=== PATIENT | male | born 1955 | race Caucasian/White ===

== ENCOUNTER 2016-10-07 09:07 | Emergency (ER) | payer OTHER ==
[~2016-10-07] VITALS: Ht 172.7 cm; Wt 82.0 kg
[~2016-10-07 09:07] MED LIST: ASPCH81X PO; CALC-15 PO; CANA1TAB PO; CLC100X PO; DIVA500T5 PO; INSUINJ12 SQ; MAGN400T5 PO; MULTTAB58 PO; PANT1TAB48 PO; POLY150C4 PO; SITA100T3 PO
[2016-10-07 09:16] VITALS: TEMP 37; Ht 172.7 cm; Wt 82.0 kg
[2016-10-07] MEDS ORDERED: SODIUM CHLORIDE 0.9% 1000ML 1,000 ML IV SCH (09:31)
[2016-10-07] MEDS ORDERED: HYDR-4956 (09:47)
[2016-10-07] MEDS ORDERED: KPP/750 PO (09:47)
--- NOTE | 2016-10-07 09:55 | DIAGNOSTIC IMAGING REPORT ---
SINGLE VIEW CHEST CLINICAL HISTORY: Strokelike symptoms. FINDINGS: An AP, portable, upright chest radiograph is compared to study dated 02/11/2015. Correlation is made with chest CT dated 01/03/2009. The examination is degraded by portable technique and patient rotation. The heart is top normal for projection. Chronic interstitial thickening and mild elevation of the right hemidiaphragm are unchanged from previous. The lungs and pleural spaces are clear. No pneumothorax is seen. The bony thorax is grossly intact. Surgical clips are noted in the left axilla. A ventriculoperitoneal shunt catheter traverses the right thorax. IMPRESSION: No acute cardiopulmonary abnormality. Electronically signed by: Ward Franklin M.D. 10/07/2016 9:53 AM Dictated Date/Time: 10/07/2016 9:51 AM
[2016-10-07 10:19] LABS: BASO % 0.5 %; BASO ABS # 0.02 K/uL (0-0.2); COMPLETE YES; EOS % 1.2 %; HEMATOCRIT 47.8 % (42-52); IG% 0.2 %; LYMPH % 10.9 %; LYMPH ABS # 0.44 K/uL (1.2-3.4); MEAN CELL VOLUME 84.3 fL (80-100); MEAN CORPUSCULAR HEMOGLOBIN 28.6 pg (25-34); MEAN CORPUSCULAR HGB CONC 33.9 g/dl (32-36); MEAN PLATELET VOLUME 9.8 fL (7.4-10.4); MONO % 10.2 %; PLATELET COUNT 185 K/uL (130-400); RED BLOOD COUNT 5.67 M/uL (4.7-6.1); WHITE BLOOD COUNT 4.03 K/uL (4.8-10.8)
[2016-10-07 10:33] LABS: PARTIAL THROMBOPLASTIN RATIO 1.4
--- NOTE | 2016-10-07 10:39 | DIAGNOSTIC IMAGING REPORT ---
CT SCAN OF THE BRAIN WITHOUT IV CONTRAST CLINICAL HISTORY: Generalized weakness. Stroke like symptoms. COMPARISON STUDY: CT of the brain dated 02/11/2015. TECHNIQUE: Unenhanced axial CT scan of the brain is performed from the vertex to the skull base. CT DOSE: 614.27 mGy.cm FINDINGS: Brain parenchyma: A suboccipital approach ventriculostomy catheter and a right frontal approach ventriculostomy catheter are unchanged in position. The tips of the catheters terminate in the anterior horn of the left lateral ventricle. Ventricular caliber has not significantly changed. A chronic extra-axial fluid collection along the left convexity with peripheral calcification is unchanged to modestly decreased in size from 02/11/2015. This now measures up to 2.4 cm in maximum diameter. This causes subjacent mass effect and effaces the left lateral ventricle. Mass effect is grossly similar to previous. A 2.4 x 1.7 cm hyperdense nodule is again seen along the left convexity on image #24. This is likely unchanged from previous. There is a large gas-filled cavity identified in the right frontoparietal region. This appears increased in size from 02/11/2015. No parenchymal hematoma is identified. There is edema identified within the right parietal region which was not clearly seen on prior studies. There are age-related involutional changes noting mild subcortical and periventricular microangiopathic change. Dense calcification in the region of pineal gland is unchanged. Ventricles, sulci, cisterns: Prominent secondary to involutional change. See above. Intracranial vasculature: There is mild atherosclerotic calcification of the cavernous carotid arteries. Calvarium: There are postoperative changes from left-sided craniotomy and right parietal craniectomy. A right frontal fransico hole is noted. Sinuses and mastoids: The visualized paranasal sinuses are clear. The mastoid air cells are well pneumatized. Orbits: The bony orbits are grossly intact. IMPRESSION: 1. Two ventriculostomy catheters are unchanged in position from 02/11/2015. Ventricular caliber has not significantly changed. 2. A chronic extra-axial fluid collection along the left convexity with associated mass effect is also similar to previous. 3. A 2.4 cm hyperdense lesion along the left convexity is grossly unchanged. 4. There are postoperative changes involving the calvarium bilaterally. A gas containing cavity along the right frontoparietal region has increased in size from 02/11/2015. 5. There is edema identified within the right parietal region which is new from 02/11/2015. This is of indeterminant etiology and significance, and may be related to the enlarging gas-filled cavity. The overlying cortex appears maintained and this is not typical for ischemia. Clinical correlation will be required. Follow-up of the patient's neurosurgeon is recommended. 6. No parenchymal hematoma is identified. 7. Additional changes as above. Electronically signed by: Ward Franklin M.D. 10/07/2016 10:37 AM Dictated Date/Time: 10/07/2016 10:23 AM
[2016-10-07 10:40] LABS: BLOOD UREA NITROGEN 10 mg/dl (7-18); BUN/CREATININE RATIO 18.2 (10-20); CALCIUM 10.2 mg/dl (8.5-10.1); CARBON DIOXIDE 26 mmol/L (21-32); CHLORIDE 104 mmol/L (98-107); CREATININE 0.55 mg/dl (0.60-1.40); GLUCOSE 129 mg/dl (70-99); POTASSIUM 4.1 mmol/L (3.5-5.1); SODIUM 141 mmol/L (136-145)
--- NOTE | 2016-10-07 11:06 | EMERGENCY ROOM VISIT NOTE ---
History Report prepared by Fabio: Isidra Jain Under the Supervision of: Dr. Segundo Hahn M.D. First contact with patient: 09:09 Stated Complaint: INCREASED WEAKNESS History of Present Illness The patient is a 61 year old male arriving by ambulance from [facility] who presents to the Emergency Room with complaints of increased weakness to the right side of his body, which was noticed by caregiver earlier this morning. Currently, patient denies being in any discomfort, and he has no complaints at this time. Patient states that he suffers from chronic left sided weakness secondary to history of multiple surgeries to his head, but while caregiver was helping him shower this morning, his right side seemed to have become more weak than baseline. Nursing notes also state that his right side appeared to be "twitching". He does have a history of seizures and takes Depakote regularly. Patient is unable to stand on his own, but he denies suffering recent falls or trauma. He also denies LOC, change in speech, visual difficulties above baseline , headache, change in mental status, fevers, chills, chest pain, shortness of breath, abdominal pain, nausea, vomiting, diarrhea or urinary symptoms. Source of History: patient, [facility] notes Onset: this morning Position: other (right side) Symptom Intensity: no current discomfort Quality: other (weakness) Timing: other (increased) Associated Symptoms: No LOC, No SOB, No abdominal pain, No chest pain, No chills, No diarrhea, No fevers, No headache, No nausea, No urinary symptoms, No vomiting Note: Patient denies change in mental status, change in speech or visual difficulties. Review of Systems See HPI for pertinent positives & negatives. A total of 10 systems reviewed and were otherwise negative. 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 Family History No significant family history Social History Smoking Status: Former Smoker Alcohol Use: none Housing Status: penitent[facility] Occupation Status: unemployed Current/Historical Medications Scheduled Calcium & Phosphorus W/ Vitami (Posture-D Calcium/Magnesi), 1 TAB PO QPM Canagliflozin (Invokana), 100 MG PO QAM Divalproex Sodium (Depakote Delay Rel), 500 MG PO TID Docusate Sodium (Colace), 100 MG PO AMHS Insulin Detmir (Levemir), 18 UNITS SQ HS Levetiracetam (Keppra), 750 MG PO Q12 Magnesium Oxide (Mag-Ox), 400 MG PO BID Multiple Vitamin (Multivitamin), 1 TABLET PO DAILY Pantoprazole (Protonix), 40 MG PO QAM Polysaccharide Iron Complex (Ferrex 150), 150 MG PO QAM Sitagliptin Phosphate (Januvia), 100 MG PO QAM Miscellaneous Medications Hydrocortisone (Rectal) (Hydrocortisone) Allergies Coded Allergies: No Known Allergies (Verified , NKA, 10/07/16) Physical Exam Vital Signs Date Time Temp Pulse Resp B/P Pulse Ox O2 Delivery O2 Flow Rate FiO2 10/07/16 16:58 79 16 102/77 94 Room Air 10/07/16 14:45 89 16 144/81 10/07/16 14:01 89 18 117/80 10/07/16 13:00 84 16 115/68 10/07/16 12:52 86 10/07/16 11:04 75 16 130/84 10/07/16 09:19 77 10/07/16 09:16 37.0 84 16 131/93 95 Room Air Physical Exam GENERAL: Patient is resting in bed, no acute distress. HEAD: Divit present in right side of head consistent with previous brain surgery. EYES: Ocular movements intact pupils equal and react to light OROPHARYNX mucous membranes are moist no exudates present no erythema or edema present NECK: Supple no nuchal rigidity CHEST: Good equal expansion LUNGS: Clear and equal to auscultation CARDIAC: Normal S1 and S2 ABDOMEN: Soft nontender no guarding BACK: No CVA tenderness EXTREMITIES: Left side extremities are flaccid and at baseline. NEURO: Patient is following commands is answering questions appropriately. Alert and oriented x3 Cranial Nerves 2-12 grossly intact. He is unable to move the left side of his body. Medical Decision & Procedures ER Provider Diagnostic Interpretation: X-ray results as stated below per interpretation by me and the radiologist: CT results as stated below per my review and radiologist interpretation: SINGLE VIEW CHEST CLINICAL HISTORY: Stroke like symptoms. FINDINGS: An AP, portable, upright chest radiograph is compared to study dated 02/11/2015. Correlation is made with chest CT dated 01/03/2009. The examination is degraded by portable technique and patient rotation. The heart is top normal for projection. Chronic interstitial thickening and mild elevation of the right hemidiaphragm are unchanged from previous. The lungs and pleural spaces are clear. No pneumothorax is seen. The bony thorax is grossly intact. Surgical clips are noted in the left axilla. A ventriculoperitoneal shunt catheter traverses the right thorax. IMPRESSION: No acute cardiopulmonary abnormality. Electronically signed by: Ward Franklin M.D. 10/07/2016 9:53 AM Dictated Date/Time: 10/07/2016 9:[address] SCAN OF THE BRAIN WITHOUT IV CONTRAST CLINICAL HISTORY: Generalized weakness. Stroke like symptoms. COMPARISON STUDY: CT of the brain dated 02/11/2015. TECHNIQUE: Unenhanced axial CT scan of the brain is performed from the vertex to the skull base. CT DOSE: 614.27 mGy.cm FINDINGS: Brain parenchyma: A suboccipital approach ventriculostomy catheter and a right frontal approach ventriculostomy catheter are unchanged in position. The tips of the catheters terminate in the anterior horn of the left lateral ventricle. Ventricular caliber has not significantly changed. A chronic extra-axial fluid collection along the left convexity with peripheral calcification is unchanged to modestly decreased in size from 02/11/2015. This now measures up to 2.4 cm in maximum diameter. This causes subjacent mass effect and effaces the left lateral ventricle. Mass effect is grossly similar to previous. A 2.4 x 1.7 cm hyperdense nodule is again seen along the left convexity on image #24. This is likely unchanged from previous. There is a large gas-filled cavity identified in the right frontoparietal region. This appears increased in size from 02/11/2015. No parenchymal hematoma is identified. There is edema identified within the right parietal region which was not clearly seen on prior studies. There are age-related involutional changes noting mild subcortical and periventricular microangiopathic change. Dense calcification in the region of pineal gland is unchanged. Ventricles, sulci, cisterns: Prominent secondary to involutional change. See above. Intracranial vasculature: There is mild atherosclerotic calcification of the cavernous carotid arteries. Calvarium: There are postoperative changes from left-sided craniotomy and right parietal craniectomy. A right frontal fransico hole is noted. Sinuses and mastoids: The visualized paranasal sinuses are clear. The mastoid air cells are well pneumatized. Orbits: The bony orbits are grossly intact. IMPRESSION: 1. Two ventriculostomy catheters are unchanged in position from 02/11/2015. Ventricular caliber has not significantly changed. 2. A chronic extra-axial fluid collection along the left convexity with associated mass effect is also similar to previous. 3. A 2.4 cm hyperdense lesion along the left convexity is grossly unchanged. 4. There are postoperative changes involving the calvarium bilaterally. A gas containing cavity along the right frontoparietal region has increased in size from 02/11/2015. 5. There is edema identified within the right parietal region which is new from 02/11/2015. This is of indeterminant etiology and significance, and may be related to the enlarging gas-filled cavity. The overlying cortex appears maintained and this is not typical for ischemia. Clinical correlation will be required. Follow-up of the patient's neurosurgeon is recommended. 6. No parenchymal hematoma is identified. 7. Additional changes as above. Electronically signed by: Ward Franklin M.D. 10/07/2016 10:37 AM Dictated Date/Time: 10/07/2016 10:23 AM Laboratory Results 10/07/16 09:50 Red Blood Count 5.67, Mean Corpuscular Volume 84.3, Mean Corpuscular Hemoglobin 28.6, Mean Corpuscular Hemoglobin Concent 33.9, Mean Platelet Volume 9.8, Neutrophils (%) (Auto) 77.0, Lymphocytes (%) (Auto) 10.9, Monocytes (%) (Auto) 10.2, Eosinophils (%) (Auto) 1.2, Basophils (%) (Auto) 0.5, Neutrophils # (Auto ) 3.10, Lymphocytes # (Auto) 0.44, Monocytes # (Auto) 0.41, Eosinophils # (Auto ) 0.05, Basophils # (Auto) 0.02 10/07/16 09:50 Test 10/07/16 09:50 10/07/16 09:56 White Blood Count 4.03 K/uL (4.8-10.8) Red Blood Count 5.67 M/uL (4.7-6.1) Hemoglobin 16.2 g/dL (14.0-18.0) Hematocrit 47.8 % (42-52) Mean Corpuscular Volume 84.3 fL (80-100) Mean Corpuscular Hemoglobin 28.6 pg (25-34) Mean Corpuscular Hemoglobin Concent 33.9 g/dl (32-36) Platelet Count 185 K/uL (130-400) Mean Platelet Volume 9.8 fL (7.4-10.4) Neutrophils (%) (Auto) 77.0 % Lymphocytes (%) (Auto) 10.9 % Monocytes (%) (Auto) 10.2 % Eosinophils (%) (Auto) 1.2 % Basophils (%) (Auto) 0.5 % Neutrophils # (Auto) 3.10 K/uL (1.4-6.5) Lymphocytes # (Auto) 0.44 K/uL (1.2-3.4) Monocytes # (Auto) 0.41 K/uL (0.11-0.59) Eosinophils # (Auto) 0.05 K/uL (0-0.5) Basophils # (Auto) 0.02 K/uL (0-0.2) RDW Standard Deviation 46.2 fL (36.4-46.3) RDW Coefficient of Variation 15.1 % (11.5-14.5) Immature Granulocyte % (Auto) 0.2 % Immature Granulocyte # (Auto) 0.01 K/uL (0.00-0.02) Prothrombin Time 11.0 SECONDS (9.0-12.0) Prothromb Time International Ratio 1.0 (0.9-1.1) Activated Partial Thromboplast Time 37.3 SECONDS (21.0-31.0) Partial Thromboplastin Ratio 1.4 Anion Gap 11.0 mmol/L (3-11) Est Creatinine Clear Calc Drug Dose 138.1 ml/min Estimated GFR () 131.3 Estimated GFR (Non- 113.3 BUN/Creatinine Ratio 18.2 (10-20) Calcium Level 10.2 mg/dl (8.5-10.1) Total Creatine Kinase 16 U/L (39-308) Creatine Kinase MB < 0.5 ng/ml (0.5-3.6) Creatine Kinase MB Ratio (0-3.0) Troponin I < 0.015 ng/ml (0-0.045) Valproic Acid (Depakene) Level 47 mcg/ml (50-100) Influenza Type A (RT-PCR) Neg for Influ A (NEG) Influenza Type B (RT-PCR) Neg for Influ B (NEG) Labs reviewed by ED physician. Medications Administered Medications (Trade) Dose Ordered Sig/Monalisa Route Start Time Stop Time Status Last Admin Dose Admin Sodium Chloride (Nss 1000ml) 1,000 ml @ 50 mls/hr Q20H IV 10/07/16 09:31 10/07/16 17:39 DC 10/07/16 09:31 50 MLS/HR ECG Indication: weakness Rate (beats per minute): 77 Rhythm: normal sinus Findings: no acute ischemic change, no ectopy Change: no significant change (when compared to EKG from 02/11/15.) ED Course 0908: Past medical records reviewed. The patient was evaluated in room B3. A complete history and physical examination was performed. 1100: Upon reevaluation, patient was doing well and appeared to be resting comfortably. He was requesting a meal tray. It will be ordered. Neuro surgery in [place] will be contacted. 1120: Jake Peterson PA-C of neurosurgery from [place] was contacted. They will call back for consult after they finish in surgery. 1200: I reevaluated the patient at this time and he was doing well. I updated him on my discussion with Jake NICHOLS and told him that we are waiting for a call back from neurosurgery. Medical Decision Etiologies such as metabolic, infection, hypo/hyperglycemia, electrolyte abnormalities, cardiac sources, intracerebral event, toxicologic, neurologic, as well as others were entertained. This is a 61-year-old male who presents emergency department complaining of right-sided twitching that appears to have resolved upon his arrival to the emergency department. The patient has a very complicated medical history in regards to his brain. He is onto antiseizure medications including Keppra and valproic acid. Both of these levels were drawn. The patient was last sent to [place] for the CAT scan of his head which showed gas. The gas has increased in size. For this reason I did discuss the case with neurosurgery and [place]. I do believe that the patient as well as that he can be [facility] back to his [facility] as his symptoms seem to have resolved however I stressed the need for follow-up with neurosurgery and [place]. I did discuss the case with the neurosurgeon in [place] who agreed with the treatment plan of sending the patient back Consults Time Called: 1100 Consulting Physician: Jake Hamilton Returned Call: 1120 They will call back for consult after they finish in surgery. Impression Primary Impression: Seizure-like activity Scribe Attestation The scribe's documentation has been prepared under my direction and personally reviewed by me in its entirety. I confirm that the note above accurately reflects all work, treatment, procedures, and medical decision making performed by me. Departure Information Dispostion Other Referrals Jack Farley M.D. (PCP)
[2016-10-07 11:46] LABS: INFLUENZA A PCR Neg for Influ A (NEG); INFLUENZA B PCR Neg for Influ B (NEG)
[2016-10-07 16:58] VITALS: BP 102/77; PULSE 79; O2SAT 94
== END 2016-10-07 17:00 ==
LOC: EDBD 09:07 → C.EDB 09:08
DX: R25.3 Fasciculation (principal); G40.909 Epilepsy, unspecified, not intractable, without status epilepticus; E11.9 Type 2 diabetes mellitus without complications; Z86.69 Personal history of other diseases of the nervous system and sense organs; Z86.72 Personal history of thrombophlebitis; Z87.891 Personal history of nicotine dependence; Z79.4 Long term (current) use of insulin; Z79.899 Other long term (current) drug therapy

== ENCOUNTER → 2017-12-16 | Day surgery (SDC) | payer OTHER ==
[2017-11-25 09:54] VITALS: Ht 172.7 cm; Wt 80.9 kg
[~2017-12-16] VITALS: Ht 172.7 cm; Wt 80.9 kg
[~2017-12-16] MED LIST changes: -ASPCH81X PO; +BACIOIN2 TOP; -CALC-15 PO; -CLC100X PO; +DOCU100C PO; +HYDR-4956; -INSUINJ12 SQ; +KETO2SHA TOP; +KPP/750 PO; +LIDOCAINE HCL 2% 2 ML VIAL (20MG/ML) ONE; +LVMI SC; -PANT1TAB48 PO; +PROPOFOL IV EMULSION 10 MG/ML 20 ML VIAL IV ONE; +RANI150T85 PO; +SERT50TA PO
--- NOTE | 2017-12-16 11:56 | Endo History and Physical ---
History & Physical Date of Service: Dec 16, 2017. Chief Complaint: history of polyps Referring Physician: Dr. Boris Sandoval History of Present Illness h./o polyps Past Surgical History Hx Cardiac Surgery: No Hx Internal Defibrillator: No Hx Pacemaker: No Hx Abdominal Surgery: No Hx of Implantable Prosthesis: No Hx Post-Op Nausea and Vomiting: No Hx Cancer Surgery: Yes (MULTIPLE SKIN CANCER EXCISIONS, BRAIN TUMOR REMOVED AGE 8) Hx Thoracic Surgery: No Hx Orthopedic: No Hx Urinary Tract Surgery: No (BRAIN SHUNT X2 (AGE 8 AND 1996)) Family History Colon CA Social History Smoking Status: Former Smoker Hx Substance Use: No Hx Alcohol Use: No Allergies Coded Allergies: No Known Allergies (Verified , NKA, 11/25/17) Current Medications Reported Home Medications Medications Dose Route/Sig Max Daily Dose Days Date Category Ketoconazole (Ketoconazole (Topical)) 2 % Sha 1 Appln TOP UD 11/25/17 Reported Polysporin (Bacitracin/Polymyxin B Sulfate) Oint 1 Dose TOP UD PRN 11/25/17 Reported Levemir (Insulin Detemir) 100 Units/Ml Inj 25 Units SC QPM 11/25/17 Reported Zantac (Ranitidine HCl) 150 Mg Tab 150 Mg PO BID 11/25/17 Reported Stool Softener (Docusate Sodium) 100 Mg Cap 1 Cap PO BID 11/25/17 Reported Zoloft (Sertraline HCl) 50 Mg Tab 50 Mg PO QPM 11/25/17 Reported Hydrocortisone (Hydrocortisone (Rectal)) 2.5 % Cre 10/07/16 Reported Keppra (Levetiracetam) 750 Mg Tab 750 Mg PO BID 10/07/16 Reported Invokana (Canagliflozin) 100 Mg Tab 100 Mg PO QAM 02/11/15 Reported Januvia (Sitagliptin Phosphate) 100 Mg Tab 100 Mg PO QAM 02/11/15 Reported Mag-Ox (Magnesium Oxide) 400 Mg Tab 400 Mg PO QAM 02/11/15 Reported Ferrex 150 (Polysaccharide Iron Complex) 150 Mg Cap 150 Mg PO QAM 02/11/15 Reported Multivitamin (Multiple Vitamin) 1 Tab Tab 1 Tablet PO QPM 07/22/13 Reported Depakote Delay Rel (Divalproex Sodium) 500 Mg Tab 500 Mg PO TID 07/22/13 Reported Vital Signs Weight (Kilograms): 80.91 Height (Feet): 5 Height (Inches): 8 Date Time Temp Pulse Resp B/P (MAP) Pulse Ox O2 Delivery O2 Flow Rate FiO2 12/16/17 11:37 36.5 84 20 113/81 (92) 95 Room Air Physical Exam General Appearance: WD/WN, no apparent distress Assessment and Plan colonoscopy today
--- NOTE | 2017-12-16 12:41 | GI REPORT ---
Procedure Date: 12/16/2017 11:45 AM Procedure: Colonoscopy Indications: Screening in patient at increased risk: Colorectal cancer in mother 60 or older, Screening in patient at increased risk: Colorectal cancer in father 60 or older Medicines: Propofol per Anesthesia Complications: No immediate complications. Estimated blood loss: None. Estimated Blood Loss: Estimated blood loss: none. Procedure: Pre-Anesthesia Assessment: - Prior to the procedure, a History and Physical was performed, and patient medications, allergies and sensitivities were reviewed. The patient's tolerance of previous anesthesia was reviewed. - The risks and benefits of the procedure and the sedation options and risks were discussed with the patient. All questions were answered and informed consent was obtained. - Patient identification and proposed procedure were verified prior to the procedure by the physician and the nurse. The procedure was verified in the pre-procedure area in the procedure room. - Mental Status Examination: alert and oriented. Airway Examination: normal oropharyngeal airway and neck mobility. Respiratory Examination: clear to auscultation. CV Examination: normal. Abdominal Examination: bowel sounds present, abdomen soft and non-tender, no masses or organomegaly noted. - ASA Grade Assessment: III - A patient with severe systemic disease. After I obtained informed consent, the scope was passed under direct vision. Throughout the procedure, the patient's blood pressure, pulse, and oxygen saturations were monitored continuously. The Scope was introduced through the anus and advanced to the terminal ileum. The colonoscopy was performed without difficulty. The patient tolerated the procedure well. The quality of the bowel preparation was good. Findings: The perianal and digital rectal examinations were normal. Pertinent negatives include normal sphincter tone and no palpable rectal lesions. The terminal ileum appeared normal. The entire examined colon appeared normal on direct and retroflexion views. Impression: - The examined portion of the ileum was normal. - The entire examined colon is normal on direct and retroflexion views. - No specimens collected. Recommendation: - Repeat colonoscopy in 5 years for screening purposes. - Return to referring physician as previously scheduled. - Discharge patient to home. Kelly Valadez D.O. Kelly Valadez DO 12/16/2017 12:40:41 PM This report has been signed electronically. Note Initiated On: 12/16/2017 11:45 AM I attest to the content of the Intraoperative Record and orders documented therein, exceptions below
--- NOTE | 2017-12-16 12:41 | Discharge Instructions ---
Endoscopy Patient Instructions Date / Procedure(s) Performed Dec 16, 2017. Colonoscopy Allergy Information Coded Allergies: No Known Allergies (Verified , NKA, 11/25/17) Discharge Date / Findings Dec 16, 2017. normal colonoscopy Medication Instructions Stopped Medication(s): stopped ferrex one week ago Restart Stopped Medication(s): OK to resume all home medications Provider Instructions Activity Restrictions - No exercising or heavy lifting for 24 hours. - Do not drink alcohol the day of the procedure. - Do not drive a car or operate machinery until the day after the procedure. - Do not make any important decisions or sign important papers in 24 hours after the procedure. Following Day: - Return to full activity which may include returning to work/school. Diet Start your diet with liquids and light foods (jello, soup, juice, toast). Then eat your usual diet if not nauseated. Treatment For Common After Affects For mild abdominal pain, bloating, or excessive gas: - Rest - Eat lightly - Lie on right side Follow-Up Information Follow-up with Dr. Boris Sandoval as scheduled Anesthesia Information What You Should Know You have had a procedure that required some medicine to reduce anxiety and discomfort. This treatment is called moderate sedation. After receiving the treatment, you may be sleepy, but you will be able to breathe on your own. The effects of the treatment may last for several hours. Follow these instructions along with Activity/Diet recommendations noted above: * Do NOT do anything where dizziness or clumsiness would be dangerous. * Rest quietly at home today, then you can be up and about tomorrow. * Have a responsible person stay with you the rest of today. * You may have had an I.V. today. If so, you may take the dressing off later today. Recommendations Call your doctor if: * Trouble breathing * Continuous vomiting for more than 24 hours * Temperature above 101 degrees * Severe abdominal pain or bloating * Pain not relieved by pain medicine ordered * There is increased drainage or redness from any incision * A large amount of rectal bleeding greater than 2-3 tablespoons. (If you had a polyp/s removed or have hemorrhoids, a small amount of blood - from the rectum is to be expected.) * You have any unanswered questions or concerns. IN THE EVENT OF A SERIOUS EMERGENCY, GO TO THE NEAREST EMERGENCY ROOM Your discharge instructions were prepared by provider Kelly Valadez. Patient Instructions Signature Page Navneet Ferguson Patient (or Guardian) Signature/Date: I have read and understand the instructions given to me by my caregivers. Caregiver/RN/Doctor Signature/Date: The above-named patient and/or guardian has received patient instructions on this date. + Original Patient Signature Page (only) stays with chart. Please make copy for patient.
[2017-12-16 13:10] VITALS: BP 113/79; PULSE 69; O2SAT 94
--- NOTE | 2017-12-16 13:10 | Anesthesiology Progress Note ---
Anesthesia Post Op Note Date & Time Dec 16, 2017 at 13:10 Vital Signs Pain Intensity: 0 Vital Signs Past 12 Hours Date Time Temp Pulse Resp B/P (MAP) Pulse Ox O2 Delivery O2 Flow Rate FiO2 12/16/17 12:55 65 18 121/84 (96) 95 Room Air 12/16/17 12:38 36.7 77 16 147/75 (99) 95 Room Air 12/16/17 11:37 36.5 84 20 113/81 (92) 95 Room Air Notes Mental Status: alert / awake / arousable, participated in evaluation Pt Amnestic to Procedure: Yes Nausea / Vomiting: adequately controlled Pain: adequately controlled Airway Patency, RR, SpO2: stable & adequate BP & HR: stable & adequate Hydration State: stable & adequate Anesthetic Complications: no major complications apparent
== END | disposition home or self-care (01) ==
LOC: C.GI 11:02
PROVIDERS: ATTEND Internal Medicine Gastroenterology
DX: Z12.11 Encounter for screening for malignant neoplasm of colon (principal); Z86.010 Personal history of colon polyps; E11.9 Type 2 diabetes mellitus without complications; Z85.841 Personal history of malignant neoplasm of brain; Z85.828 Personal history of other malignant neoplasm of skin; Z98.890 Other specified postprocedural states; Z79.4 Long term (current) use of insulin; Z79.899 Other long term (current) drug therapy; Z87.891 Personal history of nicotine dependence; Z86.73 Personal history of transient ischemic attack (TIA), and cerebral infarction without residual deficits; Z80.0 Family history of malignant neoplasm of digestive organs

== ENCOUNTER 2019-02-17 07:13 | Inpatient (IN) ==
[2019-02-17] MEDS ORDERED: SODIUM CHLORIDE 0.9% 1000ML 2,000 ML IV ONE (07:15)
--- OUTSIDE RECORDS SUMMARY | 2019-02-17 07:17 | External Medical Summary | Continuity of Care Document ---
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) Wound, open, scalp with complication (873.1) (S01.00XA) Exposed orthopaedic hardware (996.49) (T84.498A) Allergies and Adverse Reactions No Known Drug Allergies (Allergy) Medications Multivitamins TABS Refills: 0 Vitamin D TABS Refills: 0 Lisinopril TABS Refills: 0 Invokana TABS Refills: 0 Januvia TABS Refills: 0 Depakote TBEC Refills: 0 Procedures History of Craniotomy (Diagnostic) Statu s: Completed History of Creation Of Ventriculo-Peritoneal CSF Shunt Status: Completed Immunizations Immunizations not documented Family History Unknown Family Member No pertinent family history (V49.89) (Z78.9) Status: Active Comments: Family History Social History - Smoking Status Former smoker Plan of Treatment Planned Observations Planned Goals not documented Results No Known Results Results not documented
[2019-02-17] MEDS ORDERED: VANCOMYCIN HCL 1,500 MG in SODIUM CHLORIDE 0.9% 500 ML IV ONE (07:33)
[2019-02-17] MEDS ORDERED: PIPERACILL/TAZOBAC CONSULT ACTIVE PRN ×2 (07:33→12:39)
[2019-02-17] MEDS ORDERED: VANCOMYCIN CONSULT ACTIVE PRN ×2 (07:33→12:39)
[2019-02-17] MEDS ORDERED: PIPERACILLIN/TAZOBACTAM 4.5 GM/120 ML BAG IV ONE (07:33)
[2019-02-17] MEDS ORDERED: ACETAMINOPHEN 1,000 MG/100 ML VIAL IV STA (07:33)
[2019-02-17 08:00] LABS: Basophils # (auto) 0.01 K/uL (0-0.2); Basophils % (auto) 0.2 %; Hematocrit (blood only) 44.1 % (42-52); Hemoglobin 14.8 g/dL (14.0-18.0); Immature Granulocytes # (auto) 0.02 K/uL (0.00-0.02); Immature Granulocytes % (auto) 0.4 %; Lymphocytes # (auto) 0.15 K/uL (1.2-3.4); Lymphocytes % (auto) 2.6 %; Mean Corpuscular Hgb Conc 33.6 g/dL (32-36); Mean Corpuscular Volume 84.5 fL (80-100); Mean Platelet Volume 9.4 fL (7.4-10.4); Monocytes # (auto) 0.76 K/uL (0.11-0.59); Monocytes % (auto) 13.4 %; Neutrophils # (auto) 4.75 K/uL (1.4-6.5); Neutrophils % (auto) 83.4 %; Platelet Count 160 K/uL (130-400); RDW Coefficient of Variation 16.5 % (11.5-14.5); RDW Standard Deviation 51.5 fL (36.4-46.3); Red Blood Count 5.22 M/uL (4.7-6.1); White Blood Count 5.69 K/uL (4.8-10.8)
[2019-02-17 08:13] LABS: INR 1.2 (0.9-1.1); Partial Thromboplastin Ratio 1.3; Partial Thromboplastin Time 35.9 Seconds (21.0-31.0)
[2019-02-17 08:20] LABS: Albumin Level 3.6 gm/dl (3.4-5.0); BUN Creatinine Ratio 11.6 (10-20); Calcium 9.9 mg/dl (8.5-10.1); Creatinine Clr Calc Pharmacy 104.4 ml/min; Est GFR (African American) 116.5; Est GFR (Non-African American) 100.6; Potassium 3.6 mmol/L (3.5-5.1)
[2019-02-17 08:23] LABS: Albumin Globulin Ratio 0.8 (0.9-2); Bilirubin,Total 1.2 mg/dl (0.2-1); Globulin 4.6 gm/dl (2.5-4.0); Total Protein 8.2 gm/dl (6.4-8.2)
--- NOTE | 2019-02-17 08:28 | CT Scan Report ---
CT head/brain wo con CLINICAL HISTORY: 63 years-old Male presenting with ams. TECHNIQUE: Multidetector CT imaging of the head was performed without the use of intravenous contrast . IV contrast: None. One or more dose lowering techniques were used consistent with the principles of ALARA (as low as reasonably achievable), including automatic exposure control, mA or kV adjustment t o individual patient size, and/or use of iterative reconstruction. COMPARISON: 10/07/2016. CT DOSE (mGy.cm): The estimated cumulative dose is 823.12 mGy.cm. FINDINGS: Language Pathologist topogram: Significant defect in the cranium with evidence of a craniectomy and mesh placement. Ventriculostomy shunts in place. External ventricular drains, one with a right transfrontal approach terminating in the region of the foramen of Ruth and the second with a right transoccipital approach also terminating in the region of the foramen of Ruth. Ventricular system is significantly decompressed relative to prior exam. Prominent calcification in the region of the cranial gland. No hemorrhage. No acute territorial infar ct. No mass effect or midline shift. Large postsurgical defect in the right frontoparietal region consistent with a resection cavity. Ther e is an overlying craniectomy defect. Subcutaneous fat may line this cavity. The appearance of the coelho bjacent right parietotemporal region is unchanged in appearance (series 2 image 19). Chronic extra-axial fluid collection along the left frontoparietal vertex with an internal nodular fo cus of hyperdensity measuring 2 cm. The fluid collection measures up to 2.7 cm in thickness similar t o prior exam. Peripheral calcification again noted. Overlying right frontal parietal craniectomy with a prosthetic mesh in place. No evidence of an acute subdural hematoma. Paranasal sinuses and mastoid air cells clear. Hyperdensities along the left posterior lateral aspect of the thecal sac at the level of C1. A possible defect in the posterior arch of C1 is noted. This i s unchanged from prior. IMPRESSION: 1. Interval ventricular system decompression. Otherwise stable examination with extensive postsurgic al changes as above. No evidence of acute hemorrhage. Electronically signed by: Lg Montiel M.D. 02/17/2019 8:26 AM
--- NOTE | 2019-02-17 08:40 | XRay Report ---
XR chest 1V portable HISTORY: Sepsis COMPARISON: Chest 10/07/2016. FINDINGS: No focal lung consolidations to suggest pneumonia. No pneumothorax. No pleural effusions. T he heart is normal in size. No evidence for pulmonary edema. Right-sided shunt catheter is again note d and appears intact. IMPRESSION: No significant change compared to the prior study. No acute process. Electronically signed by: Vamshi Perea M.D. 02/17/2019 8:39 AM
[2019-02-17 09:01] LABS: Appearance Urine Clear (Clear); Bilirubin Urine Negative (Negative); Blood Urine Negative (Negative); Color Urine Yellow; Glucose Urine UA 3+ (Negative); Ketones Urine 1+ (Negative); Leukocyte Esterase Urine Negative (Negative); Nitrite Urine Negative (Negative); Protein Urine Negative (Negative); Specific Gravity Urine 1.035 (1.000-1.030); Urobilinogen Urine Negative (Negative); pH Urine 6.5 (4.5-7.5)
[2019-02-17] MEDS ORDERED: SODIUM CHLORIDE 0.9% 500 ML IV SCH (09:30)
--- NOTE | 2019-02-17 09:43 | Emergency Department Note ---
Entered by Julissa Vaughan acting as a scribe for History of Present Illness General Chief complaint: Altered Mental Status Source: patient Mode of arrival: EMS Limitations: altered mental status History of Present Illness Provider complaint: AMS Location: head Pain Consistency: + other (episode) Quality: + other (AMS) Associated symptoms: + confusion, + fever/chills, + nausea/vomiting and + shortness of breath The patient is a 63 year old male with a past medical history of diabetes, hypertension, seizures and a brain tumor who presents to the ER via EMS from [facility] for an evaluation of altered mental status. Per RN, the patient did have two episodes of vomiting yesterday and was febrile today. The RN also reports that the patient was referred here for confusion and hypoxia. Home Medications Home Medications Medication Instructions Recorded Confirmed Type acetaminophen [Tylenol] 650 mg PO Q4H PRN 02/17/19 02/17/19 History aspirin 81 mg PO QAM 02/17/19 02/17/19 History bacitracin zinc 1 applic TOPICAL DAILY 02/17/19 02/17/19 History canagliflozin [Invokana] 100 mg PO QDB 02/17/19 02/17/19 History cephalexin 500 mg PO TID 02/17/19 02/17/19 History cholecalciferol (vitamin D3) 1,000 unit PO QAM 02/17/19 02/17/19 History [Vitamin D3] divalproex 500 mg PO TID 02/17/19 02/17/19 History docusate sodium [Colace] 100 mg PO BID 02/17/19 02/17/19 History fenofibrate nanocrystallized 145 mg PO QAM 02/17/19 02/17/19 History hydrocortisone 1 applic TOPICAL BID 02/17/19 02/17/19 History insulin detemir U-100 [Levemir 14 unit SUBCUT HS 02/17/19 02/17/19 History U-100 Insulin] iron, carbonyl [Feosol] 45 mg PO 3XWK 02/17/19 02/17/19 History ketoconazole 1 applic TOPICAL 2XWK 02/17/19 02/17/19 History levetiracetam 750 mg PO Q12 02/17/19 02/17/19 History magnesium oxide 400 mg PO BID 02/17/19 02/17/19 History polysaccharide iron complex 150 mg PO PM 02/17/19 02/17/19 History [Ferrex 150] ranitidine HCl 150 mg PO BIDM 02/17/19 02/17/19 History sertraline 25 mg PO QAM 02/17/19 02/17/19 History sertraline 50 mg PO QAM 02/17/19 02/17/19 History simvastatin 10 mg PO PM 02/17/19 02/17/19 History sitagliptin [Januvia] 100 mg PO QAM 02/17/19 02/17/19 History zinc oxide 1 applic TOPICAL QS 02/17/19 02/17/19 History Allergies Allergy/AdvReac Type Severity Reaction Status Date / Time No Known Allergies Allergy Mild NKA Verified 02/17/19 09:10 Past Med/Surg History Medical History Brain tumor (Chronic) Intracranial bleed (Resolved) Diabetes (Chronic) Hypertension (Chronic) Seizure disorder (Chronic) DVT (deep venous thrombosis) (Resolved) Surgical History History of brain surgery Social History Current Living Situation: [facility] Current Living Situation Comment: [facility] Feels Safe at Home: Yes Smoking Status: Former smoker Review of Systems Other (HPI and ROS are both limited secondary to AMS. ) Physical Exam Vital Signs Vital Signs - 24 hr 02/17/19 07:44 02/17/19 07:50 02/17/19 07:54 Temperature 38.7 C H Temperature Source Rectal Rectal Temperature - Source 1 Sepsis Recent Fever Within 48 Hours Yes Sepsis New/Unexplained Change in Mental Status Yes Sepsis Action Taken by Nursing Physician Notified Pulse Rate 112 H 100 H Pulse Rate from SpO2 Sensor 100 H Respiratory Rate 28 H 26 H Blood Pressure 116/74 122/69 Blood Pressure Mean 88 86 Pulse Oximetry 85 L 95 95 Oxygen Delivery Method Room Air Nasal Cannula Oxygen Flow Rate 2 4 02/17/19 08:00 02/17/19 08:01 02/17/19 08:19 Temperature Temperature Source Rectal Temperature - Source 1 Sepsis Recent Fever Within 48 Hours Sepsis New/Unexplained Change in Mental Status Sepsis Action Taken by Nursing Pulse Rate 95 H 92 H 87 Pulse Rate from SpO2 Sensor 95 H 87 87 Respiratory Rate 24 26 H 21 Blood Pressure 112/69 101/66 Blood Pressure Mean 83 77 Pulse Oximetry 95 95 100 Oxygen Delivery Method Nasal Cannula Nasal Cannula Oxygen Flow Rate 2 4 02/17/19 08:30 02/17/19 08:45 02/17/19 09:00 Temperature Temperature Source Rectal Temperature - Source 1 37.8 C H Sepsis Recent Fever Within 48 Hours Sepsis New/Unexplained Change in Mental Status Sepsis Action Taken by Nursing Pulse Rate 92 H 84 80 Pulse Rate from SpO2 Sensor 91 H 83 80 Respiratory Rate 17 23 20 Blood Pressure 110/67 93/62 L 98/61 L Blood Pressure Mean 81 72 73 Pulse Oximetry 100 93 96 Oxygen Delivery Method Nasal Cannula Nasal Cannula Oxygen Flow Rate 4 4 02/17/19 09:15 02/17/19 09:30 Temperature Temperature Source Rectal Temperature - Source 1 Sepsis Recent Fever Within 48 Hours Sepsis New/Unexplained Change in Mental Status Sepsis Action Taken by Nursing Pulse Rate 80 79 Pulse Rate from SpO2 Sensor 81 79 Respiratory Rate 18 23 Blood Pressure 96/61 L 94/57 L Blood Pressure Mean 72 69 Pulse Oximetry 97 96 Oxygen Delivery Method Oxygen Flow Rate GENERAL: Well appearing, well nourished, NAD, non-toxic. HEAD: Large scooped out deformity in the right parietal area. Granulation tissue in place. EYE EXAM: Normal conjunctiva. PERRL, no anisocoria and EOM's grossly intact w/o pain. OROPHARYNX: Moist mucus membranes. Grossly normal dentition. [No exudate, po sterior pharynx is clear, no tonsillar/uvular deviation or swelling.] NECK: Supple, no nuchal rigidity, no adenopathy, non-tender. no signs of meningismus. LUNGS: Mild coarse breath sounds throughout. Normal chest wall mechanics. HEART: Tachycardic and regular, no MRG. ABDOMEN: Abdomen soft, non-tender, normo-active bowel sounds, no masses, no rebound or guarding. BACK: No CVA TTP. SKIN: No rashes and no bruising. UPPER EXTREMITIES: Upper extremities are grossly normal. LOWER EXTREMITIES: No pitting edema. No calf pain. Cellulitis to the right first toe. NEURO EXAM:Awake, alert, follows basic commands. Left-sided hemiparesis, moves right upper and right lower extremity. Course 0727: Past medical records reviewed. The patient was evaluated in room A9B. A complete history and physical examination was performed. 0914: I discussed the patients case [facility]. She, in conjunction with Dr. Milton, will evaluate the patient for further management. Administered Medications Vancomycin HCl 1,500 mg/ (Sodium Chloride) 530 mls @ 200 mls/hr IV NOW ONE; Protocol Stop: 02/17/19 10:11 Last Admin: 02/17/19 08:32 Dose: 200 mls/hr Documented by: [id number] Discontinued Medications Sodium Chloride (Nss 1000ml) 2,000 mls @ 999 mls/hr IV .Q2H1M ONE Stop: 02/17/19 09:15 Last Admin: 02/17/19 07:40 Dose: 999 mls/hr Documented by: [id number] Piperacillin Sod/Tazobactam Sod (Zosyn) 4.5 gm in 120 mls @ 240 mls/hr IV NOW ONE Stop: 02/17/19 08:02 Last Infusion: 02/17/19 08:31 Dose: 0 mls/hr Documented by: [id number] Admin: 02/17/19 08:01 Dose: 240 mls/hr Documented by: [id number] Acetaminophen (Ofirmev) 1,000 mg in 100 mls @ 400 mls/hr IV NOW STA Stop: 02/17/19 07:47 Last Infusion: 02/17/19 08:15 Dose: 0 mls/hr Documented by: [id number] Admin: 02/17/19 08:00 Dose: 400 mls/hr Documented by: [id number] Medical Decision Making Medical Records Attestation: I reviewed the patient's medical records. Home Medications Current Medication List: was personally reviewed by me Laboratory Data Attestation: I reviewed the patient's lab results. Result diagrams: 02/17/19 07:47 02/17/19 07:47 Lab Results 02/17/19 02/17/19 02/17/19 Range/Units 07:45 07:47 07:47 WBC 5.69 (4.8-10.8) K/uL RBC 5.22 (4.7-6.1) M/uL Hgb 14.8 (14.0-18.0) g/dL Hct 44.1 (42-52) % MCV 84.5 (80-100) fL MCH 28.4 (25-34) pg MCHC 33.6 (32-36) g/dL RDW Std Deviation 51.5 H (36.4-46.3) fL RDW Coeff of Kg 16.5 H (11.5-14.5) % Plt Count 160 (130-400) K/uL MPV 9.4 (7.4-10.4) fL Immature Gran % (Auto) 0.4 % Neut % (Auto) 83.4 % Lymph % (Auto) 2.6 % Lynn % (Auto) 13.4 % Eos % (Auto) 0.0 % Baso % (Auto) 0.2 % Immature Gran # (Auto) 0.02 (0.00-0.02) K/uL Neut # (Auto) 4.75 (1.4-6.5) K/uL Lymph # (Auto) 0.15 L (1.2-3.4) K/uL Lynn # (Auto) 0.76 H (0.11-0.59) K/uL Eos # (Auto) 0.00 (0-0.5) K/uL Baso # (Auto) 0.01 (0-0.2) K/uL PT 12.0 (9.0-12.0) Seconds INR 1.2 H (0.9-1.1) APTT 35.9 H (21.0-31.0) Seconds PTT Ratio 1.3 Sodium (136-145) mmol/L Potassium (3.5-5.1) mmol/L Chloride (98-107) mmol/L Carbon Dioxide (21-32) mmol/L Anion Gap (3-11) BUN (7-18) mg/dl Creatinine (0.6-1.4) mg/dl Est Cr Clr Drug Dosing ml/min Est GFR ( Amer) Est GFR (Non-Af Amer) BUN/Creatinine Ratio (10-20) Glucose (70-99) mg/dl POC Glucose 167 H (70-99) Lactate (0.4-2.0) mmol/L Calcium (8.5-10.1) mg/dl Total Bilirubin (0.2-1) mg/dl AST (15-37) U/L ALT (12-78) U/L Alkaline Phosphatase (45-117) U/L Total Protein (6.4-8.2) gm/dl Albumin (3.4-5.0) gm/dl Globulin (2.5-4.0) gm/dl Albumin/Globulin Ratio (0.9-2) Procalcitonin (0-0.5) ng/ml Urine Color Urine Appearance (Clear) Urine pH (4.5-7.5) Ur Specific [place] (1.000-1.030) Urine Protein (Negative) Urine Glucose (UA) (Negative) Urine Ketones (Negative) Urine Blood (Negative) Urine Nitrite (Negative) Urine Bilirubin (Negative) Urine Urobilinogen (Negative) Ur Leukocyte Esterase (Negative) 02/17/19 02/17/19 02/17/19 Range/Units 07:47 07:47 07:47 WBC (4.8-10.8) K/uL RBC (4.7-6.1) M/uL Hgb (14.0-18.0) g/dL Hct (42-52) % MCV (80-100) fL MCH (25-34) pg MCHC (32-36) g/dL RDW Std Deviation (36.4-46.3) fL RDW Coeff of Kg (11.5-14.5) % Plt Count (130-400) K/uL MPV (7.4-10.4) fL Immature Gran % (Auto) % Neut % (Auto) % Lymph % (Auto) % Lynn % (Auto) % Eos % (Auto) % Baso % (Auto) % Immature Gran # (Auto) (0.00-0.02) K/uL Neut # (Auto) (1.4-6.5) K/uL Lymph # (Auto) (1.2-3.4) K/uL Lynn # (Auto) (0.11-0.59) K/uL Eos # (Auto) (0-0.5) K/uL Baso # (Auto) (0-0.2) K/uL PT (9.0-12.0) Seconds INR (0.9-1.1) APTT (21.0-31.0) Seconds PTT Ratio Sodium 146 H (136-145) mmol/L Potassium 3.6 (3.5-5.1) mmol/L Chloride 113 H (98-107) mmol/L Carbon Dioxide 21 (21-32) mmol/L Anion Gap 12.0 H (3-11) BUN 8 (7-18) mg/dl Creatinine 0.71 (0.6-1.4) mg/dl Est Cr Clr Drug Dosing 104.4 ml/min Est GFR ( Amer) 116.5 Est GFR (Non-Af Amer) 100.6 BUN/Creatinine Ratio 11.6 (10-20) Glucose 176 H (70-99) mg/dl POC Glucose (70-99) Lactate 2.7 H* (0.4-2.0) mmol/L Calcium 9.9 (8.5-10.1) mg/dl Total Bilirubin 1.2 H (0.2-1) mg/dl AST 9 L (15-37) U/L ALT 19 (12-78) U/L Alkaline Phosphatase 60 (45-117) U/L Total Protein 8.2 (6.4-8.2) gm/dl Albumin 3.6 (3.4-5.0) gm/dl Globulin 4.6 H (2.5-4.0) gm/dl Albumin/Globulin Ratio 0.8 L (0.9-2) Procalcitonin 0.27 (0-0.5) ng/ml Urine Color Urine Appearance (Clear) Urine pH (4.5-7.5) Ur Specific [place] (1.000-1.030) Urine Protein (Negative) Urine Glucose (UA) (Negative) Urine Ketones (Negative) Urine Blood (Negative) Urine Nitrite (Negative) Urine Bilirubin (Negative) Urine Urobilinogen (Negative) Ur Leukocyte Esterase (Negative) 02/17/19 Range/Units 08:47 WBC (4.8-10.8) K/uL RBC (4.7-6.1) M/uL Hgb (14.0-18.0) g/dL Hct (42-52) % MCV (80-100) fL MCH (25-34) pg MCHC (32-36) g/dL RDW Std Deviation (36.4-46.3) fL RDW Coeff of Kg (11.5-14.5) % Plt Count (130-400) K/uL MPV (7.4-10.4) fL Immature Gran % (Auto) % Neut % (Auto) % Lymph % (Auto) % Lynn % (Auto) % Eos % (Auto) % Baso % (Auto) % Immature Gran # (Auto) (0.00-0.02) K/uL Neut # (Auto) (1.4-6.5) K/uL Lymph # (Auto) (1.2-3.4) K/uL Lynn # (Auto) (0.11-0.59) K/uL Eos # (Auto) (0-0.5) K/uL Baso # (Auto) (0-0.2) K/uL PT (9.0-12.0) Seconds INR (0.9-1.1) APTT (21.0-31.0) Seconds PTT Ratio Sodium (136-145) mmol/L Potassium (3.5-5.1) mmol/L Chloride (98-107) mmol/L Carbon Dioxide (21-32) mmol/L Anion Gap (3-11) BUN (7-18) mg/dl Creatinine (0.6-1.4) mg/dl Est Cr Clr Drug Dosing ml/min Est GFR ( Amer) Est GFR (Non-Af Amer) BUN/Creatinine Ratio (10-20) Glucose (70-99) mg/dl POC Glucose (70-99) Lactate (0.4-2.0) mmol/L Calcium (8.5-10.1) mg/dl Total Bilirubin (0.2-1) mg/dl AST (15-37) U/L ALT (12-78) U/L Alkaline Phosphatase (45-117) U/L Total Protein (6.4-8.2) gm/dl Albumin (3.4-5.0) gm/dl Globulin (2.5-4.0) gm/dl Albumin/Globulin Ratio (0.9-2) Procalcitonin (0-0.5) ng/ml Urine Color Yellow Urine Appearance Clear (Clear) Urine pH 6.5 (4.5-7.5) Ur Specific [place] 1.035 H (1.000-1.030) Urine Protein Negative (Negative) Urine Glucose (UA) 3+ H (Negative) Urine Ketones 1+ H (Negative) Urine Blood Negative (Negative) Urine Nitrite Negative (Negative) Urine Bilirubin Negative (Negative) Urine Urobilinogen Negative (Negative) Ur Leukocyte Esterase Negative (Negative) Imaging Data Radiologist's Impression: Radiology results as stated below per my review and the radiologist's interpretation: XR chest 1V portable HISTORY: Sepsis COMPARISON: Chest 10/07/2016. FINDINGS: No focal lung consolidations to suggest pneumonia. No pneumothorax. No pleural effusions. The heart is normal in size. No evidence for pulmonary edema. Right-sided shunt catheter is again noted and appears intact. IMPRESSION: No significant change compared to the prior study. No acute process. Electronically signed by: Vamshi Perea M.D. 02/17/2019 8:[address] head/brain wo con CLINICAL HISTORY: 63 years-old Male presenting with ams. TECHNIQUE: Multidetector CT imaging of the head was performed without the use of intravenous contrast. IV contrast: None. One or more dose lowering techniques were used consistent with the principles of ALARA (as low as reasonably achievable), including automatic exposure control, mA or kV adjustment to individual patient size, and/or use of iterative reconstruction. COMPARISON: 10/07/2016. CT DOSE (mGy.cm): The estimated cumulative dose is 823.12 mGy.cm. FINDINGS: Holter Scanning Technician topogram: Significant defect in the cranium with evidence of a craniectomy and mesh placement. Ventriculostomy shunts in place. External ventricular drains, one with a right transfrontal approach terminating in the region of the foramen of Ruth and the second with a right transoccipital approach also terminating in the region of the foramen of Ruth. Ventricular system is significantly decompressed relative to prior exam. Prominent calcification in the region of the cranial gland. No hemorrhage. No acute territorial infarct. No mass effect or midline shift. Large postsurgical defect in the right frontoparietal region consistent with a resection cavity. There is an overlying craniectomy defect. Subcutaneous fat may line this cavity. The appearance of the subjacent right parietotemporal region is unchanged in appearance (series 2 image 19). Chronic extra-axial fluid collection along the left frontoparietal vertex with an internal nodular focus of hyperdensity measuring 2 cm. The fluid collection measures up to 2.7 cm in thickness similar to prior exam. Peripheral calcification again noted. Overlying right frontal parietal craniectomy with a prosthetic mesh in place. No evidence of an acute subdural hematoma. Paranasal sinuses and mastoid air cells clear. Hyperdensities along the left posterior lateral aspect of the thecal sac at the level of C1. A possible defect in the posterior arch of C1 is noted. This is unchanged from prior. IMPRESSION: 1. Interval ventricular system decompression. Otherwise stable examination with extensive postsurgical changes as above. No evidence of acute hemorrhage. Electronically signed by: Lg Montiel M.D. 02/17/2019 8:26 AM ECG Data Attestation: I personally reviewed and interpreted this ECG as follows: Indication: altered mental status Rate (beats per minute): 106 Rhythm: sinus tachycardia Findings: + other (normal intervals), + ST depression (Lateral) and + left axis deviation Comparison ECG Date: from (07-OCT-2016) Change: the following changes noted (ST depressions new, faster rate) Blood Pressure Blood Pressure Findings: Low blood pressure Blood Pressure Disposition: further management by hospitalist VIRIDIANA Narrative The patient is a 63 year old male with a past medical history of diabetes, hypertension, seizures and a brain tumor who presents to the ER via EMS from [facility] for an evaluation of altered mental status. Differential diagnoses includes but is not limited to toxic, metabolic, infectious, traumatic, cardiac, neurologic, hematologic, psychiatric and inflammatory etiologies. Patient was seen and evaluated the bedside. The patient does have a known history of prior pituitary adenoma as well as skin cancer of the scalp. 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 The patient reportedly had a fever and was intermittently confused. The patient on exam is awake and alert does follow commands. He is able to give his name and does move his right side. Patient does have left-sided deficits. Patient did a blood work completed along with a CT of the brain and chest x-ray. There was concern about coarse breath sounds and the patient was requiring some supplemental oxygen. The patient may be an aspiration risk given his prior history of stroke. The patient's repeat CT was unchanged. Patient was covered with broad- spectrum and biotics. Patient did have a borderline elevated lactate. The patient did receive 2 L IV fluids. Urinalysis was negative. I believe the likely sources possible aspiration pneumonitis versus pneumonia. I did speak with the on-call hospitalist who agreed to further evaluate treat the patient. Patient was admitted to the medicine service. Impression & Plan Respiratory failure with hypoxia, Aspiration pneumonitis, Hemiparesis, Fever Discharge Plan Visit Data Chief Complaint: Altered Mental Status ED Provider: Mario Batista Discharge Problem: Respiratory failure with hypoxia, Aspiration pneumonitis, Hemiparesis, Fever Patient Disposition: Being Evaluated by Hospitalist Forms Stand Alone Forms: [facility] Prescriptions Prescriptions: No Action acetaminophen [Tylenol] 325 mg Tablet 650 mg PO Q4H PRN (Reason: Pain) RF: 0 ketoconazole 2 % shampoo 1 applic topical 2XWK RF: 0 polysaccharide iron complex [Ferrex 150] 150 mg iron Capsule 150 mg PO PM RF: 0 simvastatin 10 mg tablet 10 mg PO PM RF: 0 bacitracin zinc 500 unit/gram Ointment 1 applic TOPICAL DAILY RF: 0 divalproex 500 mg tablet,delayed release (DR/EC) 500 mg PO TID RF: 0 aspirin 81 mg Tablet,Delayed Release (Dr/Ec) 81 mg PO QAM RF: 0 cephalexin 500 mg capsule 500 mg PO TID RF: 0 ranitidine HCl 150 mg tablet 150 mg PO BIDM RF: 0 docusate sodium [Colace] 100 mg Capsule 100 mg PO BID RF: 0 sertraline 25 mg tablet 25 mg PO QAM RF: 0 hydrocortisone 2.5 % cream 1 applic topical BID RF: 0 levetiracetam 750 mg tablet 750 mg PO Q12 RF: 0 sertraline 50 mg tablet 50 mg PO QAM RF: 0 iron, carbonyl [Feosol] 45 mg Tablet 45 mg PO 3XWK RF: 0 Levemir U-100 Insulin 100 unit/mL solution 14 unit subcut HS RF: 0 fenofibrate nanocrystallized 145 mg tablet 145 mg PO QAM RF: 0 cholecalciferol (vitamin D3) [Vitamin D3] 1,000 unit Tablet 1,000 unit PO QAM RF: 0 Januvia 100 mg tablet 100 mg PO QAM RF: 0 zinc oxide 40 % Ointment 1 applic TOPICAL QS RF: 0 Invokana 100 mg tablet 100 mg PO QDB RF: 0 magnesium oxide 400 mg magnesium Tablet 400 mg PO BID RF: 0 Referrals Referrals: Mark Obrien [Primary Care Provider] - Discharge Problem: Respiratory failure with hypoxia Qualifiers: Chronicity: acute Qualified Code(s): J96.01 - Acute respiratory failure with hypoxia Hemiparesis Qualifiers: Hemiparesis etiology: unspecified Hemiparesis laterality: left nondominant side Qualified Code(s): G81.94 - Hemiplegia, unspecified affecting left nondominant side Fever Qualifiers: Fever type: unspecified Qualified Code(s): R50.9 - Fever, unspecified The scribe's documentation has been prepared under my direction and personally reviewed by me in its entirety. I confirm that the note above accurately reflects all work, treatment, procedures, and medical decision making performed by me.
[2019-02-17] MEDS ORDERED: OPTIRAY 320 125ml IV PRN (10:27)
--- NOTE | 2019-02-17 10:44 | CT Scan Report ---
CHEST CTA for PULMONARY ARTERIES CT DOSE: 1333.39 mGy.cm HISTORY: Atypical chest pain. TECHNIQUE: Multiaxial CT images of the chest were performed following the intravenous administration of contrast to evaluate the pulmonary arteries. Maximal intensity projection images were also obtaine d. A dose lowering technique was utilized adhering to the principles of ALARA. COMPARISON STUDY: Chest CTA 01/03/2009. FINDINGS: Normal caliber thoracic aorta with no evidence for dissection. The heart is normal in size. No filling defects within the pulmonary arteries to suggest pulmonary embolus. Coronary artery calci fications are noted. Please refer to the dedicated abdomen and pelvis CT for further evaluation of th e abdominal structures. Normal esophagus. No mediastinal or hilar lymphadenopathy. Small calcificatio ns within the hypodense left axillary mass. This measures 7.1 x 3.0 cm. This is slightly decreased in size and demonstrates decreased density compared to the prior study. There are few additional subcen timeter left axillary lymph nodes which have also slightly decreased in size. No right axillary lymph adenopathy. No suspicious lytic or blastic osseous lesions. No pneumothorax. Mucoid opacification of the right lower lobe bronchi. The remaining airways are patent. Mild emphysema. No pneumothorax. Cons olidative airspace opacities within the bilateral lower lobes posteriorly, right greater than left. T here are are also groundglass airspace opacities within the posterior right upper lobe and posterior right middle lobe. No pleural effusion. IMPRESSION: 1. No evidence for pulmonary embolus. 2. Consolidative airspace opacities within the bilateral lower lobes posteriorly, right greater than left. There are are also groundglass airspace opacities within the posterior right upper lobe and pos terior right middle lobe. This likely represents a pneumonia and could be secondary to aspiration giv en the opacified right lower lobe bronchi.. 3. Decrease in size in the left axillary mass/lymphadenopathy. Electronically signed by: Vamshi Perea M.D. 02/17/2019 10:42 AM
--- NOTE | 2019-02-17 10:55 | CT Scan Report ---
CT abd pelvis IV con only CLINICAL HISTORY: 63 years-old Male presenting with RLQ abd pain, n/v, SIRS. TECHNIQUE: Multidetector CT of the abdomen and pelvis was performed after the administration of intra venous contrast. IV contrast: 120 mL of Optiray 320. One or more dose lowering techniques were used c onsistent with the principles of ALARA (as low as reasonably achievable), including automatic exposur e control, mA or kV adjustment to individual patient size, and/or use of iterative reconstruction. COMPARISON: 01/04/2009. CT DOSE (mGy.cm): The estimated cumulative dose is 1333.39. FINDINGS: Senior Instructor topogram: IVC filter noted. Lung bases: Normal heart size. Coronary artery and aortic valve calcification. No pericardial or pleu ral effusion. Extensive dependent consolidation and mild volume loss in the lower lobes. Liver: Normal morphology. Density suggestive of hepatic steatosis. No focal lesion. Patent hepatic va sculature. Biliary: No intrahepatic or extrahepatic biliary ductal dilatation. Gallbladder contains gallstones. Pancreas: Normal. Spleen: Normal. Adrenal glands: Normal. Kidneys and ureters: Mild pelvocaliectasis of the right renal collecting system with abrupt transitio n at the right ureteropelvic junction. Normal renal parenchyma. No left hydronephrosis. 4 mm nonobstr ucting calculus in the interpolar region of the right kidney with an adjacent calculus in the interpo lar region. Ureters nondilated. Bladder: Normal. Pelvic organs: Prostate enlargement likely secondary to benign prostatic hyperplasia. Bowel: Dilated and inflamed appendix. No gross evidence of mucosal discontinuity. Multiple appendicol iths noted. Adjacent fluid without a well-defined fluid collection, although there is laminar focal f luid (series 6 image 341). No bowel obstruction. Peritoneal cavity: Trace fluid in the right lower quadrant with the small laminar collection as menti oned above. This is not demonstrate rim enhancement though this may be loculated. A catheter is noted extending from the subcutaneous tissue descending along the anterior right thorax and entering the a bdominal cavity terminating in the superior pelvis, possibly a ventriculoperitoneal shunt. Lymph nodes: No enlarged lymph nodes in the abdomen or pelvis. Vasculature: Atherosclerosis of the normal caliber abdominal aorta. IVC patent. An infrarenal IVC debra ter is in place. Abdominal wall: Catheter noted in the anterior right abdominal wall as mentioned. Additionally, there is a hyperenhancing mass partially visualized in the left axilla measuring over 7 cm. This was not i ncluded within the [id number] on the prior exam. Musculoskeletal: Degenerative changes of the spine. IMPRESSION: 1. Severe acute appendicitis with appendicoliths. No gross evidence of abscess at this time, althoug h there is a potentially loculated laminar adjacent collection in the right lower quadrant which does not demonstrate rim enhancement or significant associated surrounding inflammation. No gross evidenc e of appendiceal perforation, although the degree of surrounding inflammatory change raises concern f or microperforation. Surgical consultation is necessary. 2. Reactive inflammatory change of the terminal ileum. 3. Hepatic steatosis. The report will be called/faxed according to standard departmental protocol. Electronically signed by: Lg Montiel M.D. 02/17/2019 10:54 AM
--- NOTE | 2019-02-17 11:27 | History & Physical Report ---
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 Patient presents to [facility] from [facility] secondary to fever, emesis x3 and increased confusion. In ED patient met SIRS criteria temperature 38.7, tachycardic, SBP less than 100. Blood cultures were obtained, lactic acid 2.7 Broad-spectrum antibiotics were administered IV vancomycin and Zosyn Patient received 2 L of IVF prior to my evaluation At time of my evaluation patient is stabilized hemodynamically with BP 119/65 an d heart rates in 80s CBC relatively unremarkable with WBC 5.69, H&H 14.8 and 44.1 CMP NA 146, K 3.6, Chl 113, AG 12.0, Gluose 176, T bili 1.2, procal WNL Urine and CXR negative Upon my examination pt with exquisite right lower quadrant tenderness CT scan of abdomen pelvis and chest obtained revealed Severe acute appendicitis with appendicoliths, no gross evidence of abscess at this time along with consolidative airspace opacities in the bilateral lower lobes right greater than left likely aspiration pneumonia. Admit to PCU Consult general surgery Dr. Laura - spoke with Maylin Villegas PA-C remain NPO Continue broad spectrum IV antibiotics with vancomycin and IV Zosyn Repeat lactate normalized to 1.8 IVF 1/2 NS 125cc/hr with 20meq KCL repeat labs in am await blood culture results consult speech therapy for aspiration (4) Diabetes: Last A1c 6.3 on 12/10/2018 Placed on Lantus/NovoLog protocol Patient takes Lantus 14 units at at bedtime, will reduce to 10 units at at bedtime with sliding scale Hold Invokana and Januvia A1C in a.m. (5) Seizure disorder: No seizures noted On keppra and depakote recently had levels /15 keppra 29 and depakote 46 (6) History of SCC (squamous cell carcinoma) of skin: 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 Fung at [facility] Continue bacitracin daily to scalp consult wound care team (7) Scalp wound: as above consult wound team (8) Left hemiparesis: secondary to extensive neurosurgical history along with seizure disorder Patient mostly bedbound but does get up to chair for 4 to 6 hours daily consult OT when more medically stable (9) Hypertension: Patient hypotensive on arrival but has improved with IV fluid Patient currently not on any oral antihypertensives (10) HLD (hyperlipidemia): on statin hold for now given sepsis/appendicitis (11) DVT prophylaxis: SCDS/TEDS for now until evaluated by surgery Disposition: Discharge back to [facility] when able, case management consult Follow-up: PCP Dr. Umanzor upon discharge Patient was seen and examined in collaboration with Dr. 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 Patient presents to [facility] from [facility] secondary to fever, emesis x3 and increased confusion. Sister is at bedside. Patient last seen by sister on 02/14 in which she was doing very well. Apparently symptoms started yesterday in which there was reported increased confusion and episode of emesis. He also had 2 episodes of emesis overnight along with fever. Patient denies feeling fevers, chills, sweats, chest pain, shortness breath, cough, hemoptysis, abdominal pain, change in bowel or urinary habits. Sister reports patient usually has great appetite. Patient currently requesting food now. Per [facility] Nurse patient noted to have 2 large emesis and mod soft stool this morning. TMax 100.4. After Large bile colored emesis pt noted to have SOB, accessory muscle use and wheezing at bases; therefore referred to ED. Also of note they have been doing bacitracin daily to cratered scalp. Also had Ingrown toenail removed to R great toe on 02/11. Allergies Allergy/AdvReac Type Severity Reaction Status Date / Time No Known Allergies Allergy Mild NKA Verified 02/17/19 13:40 Home Medications Home Medications Medication Instructions Recorded Confirmed Type Invokana 100 mg PO QDB 02/17/19 02/17/19 History Januvia 100 mg PO QAM 02/17/19 02/17/19 History Levemir U-100 Insulin 14 unit SUBCUT HS 02/17/19 02/17/19 History acetaminophen [Tylenol] 650 mg PO Q4H PRN 02/17/19 02/17/19 History aspirin 81 mg PO QAM 02/17/19 02/17/19 History bacitracin zinc 1 applic TOPICAL DAILY 02/17/19 02/17/19 History cholecalciferol (vitamin D3) 1,000 unit PO QAM 02/17/19 02/17/19 History [Vitamin D3] divalproex 500 mg PO TID 02/17/19 02/17/19 History docusate sodium [Colace] 100 mg PO BID 02/17/19 02/17/19 History fenofibrate nanocrystallized 145 mg PO QAM 02/17/19 02/17/19 History hydrocortisone 1 applic TOPICAL BID 02/17/19 02/17/19 History iron, carbonyl [Feosol] 45 mg PO 3XWK 02/17/19 02/17/19 History ketoconazole 1 applic TOPICAL 2XWK 02/17/19 02/17/19 History levetiracetam 1,500 mg PO Q12 02/17/19 02/17/19 History magnesium oxide 400 mg PO BID 02/17/19 02/17/19 History polysaccharide iron complex 150 mg PO PM 02/17/19 02/17/19 History [Ferrex 150] ranitidine HCl 150 mg PO BIDM 02/17/19 02/17/19 History sertraline 25 mg PO QAM 02/17/19 02/17/19 History sertraline 50 mg PO QAM 02/17/19 02/17/19 History simvastatin 10 mg PO PM 02/17/19 02/17/19 History zinc oxide 1 applic TOPICAL QS 02/17/19 02/17/19 History Past Med/Surg History Medical History HLD (hyperlipidemia) (Chronic) Left hemiparesis (Chronic) History of SCC (squamous cell carcinoma) of skin (Chronic) History of subdural hematoma (post traumatic) (Chronic) History of pituitary adenoma (Chronic) Status post resection, radiation and DATA MODELER shunt placed at age 8 Brain tumor (Chronic) Diabetes (Chronic) Hypertension (Chronic) Seizure disorder (Chronic) Intracranial bleed (Resolved) Surgical History History of squamous cell carcinoma excision (Chronic) 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 Fung at [facility] Recent MRI 08/2018: Again seen are postoperative changes of bilateral craniectomy. A titanium mesh is present over the left craniectomy. Chronic, heterogeneous collection beneath the left cranioplasty is stable. Measuring up to 21 mm in thickness and displacing the underlying brain. Again seen is sinking of the right skin flap, which is improved since the prior study. To ventricular shunts are again seen. One enters via a right frontal fransico hole,, and terminates along the anterior septum pellucidum in the left frontal horn. The other connects the ventricles of the upper cervical subarachnoid space. The distal aspect appears discontinuous. There has been a decrease in the size of the ventricles since the prior study. The previously seen diffuse pachymeningeal thickening and enhancement has considerably decreased. Encephalomalacia and gliosis again seen in the right parietal lobe at site of prior surgery. 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 Impression Stable postsurgical changes. The stable heterogeneous fluid collection beneath left cranioplasty. Decreased thinking of the right skin flap. Decreased size of ventricles. Other findings stable. No acute abnormality identified. History of ventriculoperitoneal shunting (Chronic) At age 8 with ventricular shunt failure at age 42 S/P replacement History of brain surgery Family History Father Colorectal cancer Coronary heart disease Mother Colorectal cancer Myocardial infarction Social History Preferred Language: Qatari Communication Ability: Effective Beliefs That Will Affect Care: None Current Living Situation: Prison Current Living Situation Comment: Lisa Aldrich Other Information That Helps Us Care for You: No Feels Safe at Home: Yes Safety Concerns: Feels Safe At This Time Smoking Status: Former smoker Tobacco Type: cigarettes Do You Dip or Chew Tobacco: No Smoking End Date: 1998 Second Hand Exposure: No Tobacco Cessation Education Requested by Patient: No Hx Alcohol Use: No Hx Substance Use: No Review of Systems Review of Systems: As noted per HPI, 10 systems reviewed and negative unless noted above. Physical Exam Physical Exam: Gen: Chronically ill male, lying in bed, NAD, pleasant, conversing easily, flat affected Head: Normocephalic, + traumatic with cratered R scalp with hypertrophic scabbing to base of crater no surrounding erythema or drainage noted, multiple craniotomy scars noted Eyes: Sclera normal, no conjunctival injection, PERRLA, EOMI ENT: Gross hearing intact, normal pharynx, mucous membranes moist Neck: supple, no adenopathy, No JVD, no bruit, Resp: Clear to auscultation b/l, no wheeze, rales, rhonchi. Normal insp/exp effort, no accessory muscle use on O2 via NC CV: Regular rate, regular rhythm, no murmur, rub, gallop, or ectopy Abd: +BS x 4, firm, exquisitely tender to right lower quadrant, positive rebound, no guarding or rigidity, nondistended Musculoskeletal: moves extremities active rom x 2, left side hemiparesis, right upper and lower strength intact, good supply requirements officer strength on right Extremities: No edema bilaterally Skin: warm, dry, no rash, negative turgor, cap refill < 2sec, R great toe with minimal erythema ( recent ingrown nail resection) Neuro: Alert and oriented to self and place, speech normal but slowed, flat mood/affect, cran nerve 2-12 intact grossly : + sacral erythema no open wounds Results & Data Vital Signs (Past 12 Hours) Vital Signs Temp Pulse Resp BP Pulse Ox 02/17/19 11:00 80 21 113/62 95 02/17/19 10:45 79 22 107/63 95 02/17/19 10:38 82 25 H 113/64 95 02/17/19 10:15 74 21 103/61 96 02/17/19 10:10 81 27 H 103/64 96 02/17/19 10:05 79 28 H 119/65 96 02/17/19 10:00 80 24 90/65 L 96 02/17/19 09:57 81 25 H 103/63 96 02/17/19 09:45 82 21 101/65 96 02/17/19 09:40 80 24 90/59 L 96 02/17/19 09:30 79 23 94/57 L 96 02/17/19 09:15 80 18 96/61 L 97 02/17/19 09:00 80 20 98/61 L 96 02/17/19 08:45 84 23 93/62 L 93 02/17/19 08:30 92 H 17 110/67 100 02/17/19 08:19 87 21 101/66 100 02/17/19 08:01 92 H 26 H 95 02/17/19 08:00 95 H 24 112/69 95 02/17/19 07:54 95 02/17/19 07:50 100 H 26 H 122/69 95 02/17/19 07:44 38.7 C H 112 H 28 H 116/74 85 L Laboratory Results Short CBC 02/17/19 02/17/19 02/17/19 Range/Units 07:47 07:47 10:56 WBC 5.69 (4.8-10.8) K/uL Hgb 14.8 (14.0-18.0) g/dL Hct 44.1 (42-52) % Plt Count 160 (130-400) K/uL Lactate 2.7 H* 1.8 (0.4-2.0) mmol/L BMP 02/17/19 07:47 Sodium 146 H Potassium 3.6 Chloride 113 H Carbon Dioxide 21 BUN 8 Creatinine 0.71 Glucose 176 H Calcium 9.9 Liver Function 02/17/19 Range/Units 07:47 Total Bilirubin 1.2 H (0.2-1) mg/dl AST 9 L (15-37) U/L ALT 19 (12-78) U/L Alkaline Phosphatase 60 (45-117) U/L Albumin 3.6 (3.4-5.0) gm/dl Urine 02/17/19 Range/Units 08:47 Urine Color Yellow Urine Appearance Clear (Clear) Urine pH 6.5 (4.5-7.5) Ur Specific [place] 1.035 H (1.000-1.030) Urine Protein Negative (Negative) Urine Glucose (UA) 3+ H (Negative) Diagnostic Findings Chest CTA: IMPRESSION: 1. No evidence for pulmonary embolus. 2. Consolidative airspace opacities within the bilateral lower lobes posteriorly, right greater than left. There are are also groundglass airspace opacities within the posterior right upper lobe and posterior right middle lobe. This likely represents a pneumonia and could be secondary to aspiration given the opacified right lower lobe bronchi.. 3. Decrease in size in the left axillary mass/lymphadenopathy. Abd/Pelvis CT: IMPRESSION: 1. Severe acute appendicitis with appendicoliths. No gross evidence of abscess at this time, although there is a potentially loculated laminar adjacent collection in the right lower quadrant which does not demonstrate rim enhancement or significant associated surrounding inflammation. No gross evidence of appendiceal perforation, although the degree of surrounding inflammatory change raises concern for microperforation. Surgical consultation is necessary. 2. Reactive inflammatory change of the terminal ileum. 3. Hepatic steatosis. Head CT: IMPRESSION: 1. Interval ventricular system decompression. Otherwise stable examination with extensive postsurgical changes as above. No evidence of acute hemorrhage. CXR: IMPRESSION: No significant change compared to the prior study. No acute process. Medications Administered Sodium Chloride (Nss) 500 mls @ 125 mls/hr IV .Q4H STEPHANIE Stop: 03/19/19 09:29 Last Admin: 02/17/19 09:43 Dose: 125 mls/hr Documented by: [id number] Ioversol (Optiray 320 125ml) 120 ml IV ONCE PRN PRN Reason: Interaction Checking Stop: 02/21/19 10:26 Last Admin: 02/17/19 10:28 Dose: 120 ml Documented by: [id number] Discontinued Medications Sodium Chloride (Nss 1000ml) 2,000 mls @ 999 mls/hr IV .Q2H1M ONE Stop: 02/17/19 09:15 Last Infusion: 02/17/19 09:43 Dose: 0 mls/hr Documented by: [id number] Admin: 02/17/19 07:40 Dose: 999 mls/hr Documented by: [id number] Piperacillin Sod/Tazobactam Sod (Zosyn) 4.5 gm in 120 mls @ 240 mls/hr IV NOW ONE Stop: 02/17/19 08:02 Last Infusion: 02/17/19 08:31 Dose: 0 mls/hr Documented by: [id number] Admin: 02/17/19 08:01 Dose: 240 mls/hr Documented by: [id number] Acetaminophen (Ofirmev) 1,000 mg in 100 mls @ 400 mls/hr IV NOW STA Stop: 02/17/19 07:47 Last Infusion: 02/17/19 08:15 Dose: 0 mls/hr Documented by: [id number] Admin: 02/17/19 08:00 Dose: 400 mls/hr Documented by: [id number] Vancomycin HCl 1,500 mg/ (Sodium Chloride) 530 mls @ 200 mls/hr IV NOW ONE; Protocol Stop: 02/17/19 10:11 Last Infusion: 02/17/19 11:12 Dose: 0 mls/hr Documented by: [id number] Admin: 02/17/19 08:32 Dose: 200 mls/hr Documented by: [id number] ECG Rate (beats per minute): 106 Rhythm: sinus tachycardia Findings: + nonspecific-ST abn (anterior t wave inversions) Code Status & VTE Plan Code Status Full Code VTE Prophylaxis Plan VTE Prophylaxis will be ordered: Yes Reason for no VTE drug order: Contraindicated (Will hold chemical prophylaxis for now until evaluated by surgery) Supervising Physician Co-Signing Physician Notes Patient is a 63-year-old male with complicated medical history presents with history of fever, nausea vomiting, increased confusion, fever and possible aspiration. CT abdomen suggestive of severe acute appendicitis with appendicoliths. No gross evidence of appendiceal perforation. CTA showed no evidence of PE. Consolidative airspace opacities within the bilateral lower lobes noted. On exam patient is chronically appearing, no apparent distress, normocephalic, cratered right scalp with hypertrophic scabbing, lungs are clear to auscultation, S1-S2, tachycardia, abdomen is firm, right lower quadrant tenderness, chronic left-sided hemiparesis. patient was diagnosed to have sepsis, acute respiratory failure with hypoxia likely secondary to aspiration pneumonia and acute appendicitis. Lactate levels normalized with IV fluids. Blood pressure improved. Started on broad-spectrum antibiotics with IV Zosyn and Vanco. Appreciate improved from surgery. Given history of complicated medical conditions and risk for anesthesia and surgery patient will be transferred to [facility] for further management. I personally reviewed the record. Patient is interviewed and examined at bedside. Patient's care is coordinated with Debbie Pataky PA-C. Please refer to the documentation above for details of patient's presentation and for discussion of other issues.
--- NOTE | 2019-02-17 12:33 | Surgery Consultation ---
Date of Consultation February 17, 2019 Assessment & Plan (1) Acute appendicitis: 63 year-old male with extensive past medical history including presence of global vp creative + content marketing shunt who presented from [facility] due to vomiting, fever, confusion, and shortness of breath. He has aspiration pneumonia but also found to have severe acute appendicitis with appendicolith on CT scan of abdomen and pelvis with possible microperforation. No leukocytosis. He was tachycardic and hypotensive on arrival which improved with IV fluids. Lactic acid elevated at 2.7 on arrival which improved to 1.8 after IV hydration. He was started on IV Abx (Vancomycin and Zosyn). Abdomen is soft, tender in RLQ with positive McBurney's point. Plan: Given evidence of severe acute appendicitis with appendicolith discussed recommendation with patient and his sister (POA) of appendectomy. Will plan for laparoscopic approach however he is at increased risk of converting to open procedure given amount of inflammation. Discussed procedure and risks with patient/sister and informed consent obtained by POA/sister. Continue NPO Continue IV abx Will need prolonged antibiotic therapy post-operatively to try to prevent any CAREER SERVICES OFFICER shunt infection Dr. Laura has seen and examined patient, agrees with above. Supervising Physician Co-Signing Physician Notes I have interviewed and examined this patient and discussed the case with the patient's power of privacy attorney who is his sister. He has acute appendicitis. He has appendicoliths. He will require an appendectomy. Of explained to power of privacy attorney the procedure and the possible complications and the possible need to convert to an open procedure from laparoscopic. She understands. She also understands that there is a possibility of injury or infection of the CAREER SERVICES OFFICER shunt. We are planning for the surgery today. History of Present Illness Reason for Consultation: Severe acute appendicitis with appendicolith Requesting Physician: Debbie Jimenez PA-C Attending Physician: Dr. 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 Patient presents to [facility] from [facility] secondary to fever, emesis x3 and increased confusion. Sister is at bedside states her father visited her brother yesterday and he was somewhat confused and had an episode of vomiting. Last night had another episode of vomiting. He was sent here from [facility] for shortness of breath and fever. There was concern for aspiration pneumonia given multiple episodes of vomiting. During examination in the emergency room he was found to have tenderness in the RLQ and a CT scan of the abdomen and pelvis showed severe acute appendicitis with appendicolith with concern for possible microperforation. He has no leukocytosis. Sister states that he has a very high tolerance of pain and was not complaining of any abdominal pain in the days leading up to this however once he was given IV fluids in the emergency room and seemed to become less confused he did complain of some abdominal pain. In the ER patient was tachycardic and hypotensive which corrected with IV f luids. Lactic acid elevated at 2.7 and improved to 1.8 after fluid resuscitation. Allergies Allergy/AdvReac Type Severity Reaction Status Date / Time No Known Allergies Allergy Mild NKA Verified 02/17/19 09:10 Home Medications Home Medications Medication Instructions Recorded Confirmed Type acetaminophen [Tylenol] 650 mg PO Q4H PRN 02/17/19 02/17/19 History aspirin 81 mg PO QAM 02/17/19 02/17/19 History bacitracin zinc 1 applic TOPICAL DAILY 02/17/19 02/17/19 History canagliflozin [Invokana] 100 mg PO QDB 02/17/19 02/17/19 History cephalexin 500 mg PO TID 02/17/19 02/17/19 History cholecalciferol (vitamin D3) 1,000 unit PO QAM 02/17/19 02/17/19 History [Vitamin D3] divalproex 500 mg PO TID 02/17/19 02/17/19 History docusate sodium [Colace] 100 mg PO BID 02/17/19 02/17/19 History fenofibrate nanocrystallized 145 mg PO QAM 02/17/19 02/17/19 History hydrocortisone 1 applic TOPICAL BID 02/17/19 02/17/19 History insulin detemir U-100 [Levemir 14 unit SUBCUT HS 02/17/19 02/17/19 History U-100 Insulin] iron, carbonyl [Feosol] 45 mg PO 3XWK 02/17/19 02/17/19 History ketoconazole 1 applic TOPICAL 2XWK 02/17/19 02/17/19 History levetiracetam 1,500 mg PO Q12 02/17/19 02/17/19 History magnesium oxide 400 mg PO BID 02/17/19 02/17/19 History polysaccharide iron complex 150 mg PO PM 02/17/19 02/17/19 History [Ferrex 150] ranitidine HCl 150 mg PO BIDM 02/17/19 02/17/19 History sertraline 25 mg PO QAM 02/17/19 02/17/19 History sertraline 50 mg PO QAM 02/17/19 02/17/19 History simvastatin 10 mg PO PM 02/17/19 02/17/19 History sitagliptin [Januvia] 100 mg PO QAM 02/17/19 02/17/19 History zinc oxide 1 applic TOPICAL QS 02/17/19 02/17/19 History Patient History Medical History HLD (hyperlipidemia) (Chronic) Left hemiparesis (Chronic) History of SCC (squamous cell carcinoma) of skin (Chronic) History of subdural hematoma (post traumatic) (Chronic) History of pituitary adenoma (Chronic) Status post resection, radiation and CAREER SERVICES OFFICER shunt placed at age 8 Brain tumor (Chronic) Diabetes (Chronic) Hypertension (Chronic) Seizure disorder (Chronic) Intracranial bleed (Resolved) Surgical History History of squamous cell carcinoma excision (Chronic) 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 Fung at [facility] Recent MRI 08/2018: Again seen are postoperative changes of bilateral craniectomy. A titanium mesh is present over the left craniectomy. Chronic, heterogeneous collection beneath the left cranioplasty is stable. Measuring up to 21 mm in thickness and displacing the underlying brain. Again seen is sinking of the right skin flap, which is improved since the prior study. To ventricular shunts are again seen. One enters via a right frontal fransico hole,, and terminates along the anterior septum pellucidum in the left frontal horn. The other connects the ventricles of the upper cervical subarachnoid space. The distal aspect appears discontinuous. There has been a decrease in the size of the ventricles since the prior study. The previously seen diffuse pachymeningeal thickening and enhancement has considerably decreased. Encephalomalacia and gliosis again seen in the right parietal lobe at site of prior surgery. 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 Impression Stable postsurgical changes. The stable heterogeneous fluid collection beneath left cranioplasty. Decreased thinking of the right skin flap. Decreased size of ventricles. Other findings stable. No acute abnormality identified. History of ventriculoperitoneal shunting (Chronic) At age 8 with ventricular shunt failure at age 42 S/P replacement History of brain surgery Family History Father Colorectal cancer Coronary heart disease Mother Colorectal cancer Myocardial infarction Social History Preferred Language: Nigerien Communication Ability: Effective Beliefs That Will Affect Care: None Current Living Situation: Senior Living Current Living Situation Comment: [facility] Other Information That Helps Us Care for You: No Feels Safe at Home: Yes Safety Concerns: Feels Safe At This Time Smoking Status: Former smoker Tobacco Type: cigarettes Do You Dip or Chew Tobacco: No Smoking End Date: 1998 Second Hand Exposure: No Tobacco Cessation Education Requested by Patient: No Hx Alcohol Use: No Hx Substance Use: No Physical Exam Constitutional: no acute distress and not ill appearing There is large crater of the right side of the scalp Respiratory: normal respiratory effort; no respiratory distress, no labored breathing, no retractions and does not use accessory muscles Cardiovascular: RRR, no murmur, no edema Gastrointestinal (Abdomen): Inspection/Auscultation: abdomen normal to inspection; abdomen not distended Percussion/Palpation: + abdomen tender (RLQ with positive McBurney's point), + guarding (RLQ) and abdomen soft; abdomen not rigid Skin: no rashes, warm and dry Psychiatric: Orientation: alert and oriented x 3 Results & Data Vital Signs (Past 12 Hours) Vital Signs Temp Pulse Resp BP Pulse Ox 02/17/19 12:09 81 20 126/71 95 02/17/19 11:00 80 21 113/62 95 02/17/19 10:45 79 22 107/63 95 02/17/19 10:38 82 25 H 113/64 95 02/17/19 10:15 74 21 103/61 96 02/17/19 10:10 81 27 H 103/64 96 02/17/19 10:05 79 28 H 119/65 96 02/17/19 10:00 80 24 90/65 L 96 02/17/19 09:57 81 25 H 103/63 96 02/17/19 09:45 82 21 101/65 96 02/17/19 09:40 80 24 90/59 L 96 02/17/19 09:30 79 23 94/57 L 96 02/17/19 09:15 80 18 96/61 L 97 02/17/19 09:00 80 20 98/61 L 96 02/17/19 08:45 84 23 93/62 L 93 02/17/19 08:30 92 H 17 110/67 100 02/17/19 08:19 87 21 101/66 100 02/17/19 08:01 92 H 26 H 95 02/17/19 08:00 95 H 24 112/69 95 02/17/19 07:54 95 02/17/19 07:50 100 H 26 H 122/69 95 02/17/19 07:44 38.7 C H 112 H 28 H 116/74 85 L Laboratory Results 02/17/19 02/17/19 02/17/19 Range/Units 10:56 08:47 07:47 WBC (4.8-10.8) K/uL RBC (4.7-6.1) M/uL Hgb (14.0-18.0) g/dL Hct (42-52) % MCV (80-100) fL MCH (25-34) pg MCHC (32-36) g/dL RDW Std Deviation (36.4-46.3) fL RDW Coeff of Kg (11.5-14.5) % Plt Count (130-400) K/uL MPV (7.4-10.4) fL Immature Gran % (Auto) % Neut % (Auto) % Lymph % (Auto) % Beaver % (Auto) % Eos % (Auto) % Baso % (Auto) % Immature Gran # (Auto) (0.00-0.02) K/uL Neut # (Auto) (1.4-6.5) K/uL Lymph # (Auto) (1.2-3.4) K/uL Beaver # (Auto) (0.11-0.59) K/uL Eos # (Auto) (0-0.5) K/uL Baso # (Auto) (0-0.2) K/uL PT (9.0-12.0) Seconds INR (0.9-1.1) APTT (21.0-31.0) Seconds PTT Ratio Sodium (136-145) mmol/L Potassium (3.5-5.1) mmol/L Chloride (98-107) mmol/L Carbon Dioxide (21-32) mmol/L Anion Gap (3-11) BUN (7-18) mg/dl Creatinine (0.6-1.4) mg/dl Est Cr Clr Drug Dosing ml/min Est GFR ( Amer) Est GFR (Non-Af Amer) BUN/Creatinine Ratio (10-20) Glucose (70-99) mg/dl POC Glucose (70-99) Lactate 1.8 (0.4-2.0) mmol/L Calcium (8.5-10.1) mg/dl Total Bilirubin (0.2-1) mg/dl AST (15-37) U/L ALT (12-78) U/L Alkaline Phosphatase (45-117) U/L Total Protein (6.4-8.2) gm/dl Albumin (3.4-5.0) gm/dl Globulin (2.5-4.0) gm/dl Albumin/Globulin Ratio (0.9-2) Procalcitonin 0.27 (0-0.5) ng/ml Urine Color Yellow Urine Appearance Clear (Clear) Urine pH 6.5 (4.5-7.5) Ur Specific Bowers 1.035 H (1.000-1.030) Urine Protein Negative (Negative) Urine Glucose (UA) 3+ H (Negative) Urine Ketones 1+ H (Negative) Urine Blood Negative (Negative) Urine Nitrite Negative (Negative) Urine Bilirubin Negative (Negative) Urine Urobilinogen Negative (Negative) Ur Leukocyte Esterase Negative (Negative) 02/17/19 02/17/19 02/17/19 Range/Units 07:47 07:47 07:47 WBC (4.8-10.8) K/uL RBC (4.7-6.1) M/uL Hgb (14.0-18.0) g/dL Hct (42-52) % MCV (80-100) fL MCH (25-34) pg MCHC (32-36) g/dL RDW Std Deviation (36.4-46.3) fL RDW Coeff of Kg (11.5-14.5) % Plt Count (130-400) K/uL MPV (7.4-10.4) fL Immature Gran % (Auto) % Neut % (Auto) % Lymph % (Auto) % Beaver % (Auto) % Eos % (Auto) % Baso % (Auto) % Immature Gran # (Auto) (0.00-0.02) K/uL Neut # (Auto) (1.4-6.5) K/uL Lymph # (Auto) (1.2-3.4) K/uL Beaver # (Auto) (0.11-0.59) K/uL Eos # (Auto) (0-0.5) K/uL Baso # (Auto) (0-0.2) K/uL PT 12.0 (9.0-12.0) Seconds INR 1.2 H (0.9-1.1) APTT 35.9 H (21.0-31.0) Seconds PTT Ratio 1.3 Sodium 146 H (136-145) mmol/L Potassium 3.6 (3.5-5.1) mmol/L Chloride 113 H (98-107) mmol/L Carbon Dioxide 21 (21-32) mmol/L Anion Gap 12.0 H (3-11) BUN 8 (7-18) mg/dl Creatinine 0.71 (0.6-1.4) mg/dl Est Cr Clr Drug Dosing 104.4 ml/min Est GFR ( Amer) 116.5 Est GFR (Non-Af Amer) 100.6 BUN/Creatinine Ratio 11.6 (10-20) Glucose 176 H (70-99) mg/dl POC Glucose (70-99) Lactate 2.7 H* (0.4-2.0) mmol/L Calcium 9.9 (8.5-10.1) mg/dl Total Bilirubin 1.2 H (0.2-1) mg/dl AST 9 L (15-37) U/L ALT 19 (12-78) U/L Alkaline Phosphatase 60 (45-117) U/L Total Protein 8.2 (6.4-8.2) gm/dl Albumin 3.6 (3.4-5.0) gm/dl Globulin 4.6 H (2.5-4.0) gm/dl Albumin/Globulin Ratio 0.8 L (0.9-2) Procalcitonin (0-0.5) ng/ml Urine Color Urine Appearance (Clear) Urine pH (4.5-7.5) Ur Specific Bowers (1.000-1.030) Urine Protein (Negative) Urine Glucose (UA) (Negative) Urine Ketones (Negative) Urine Blood (Negative) Urine Nitrite (Negative) Urine Bilirubin (Negative) Urine Urobilinogen (Negative) Ur Leukocyte Esterase (Negative) 02/17/19 02/17/19 Range/Units 07:47 07:45 WBC 5.69 (4.8-10.8) K/uL RBC 5.22 (4.7-6.1) M/uL Hgb 14.8 (14.0-18.0) g/dL Hct 44.1 (42-52) % MCV 84.5 (80-100) fL MCH 28.4 (25-34) pg MCHC 33.6 (32-36) g/dL RDW Std Deviation 51.5 H (36.4-46.3) fL RDW Coeff of Kg 16.5 H (11.5-14.5) % Plt Count 160 (130-400) K/uL MPV 9.4 (7.4-10.4) fL Immature Gran % (Auto) 0.4 % Neut % (Auto) 83.4 % Lymph % (Auto) 2.6 % Beaver % (Auto) 13.4 % Eos % (Auto) 0.0 % Baso % (Auto) 0.2 % Immature Gran # (Auto) 0.02 (0.00-0.02) K/uL Neut # (Auto) 4.75 (1.4-6.5) K/uL Lymph # (Auto) 0.15 L (1.2-3.4) K/uL Beaver # (Auto) 0.76 H (0.11-0.59) K/uL Eos # (Auto) 0.00 (0-0.5) K/uL Baso # (Auto) 0.01 (0-0.2) K/uL PT (9.0-12.0) Seconds INR (0.9-1.1) APTT (21.0-31.0) Seconds PTT Ratio Sodium (136-145) mmol/L Potassium (3.5-5.1) mmol/L Chloride (98-107) mmol/L Carbon Dioxide (21-32) mmol/L Anion Gap (3-11) BUN (7-18) mg/dl Creatinine (0.6-1.4) mg/dl Est Cr Clr Drug Dosing ml/min Est GFR ( Amer) Est GFR (Non-Af Amer) BUN/Creatinine Ratio (10-20) Glucose (70-99) mg/dl POC Glucose 167 H (70-99) Lactate (0.4-2.0) mmol/L Calcium (8.5-10.1) mg/dl Total Bilirubin (0.2-1) mg/dl AST (15-37) U/L ALT (12-78) U/L Alkaline Phosphatase (45-117) U/L Total Protein (6.4-8.2) gm/dl Albumin (3.4-5.0) gm/dl Globulin (2.5-4.0) gm/dl Albumin/Globulin Ratio (0.9-2) Procalcitonin (0-0.5) ng/ml Urine Color Urine Appearance (Clear) Urine pH (4.5-7.5) Ur Specific Bowers (1.000-1.030) Urine Protein (Negative) Urine Glucose (UA) (Negative) Urine Ketones (Negative) Urine Blood (Negative) Urine Nitrite (Negative) Urine Bilirubin (Negative) Urine Urobilinogen (Negative) Ur Leukocyte Esterase (Negative) Diagnostic Findings CT abd pelvis IV con only CLINICAL HISTORY: 63 years-old Male presenting with RLQ abd pain, n/v, SIRS. TECHNIQUE: Multidetector CT of the abdomen and pelvis was performed after the administration of intravenous contrast. IV contrast: 120 mL of Optiray 320. One or more dose lowering techniques were used consistent with the principles of ALARA (as low as reasonably achievable), including automatic exposure control, mA or kV adjustment to individual patient size, and/or use of iterative reconstruction. COMPARISON: 01/04/2009. CT DOSE (mGy.cm): The estimated cumulative dose is 1333.39. FINDINGS: [employer]ied [employer] Operator topogram: IVC filter noted. Lung bases: Normal heart size. Coronary artery and aortic valve calcification. No pericardial or pleural effusion. Extensive dependent consolidation and mild volume loss in the lower lobes. Liver: Normal morphology. Density suggestive of hepatic steatosis. No focal lesion. Patent hepatic vasculature. Biliary: No intrahepatic or extrahepatic biliary ductal dilatation. Gallbladder contains gallstones. Pancreas: Normal. Spleen: Normal. Adrenal glands: Normal. Kidneys and ureters: Mild pelvocaliectasis of the right renal collecting system with abrupt transition at the right ureteropelvic junction. Normal renal parenchyma. No left hydronephrosis. 4 mm nonobstructing calculus in the interpolar region of the right kidney with an adjacent calculus in the interpolar region. Ureters nondilated. Bladder: Normal. Pelvic organs: Prostate enlargement likely secondary to benign prostatic hyperplasia. Bowel: Dilated and inflamed appendix. No gross evidence of mucosal discontinuity. Multiple appendicoliths noted. Adjacent fluid without a well- defined fluid collection, although there is laminar focal fluid (series 6 image 341). No bowel obstruction. Peritoneal cavity: Trace fluid in the right lower quadrant with the small laminar collection as mentioned above. This is not demonstrate rim enhancement though this may be loculated. A catheter is noted extending from the subcutaneous tissue descending along the anterior right thorax and entering the abdominal cavity terminating in the superior pelvis, possibly a ventriculoperitoneal shunt. Lymph nodes: No enlarged lymph nodes in the abdomen or pelvis. Vasculature: Atherosclerosis of the normal caliber abdominal aorta. IVC patent. An infrarenal IVC filter is in place. Abdominal wall: Catheter noted in the anterior right abdominal wall as mentioned. Additionally, there is a hyperenhancing mass partially visualized in the left axilla measuring over 7 cm. This was not included within the [id number] on the prior exam. Musculoskeletal: Degenerative changes of the spine. IMPRESSION: 1. Severe acute appendicitis with appendicoliths. No gross evidence of abscess at this time, although there is a potentially loculated laminar adjacent collection in the right lower quadrant which does not demonstrate rim enhancement or significant associated surrounding inflammation. No gross evidence of appendiceal perforation, although the degree of surrounding inflammatory change raises concern for microperforation. Surgical consultation is necessary. 2. Reactive inflammatory change of the terminal ileum. 3. Hepatic steatosis.
[2019-02-17] MEDS ORDERED: ALUMINUM/MAGNESIUM SUSP 30 ML UDC PO PRN (12:39)
[2019-02-17] MEDS ORDERED: GLUCOSE 10 TABS/TUBE PO PRN (12:39)
[2019-02-17] MEDS ORDERED: ACETAMINOPHEN 325 MG TAB PO PRN (12:39)
[2019-02-17] MEDS ORDERED: ONDANSETRON INJ 2 MG/ML 2 ML VIAL IV PRN (12:39)
[2019-02-17] MEDS ORDERED: DEXTROSE 50% 50 ML SYRINGE IV PRN (12:39)
[2019-02-17] MEDS ORDERED: GLUCAGON FOR INJ 1 MG VIAL SQ PRN (12:39)
[2019-02-17] MEDS ORDERED: MAGNESIUM HYDROXIDE SUSP 30 ML UDC PO PRN (12:39)
[2019-02-17] MEDS ORDERED: ALBUTEROL 0.083% NEBU SOLN 3 ML VIAL NEB PRN (12:39)
[2019-02-17] MEDS ORDERED: POLYETHYLENE (MIRALAX) 17 GM PACK PO PRN (12:39)
[2019-02-17] MEDS ORDERED: ACETAMINOPHEN 1,000 MG/100 ML VIAL IV PRN (12:39)
[2019-02-17] MEDS ORDERED: CARBOHYDRATES FOR HYPOGLYCEMIA PO PRN (12:39)
[2019-02-17] MEDS ORDERED: GLUCOSE 40% GEL 15 GM TUBE PO PRN (12:39)
[2019-02-17] MEDS ORDERED: SODIUM CHLOR 0.45% + 20MEQ KCL 20 MEQ/1,000 ML BAG IV SCH (13:00)
--- NOTE | 2019-02-17 13:03 | Anesthesiology Consultation ---
Date of Service February 17, 2019 Assessment & Plan (1) Encounter for pre-operative examination: Chart Review I spoke with Dr. Laura. The patient has a complicated medical history, and he gets his neurological care in [place] ([facility]). The patient does have acute appendicitis but the patient is currently stable. It was agreed upon to transfer the patient to [place] for further care 2/2 the patients multiple comorbidities. History Surgery Operation Date: 02/17/19 13:20 Proposed Procedures p Laparoscopic Appendectomy, Possible Open - Don Laura MD Height/Weight Height: 5 ft 8 in Weight: 80.8 kg Allergies Allergy/AdvReac Type Severity Reaction Status Date / Time No Known Allergies Allergy Mild NKA Verified 02/17/19 13:40 Medications Home Medications Medication Instructions Recorded Confirmed Last Taken acetaminophen [Tylenol] 650 mg PO Q4H PRN 02/17/19 02/17/19 02/17/19 03:33 aspirin 81 mg PO QAM 02/17/19 02/17/19 02/16/19 09:00 bacitracin zinc 1 applic TOPICAL DAILY 02/17/19 02/17/19 02/16/19 canagliflozin [Invokana] 100 mg PO QDB 02/17/19 02/17/19 02/17/19 06:30 cephalexin 500 mg PO TID 02/17/19 02/17/19 02/16/19 17:00 cholecalciferol (vitamin D3) 1,000 unit PO QAM 02/17/19 02/17/19 02/16/19 09:00 [Vitamin D3] divalproex 500 mg PO TID 02/17/19 02/17/19 02/16/19 17:00 docusate sodium [Colace] 100 mg PO BID 02/17/19 02/17/19 02/16/19 21:00 fenofibrate nanocrystallized 145 mg PO QAM 02/17/19 02/17/19 02/16/19 09:00 hydrocortisone 1 applic TOPICAL BID 02/17/19 02/17/19 02/16/19 16:00 insulin detemir U-100 [Levemir 14 unit SUBCUT HS 02/17/19 02/17/19 02/16/19 21:00 U-100 Insulin] iron, carbonyl [Feosol] 45 mg PO 3XWK 02/17/19 02/17/19 02/16/19 09:00 ketoconazole 1 applic TOPICAL 2XWK 02/17/19 02/17/19 02/14/19 levetiracetam 1,500 mg PO Q12 02/17/19 02/17/19 02/16/19 21:00 magnesium oxide 400 mg PO BID 02/17/19 02/17/19 02/16/19 17:00 polysaccharide iron complex 150 mg PO PM 02/17/19 02/17/19 02/16/19 18:00 [Ferrex 150] ranitidine HCl 150 mg PO BIDM 02/17/19 02/17/19 02/17/19 06:30 sertraline 25 mg PO QAM 02/17/19 02/17/19 02/16/19 09:00 sertraline 50 mg PO QAM 02/17/19 02/17/19 02/16/19 09:00 simvastatin 10 mg PO PM 02/17/19 02/17/19 02/16/19 17:00 sitagliptin [Januvia] 100 mg PO QAM 02/17/19 02/17/19 02/16/19 09:00 zinc oxide 1 applic TOPICAL QS 02/17/19 02/17/19 02/16/19 23:00 NPO Date Last Intake of Fluids: 02/17/19 Time Last Intake of Fluids: 07:00 Date Last Intake of Solids: 02/16/19 Time Last Intake of Solids: 18:00 Past Medical History Medical History HLD (hyperlipidemia) (Chronic) Left hemiparesis (Chronic) History of SCC (squamous cell carcinoma) of skin (Chronic) History of subdural hematoma (post traumatic) (Chronic) History of pituitary adenoma (Chronic) Status post resection, radiation and SALES AND MARKETING MANAGER shunt placed at age 8 Brain tumor (Chronic) Diabetes (Chronic) Hypertension (Chronic) Seizure disorder (Chronic) Intracranial bleed (Resolved) Past Family History Family History Father Colorectal cancer Coronary heart disease Mother Colorectal cancer Myocardial infarction Past Surgical History Surgical History History of squamous cell carcinoma excision (Chronic) 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 F[facility] at [facility] Recent MRI 08/2018: Again seen are postoperative changes of bilateral craniectomy. A titanium mesh is present over the left craniectomy. Chronic, heterogeneous collection beneath the left cranioplasty is stable. Measuring up to 21 mm in thickness and displacing the underlying brain. Again seen is sinking of the right skin flap, which is improved since the prior study. To ventricular shunts are again seen. One enters via a right frontal fransico ho le,, and terminates along the anterior septum pellucidum in the left frontal horn. The other connects the ventricles of the upper cervical subarachnoid space. The distal aspect appears discontinuous. There has been a decrease in the size of the ventricles since the prior study. The previously seen diffuse pachymeningeal thickening and enhancement has considerably decreased. Encephalomalacia and gliosis again seen in the right parietal lobe at site of prior surgery. 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 Impression Stable postsurgical changes. The stable heterogeneous fluid collection beneath left cranioplasty. Decreased thinking of the right skin flap. Decreased size of ventricles. Other findings stable. No acute abnormality identified. History of ventriculoperitoneal shunting (Chronic) At age 8 with ventricular shunt failure at age 42 S/P replacement History of brain surgery Social History Smoking Status: Former smoker Hx Alcohol Use: No Hx Substance Use: No Physical Exam Vital Signs Last Vital Signs Temp 99.5 F 02/17/19 13:40 Pulse 99 H 02/17/19 13:40 Resp 24 02/17/19 13:40 BP 171/75 H 02/17/19 13:40 Pulse Ox 95 02/17/19 13:40 Respiratory Auscultation: + rhonchi Cardiovascular Rate/Rhythm: regular rate and regular rhythm Testing Laboratory Results 02/17/19 07:47 02/17/19 07:47 02/17/19 02/17/19 07:47 08:47 PT 12.0 INR 1.2 H APTT 35.9 H Urine Color Yellow Urine Appearance Clear Urine pH 6.5 Ur Specific [place] 1.035 H Urine Protein Negative Urine Glucose (UA) 3+ H Urine Ketones 1+ H Urine Nitrite Negative Ur Leukocyte Esterase Negative Electrocardiogram Date: 02/17/19 Normal sinus rhythm, rate 92 bpm Inferior infarct (cited on or before 17-FEB-2019) Abnormal ECG When compared with ECG of 17-FEB-2019 07:21, (unconfirmed) No significant change was found Other Testing CT Chest 02/17/19 IMPRESSION: 1. No evidence for pulmonary embolus. 2. Consolidative airspace opacities within the bilateral lower lobes posteriorly, right greater than left. There are are also groundglass airspace opacities within the posterior right upper lobe and posterior right middle lobe. This likely represents a pneumonia and could be secondary to aspiration given the opacified right lower lobe bronchi.. 3. Decrease in size in the left axillary mass/lymphadenopathy.
[2019-02-17] MEDS ORDERED: HEPARIN (PORCINE) 1000 UNIT/ML 10 ML (CATH LAB USE ONLY) ONE (13:21)
[2019-02-17] MEDS ORDERED: CEFAZOLIN 250 MG/ML 1 GM VIAL ONE (13:22)
[2019-02-17] MEDS ORDERED: BUPIVACAINE 0.5 % 5 MG/1 ML MPF 30ML VIAL ONE (13:22)
[2019-02-17] MEDS ORDERED: fentaNYL citrate 100 MCG/2 ML VIAL ONE (13:30)
[2019-02-17] MEDS ORDERED: BACITRACIN OINT 15 GM TUBE EXT SCH (14:00)
[2019-02-17] MEDS ORDERED: PIPERACILLIN/TAZOBACTAM 3.375 GM in DEXTROSE 5% 100 ML IV ONE (15:00)
--- NOTE | 2019-02-17 15:04 | Discharge Summary ---
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 Patient presents to [facility] from [facility] secondary to fever, emesis x3 and increased confusion. Sister is at bedside. Patient last seen by sister on 02/14 in which she was doing very well. Apparently symptoms started yesterday in which there was reported increased confusion and episode of emesis. He also had 2 episodes of emesis overnight along with fever. Patient denies feeling fevers, chills, sweats, chest pain, shortness breath, cough, hemoptysis, abdominal pain, change in bowel or urinary habits. Sister reports patient usually has great appetite. Patient currently requesting food now. Per [facility] Nurse patient noted to have 2 large emesis and mod soft stool this morning. TMax 100.4. After Large bile colored emesis pt noted to have SOB, accessory muscle use and wheezing at bases; therefore referred to ED. Also of note they have been doing bacitracin daily to cratered scalp. Also had Ingrown toenail removed to R great toe on 02/11. Admission Exam Per Admitting Provider Gen: Chronically ill male, lying in bed, NAD, pleasant, conversing easily, flat affected Head: Normocephalic, + traumatic with cratered R scalp with hypertrophic scabbing to base of crater no surrounding erythema or drainage noted, multiple craniotomy scars noted Eyes: Sclera normal, no conjunctival injection, PERRLA, EOMI ENT: Gross hearing intact, normal pharynx, mucous membranes moist Neck: supple, no adenopathy, No JVD, no bruit, Resp: Clear to auscultation b/l, no wheeze, rales, rhonchi. Normal insp/exp effort, no accessory muscle use on O2 via NC CV: Regular rate, regular rhythm, no murmur, rub, gallop, or ectopy Abd: +BS x 4, firm, exquisitely tender to right lower quadrant, positive rebound, no guarding or rigidity, nondistended Musculoskeletal: moves extremities active rom x 2, left side hemiparesis, right upper and lower strength intact, good operational intelligence officer strength on right Extremities: No edema bilaterally Skin: warm, dry, no rash, negative turgor, cap refill < 2sec, R great toe with minimal erythema ( recent ingrown nail resection) Neuro: Alert and oriented to self and place, speech normal but slowed, flat mood/affect, cran nerve 2-12 intact grossly : + sacral erythema no open wounds Principal Diagnosis Sepsis Acute severe appendicitis with appendicoliths and possible microperforation Bilateral aspiration pneumonia Emesis Possible need for neurosurgical care given complex multiple neurosurgical comoribidities Discharge Exam Gen: Chronically ill male, lying in bed, NAD, pleasant, conversing easily, flat affected Head: Normocephalic, + traumatic with cratered R scalp with hypertrophic scabbing to base of crater no surrounding erythema or drainage noted, multiple craniotomy scars noted Eyes: Sclera normal, no conjunctival injection, PERRLA, EOMI ENT: Gross hearing intact, normal pharynx, mucous membranes moist Neck: supple, no adenopathy, No JVD, no bruit, Resp: Clear to auscultation b/l, no wheeze, rales, rhonchi. Normal insp/exp effort, no accessory muscle use on O2 via NC CV: Regular rate, regular rhythm, no murmur, rub, gallop, or ectopy Abd: +BS x 4, firm, exquisitely tender to right lower quadrant, positive rebound, no guarding or rigidity, nondistended Musculoskeletal: moves extremities active rom x 2, left side hemiparesis, right upper and lower strength intact, good operational intelligence officer strength on right Extremities: No edema bilaterally Skin: warm, dry, no rash, negative turgor, cap refill < 2sec, R great toe with minimal erythema ( recent ingrown nail resection) Neuro: Alert and oriented to self and place, speech normal but slowed, flat mood/affect, cran nerve 2-12 intact grossly : + sacral erythema no open wounds Discharge Data Allergies Allergy/AdvReac Type Severity Reaction Status Date / Time No Known Allergies Allergy Mild NKA Verified 02/17/19 13:40 Consultations 02/17/19 09:16 ED Decision to Admit Stat 02/17/19 11:42 Consult General Surgery Stat 1) Acute appendicitis: 63 year-old male with extensive past medical history including presence of vp talent management shunt who presented from [facility] due to vomiting, fever, confusion, and shortness of breath. He has aspiration pneumonia but also found to have severe acute appendicitis with appendicolith on CT scan of abdomen and pelvis with possible microperforation. No leukocytosis. He was tachycardic and hypotensive on arrival which improved with IV fluids. Lactic acid elevated at 2.7 on arrival which improved to 1.8 after IV hydration. He was started on IV Abx (Vancomycin and Zosyn). Abdomen is soft, tender in RLQ with positive McBurney's point. Plan: Given evidence of severe acute appendicitis with appendicolith discussed recommendation with patient and his sister (POA) of appendectomy. Will plan for laparoscopic approach however he is at increased risk of converting to open procedure given amount of inflammation. Discussed procedure and risks with patient/sister and informed consent obtained by POA/sister. Continue NPO Continue IV abx Will need prolonged antibiotic therapy post-operatively to try to prevent any HEATING WORKER shunt infection Dr. Laura has seen and examined patient, agrees with above. Supervising Physician Co-Signing Physician Notes I have interviewed and examined this patient and discussed the case with the patient's power of real estate attorney who is his sister. He has acute appendicitis. He has appendicoliths. He will require an appendectomy. Of explained to power of real estate attorney the procedure and the possible complications and the possible need to convert to an open procedure from laparoscopic. She understands. She also understands that there is a possibility of injury or infection of the HEATING WORKER shunt. We are planning for the surgery today. 02/17/19 12:39 Consult Case Management - Discharge Planning Routine 02/17/19 14:35 Burn CD for patient Stat Anesthesia Consultation Assessment & Plan (1) Encounter for pre-operative examination: Chart Review I spoke with Dr. Laura. The patient has a complicated medical history, and he gets his neurological care in [place] ([facility]). The patient does have acute appendicitis but the patient is currently stable. It was agreed upon to transfer the patient to [place] for further care 2/2 the patients multiple comorbidities. Procedures Performed None Ordered Studies Results & Data Vital Signs (Past 12 Hours) Vital Signs Temp Pulse Resp BP Pulse Ox 02/17/19 11:00 80 21 113/62 95 02/17/19 10:45 79 22 107/63 95 02/17/19 10:38 82 25 H 113/64 95 02/17/19 10:15 74 21 103/61 96 02/17/19 10:10 81 27 H 103/64 96 02/17/19 10:05 79 28 H 119/65 96 02/17/19 10:00 80 24 90/65 L 96 02/17/19 09:57 81 25 H 103/63 96 02/17/19 09:45 82 21 101/65 96 02/17/19 09:40 80 24 90/59 L 96 02/17/19 09:30 79 23 94/57 L 96 02/17/19 09:15 80 18 96/61 L 97 02/17/19 09:00 80 20 98/61 L 96 02/17/19 08:45 84 23 93/62 L 93 02/17/19 08:30 92 H 17 110/67 100 02/17/19 08:19 87 21 101/66 100 02/17/19 08:01 92 H 26 H 95 02/17/19 08:00 95 H 24 112/69 95 02/17/19 07:54 95 02/17/19 07:50 100 H 26 H 122/69 95 02/17/19 07:44 38.7 C H 112 H 28 H 116/74 85 L Laboratory Results Short CBC 02/17/19 02/17/19 02/17/19 Range/Units 07:47 07:47 10:56 WBC 5.69 (4.8-10.8) K/uL Hgb 14.8 (14.0-18.0) g/dL Hct 44.1 (42-52) % Plt Count 160 (130-400) K/uL Lactate 2.7 H* 1.8 (0.4-2.0) mmol/L BMP 02/17/19 07:47 Sodium 146 H Potassium 3.6 Chloride 113 H Carbon Dioxide 21 BUN 8 Creatinine 0.71 Glucose 176 H Calcium 9.9 Liver Function 02/17/19 Range/Units 07:47 Total Bilirubin 1.2 H (0.2-1) mg/dl AST 9 L (15-37) U/L ALT 19 (12-78) U/L Alkaline Phosphatase 60 (45-117) U/L Albumin 3.6 (3.4-5.0) gm/dl Urine 02/17/19 Range/Units 08:47 Urine Color Yellow Urine Appearance Clear (Clear) Urine pH 6.5 (4.5-7.5) Ur Specific [place] 1.035 H (1.000-1.030) Urine Protein Negative (Negative) Urine Glucose (UA) 3+ H (Negative) Diagnostic Findings Chest CTA: IMPRESSION: 1. No evidence for pulmonary embolus. 2. Consolidative airspace opacities within the bilateral lower lobes posteriorly, right greater than left. There are are also groundglass airspace opacities within the posterior right upper lobe and posterior right middle lobe. This likely represents a pneumonia and could be secondary to aspiration given the opacified right lower lobe bronchi.. 3. Decrease in size in the left axillary mass/lymphadenopathy. Abd/Pelvis CT: IMPRESSION: 1. Severe acute appendicitis with appendicoliths. No gross evidence of abscess at this time, although there is a potentially loculated laminar adjacent collection in the right lower quadrant which does not demonstrate rim enhancement or significant associated surrounding inflammation. No gross evidence of appendiceal perforation, although the degree of surrounding inflammatory change raises concern for microperforation. Surgical consultation is necessary. 2. Reactive inflammatory change of the terminal ileum. 3. Hepatic steatosis. Head CT: IMPRESSION: 1. Interval ventricular system decompression. Otherwise stable examination with extensive postsurgical changes as above. No evidence of acute hemorrhage. CXR: IMPRESSION: No significant change compared to the prior study. No acute process. 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 Patient presents to [facility] from [facility] secondary to fever, emesis x3 and increased confusion. In ED patient met SIRS criteria temperature 38.7, tachycardic, SBP less than 100. Blood cultures were obtained, lactic acid 2.7 Broad-spectrum antibiotics were administered IV vancomycin and Zosyn Patient received 2 L of IVF prior to my evaluation At time of my evaluation patient is stabilized hemodynamically with BP 119/65 and heart rates in 80s CBC relatively unremarkable with WBC 5.69, H&H 14.8 and 44.1 CMP NA 146, K 3.6, Chl 113, AG 12.0, Gluose 176, T bili 1.2, procal WNL Urine and CXR negative Upon my examination pt with exquisite right lower quadrant tenderness CT scan of abdomen pelvis and chest obtained revealed Severe acute appendicitis with appendicoliths, no gross evidence of abscess at this time along with consolidative airspace opacities in the bilateral lower lobes right greater than left likely aspiration pneumonia. Admit to PCU Consult general surgery Dr. Laura - spoke with Maylin Villegas PA-C remain NPO Continue broad spectrum IV antibiotics with vancomycin and IV Zosyn ( pt will have received 1 dose of vancomycin (1,500mg) and 2 dose of zosyn (4.5g) Received 3 L of IV while in ED and Repeat lactate normalized to 1.8 IVF 1/2 NS 125cc/hr with 20meq KCL Patient taken for laparoscopic appendectomy by Dr. Laura; however upon anesthesia consultation it was deemed patient would benefit from tertiary center given complex neurosurgical history with HEATING WORKER shunt in place. Case was discussed with surgical team and decision was made to transfer patient to [facility]. (4) Diabetes: Last A1c 6.3 on 12/10/2018 Placed on Lantus/NovoLog protocol Patient takes Lantus 14 units at at bedtime, will reduce to 10 units at at bedtime with sliding scale Hold Invokana and Januvia (5) Seizure disorder: No seizures noted On keppra and depakote (being held give NPO status and placed on IV Depakote 350mg Q6hr and Keppra 1.5g q12h) recently had levels 5/15 keppra 29 and depakote 46 (6) History of SCC (squamous cell carcinoma) of skin: 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 Fung at [facility] Continue bacitracin daily to scalp (7) Scalp wound: as above consult wound team (8) Left hemiparesis: secondary to extensive neurosurgical history along with seizure disorder Patient mostly bedbound but does get up to chair for 4 to 6 hours daily consult OT when more medically stable (9) Hypertension: Patient hypotensive on arrival but has improved with IV fluid Patient currently not on any oral antihypertensives (10) HLD (hyperlipidemia): on statin hold for now given sepsis/appendicitis (11) DVT prophylaxis: SCDS/TEDS for now until evaluated by surgery Disposition: Discharge back to [facility] when able, case management parminder sharif Follow-up: PCP Dr. Umanzor upon discharge Patient was seen and examined in collaboration with Dr. Diaz, please see addendum Total Time Total Time Spent Total Time Spent (In Minutes): 4 hours Total Time Includes: Examination of the Patient, Discharge Planning, Medication Reconciliation, Communication With Other Providers and Other Discharge Plan Discharge Items Patient Disposition: Transfer Acute Care Hospital Reason For Visit: ACUTE APPENDICITIS/ B/L ASPIRATION PNA Discharge Diagnosis: Sepsis Severe acute appendicitis with appendicoliths and possible microperforation Bilateral aspiration pneumonia Possible need for acute neurosurgical support given complicated neurosurgical history Condition: Fair Discharge Goals: Decrease discomfort, Improve disease control and Improve function Activity: Resume your previous activity Non-emergency contact: Primary Care Provider and Hospitalist Call non-emergency contact if: you have any medication questions, your symptoms worsen, your pain is not controlled, your pain is worsening, your pain is unusual for you, your pain is concerning for you, you have a fever, your temperature is above 100.5, your wound has increased redness and your wound has increased drainage Follow-up/Referrals: [facility] [Primary Care Provider] - Diet: Nothing by mouth Addtl Provider Instructions: Follow up with Surgeon Dr. Omar Harp for acute care of severe acute appendicitis Continue IV antibiotics Zosyn and Vanco which were initiated in ED until further recommendations NPO status Anti epileptics were transitioned to IV given NPO status Continue IVF as prescribed at tertiary care center Follow up with PCP Dr. Umanzor at [facility] once discharged from [facility] Prescriptions: Continued acetaminophen [Tylenol] 325 mg Tablet 650 mg PO Q4H PRN (Reason: Pain) RF: 0 ketoconazole 2 % shampoo 1 applic topical 2XWK RF: 0 polysaccharide iron complex [Ferrex 150] 150 mg iron Capsule 150 mg PO PM RF: 0 simvastatin 10 mg tablet 10 mg PO PM RF: 0 bacitracin zinc 500 unit/gram Ointment 1 applic TOPICAL DAILY RF: 0 divalproex 500 mg tablet,delayed release (DR/EC) 500 mg PO TID RF: 0 aspirin 81 mg Tablet,Delayed Release (Dr/Ec) 81 mg PO QAM RF: 0 ranitidine HCl 150 mg tablet 150 mg PO BIDM RF: 0 docusate sodium [Colace] 100 mg Capsule 100 mg PO BID RF: 0 sertraline 25 mg tablet 25 mg PO QAM RF: 0 hydrocortisone 2.5 % cream 1 applic topical BID RF: 0 levetiracetam 750 mg tablet 1,500 mg PO Q12 RF: 0 sertraline 50 mg tablet 50 mg PO QAM RF: 0 iron, carbonyl [Feosol] 45 mg Tablet 45 mg PO 3XWK RF: 0 Levemir U-100 Insulin 100 unit/mL solution 14 unit subcut HS RF: 0 fenofibrate nanocrystallized 145 mg tablet 145 mg PO QAM RF: 0 cholecalciferol (vitamin D3) [Vitamin D3] 1,000 unit Tablet 1,000 unit PO QAM RF: 0 Januvia 100 mg tablet 100 mg PO QAM RF: 0 zinc oxide 40 % Ointment 1 applic TOPICAL QS RF: 0 Invokana 100 mg tablet 100 mg PO QDB RF: 0 magnesium oxide 400 mg magnesium Tablet 400 mg PO BID RF: 0 Discontinued cephalexin 500 mg capsule 500 mg PO TID RF: 0 Stand-Alone Forms: [facility] Discharge Orders: Discharge Order (Routine); Ordered 02/17/19 Ordered By: Debbie Jimenez Admission Data Admit Date/Time: 02/17/19 12:35 Attending Provider: Joss Diaz Admit Provider: Joss Diaz Primary Care Provider: Mark Obrien Other Providers: Laura Milton ; Don Laura Service: Telemetry Other Interventions: Discharge Summary Assessment (RN) Last Done: 02/17/19 18:44 Pending Studies at Discharge: No
[2019-02-17] MEDS: INSULIN ASPART 100 UNITS/ML 3 ML PEN SC SCH ×2 (15:22→16:41)
[2019-02-17] MEDS ORDERED: DEXTROSE 5% IV SCH (16:00)
[2019-02-17] MEDS ORDERED: VALPROATE SOD IV SCH (16:00)
[2019-02-17] MEDS ORDERED: INSULIN GLARGINE SOLOSTAR 100 UNITS/ML 3 ML PEN SC SCH (21:00)
[2019-02-17] MEDS ORDERED: levETIRAcetam 1,500 MG in DEXTROSE 5% 100 ML IV SCH (21:00)
== END 2019-02-17 20:17 | disposition short-term general hospital (02) | DRG 871 ==
LOC: ED 07:13 → 2S 12:35

== ENCOUNTER 2021-02-26 01:07 | Inpatient (IN) ==
[2021-02-26] MEDS ORDERED: SODIUM CHLORIDE 0.9% 1000ML 1,000 ML IV ONE (01:23)
[2021-02-26 01:35] LABS: Basophils # (auto) 0.01 K/uL (0-0.2); Basophils % (auto) 0.3 %; Hematocrit (blood only) 45.1 % (42-52); Immature Granulocytes # (auto) 0.01 K/uL (0.00-0.02); Immature Granulocytes % (auto) 0.3 %; Lymphocytes # (auto) 0.29 K/uL (1.2-3.4); Lymphocytes % (auto) 9.7 %; Mean Corpuscular Hemoglobin 28.2 pg (25-34); Mean Corpuscular Hgb Conc 33.3 g/dL (32-36); Mean Corpuscular Volume 84.8 fL (80-100); Mean Platelet Volume 9.4 fL (7.4-10.4); Monocytes # (auto) 0.27 K/uL (0.11-0.59); Neutrophils # (auto) 2.42 K/uL (1.4-6.5); Neutrophils % (auto) 80.7 %; Platelet Count 158 K/uL (130-400); RDW Coefficient of Variation 16.7 % (11.5-14.5); RDW Standard Deviation 51.3 fL (36.4-46.3); Red Blood Count 5.32 M/uL (4.7-6.1)
[2021-02-26 01:40] LABS: Appearance Urine Clear (Clear); Bacteria Urine Automated Negative (Negative); Bilirubin Urine Negative (Negative); Blood Urine 3+ (Negative); Color Urine Dark Yellow; Epithelial Cell Urine Auto 20-30 /lpf (0-5); Glucose Urine UA Negative (Negative); Ketones Urine 2+ (Negative); Leukocyte Esterase Urine Negative (Negative); Nitrite Urine Negative (Negative); Protein Urine Trace (Negative); RBC Urine Automated >30 /hpf (0-4); Specific Gravity Urine 1.025 (1.000-1.030); Urobilinogen Urine Negative (Negative)
[2021-02-26 01:53] LABS: Alanine Aminotransferase 22 U/L (12-78); Albumin Level 3.7 gm/dl (3.4-5.0); Aspartate Aminotransferase 8 U/L (15-37); BUN Creatinine Ratio 14.4 (10-20); Blood Urea Nitrogen 9 mg/dl (7-18); Calcium 9.1 mg/dl (8.5-10.1); Carbon Dioxide 23 mmol/L (21-32); Chloride 105 mmol/L (98-107); Creatinine Clr Calc Pharmacy 122.4 ml/min; Glucose 164 mg/dl (70-99); Potassium 3.3 mmol/L (3.5-5.1); Sodium 139 mmol/L (136-145)
[2021-02-26] MEDS ORDERED: cefTRIAXone SODIUM 2,000 MG/70 ML BAG IV STA (01:57)
[2021-02-26 02:03] LABS: Albumin Globulin Ratio 0.8 (0.9-2); Alkaline Phosphatase 98 U/L (45-117); Bilirubin,Total 0.6 mg/dl (0.2-1); Creatine Kinase 25 U/L (39-308); Creatine Kinase MB < 1.0 ng/ml (0.5-3.6); Globulin 4.6 gm/dl (2.5-4.0); Total Protein 8.3 gm/dl (6.4-8.2); Troponin I < 0.015 ng/ml (0-0.045)
[2021-02-26] MEDS: POTASSIUM CHLORIDE / WTR 10 MEQ/100 ML PLCT IV SCH ×2 (02:08→03:08)
--- NOTE | 2021-02-26 02:57 | Emergency Department Note ---
Impression & Plan Altered mental status, Acute UTI ED Provider Note NAME: FACUNDO LO AGE: 65 SEX: M : 1955 ARRIVES VIA: Ambulance INFORMANT: Patient, Sister, EMS ED PROVIDER(S): Segundo Hahn MD CHIEF COMPLAINT: Altered Mental Status HPI: This is a 65-year-old male with a history of seizures and left hemiparesis the presents to the emergency department complaining of altered mental status. Per fdc report the patient had a seizure this morning at 7 AM. Since that time the patient apparently has been lying in the fdc unresponsive. Upon arrival to the emergency department the patient is respond ing to questions and does respond to painful stimuli. He has no complaints himself. He denies any chest or abdominal pain. ROS: See above HPI for pertinent positives & negatives. A total of 10 systems reviewed and were otherwise negative. PAST MEDICAL HISTORY: See Below PAST SURGICAL HISTORY: See Below FAMILY HISTORY: See Below SOCIAL HISTORY: See Below HOME MEDICATIONS: See Below ALLERGIES: See Below VITALS: See Below PHYSICAL EXAMINATION: VITAL SIGNS - Vital signs and nursing notes were reviewed. GENERAL - 65-year-old male appearing stated age who is in no acute distress, lethargic but does not respond to painful stimuli SKIN - Without rashes. HEAD - chronic changes to left side of head EYES - PERRL with EOMI bilaterally. Sclera anicteric. Palpebral conjunctiva pink and moist with no injection noted. EARS - No deformities of external structures noted on gross examination bilaterally. NOSE - Midline and without cyanosis. No epistaxis or purulent drainage noted. Septum midline without deviation or septal hematoma noted. MOUTH/OROPHARYNX - Without perioral cyanosis. Buccal mucosa pink and moist and without leukoplakia. Tongue midline with equal elevation of palate bilaterally. No tonsillar hypertrophy, erythema, or exudates noted. NECK - Neck with FROM. Supple to palpation. No nuchal rigidity. LUNGS - Chest wall symmetric without accessory muscle use, intercostals retractions, or central cyanosis. Normal vesicular breath sounds CTA B/L. No wheezes, rales, or rhonchi appreciated. CARDIAC - RRR with S1/S2. No murmur, rubs, or gallops appreciated. ABDOMEN - Abdominal contour without pulsations or visible masses. BS normoactive all four quadrants. No tenderness, palpable masses, hepatosplenomegaly, or ascites noted. EXTREMITIES - No clubbing or peripheral cyanosis. No pretibial edema present. +3/5 radial, posterior tibial, and dorsalis pedis pulses palpated throughout. +5/5 strength noted in UE/LE bilaterally. NEUROLOGIC - Pt appears to have left sided hemineglect MEDICAL DECISION MAKING: Patient was seen and evaluated as above in room C4. Review was performed of nursing notes and vital signs. I did review pertinent previous visits and patient history. After obtaining a thorough history and physical examination the above work up was performed. This 65-year-old male who presents emergency department with altered mental status. Upon arrival to the emergency department the patient is responding to verbal questions and does respond to verbal painful stimuli. His sister seems to think he is at his baseline though a bit lethargic. He was sent for CAT scan of the head which does not show any acute changes. He does have a decrease in his white blood cell count. He was given a liter of fluid here in the emergency department started on Rocephin for UTI. Because of the patient's multiple comorbidities I did discuss the case with the hospitalist service who did agree to meet the patient. An order was placed for continuous cardiac monitoring. The monitor shows a rate of 96 with Normal SInus rhythm. The patient was evaluated during a period of high volume and high acuity during the global COVID-19 pandemic, and that diagnosis was suspected/considered upon their initial presentation. Their evaluation, treatment and testing was consistent with current guidelines for patients who present with complaints or symptoms that may be related to COVID-19. Patient was seen while provider was wearing PPE. Triage Nursing notes reviewed. Prior medical records reviewed Vital Signs: reviewed and remarkable for no significant abnormalities Differential diagnosis: Infection, dehydration, metabolic abnormality, hypo/hyperglycemia, electrolyte disturbance, anemia, hypoxia, cardiac sources, intracerebral event, toxicologic, neurologic, as well as other pathologies. ER treatment provided: See below Diagnostics interpreted by me: ECG: Normal sinus rhythm left axis deviation no ST elevation or depression QTC is 448 ventricular rate is 100. EKG is compared to 08/26/2020 PVCs are no l onger present. Laboratory studies: As stated above and show below. Imaging studies: 1 view the chest was interpreted by me shows no evidence of pneumonia congestion or pneumothorax. CT the head: No major changes since the prior exam of 06/03/2019 MRI can further assess is warranted Consultation(s): Internal Medicine Past Med/Surg History Medical History (Updated 02/26/21 @ 03:53 by Segundo Hahn MD) Brain tumor Diabetes History of pituitary adenoma Status post resection, radiation and ASSIST[employer] shunt placed at age 8 History of SCC (squamous cell carcinoma) of skin History of subdural hematoma (post traumatic) HLD (hyperlipidemia) Hypertension Intracranial bleed Left hemiparesis Seizure disorder Surgical History History of brain surgery History of squamous cell carcinoma excision 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 Fung at [facility] Recent MRI 08/2018: Again seen are postoperative changes of bilateral craniectomy. A titanium mesh is present over the left craniectomy. Chronic, heterogeneous collection beneath the left cranioplasty is stable. Measuring up to 21 mm in thickness and displacing the underlying brain. Again seen is sinking of the right skin flap, which is improved since the prior study. To ventricular shunts are again seen. One enters via a right frontal fransico hole,, and terminates along the anterior septum pellucidum in the left frontal horn. The other connects the ventricles of the upper cervical subarachnoid space. The distal aspect appears discontinuous. There has been a decrease in the size of the ventricles since the prior study. The previously seen diffuse pachymeningeal thickening and enhancement has considerably decreased. Encephalomalacia and gliosis again seen in the right parietal lobe at site of prior surgery. 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 Impression Stable postsurgical changes. The stable heterogeneous fluid collection beneath left cranioplasty. Decreased thinking of the right skin flap. Decreased size of ventricles. Other findings stable. No acute abnormality identified. History of ventriculoperitoneal shunting At age 8 with ventricular shunt failure at age 42 S/P replacement Family History Father Colorectal cancer Coronary heart disease Mother Colorectal cancer Myocardial infarction Social History Smoking Status: Unknown if ever smoked Second Hand Exposure: No; Hx Alcohol Use: No Hx Substance Use: No Preferred Language: Cuban Communication Ability: Unable Beliefs That Will Affect Care: None Current Living Situation: [facility] Current Living Situation Comment: Pt unresponsive Feels Safe at Home: Yes Assistive Devices: None Allergies Allergies Allergy/AdvReac Type Severity Reaction Status Date / Time No Known Allergies Allergy Mild NKA Verified 02/26/21 01:21 Home Meds Home Medications Medication Instructions Recorded Confirmed ketoconazole 1 applic TOPICAL 2XWK 02/17/19 02/26/21 simvastatin 10 mg PO HS 02/17/19 02/26/21 divalproex 500 mg PO TID 06/22/19 02/26/21 divalproex 250 mg PO HS 08/26/20 02/26/21 famotidine 20 mg PO QAM 08/26/20 02/26/21 metformin 500 mg PO QDB 08/26/20 02/26/21 sertraline 100 mg PO QAM 08/26/20 02/26/21 acetaminophen [Tylenol] 650 mg PO Q4H PRN MDD 3 /24 02/26/21 02/26/21 HOURS Results & Data (ED) Vital Signs Vital Signs - 24 hr 02/26/21 01:16 02/26/21 01:26 02/26/21 02:34 Temperature 37.1 C Temperature Source Oral Pulse Rate 100 H Pulse Rate [Right] 104 H Pulse Rhythm [Right] Regular Pulse Strength [Right] Normal Respiratory Rate 20 20 Respiratory Effort / Characteristics Non-Labored Spontaneous Non-Labored Spontaneous Respiratory Depth Normal Normal Blood Pressure 108/82 Blood Pressure [Right Arm] 130/92 Blood Pressure Mean 90 Blood Pressure Mean [Right Arm] 104 Blood Pressure Position Lying Blood Pressure Position [Right Arm] Lying Pulse Oximetry 92 92 96 Oxygen Delivery Method Room Air Room Air Nasal Cannula Oxygen Flow Rate 2 Sepsis Recent Fever Within 48 Hours No Sepsis New/Unexplained Change in Mental Status N/A Sepsis Action Taken by Nursing No Action Required 02/26/21 03:20 Temperature Temperature Source Pulse Rate Pulse Rate [Right] 96 H Pulse Rhythm [Right] Regular Pulse Strength [Right] Respiratory Rate 20 Respiratory Effort / Characteristics Non-Labored Spontaneous Respiratory Depth Normal Blood Pressure Blood Pressure [Right Arm] 105/72 Blood Pressure Mean Blood Pressure Mean [Right Arm] 83 Blood Pressure Position Blood Pressure Position [Right Arm] Pulse Oximetry 92 Oxygen Delivery Method Oxymask Oxygen Flow Rate 6 Sepsis Recent Fever Within 48 Hours Sepsis New/Unexplained Change in Mental Status Sepsis Action Taken by Nursing Laboratory Data Result diagrams: 02/26/21 01:25 02/26/21 01:25 Lab Results 02/26/21 02/26/21 02/26/21 Range/Units 01:25 01:25 01:25 WBC 3.00 L (4.8-10.8) K/uL RBC 5.32 (4.7-6.1) M/uL Hgb 15.0 (14.0-18.0) g/dL Hct 45.1 (42-52) % MCV 84.8 (80-100) fL MCH 28.2 (25-34) pg MCHC 33.3 (32-36) g/dL RDW Std Deviation 51.3 H (36.4-46.3) fL RDW Coeff of Kg 16.7 H (11.5-14.5) % Plt Count 158 (130-400) K/uL MPV 9.4 (7.4-10.4) fL Immature Gran % (Auto) 0.3 % Neut % (Auto) 80.7 % Lymph % (Auto) 9.7 % Nye % (Auto) 9.0 % Eos % (Auto) 0.0 % Baso % (Auto) 0.3 % Neut # (Auto) 2.42 (1.4-6.5) K/uL Lymph # (Auto) 0.29 L (1.2-3.4) K/uL Nye # (Auto) 0.27 (0.11-0.59) K/uL Eos # (Auto) 0.00 (0-0.5) K/uL Baso # (Auto) 0.01 (0-0.2) K/uL Immature Gran # (Auto) 0.01 (0.00-0.02) K/uL Sodium 139 (136-145) mmol/L Potassium 3.3 L (3.5-5.1) mmol/L Chloride 105 (98-107) mmol/L Carbon Dioxide 23 (21-32) mmol/L Anion Gap 11.0 (3-11) BUN 9 (7-18) mg/dl Creatinine 0.59 L (0.6-1.4) mg/dl Est Cr Clr Drug Dosing 122.4 ml/min Est GFR ( Amer) 124.0 ml/min Est GFR (Non-Af Amer) 107.0 ml/min BUN/Creatinine Ratio 14.4 (10-20) Glucose 164 H (70-99) mg/dl Calcium 9.1 (8.5-10.1) mg/dl Total Bilirubin 0.6 (0.2-1) mg/dl AST 8 L (15-37) U/L ALT 22 (12-78) U/L Alkaline Phosphatase 98 (45-117) U/L Total Creatine Kinase 25 L (39-308) U/L CK-MB (CK-2) < 1.0 (0.5-3.6) ng/ml CK/CKMB % Calc TNP Troponin I < 0.015 (0-0.045) ng/ml Total Protein 8.3 H (6.4-8.2) gm/dl Albumin 3.7 (3.4-5.0) gm/dl Globulin 4.6 H (2.5-4.0) gm/dl Albumin/Globulin Ratio 0.8 L (0.9-2) TSH 1.710 (0.300-4.500) uIu/ml Urine Color Dark Yellow Urine Appearance Clear (Clear) Urine pH 5.0 (4.5-7.5) Ur Specific Weiser 1.025 (1.000-1.030) Urine Protein Trace H (Negative) Urine Glucose (UA) Negative (Negative) Urine Ketones 2+ H (Negative) Urine Blood 3+ H (Negative) Urine Nitrite Negative (Negative) Urine Bilirubin Negative (Negative) Urine Urobilinogen Negative (Negative) Ur Leukocyte Esterase Negative (Negative) Urine WBC (Auto) 1-5 (0-5) /hpf Urine RBC (Auto) >30 H (0-4) /hpf U Hyaline Cast (Auto) 1-5 (0-5) /lpf U Epithel Cells (Auto) 20-30 H (0-5) /lpf Urine Bacteria (Auto) Negative (Negative) COVID-19 Eval Order SARS-CoV-2 (PCR) (Negative) 02/26/21 02/26/21 Range/Units 01:30 01:30 WBC (4.8-10.8) K/uL RBC (4.7-6.1) M/uL Hgb (14.0-18.0) g/dL Hct (42-52) % MCV (80-100) fL MCH (25-34) pg MCHC (32-36) g/dL RDW Std Deviation (36.4-46.3) fL RDW Coeff of Kg (11.5-14.5) % Plt Count (130-400) K/uL MPV (7.4-10.4) fL Immature Gran % (Auto) % Neut % (Auto) % Lymph % (Auto) % Nye % (Auto) % Eos % (Auto) % Baso % (Auto) % Neut # (Auto) (1.4-6.5) K/uL Lymph # (Auto) (1.2-3.4) K/uL Nye # (Auto) (0.11-0.59) K/uL Eos # (Auto) (0-0.5) K/uL Baso # (Auto) (0-0.2) K/uL Immature Gran # (Auto) (0.00-0.02) K/uL Sodium (136-145) mmol/L Potassium (3.5-5.1) mmol/L Chloride (98-107) mmol/L Carbon Dioxide (21-32) mmol/L Anion Gap (3-11) BUN (7-18) mg/dl Creatinine (0.6-1.4) mg/dl Est Cr Clr Drug Dosing ml/min Est GFR ( Amer) ml/min Est GFR (Non-Af Amer) ml/min BUN/Creatinine Ratio (10-20) Glucose (70-99) mg/dl Calcium (8.5-10.1) mg/dl Total Bilirubin (0.2-1) mg/dl AST (15-37) U/L ALT (12-78) U/L Alkaline Phosphatase (45-117) U/L Total Creatine Kinase (39-308) U/L CK-MB (CK-2) (0.5-3.6) ng/ml CK/CKMB % Calc Troponin I (0-0.045) ng/ml Total Protein (6.4-8.2) gm/dl Albumin (3.4-5.0) gm/dl Globulin (2.5-4.0) gm/dl Albumin/Globulin Ratio (0.9-2) TSH (0.300-4.500) uIu/ml Urine Color Urine Appearance (Clear) Urine pH (4.5-7.5) Ur Specific Weiser (1.000-1.030) Urine Protein (Negative) Urine Glucose (UA) (Negative) Urine Ketones (Negative) Urine Blood (Negative) Urine Nitrite (Negative) Urine Bilirubin (Negative) Urine Urobilinogen (Negative) Ur Leukocyte Esterase (Negative) Urine WBC (Auto) (0-5) /hpf Urine RBC (Auto) (0-4) /hpf U Hyaline Cast (Auto) (0-5) /lpf U Epithel Cells (Auto) (0-5) /lpf Urine Bacteria (Auto) (Negative) COVID-19 Eval Order Covid[facility] at [facility] SARS-CoV-2 (PCR) NEGATIVE (Negative) Administered Medications Potassium Chloride (K Owen / Wtr) 10 meq in 100 mls @ 100 mls/hr IV Q1H STEPHANIE Stop: 02/26/21 04:14 Last Admin: 02/26/21 03:08 Dose: 100 mls/hr Documented by: [id number] Infusion: 02/26/21 03:08 Dose: 0 mls/hr Documented by: [id number] Admin: 02/26/21 02:08 Dose: 100 mls/hr Documented by: [id number] Discontinued Medications Sodium Chloride (Nss 1000ml) 1,000 mls @ 999 mls/hr IV .Q1H1M ONE Stop: 02/26/21 02:23 Last Infusion: 02/26/21 02:30 Dose: 0 mls/hr Documented by: [id number] Admin: 02/26/21 01:27 Dose: 999 mls/hr Documented by: [id number] Ceftriaxone Sodium (Rocephin) 2,000 mg in 70 mls @ 140 mls/hr IV NOW STA Stop: 02/26/21 02:26 Last Infusion: 02/26/21 02:45 Dose: 0 mls/hr Documented by: [id number] Admin: 02/26/21 02:07 Dose: 140 mls/hr Documented by: [id number] Discharge Plan Visit Data Chief Complaint: Illness Stated Complaint: UNRESPONSIVE ED Provider: Segundo Hahn Discharge Problem: Altered mental status, Acute UTI Forms Stand Alone Forms: My [facility] Prescriptions Prescriptions: No Action divalproex 500 mg tablet,delayed release (DR/EC) 500 mg PO TID RF: 0 metformin 500 mg tablet 500 mg PO QDB RF: 0 sertraline 100 mg tablet 100 mg PO QAM RF: 0 famotidine 20 mg tablet 20 mg PO QAM RF: 0 divalproex 250 mg tablet extended release 24 hr 250 mg PO HS RF: 0 ketoconazole 2 % shampoo 1 applic topical [id number] RF: 0 simvastatin 10 mg tablet 10 mg PO HS RF: 0 acetaminophen [Tylenol] 325 mg Tablet 650 mg PO Q4H MDD 3 GRAMS/24 HOURS PRN (Reason: FEVER >100.4/PAIN) RF: 0 Discharge Problem: Altered mental status Qualifiers: Altered mental status type: unspecified Qualified Code(s): R41.82 - Altered mental status, unspecified
[2021-02-26] MEDS ORDERED: VALPROATE SOD 500 MG in DEXTROSE 5% 50 ML IV STA (03:32)
[2021-02-26] MEDS ORDERED: SODIUM CHLORIDE 0.9% 1000ML 1,000 ML IV SCH (05:22)
[2021-02-26] MEDS ORDERED: PIPERACILL/TAZOBAC CONSULT ACTIVE PRN (05:22)
[2021-02-26] MEDS ORDERED: NITROGLYCERIN SL 0.4 MG/TAB TAB SL PRN (05:22)
[2021-02-26] MEDS ORDERED: ONDANSETRON INJ 2 MG/ML 2 ML VIAL IV PRN (05:22)
[2021-02-26] MEDS ORDERED: LORazepam 1.5 MG/3 ML VIAL IV PRN (05:22)
[2021-02-26] MEDS ORDERED: ACETAMINOPHEN 325 MG TAB PO PRN (05:22)
[2021-02-26] MEDS ORDERED: Nursing to Pharmacy Communication SCH (06:00)
[2021-02-26] MEDS ORDERED: PIPERACILLIN/TAZOBACTAM 3.375 GM in DEXTROSE 5% 100 ML IV ONE (06:00)
[2021-02-26] MEDS: INSULIN ASPART 100 UNITS/ML 3 ML PEN SC SCH ×3 (06:42→18:42)
[2021-02-26] MEDS ORDERED: VANCOMYCIN CONSULT ACTIVE PRN (06:44)
[2021-02-26] MEDS ORDERED: VANCOMYCIN HCL 1,000 MG in SODIUM CHLORIDE 0.9% 250 ML IV SCH (06:45)
[2021-02-26 07:35] LABS: Hematocrit (blood only) 44.3 % (42-52); Hemoglobin 14.1 g/dL (14.0-18.0); Lymphocytes # (auto) 0.23 K/uL (1.2-3.4); Mean Corpuscular Hemoglobin 27.5 pg (25-34); Mean Corpuscular Hgb Conc 31.8 g/dL (32-36); Mean Corpuscular Volume 86.5 fL (80-100); Mean Platelet Volume 9.9 fL (7.4-10.4); Monocytes # (auto) 0.27 K/uL (0.11-0.59); Monocytes % (auto) 11.8 %; Neutrophils # (auto) 1.79 K/uL (1.4-6.5); Neutrophils % (auto) 78.2 %; Platelet Count 152 K/uL (130-400); RDW Coefficient of Variation 16.9 % (11.5-14.5); RDW Standard Deviation 53.8 fL (36.4-46.3); Red Blood Count 5.12 M/uL (4.7-6.1); White Blood Count 2.29 K/uL (4.8-10.8)
--- NOTE | 2021-02-26 07:36 | CT Scan Report ---
CT OF THE HEAD WITHOUT CONTRAST CLINICAL HISTORY: Altered mental status. COMPARISON STUDY: Head CT and CTA of the head June 03, 2019. CT DOSE: 614.27 mGy.cm TECHNIQUE: Helical axial images of the head were obtained without IV contrast. Automated exposure con trol was utilized for the study. A dose lowering technique was utilized adhering to the principles o f ALARA. FINDINGS: Ventricular system is stable. Right occipital and right frontal ventriculostomy catheters a re in place. Basal cisterns are patent. Left-sided craniotomy is noted. There is a subjacent chronic extra-axial fluid collection that measures 2.6 cm in thickness. This is unchanged since exam of [facility] 2018. This contains a hypodense focus which measures 2.4 cm. This is also unchanged. There ar e no findings to suggest acute dural sinus thrombosis or acute territorial infarct. A large calcifica tion within the region of the pineal gland is again noted. A right sided craniectomy is unchanged in appearance. The appearance of the brain is unchanged. There is no acute calvarial fracture. IMPRESSION: 1. No acute intracranial findings. No change in extensive postoperative findings since head CT of [facility] 2018, as described above. 2. Stable ventricular system. Ventriculostomy catheters in place. ACT 112: Negative or not required by law. Electronically signed by: Wilbur Beaulieu M.D. 02/26/2021 7:35 AM
[2021-02-26] MEDS ORDERED: VANCOMYCIN HCL 1,750 MG in SODIUM CHLORIDE 0.9% 500 ML IV ONE (07:45)
--- NOTE | 2021-02-26 07:55 | History and Physical Report ---
DATE OF ADMISSION: 02/26/2021 CHIEF COMPLAINT: Seizures. HISTORY OF PRESENT ILLNESS: A 65-year-old male with past medical history significant for hypertension, type 2 diabetes, cholelithiasis, history of seizures, history of depression, history of pituitary adenoma resection, radiation, and SLURRY TANK TENDER shunt placement at age of 8, history of shunt failure at the age of 42, and second shunt placed at the [facility], traumatic subdural hematoma with history of craniotomy by Dr. 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 He is currently full code. He is currently [facility] resident. The patient is bed bound. He eats regular food. Otherwise, alert and oriented and communicates fine. In the morning yesterday, he had emesis and after that he had a seizure episode, but later in the night he became more confused and thought to be postictal. They said he had a temp spike and he was sent to the ER. In the ER, currently, the patient is drowsy. Hemodynamics are okay. He has some mild temperature spike, requiring oxygen. WBC is 3, leukocytopenia. Rest of the labs are okay. Urinalysis is unremarkable. SARS-CoV-2 PCR negative. Chest x-ray, no acute findings. CT of the head, no new changes. Sister is in the room, she says she was told he had seizures, but she does not have any more information. ALLERGIES: No known drug allergies. PAST MEDICAL HISTORY: As mentioned above. PAST SURGICAL HISTORY: Colonoscopy, laparoscopic cholecystectomy, laparoscopic appendectomy, right jugular approach IVC filter in 2008, muscle skin flap head/neck Removal of skull plate/ bone flap, stereotactic cranial intradural navigation. MEDICATIONS: The patient is currently on Tylenol 650 mg p.o. q. 4 hours p.r.n., divalproex 500 mg p.o. t.i.d., divalproex 250 mg p.o. at bedtime, famotidine 20 mg p.o. a.m., ketoconazole applied topically twice weekly, metformin 500 mg p.o. daily, sertraline 100 mg p.o. q.a.m., simvastatin 10 mg p.o. at bedtime. FAMILY HISTORY: Significant for father has cataracts, heart disorder, colon cancer; mother has heart disorder, hypertension, lung cancer; brother has lung cancer, hypertension. SOCIAL HISTORY: Currently living at [facility]. Former smoker, quit in 1995. No alcohol use, no drug use. REVIEW OF SYSTEMS: As per HPI. Review of systems currently unobtainable as the patient lays drowsy. PHYSICAL EXAMINATION: GENERAL: The patient is drowsy. VITAL SIGNS: Temperature T-max 38.4, pulse 93, respiratory rate 17, blood pressure 146/76, oxygen 96% on 2 liters OxyMask. HEENT: Pupils equal, round, and reactive to light. Cranial surgery seen. NECK: No JVD, no neck masses. CARDIOVASCULAR: S1, S2 heard, regular rate and rhythm, no murmur, no gallop. RESPIRATORY SYSTEM: Normal AP diameter. No accessory muscle use. No wheezing or crackles. ABDOMEN: Soft, bowel sounds present, nontender. No distention. CENTRAL NERVOUS SYSTEM: Drowsy, not obeying any commands. EXTREMITIES: Mild pedal edema, no erythema seen. SKIN: No sacral ulcer seen. LABORATORY DATA: WBC of 3, hemoglobin 15, hematocrit 45.1, platelets 158. Sodium 139, potassium 3.3, chloride 105, bicarbonate 23, BUN 9, creatinine 0.5, serum glucose 164, calcium 9.1, total bilirubin 0.6, AST 8, ALT 22, alkaline phosphatase 98, total creatinine kinase 25, CK-MB less than 10 Troponin I less than 0.015. TSH 1.7. Urinalysis, ketones +2 positive, blood +3 positive. SARS-CoV-2 PCR negative. IMAGING DATA: Chest x-ray, no acute findings. EKG: Normal sinus rhythm with rate of 100, left axis deviation, nonspecific T-wave abnormalities. ASSESSMENT AND PLAN: This is a 65-year-old male who presents with seizures and postictal state, possible aspiration pneumonitis. 1. Seizures: The patient has history of seizures, on divalproex 500 mg t.i.d. and divalproex 250 mg at bedtime. Had seizures in the assisted in am and after that seems to be postictal Currently, we will change this divalproex to IV and place on IV Ativan p.r.n EEG. Consult neurology and closely monitor in the tele floor. Further adding of Keppra as per neurology. 2. Fever and hypoxia: Possibly aspiration pneumonitis. Chest looks okay, but will empirically start on Zosyn and closely monitor. If any concern, will get a CT scan of chest. 3. History of diabetes: Hold metformin, placed or insulin sliding scale. 4. History of depression: On zoloft. 5. History of hyperlipidemia: On statin. 6. History of squamous cell carcinoma of scalp history of pituitary adenoma, status post resection and multiple surgeries to the skull and has left hemiparesis and wheelchair bound, also has SLURRY TANK TENDER shunt. 7. Hypertension: Not on any medication. We will monitor. 8. History of cholelithiasis. 9. Deep venous thrombosis prophylaxis: Sequential compression devices. DISPOSITION: Closely monitor in tele floor. Transfer to [facility] when stable. Level 1 full code as per my discussion with the sister. Social service to help with discharge planning. addendum: spiking temp, added iv vanco empirically. MTDD
[2021-02-26] MEDS ORDERED: PNEUMOCOCCAL Polysaccharide Vaccine 25mcg/0.5mL vial/Syr IM ONE (08:00)
[2021-02-26 08:08] LABS: Albumin Level 3.2 gm/dl (3.4-5.0); BUN Creatinine Ratio 9.8 (10-20); Bilirubin Direct 0.2 mg/dl (0-0.2); Calcium 8.8 mg/dl (8.5-10.1); Creatinine Clr Calc Pharmacy 93.9 ml/min; Est GFR (Non-African American) 100.9 ml/min; Magnesium 1.8 mg/dl (1.8-2.4); Potassium 3.3 mmol/L (3.5-5.1)
[2021-02-26 08:11] LABS: Bilirubin,Total 0.6 mg/dl (0.2-1); Total Protein 7.4 gm/dl (6.4-8.2)
--- NOTE | 2021-02-26 08:19 | XRay Report ---
XR chest 1V portable CLINICAL HISTORY: weakness COMPARISON STUDY: 06/05/2019 FINDINGS: The heart is normal in size. There is no failure. A right-sided ventriculoperitoneal shunt catheter is visualized. There are surgical clips project over the left axillary region. There is been near complete interval clearing of the previously identified left lung airspace opacities. There are airspace opacities the right medial lung base, atelectatic versus infectious/inflammatory.[ IMPRESSION: 1. Airspace opacities at the right medial lung base, atelectatic versus infectious/inflammatory 2. Near complete interval clearing of the previously identified left mid and lower lung zone airspace opacities ACT 112: Negative or not required by law. Electronically signed by: Donovan Davis M.D. 02/26/2021 8:17 AM
[2021-02-26] MEDS: VALPROATE SOD 500 MG in DEXTROSE 5% 50 ML IV SCH ×3 (08:25→16:49)
[2021-02-26] MEDS: FAMOTIDINE 20 MG TAB PO SCH (08:53)
[2021-02-26] MEDS: SERTRALINE HCL 100 MG TABLET PO SCH (08:53)
[2021-02-26 10:37] LABS: Estimated Average Glucose 143 mg/dl; Hemoglobin A1C 6.6 % (4.5-5.6)
[2021-02-26] MEDS: ACETAMINOPHEN 1,000 MG/100 ML VIAL IV PRN ×2 (11:08→19:55)
--- NOTE | 2021-02-26 11:23 | Electrocardiogram Report ---
Test Reason : Blood Pressure : / mmHG Vent. Rate : 100 BPM Atrial Rate : 100 BPM P-R Int : 134 ms QRS Dur : 100 ms QT Int : 348 ms P-R-T Axes : 058 -32 054 degrees QTc Int : 448 ms Poor data quality, interpretation may be adversely affected Normal sinus rhythm Left axis deviation Nonspecific ST and T wave abnormality Anterior leads Possible Old Inferior infarct Abnormal ECG When compared with ECG of 26-AUG-2020 08:21, Premature ventricular complexes are no longer Present Confirmed by Asif Hdez ([id number]) on 02/26/2021 11:23:34 AM Referred By: Mark Aldrich Confirmed By:Asif Hdez
[2021-02-26] MEDS: PIPERACILLIN/TAZOBACTAM 3.375 GM in DEXTROSE 5% 100 ML IV SCH ×2 (11:34→19:56)
--- NOTE | 2021-02-26 12:25 | Neurology Consultation ---
Date of Consultation February 26, 2021 Assessment & Plan (1) Altered mental status: 1. continues to be lethargic- no evidence of seizure focus generalize slowing 2. treat reversible causes 3. CXR- shows consolidation right LL 4. antibiotics and chest PT ordered 5. PT/OT speech - for further discharge needs. Present on Admission?: Yes (2) Acute UTI: 1. no UTI on culture Present on Admission?: Yes (3) Seizure disorder: 1. continue Depakote 500 mg BID and 750 mg hs 2. repeat level tomorrow, ammonia level if not already done 3. fall and seizure precautions 4. lung infection may have lowered seizure threshold would start Keppra 500 mg BID for now 5. referred to dermatology and plastics in the past but no intervention was offered due to severity of induration and skin friability 6. will continue to follow and he will be scheduled with Dr Martinez in outpatient. Present on Admission?: Yes Supervising Physician Co-Signing Physician Notes I have seen and discussed above patient with Dr Annette Martinez, neurology, I have seen the patient and discussed him with his sister who is at the bedside. Patient is seen and examined. He is sleepy but arousable. Follows some simple commands. No forced eye deviation. Neck is supple. No movement in the left upper or left lower. EEG shows slowing consistent with postictal phenomenon Impression breakthrough seizure in spite of compliance recommend the addition of Keppra 500 mg twice daily. We will follow with you Annette Martinez MD History of Present Illness Reason for Consultation: seizure Requesting Physician: Sallie Kaur MD Attending Physician: Sallie Kaur MD History of Present Illness Navneet is a 63 year old male with PMH DM2, HTN, HLD, pituitary adenoma resection, radiation and SAMPLE WEAVER shunt placement at age 8, by Dr Stalin Harding, [facility]. He then had a shunt failure at age 42 and a second shunt was placed at [facility]. 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 He was transferred to [facility] due to shunt in abdomen and underwent laparoscopic appendectomy secondary to perforated appendicitis. SAMPLE WEAVER shunt is externalized as catheter was in contact with purulent drainage and hospital stay complicated by respiratory failure requiring intubation and bronchoscopy showed significant mucus plugging, suctioned out with improvement in saturations, extubated, again reintubated. He then had bronchoscopy with collapse of left lobes with mucus plugging. With chest PT the patient improved and was extubated to mask and at that time he became DNR/DNI. Passed speech and swallow evaluation and CSF were checked and there was no evidence of infection, completed antibiotic course. On March 09, 2019 status post SAMPLE WEAVER shunt internalization with new distal tubing, connected with [employer] plastic connector to previous proximal catheter. He is [facility], as per his sister who is power of attorney general, he slowly improved and he was talking and laughing. Because of multiple cranial surgeries done in cannot move his left side and he can move his right upper extremity and he can speak. he was last seen at [facility] 06/08/2019 and at that time had a break through seizure due to non compliance. He had a telephone visit with Dr Martinez 02/13/2020 and at that time ammonia level was to be checked along with an increase in Depakote with any break through seizures. his sister is in the room with him today. It was reported that he had a seizure at [facility]. His Depakote level is 109 and he has not been refusing medications. He is very lethargic but does wake with voice commands. It was thought he had a UTI but that was negative and he was found to have pneumonia. He was started on vancomycin and was order chest PT since he is unable to cough to clear the congestion. ROS unable due to patients MS. Allergies Allergy/AdvReac Type Severity Reaction Status Date / Time No Known Allergies Allergy Mild NKA Verified 02/26/21 01:21 Home Medications Medication Instructions Recorded Confirmed Type ketoconazole 1 applic TOPICAL 2XWK 02/17/19 02/26/21 History simvastatin 10 mg PO HS 02/17/19 02/26/21 History divalproex 500 mg PO TID 06/22/19 02/26/21 History divalproex 250 mg PO HS 08/26/20 02/26/21 History famotidine 20 mg PO QAM 08/26/20 02/26/21 History metformin 500 mg PO QDB 08/26/20 02/26/21 History sertraline 100 mg PO QAM 08/26/20 02/26/21 History acetaminophen [Tylenol] 650 mg PO Q4H PRN MDD 3 GRAMS/24 02/26/21 02/26/21 History HOURS Patient History Medical History (Updated 02/26/21 @ 03:53 by Segundo Hahn MD) Brain tumor Diabetes History of pituitary adenoma Status post resection, radiation and SAMPLE WEAVER shunt placed at age 8 History of SCC (squamous cell carcinoma) of skin History of subdural hematoma (post traumatic) HLD (hyperlipidemia) Hypertension Intracranial bleed Left hemiparesis Seizure disorder Surgical History History of brain surgery History of squamous cell carcinoma excision 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 Fung [facility] Recent MRI 08/2018: Again seen are postoperative changes of bilateral craniectomy. A titanium mesh is present over the left craniectomy. Chronic, heterogeneous collection beneath the left cranioplasty is stable. Measuring up to 21 mm in thickness and displacing the underlying brain. Again seen is sinking of the right skin flap, which is improved since the prior study. To ventricular shunts are again seen. One enters via a right frontal fransico hole,, and terminates along the anterior septum pellucidum in the left frontal horn. The other connects the ventricles of the upper cervical subarachnoid space. The distal aspect appears discontinuous. There has been a decrease in the size of the ventricles since the prior study. The previously seen diffuse pachymeningeal thickening and enhancement has considerably decreased. Encephalomalacia and gliosis again seen in the right parietal lobe at site of prior surgery. 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 Impression Stable postsurgical changes. The stable heterogeneous fluid collection beneath left cranioplasty. Decreased thinking of the right skin flap. Decreased size of ventricles. Other findings stable. No acute abnormality identified. History of ventriculoperitoneal shunting At age 8 with ventricular shunt failure at age 42 S/P replacement Family History Father Colorectal cancer Coronary heart disease Mother Colorectal cancer Myocardial infarction Social History Smoking Status: Unknown if ever smoked Second Hand Exposure: No; Preferred Language: Bengali Communication Ability: AMS Beliefs That Will Affect Care: None Current Living Situation: Group Home Current Living Situation Comment: Pt unresponsive Feels Safe at Home: Yes Assistive Devices: None Review of Systems Review of Systems: Unobtainable due to cognitive status Physical Exam Physical Exam: Physical Exam: Constitutional: appearance over nourished lethargic Ears, Nose, Mouth and Throat: mucous membranes moist, no injection and skin normal, eyes normal Cardiovascular: normal S-1 and S-2 and regular rate and rhythm Respiratory: course breath sound bilaterally with inspiratory wheezing Musculoskeletal: 1+ pitting edema spastic LE Skin: no stigmata of neurocutaneous disease noted and normal and intact Eyes: opens eye with command NEUROLOGIC EXAMINATION: Mental status: Alert with voice command minimally interactive Oriented to person Speech unable to assess Cranial Nerves does not follow commands Sensory: intact to light touch Coordination: does not cooperate with exam Gait/Stance: Posture sitting up in bed with head forward and rounded shoulders Strength: unable to assess left side chroic Results & Data ([facility]) Vital Signs (Past 12 Hours) Vital Signs Temp Pulse Pulse Resp BP BP Pulse Ox 02/26/21 12:12 38.3 C H 112 H 18 119/78 90 02/26/21 09:12 93 H 02/26/21 07:52 37.9 C H 96 H 19 105/70 94 02/26/21 05:23 38.4 C H 93 H 17 146/76 H 96 02/26/21 05:22 38.4 C H 02/26/21 04:22 86 20 111/73 100 02/26/21 03:20 96 H 20 105/72 92 02/26/21 02:34 104 H 20 130/92 96 02/26/21 01:26 92 02/26/21 01:16 37.1 C 100 H 20 108/82 92 Pulse Ox 02/26/21 12:12 02/26/21 09:12 93 02/26/21 07:52 02/26/21 05:23 02/26/21 05:22 100 02/26/21 04:22 02/26/21 03:20 02/26/21 02:34 02/26/21 01:26 02/26/21 01:16 Laboratory Results Abnormal lab results 02/26/21 02/26/21 02/26/21 Range/Units 01:25 01:25 01:25 WBC 3.00 L (4.8-10.8) K/uL MCHC (32-36) g/dL RDW Std Deviation 51.3 H (36.4-46.3) fL RDW Coeff of Kg 16.7 H (11.5-14.5) % Lymph # (Auto) 0.29 L (1.2-3.4) K/uL Potassium 3.3 L (3.5-5.1) mmol/L Creatinine 0.59 L (0.6-1.4) mg/dl BUN/Creatinine Ratio (10-20) Glucose 164 H (70-99) mg/dl POC Glucose (70-99) mg/dl Hemoglobin A1c (4.5-5.6) % Lactate (0.4-2.0) mmol/L AST 8 L (15-37) U/L Total Creatine Kinase 25 L (39-308) U/L Total Protein 8.3 H (6.4-8.2) gm/dl Albumin (3.4-5.0) gm/dl Globulin 4.6 H (2.5-4.0) gm/dl Albumin/Globulin Ratio 0.8 L (0.9-2) Urine Protein Trace H (Negative) Urine Ketones 2+ H (Negative) Urine Blood 3+ H (Negative) Urine RBC (Auto) >30 H (0-4) /hpf U Epithel Cells (Auto) 20-30 H (0-5) /lpf Valproic Acid (50-100) mcg/ml 02/26/21 02/26/21 02/26/21 Range/Units 06:03 07:05 07:05 WBC 2.29 L (4.8-10.8) K/uL MCHC 31.8 L (32-36) g/dL RDW Std Deviation 53.8 H (36.4-46.3) fL RDW Coeff of Kg 16.9 H (11.5-14.5) % Lymph # (Auto) 0.23 L (1.2-3.4) K/uL Potassium 3.3 L (3.5-5.1) mmol/L Creatinine (0.6-1.4) mg/dl BUN/Creatinine Ratio 9.8 L (10-20) Glucose 190 H (70-99) mg/dl POC Glucose 157 H (70-99) mg/dl Hemoglobin A1c (4.5-5.6) % Lactate (0.4-2.0) mmol/L AST 11 L (15-37) U/L Total Creatine Kinase (39-308) U/L Total Protein (6.4-8.2) gm/dl Albumin 3.2 L (3.4-5.0) gm/dl Globulin (2.5-4.0) gm/dl Albumin/Globulin Ratio (0.9-2) Urine Protein (Negative) Urine Ketones (Negative) Urine Blood (Negative) Urine RBC (Auto) (0-4) /hpf U Epithel Cells (Auto) (0-5) /lpf Valproic Acid (50-100) mcg/ml 02/26/21 02/26/21 02/26/21 Range/Units 07:05 07:05 08:22 WBC (4.8-10.8) K/uL MCHC (32-36) g/dL RDW Std Deviation (36.4-46.3) fL RDW Coeff of Kg (11.5-14.5) % Lymph # (Auto) (1.2-3.4) K/uL Potassium (3.5-5.1) mmol/L Creatinine (0.6-1.4) mg/dl BUN/Creatinine Ratio (10-20) Glucose (70-99) mg/dl POC Glucose (70-99) mg/dl Hemoglobin A1c 6.6 H (4.5-5.6) % Lactate 5.2 H* (0.4-2.0) mmol/L AST (15-37) U/L Total Creatine Kinase (39-308) U/L Total Protein (6.4-8.2) gm/dl Albumin (3.4-5.0) gm/dl Globulin (2.5-4.0) gm/dl Albumin/Globulin Ratio (0.9-2) Urine Protein (Negative) Urine Ketones (Negative) Urine Blood (Negative) Urine RBC (Auto) (0-4) /hpf U Epithel Cells (Auto) (0-5) /lpf Valproic Acid 109 H (50-100) mcg/ml 02/26/21 Range/Units 10:13 WBC (4.8-10.8) K/uL MCHC (32-36) g/dL RDW Std Deviation (36.4-46.3) fL RDW Coeff of Kg (11.5-14.5) % Lymph # (Auto) (1.2-3.4) K/uL Potassium (3.5-5.1) mmol/L Creatinine (0.6-1.4) mg/dl BUN/Creatinine Ratio (10-20) Glucose (70-99) mg/dl POC Glucose (70-99) mg/dl Hemoglobin A1c (4.5-5.6) % Lactate 4.9 H* (0.4-2.0) mmol/L AST (15-37) U/L Total Creatine Kinase (39-308) U/L Total Protein (6.4-8.2) gm/dl Albumin (3.4-5.0) gm/dl Globulin (2.5-4.0) gm/dl Albumin/Globulin Ratio (0.9-2) Urine Protein (Negative) Urine Ketones (Negative) Urine Blood (Negative) Urine RBC (Auto) (0-4) /hpf U Epithel Cells (Auto) (0-5) /lpf Valproic Acid (50-100) mcg/ml Diagnostic Findings CT head-. No acute intracranial findings. No change in extensive postoperative findings since head CT of June 03, 2019, as described above. Stable ventricular system. Ventriculostomy catheters in place. EEG- preliminary read - no seizure focus or seizure spikes (1) Altered mental status Altered mental status type: unspecified Qualified Code(s): R41.82 - Altered mental status, unspecified
--- NOTE | 2021-02-26 13:31 | Pharmacy Report ---
Pharmacy Abx Initial Consult - Date of Service February 26, 2021 - Pharmacy Dosing Scope Date of Consult: 02/26/21 Consultation requested by: Dr. Coy Pharmacy is consulted to initiate vancomycin and Zosyn IV dosing therapy, order appropriate labs and adjust drug dose/frequency. - Subjective The patient is a 65 year old M admitted on 02/26/21 03:30. - Objective Height: 5 ft 2 in Weight: 69.354 kg Vital Signs (Past 12hrs): Vital Signs Temp Pulse Pulse Resp BP BP Pulse Ox 02/26/21 13:00 37.5 C 110 H 24 92 02/26/21 12:28 87 L 02/26/21 12:12 38.3 C H 112 H 18 119/78 90 02/26/21 09:12 93 H 02/26/21 07:52 37.9 C H 96 H 19 105/70 94 02/26/21 05:23 38.4 C H 93 H 17 146/76 H 96 02/26/21 05:22 38.4 C H 02/26/21 04:22 86 20 111/73 100 02/26/21 03:20 96 H 20 105/72 92 02/26/21 02:34 104 H 20 130/92 96 02/26/21 01:26 92 02/26/21 01:16 37.1 C 100 H 20 108/82 92 Pulse Ox 02/26/21 13:00 02/26/21 12:28 02/26/21 12:12 02/26/21 09:12 93 02/26/21 07:52 02/26/21 05:23 02/26/21 05:22 100 02/26/21 04:22 02/26/21 03:20 02/26/21 02:34 02/26/21 01:26 02/26/21 01:16 Lab Results (24hrs): Laboratory Tests (24 Hours) 02/26/21 02/26/21 02/26/21 07:05 07:05 01:25 WBC 2.29 L Neut # (Auto) 1.79 Creatinine 0.68 0.59 L Est Cr Clr Drug Dosing 93.9 122.4 Total Creatine Kinase 25 L 02/26/21 01:25 WBC 3.00 L Neut # (Auto) 2.42 Creatinine Est Cr Clr Drug Dosing Total Creatine Kinase Micro Results: 02/26/21 02:10 Aerobic Blood Culture - Pending Blood Anaerobic Blood Culture - Pending 02/26/21 01:25 Aerobic Blood Culture - Pending Blood Anaerobic Blood Culture - Pending - Assessment & Plan Assessment 65 year old M ordered empiric vancomycin and Zosyn for treatment of fever and possible aspiration pneumonia. 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 Tmax today of 38.4 C. MRSA nasal swab, blood cultures x 2, and procalcitonin ordered and pending. Plan Vancomycin IV * Loading dose: 1750 mg (25 mg/kg) * Maintenance dose: 750 mg IV (11 mg/kg) every 8 hours * Will order vancomycin trough if vancomycin is to be continued beyond 48 hours * Exposure target: AUC24 (range)400-600 mg/L.hr * AUC24,ss: 545 mg/L.hr * PAUC*: 79 % * Ctrough,ss: 18.3 mg/L * Pconc*: 42 % * Tox.: 15 % Piperacillin/tazobactam * 3.375 g bolus administered over 30 minutes, then 3.375 g IV extended infusion every 8 hours for CrCl greater than 20 mL/min Pharmacy will continue to follow and will adjust dose/frequency as necessary. Thank you.
--- NOTE | 2021-02-26 15:01 | Communication Note ---
Date of Service: February 26, 2021 pt admitted earlier today with witnessed Seizure episode -at [facility] ( [facility] ) no Seizure episode since admission , pt is continued with IV Depakote ( prior dose ) , neurology consulted Hypoxia /fever : possible aspiration pneumonia during sz episode pt is more awake and alert today , able to follow instructions coarse breathing sound noted moist productive cough placed on 2 l 02 via nasal canula / on IV Zosyn and vancomycin -for aspiration pneumonitis blood culture ordered kept NPO , speech eval per pt's sister ; he was tolerating regular consistency diet at [facility] speech eval requested , cont supportive care pt is paraplegic on left due to prior craniotomy surgery aspiration precaution CODE status : d/w pt 's sister : ok with mechanical ventilation /CPR , does not want prolong life support , on for NG tube for short term nutrition does not want track leader Feeding tube lactic acidosis : possible due to seizure given IV fluid , will hold of further Iv hydration , given risk of development of pulmonary congestion with aspiration pnemonia repeat lactic acid level in am monitor vol status if progressive hypoxia noted with crxray showing pleural effusion will benefit with intermittent low dose IV Lasix dose CODE status : Full code Sallie Kaur MD
--- NOTE | 2021-02-26 15:06 | Electroencephalogram ---
EEG Procedure Note Date of Service February 26, 2021 Start / End Times Start Time: 0748 End Time: [address] Coy History Possible breakthrough seizures status post craniotomy Home Medication List Medication Instructions Recorded Confirmed Type ketoconazole 1 applic TOPICAL 2XWK 02/17/19 02/26/21 History simvastatin 10 mg PO HS 02/17/19 02/26/21 History divalproex 500 mg PO TID 06/22/19 02/26/21 History divalproex 250 mg PO HS 08/26/20 02/26/21 History famotidine 20 mg PO QAM 08/26/20 02/26/21 History metformin 500 mg PO QDB 08/26/20 02/26/21 History sertraline 100 mg PO QAM 08/26/20 02/26/21 History acetaminophen [Tylenol] 650 mg PO Q4H PRN MDD 3 /02/26/21 02/26/21 History HOURS Inpatient Medication List Famotidine (Famotidine 20 Mg Tab) 20 mg PO QAM [facility] Stop: 03/28/21 08:59 Last Admin: 02/26/21 08:53 Dose: Not Given Documented by: [id number] Piperacillin Sod/Tazobactam (Sod 3.375 gm/ Dextrose) 115 mls @ 28.75 mls/hr IV Q8H [facility]; Protocol Stop: 03/05/21 11:59 Last Admin: 02/26/21 11:34 Dose: 28.8 mls/hr Documented by: [id number] Valproic Acid 500 mg/ Dextrose 55 mls @ 55 mls/hr IV 0900,1200,1700 [facility] Stop: 03/28/21 08:59 Last Infusion: 02/26/21 12:35 Dose: 0 mls/hr Documented by: [id number] Admin: 02/26/21 11:32 Dose: 55 mls/hr Documented by: [id number] Infusion: 02/26/21 09:25 Dose: 0 mls/hr Documented by: [id number] Admin: 02/26/21 08:25 Dose: 55 mls/hr Documented by: [id number] Acetaminophen (Ofirmev) 1,000 mg in 100 mls @ 400 mls/hr IV Q8H PRN PRN Reason: Pain or Fever Stop: 03/01/21 06:43 Last Infusion: 02/26/21 11:29 Dose: 0 mls/hr Documented by: [id number] Admin: 02/26/21 11:08 Dose: 400 mls/hr Documented by: [id number] Insulin Aspart (Insulin Aspart 100 Units/Ml 3 Ml Pen) 0 units SC Q6 [facility] Stop: 03/28/21 05:59 Last Admin: 02/26/21 12:37 Dose: Not Given Documented by: [id number] Admin: 02/26/21 06:42 Dose: Not Given Documented by: [id number] Cosigned by: [id number] Miscellaneous (Nizoral~Order Awaiting Action) 1 ea N/A QS [facility] Stop: 03/28/21 07:59 Last Admin: 02/26/21 08:24 Dose: Not Given Documented by: [id number] Sertraline HCl (Sertraline Hcl 100 Mg Tablet) 100 mg PO QAM [facility] Stop: 03/28/21 08:59 Last Admin: 02/26/21 08:53 Dose: Not Given Documented by: [id number] Discontinued Medications Sodium Chloride (Nss 1000ml) 1,000 mls @ 999 mls/hr IV .Q1H1M ONE Stop: 02/26/21 02:23 Last Infusion: 02/26/21 02:30 Dose: 0 mls/hr Documented by: [id number] Admin: 02/26/21 01:27 Dose: 999 mls/hr Documented by: [id number] Ceftriaxone Sodium (Rocephin) 2,000 mg in 70 mls @ 140 mls/hr IV NOW STA Stop: 02/26/21 02:26 Last Infusion: 02/26/21 02:45 Dose: 0 mls/hr Documented by: [id number] Admin: 02/26/21 02:07 Dose: 140 mls/hr Documented by: [id number] Potassium Chloride (K Owen / Wtr) 10 meq in 100 mls @ 100 mls/hr IV Q1H [facility] Stop: 02/26/21 04:14 Last Infusion: 02/26/21 04:20 Dose: 0 mls/hr Documented by: [id number] Admin: 02/26/21 03:08 Dose: 100 mls/hr Documented by: [id number] Infusion: 02/26/21 03:08 Dose: 0 mls/hr Documented by: [id number] Admin: 02/26/21 02:08 Dose: 100 mls/hr Documented by: [id number] Valproic Acid 500 mg/ Dextrose 55 mls @ 55 mls/hr IV NOW STA Stop: 02/26/21 04:31 Last Infusion: 02/26/21 05:21 Dose: 0 mls/hr Documented by: [id number] Admin: 02/26/21 03:53 Dose: 55 mls/hr Documented by: [id number] Sodium Chloride (Nss 1000ml) 1,000 mls @ 100 mls/hr IV .Q10H [facility] Stop: 03/28/21 05:21 Last Infusion: 02/26/21 13:00 Dose: 0 mls/hr Documented by: [id number] Admin: 02/26/21 06:20 Dose: 100 mls/hr Documented by: [id number] Piperacillin Sod/Tazobactam (Sod 3.375 gm/ Dextrose) 115 mls @ 230 mls/hr IV ONE ONE; Protocol Stop: 02/26/21 06:29 Last Infusion: 02/26/21 07:52 Dose: 0 mls/hr Documented by: [id number] Admin: 02/26/21 06:19 Dose: 230 mls/hr Documented by: [id number] Vancomycin HCl 1,750 mg/ (Sodium Chloride) 535 mls @ 200 mls/hr IV ONE ONE; Protocol Stop: 02/26/21 10:25 Last Infusion: 02/26/21 11:21 Dose: 0 mls/hr Documented by: [id number] Admin: 02/26/21 08:24 Dose: 200 mls/hr Documented by: [id number] Pneumococcal Polyvalent Vaccine (Pneumococcal Polysaccharide Vaccine 25mcg/0.5ml Vial/Syr) 25 mcg IM .ONCE ONE Stop: 02/26/21 08:01 Last Admin: 02/26/21 08:35 Dose: Not Given Documented by: [id number] Description This is a 21 electrode EEG with a single channel dedicated to limited EKG. The electrodes were placed in accordance with the International 10-20 system. This EEG was done as a bedside recording and is of reasonable technical quality with few or no muscle movement artifacts. There is no normal background activity and alpha range but rather a posterior head region maximal modest voltage symmetrical upper theta rhythm at 78 Hz maximum frequency of up to 30 V maximum amplitude. Centrally there is evidence for polymorphic theta delta activity which appears to be shifted into the slower frequencies and is of higher amplitude right on the side of thet prior craniotomy and may in part reflect a breach rhythm effect. Beta activity is difficult to ascertain but there appears to be a low voltage fast rhythm bif rontally There is no evidence for potential epileptogenic activity at any time during the tracing Photic stimulation provokes no significant driving response Interpretation This is an abnormal EEG revealing evidence for generalized slowing of all background rhythms and increased amounts of theta delta activity particularly over the right hemisphere where this rhythm appears to be shifted and slower frequencies and is of higher amplitude. This likely correlates with the presence of significant underlying structural disease and rated by imaging studies is not associated with any significant potentially epileptogenic patterns Clinical Correlation This EEG is consistent with a moderate generalized encephalopathy with some focality over the right hemisphere but does not reveal evidence of associated potentially epileptogenic patterns. The absence of these however does not exclude the clinical diagnosis of a seizure disorder and is self only emanating from the diagnosis of nonconvulsive status epilepticus in this particular setting Cayetano Carbajal MD
[2021-02-26] MEDS: VANCOMYCIN HCL 750 MG in SODIUM CHLORIDE 0.9% 250 ML IV SCH (16:48)
[2021-02-26] MEDS: SIMVASTATIN 10 MG TAB PO SCH (19:55)
[2021-02-26] MEDS: VALPROATE SOD 250 MG in DEXTROSE 5% 50 ML IV SCH (20:01)
[2021-02-27] MEDS: INSULIN ASPART 100 UNITS/ML 3 ML PEN SC SCH ×5 (00:45→20:47)
[2021-02-27] MEDS: VANCOMYCIN HCL 750 MG in SODIUM CHLORIDE 0.9% 250 ML IV SCH ×2 (00:45→07:32)
[2021-02-27] MEDS: ACETAMINOPHEN 1,000 MG/100 ML VIAL IV PRN ×2 (03:23→12:05)
[2021-02-27] MEDS: PIPERACILLIN/TAZOBACTAM 3.375 GM in DEXTROSE 5% 100 ML IV SCH ×4 (03:23→20:46)
[2021-02-27 08:12] LABS: Hematocrit (blood only) 35.5 % (42-52); Hemoglobin 11.6 g/dL (14.0-18.0); Mean Corpuscular Hemoglobin 27.8 pg (25-34); Mean Corpuscular Hgb Conc 32.7 g/dL (32-36); Mean Corpuscular Volume 85.1 fL (80-100); Mean Platelet Volume 9.6 fL (7.4-10.4); Platelet Count 114 K/uL (130-400); RDW Coefficient of Variation 16.5 % (11.5-14.5); RDW Standard Deviation 51.7 fL (36.4-46.3); Red Blood Count 4.17 M/uL (4.7-6.1); White Blood Count 2.43 K/uL (4.8-10.8)
--- NOTE | 2021-02-27 08:16 | XRay Report ---
XR chest 1V portable CLINICAL HISTORY: aspiration pneumonia COMPARISON STUDY: 02/26/2021 FINDINGS: The cardiac and mediastinal contours remain stable. A ventriculoperitoneal shunt catheter i s again visualized. There are persistent airspace opacities the right medial lung base. There is mild aortic tortuosity/ectasia. Increased left basilar markings remain similar. Surgical clips project ov er the left axillary region.[ IMPRESSION: Stable findings ACT 112: Negative or not required by law. Electronically signed by: Donovan Davis M.D. 02/27/2021 8:15 AM
[2021-02-27 08:33] LABS: Dohle Bodies 2+; Eosinophils # (auto) 0.02 K/uL (0-0.5); Eosinophils % (auto) 0.8 %; Immature Granulocytes # (auto) 0.01 K/uL (0.00-0.02); Immature Granulocytes % (auto) 0.4 %; Lymphocytes # (auto) 0.23 K/uL (1.2-3.4); Lymphocytes % (auto) 9.5 %; Monocytes # (auto) 0.16 K/uL (0.11-0.59); Monocytes % (auto) 6.6 %; Neutrophils # (auto) 2.01 K/uL (1.4-6.5); Neutrophils % (auto) 82.7 %; Toxic Vacuolation 2+
[2021-02-27 08:45] LABS: BUN Creatinine Ratio 21.5 (10-20); Calcium 8.7 mg/dl (8.5-10.1); Creatinine Clr Calc Pharmacy 158.3 ml/min; Est GFR (Non-African American) 124.3 ml/min; Potassium 2.3 mmol/L (3.5-5.1)
[2021-02-27] MEDS ORDERED: POTASSIUM PHOS 3 MMOL/1 ML INFUSION IV STA (08:55)
[2021-02-27] MEDS ORDERED: POTASSIUM CHLORIDE CRTAB 20 MEQ TABCR PO STA (08:56)
[2021-02-27] MEDS: VALPROATE SOD 500 MG in DEXTROSE 5% 50 ML IV SCH ×3 (09:11→16:35)
[2021-02-27] MEDS: FAMOTIDINE 20 MG TAB PO SCH (09:11)
[2021-02-27] MEDS: SERTRALINE HCL 100 MG TABLET PO SCH (09:12)
[2021-02-27] MEDS ORDERED: POTASSIUM PHOSPHATE 30 MMOL in SODIUM CHLORIDE 0.9% 500 ML IV ONE (09:15)
--- NOTE | 2021-02-27 12:56 | Hospitalist Progress Note ---
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 Does not appear to be in any distress. Hemodynamically stable. Currently patient is on room air. Prior to admission patient is on divalproex 500 mg 3 times daily and 250 mg at bedtime. Further episodes of seizures since patient has been here. Neurology evaluation is pending. Patient remains afebrile. Leukopenia is improved. Lactic acidosis of 2.5. Calcium of 2.3 today. Repleted with potassium phosphate. Will reassess BMP later today. Continue with Zosyn at this time. We will continue with aspiration precautions. Blood cultures have been negative thus far. Hold POISER Metformin. Continue with insulin sliding scale. Continue Zoloft/statin. Awaiting speech therapy input. Admission and Anticipated Discharge Date Admission Date: February 26, 2021 Subjective Patient is awake and alert today. Does reply with yes and no. Limited review of system was obtained patient said no chest pain, shortness of breath, abdominal pain, back pain, nausea or any cough. Review of Systems Review of Systems: Unobtainable due to cognitive status Physical Exam Physical Exam: General: Patient is awake and alert HENT: NCAT, MMM, EOMI Eyes: PERRLA Neck: Supple, normal range of motion CVS: normal rate and rhythm Resp: b/l decreased breath sounds Abdomen: Soft, distended and nontender Extremities: No c/c/e Neuro: face symmetric, unable to form full neurological exam given his baseline mental status Skin: warm and dry, no rashes/lesions/errythema MSK: no joint swelling/erythema Results & Data Results & Data ([facility]) Vital Signs (Past 12 Hours) Vital Signs Temp Pulse Pulse Resp BP BP Pulse Ox 02/27/21 10:49 37.5 C 88 23 159/98 H 95 02/27/21 08:00 66 02/27/21 07:33 02/27/21 07:07 36.5 C 70 22 125/79 96 02/27/21 06:44 96 02/27/21 05:36 36.8 C 02/27/21 02:58 38.2 C H 100 H 26 H 126/72 97 Pulse Ox 02/27/21 10:49 02/27/21 08:00 02/27/21 07:33 96 02/27/21 07:07 02/27/21 06:44 02/27/21 05:36 02/27/21 02:58 (1) Altered mental status Altered mental status type: unspecified Qualified Code(s): R41.82 - Altered mental status, unspecified
[2021-02-27 15:33] LABS: BUN Creatinine Ratio 20.9 (10-20); Blood Urea Nitrogen 7 mg/dl (7-18); Calcium 8.9 mg/dl (8.5-10.1); Carbon Dioxide 24 mmol/L (21-32); Chloride 107 mmol/L (98-107); Creatinine Clr Calc Pharmacy 185.4 ml/min; Est GFR (African American) > 150.0 ml/min; Est GFR (Non-African American) 132.6 ml/min; Glucose 133 mg/dl (70-99); Sodium 139 mmol/L (136-145)
--- NOTE | 2021-02-27 16:47 | Neurology Progress Note ---
Date of Service February 27, 2021 Assessment & Plan (1) Altered mental status: 1. EEG no evidence of seizure focus generalize slowing 2. treat reversible causes- correct lytes 3. CXR- shows consolidation right LL 4. antibiotics and chest PT ordered 5. PT/OT speech - for further discharge needs. (2) Acute UTI: 1. no UTI on culture (3) Seizure disorder: 1. continue Depakote 500 mg BID and 750 mg hs 2. Depakote 9.9 ammonia level 22 3. fall and seizure precautions 4. lung infection may have lowered seizure threshold would start Keppra 500 mg BID - ordered today 5. referred to dermatology and plastics in the past but no intervention was offered due to severity of induration and skin friability 6. will continue to follow and he will be scheduled with Dr Martinez in outpatient. Admission and Anticipated Discharge Date Admission Date: February 26, 2021 Supervising Physician Co-Signing Physician Notes I have seen and discussed above patient with Dr Annette Martinez, neurology. Pt seen and examined, much improved. alert, oriented to place. still with dense left hemiparesis. Breaskthrough sz with therapeutic levels depakote. Start keppra 500 mg bid. NATALIA Martinez MD Mariama Toth is a 63 year old male with PMH DM2, HTN, HLD, pituitary adenoma resection, radiation and NIPPLE MAKER shunt placement at age 8, by Dr Stalin Harding, [facility]. He then had a shunt failure at age 42 and a second shunt was placed at [facility]. PMH traumatic subdural hematoma with history of craniotomy by Dr Culp, [facility] 2010 , squamous cell carcinoma of skull infiltrating adjacent to the right motor strip, status post extensive numerous resections, multiple flaps with titanium mesh resulting in left hemiparesis and seizure disorder, depression. He was transferred to [facility] due to shunt in abdomen and underwent laparoscopic appendectomy secondary to perforated appendicitis. NIPPLE MAKER shunt is externalized as catheter was in contact with purulent drainage and hospital stay complicated by respiratory failure requiring intubation and bronchoscopy showed significant mucus plugging, suctioned out with improvement in saturations, extubated, again reintubated. He then had bronchoscopy with collapse of left lobes with mucus plugging. With chest PT the patient improved and was extubated to mask and at that time he became DNR/DNI. Passed speech and swallow evaluation and CSF were checked and there was no evidence of infection, completed antibiotic course. On March 09, 2019 status post NIPPLE MAKER shunt internalization with new distal tubing, connected with Medtronic plastic connector to previous proximal catheter. He is at [facility] resident, as per his sister who is power of immigration attorney, he slowly improved and he was talking and laughing. Because of multiple cranial surgeries done in cannot move his left side and he can move his right upper extremity and he can speak. he was last seen at [facility] 06/08/2019 and at that time had a break through seizure due to non compliance. He had a telephone visit with Dr Martinez 02/13/2020 and at that time ammonia level was to be checked along with an increase in Depakote with any break through seizures. His sister is not in the room today. His Depakote level is 109 and he has not been refusing medications. He is awake and alert with voice commands today which is much improved. It was thought he had a UTI but that was negative and he was found to have pneumonia. He was started on vancomycin and was order chest PT since he is unable to cough to clear the congestion. no complaints today Review of Systems Review of Systems: All systems reviewed & are unremarkable except as noted in HPI & below Physical Exam Physical Exam: Physical Exam: Constitutional: appearance over nourished awake and alert Ears, Nose, Mouth and Throat: mucous membranes moist, no injection and skin normal, eyes normal Cardiovascular: normal S-1 and S-2 and regular rate and rhythm Respiratory: course breath sound bilaterally with inspiratory wheezing Musculoskeletal: 1+ pitting edema spastic LE, feet are cool to touch Skin: heavily scabbed scalp with area of concave with removal of bone flap Eyes: opens eye with command, does not follow well with finger but states can see it NEUROLOGIC EXAMINATION: Mental status: Alert with voice command much more interactive today Oriented to person Speech is spontaneous and clear, does not know which hospital he is in or date Cranial Nerves facial asymmetry is baseline Sensory: intact to light touch Coordination: squeezes with right hand left hemiparesis contracture of left hand and spasm in left leg Gait/Stance: Posture sitting up in bed with head forward and rounded shoulders Results & Data ([facility]) Vital Signs (Past 12 Hours) Vital Signs Temp Pulse Pulse Resp BP Pulse Ox Pulse Ox 02/27/21 16:00 85 02/27/21 10:49 37.5 C 88 23 159/98 H 95 02/27/21 08:00 66 02/27/21 07:33 96 02/27/21 07:07 36.5 C 70 22 125/79 96 02/27/21 06:44 96 02/27/21 05:36 36.8 C Laboratory Results Abnormal lab results 02/26/21 02/27/21 02/27/21 Range/Units 18:40 00:45 05:34 WBC (4.8-10.8) K/uL RBC (4.7-6.1) M/uL Hgb (14.0-18.0) g/dL Hct (42-52) % RDW Std Deviation (36.4-46.3) fL RDW Coeff of Kg (11.5-14.5) % Plt Count (130-400) K/uL Lymph # (Auto) (1.2-3.4) K/uL Potassium (3.5-5.1) mmol/L Chloride (98-107) mmol/L Creatinine (0.6-1.4) mg/dl BUN/Creatinine Ratio (10-20) Glucose (70-99) mg/dl POC Glucose 128 H 135 H 155 H (70-99) mg/dl Lactate (0.4-2.0) mmol/L 02/27/21 02/27/21 02/27/21 Range/Units 08:03 08:03 08:03 WBC 2.43 L (4.8-10.8) K/uL RBC 4.17 L (4.7-6.1) M/uL Hgb 11.6 L (14.0-18.0) g/dL Hct 35.5 L (42-52) % RDW Std Deviation 51.7 H (36.4-46.3) fL RDW Coeff of Kg 16.5 H (11.5-14.5) % Plt Count 114 L (130-400) K/uL Lymph # (Auto) 0.23 L (1.2-3.4) K/uL Potassium 2.3 L* D (3.5-5.1) mmol/L Chloride 108 H (98-107) mmol/L Creatinine 0.41 L (0.6-1.4) mg/dl BUN/Creatinine Ratio 21.5 H (10-20) Glucose 134 H (70-99) mg/dl POC Glucose (70-99) mg/dl Lactate 2.5 H* (0.4-2.0) mmol/L 02/27/21 02/27/21 02/27/21 Range/Units 11:55 14:36 16:09 WBC (4.8-10.8) K/uL RBC (4.7-6.1) M/uL Hgb (14.0-18.0) g/dL Hct (42-52) % RDW Std Deviation (36.4-46.3) fL RDW Coeff of Kg (11.5-14.5) % Plt Count (130-400) K/uL Lymph # (Auto) (1.2-3.4) K/uL Potassium (3.5-5.1) mmol/L Chloride (98-107) mmol/L Creatinine 0.35 L (0.6-1.4) mg/dl BUN/Creatinine Ratio 20.9 H (10-20) Glucose 133 H (70-99) mg/dl POC Glucose 124 H (70-99) mg/dl Lactate 2.7 H* (0.4-2.0) mmol/L 02/27/21 02/27/21 Range/Units 16:09 16:41 WBC (4.8-10.8) K/uL RBC (4.7-6.1) M/uL Hgb (14.0-18.0) g/dL Hct (42-52) % RDW Std Deviation (36.4-46.3) fL RDW Coeff of Kg (11.5-14.5) % Plt Count (130-400) K/uL Lymph # (Auto) (1.2-3.4) K/uL Potassium 3.3 L D (3.5-5.1) mmol/L Chloride (98-107) mmol/L Creatinine (0.6-1.4) mg/dl BUN/Creatinine Ratio (10-20) Glucose (70-99) mg/dl POC Glucose 141 H (70-99) mg/dl Lactate (0.4-2.0) mmol/L Diagnostic Findings no new imaging (1) Altered mental status Altered mental status type: unspecified Qualified Code(s): R41.82 - Altered mental status, unspecified
[2021-02-27] MEDS: levETIRAcetam 500 MG in 0.9 % SODIUM CHLORIDE 100 ML IV SCH (17:41)
[2021-02-27] MEDS ORDERED: Nursing to Pharmacy Communication SCH (20:15)
[2021-02-27] MEDS: VALPROATE SOD 250 MG in DEXTROSE 5% 50 ML IV SCH (20:46)
[2021-02-27] MEDS: SIMVASTATIN 10 MG TAB PO SCH (20:47)
[2021-02-27] MEDS: SODIUM CHLORIDE 0.9% 1000ML 1,000 ML IV SCH (23:02)
[2021-02-28] MEDS: PIPERACILLIN/TAZOBACTAM 3.375 GM in DEXTROSE 5% 100 ML IV SCH ×3 (04:41→20:12)
[2021-02-28] MEDS: levETIRAcetam 500 MG in 0.9 % SODIUM CHLORIDE 100 ML IV SCH ×2 (04:41→17:35)
[2021-02-28 08:29] LABS: Eosinophils # (auto) 0.03 K/uL (0-0.5); Eosinophils % (auto) 0.9 %; Hemoglobin 11.6 g/dL (14.0-18.0); Immature Granulocytes # (auto) 0.01 K/uL (0.00-0.02); Immature Granulocytes % (auto) 0.3 %; Lymphocytes # (auto) 0.19 K/uL (1.2-3.4); Lymphocytes % (auto) 5.4 %; Mean Corpuscular Hemoglobin 27.4 pg (25-34); Mean Corpuscular Volume 82.7 fL (80-100); Mean Platelet Volume 9.4 fL (7.4-10.4); Monocytes % (auto) 8.5 %; Neutrophils # (auto) 2.99 K/uL (1.4-6.5); Neutrophils % (auto) 84.9 %; Platelet Count 107 K/uL (130-400); RDW Coefficient of Variation 16.5 % (11.5-14.5); RDW Standard Deviation 50.1 fL (36.4-46.3); Red Blood Count 4.23 M/uL (4.7-6.1); White Blood Count 3.52 K/uL (4.8-10.8)
[2021-02-28 08:32] LABS: Mean Corpuscular Hgb Conc 33.1 g/dL (32-36)
[2021-02-28 09:00] LABS: BUN Creatinine Ratio 24.7 (10-20); Blood Urea Nitrogen 6 mg/dl (7-18); Calcium 8.9 mg/dl (8.5-10.1); Carbon Dioxide 25 mmol/L (21-32); Chloride 107 mmol/L (98-107); Creatinine Clr Calc Pharmacy 271.3 ml/min; Est GFR (African American) > 150.0 ml/min; Est GFR (Non-African American) > 150.0 ml/min; Glucose 146 mg/dl (70-99); Potassium 2.5 mmol/L (3.5-5.1); Sodium 142 mmol/L (136-145)
[2021-02-28] MEDS: INSULIN ASPART 100 UNITS/ML 3 ML PEN SC SCH ×4 (09:05→23:33)
[2021-02-28] MEDS: VALPROATE SOD 500 MG in DEXTROSE 5% 50 ML IV SCH ×3 (09:06→17:36)
[2021-02-28] MEDS ORDERED: POTASSIUM PHOS 3 MMOL/1 ML INFUSION IV STA (09:07)
[2021-02-28] MEDS: SODIUM CHLORIDE 0.9% 1000ML 1,000 ML IV SCH ×2 (09:07→20:13)
[2021-02-28] MEDS: FAMOTIDINE 20 MG TAB PO SCH (09:07)
[2021-02-28] MEDS: SERTRALINE HCL 100 MG TABLET PO SCH (09:07)
[2021-02-28] MEDS ORDERED: POTASSIUM PHOSPHATE 30 MMOL in SODIUM CHLORIDE 0.9% 500 ML IV ONE (09:30)
[2021-02-28] MEDS ORDERED: POTASSIUM CHLORIDE 80 MEQ in SODIUM CHLORIDE 0.9% 1000ML 1,000 ML IV SCH (10:00)
--- NOTE | 2021-02-28 12:38 | Hospitalist Progress Note ---
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 Does not appear to be in any distress. Hemodynamically stable. Currently patient is on room air. Prior to admission patient is on divalproex 500 mg 3 times daily and 250 mg at bedtime. No further episodes of seizures since patient has been here. Appreciate neurology input. EEG without any evidence of seizure. Continue Depakote 500 mg twice daily and 750 mg at bedtime as per neurology. K eppra 500 mg also started by neurology. Patient remains afebrile. Leukopenia is improved. Lactic acidosis is resolved. Potassium of 2.5 today. Repleted with NSS-K. Will reassess BMP later today. Continue with Zosyn at this time. Will continue with aspiration precautions. Blood cultures have been negative thus far. Hold SWIMMER Metformin. Continue with insulin sliding scale. Continue Zoloft/stat in. Appreciate speech therapy input. currently on minced and moist diet. Admission and Anticipated Discharge Date Admission Date: February 26, 2021 Subjective Awake and alert this morning. Currently on room air. Hemodynamically is doing okay. Potassium of 2.5 this morning. Does have small conversations with yes and no. Denies any chest pain, shortness of breath, nausea/vomiting, abdominal pain or diarrhea. Review of Systems Review of Systems: All systems reviewed & are unremarkable except as noted in HPI & below Physical Exam Physical Exam: General: Patient is awake and alert HENT: NCAT, MMM, EOMI Eyes: PERRLA Neck: Supple, normal range of motion CVS: normal rate and rhythm Resp: b/l decreased breath sounds Abdomen: Soft, distended and nontender Extremities: trace LE edema Neuro: face symmetric, left-sided hemiparesis, right upper extremity some weakness also appreciated Skin: no rashes/lesions/errythema MSK: no joint swelling/erythema Results & Data Results & Data ([facility]) Vital Signs (Past 12 Hours) Vital Signs Temp Pulse Pulse Resp BP Pulse Ox Pulse Ox 02/28/21 11:44 36.9 C 81 20 109/74 98 02/28/21 08:14 37.2 C 104 H 20 125/71 95 02/28/21 08:00 77 02/28/21 07:00 95 02/28/21 04:38 37.3 C 87 16 151/83 H 93 (1) Altered mental status Altered mental status type: unspecified Qualified Code(s): R41.82 - Altered mental status, unspecified
--- NOTE | 2021-02-28 16:06 | Neurology Progress Note ---
Date of Service February 28, 2021 Assessment & Plan (1) Altered mental status: 1. EEG no evidence of seizure focus generalize slowing 2. treat reversible causes- correct lytes 3. CXR- shows consolidation right LL 4. antibiotics and chest PT ordered 5. PT/OT speech - for further discharge needs. (2) Acute UTI: 1. no UTI on culture (3) Seizure disorder: 1. continue Depakote 500 mg BID and 750 mg hs 2. ammonia level 22 3. fall and seizure precautions 4. lung infection may have lowered seizure threshold would start Keppra 500 mg BID - ordered today 5. referred to dermatology and plastics in the past but no intervention was offered due to severity of induration and skin friability 6. will continue to follow and he will be scheduled with Dr Martinez in outpatient. Admission and Anticipated Discharge Date Admission Date: February 26, 2021 Supervising Physician Co-Signing Physician Notes I have seen and discussed above patient with Dr Annette Martinez, neurology. Patient seen and examined. He has had no further seizures. Platelet count is 107. White count is rising. The patient is sleepy but arousable oriented to person. He follows simple commands. Tends to have a right gaze preference but is able to look to the left. There is a dense left hemiparesis. Right upper and right lower extremity are greater than antigravity. Left toe is upgoing right toe is equivocal. Breakthrough seizure on Depakote Keppra has been added. Monitor platelet count although typically the platelets counts even on this admission has been normal Depakote can cause thrombocytopenia. The patient can have a Keppra level as an outpatient. The patient can see me in follow-up post discharge. Will sign off. Annette Martinez MD Mariama Toth is a 63 year old male with PMH DM2, HTN, HLD, pituitary adenoma resection, radiation and COMMERCIAL ARTIST LETTERING shunt placement at age 8, by Dr Stalin Harding, [facility]. He then had a shunt failure at age 42 and a second shunt was placed at [facility]. PMH traumatic subdural hematoma with history of craniotomy by Dr Culp, [facility] 2010 , squamous cell carcinoma of skull infiltrating adjacent to the right motor strip, status post extensive numerous resections, multiple flaps with titanium mesh resulting in left hemiparesis and seizure disorder, depression. He was transferred to [facility] due to shunt in abdomen and underwent laparoscopic appendectomy secondary to perforated appendicitis. COMMERCIAL ARTIST LETTERING shunt is externalized as catheter was in contact with purulent drainage and hospital stay complicated by respiratory failure requiring intubation and bronchoscopy showed significant mucus plugging, suctioned out with improvement in saturations, extubated, again reintubated. He then had bronchoscopy with collapse of left lobes with mucus plugging. With chest PT the patient improved and was extubated to mask and at that time he became DNR/DNI. Passed speech and swallow evaluation and CSF were checked and there was no evidence of infection, completed antibiotic course. On March 09, 2019 status post COMMERCIAL ARTIST LETTERING shunt internalization with new distal tubing, connected with Medtronic plastic connector to previous proximal catheter. He is at [facility] resident, as per his sister who is power of contract attorney, he slowly improved and he was talking and laughing. Because of multiple cranial surgeries done in cannot move his left side and he can move his right upper extremity and he can speak. he was last seen at [facility] 06/08/2019 and at that time had a break through seizure due to non compliance. He had a telephone visit with Dr Martinez 02/13/2020 and at that time ammonia level was to be checked along with an increase in Depakote with any break through seizures. His parents are in the room today. His Depakote level is 109 and he has not been refusing medications. He is awake and alert with voice commands today which is much improved. It was thought he had a UTI but that was negative and he was found to have pneumonia. He was started on vancomycin now on Zosyn and was order chest PT since he is unable to cough to clear the congestion. no complaints today Review of Systems Review of Systems: All systems reviewed & are unremarkable except as noted in HPI & below Physical Exam Physical Exam: Physical Exam: Constitutional: appearance over nourished awake and alert Ears, Nose, Mouth and Throat: mucous membranes moist, no injection and skin normal, eyes normal Cardiovascular: normal S-1 and S-2 and regular rate and rhythm Respiratory: course breath sound bilaterally with inspiratory wheezing Musculoskeletal: 1+ pitting edema spastic LE, feet are cool to touch Skin: heavily scabbed scalp with area of concave with removal of bone flap Eyes: opens eye with command, does not follow well with finger but states can see it NEUROLOGIC EXAMINATION: Mental status: Alert with voice command much more interactive today Oriented to person Speech is spontaneous and clear, does not know which hospital he is in or date Cranial Nerves facial asymmetry is baseline Sensory: intact to light touch Coordination: squeezes with right hand left hemiparesis contracture of left hand and spasm in left leg Gait/Stance: Posture sitting up in bed with head forward and rounded shoulders Results & Data ([facility]) Vital Signs (Past 12 Hours) Vital Signs Temp Pulse Pulse Resp BP Pulse Ox Pulse Ox 02/28/21 15:52 36.8 C 77 18 128/72 97 02/28/21 11:44 36.9 C 81 20 109/74 98 02/28/21 08:14 37.2 C 104 H 20 125/71 95 02/28/21 08:00 77 02/28/21 07:00 95 02/28/21 04:38 37.3 C 87 16 151/83 H 93 Laboratory Results Abnormal lab results 02/27/21 02/27/21 02/27/21 Range/Units 16:09 16:09 16:41 WBC (4.8-10.8) K/uL RBC (4.7-6.1) M/uL Hgb (14.0-18.0) g/dL Hct (42-52) % RDW Std Deviation (36.4-46.3) fL RDW Coeff of Kg (11.5-14.5) % Plt Count (130-400) K/uL Lymph # (Auto) (1.2-3.4) K/uL Potassium 3.3 L D (3.5-5.1) mmol/L BUN (7-18) mg/dl Creatinine (0.6-1.4) mg/dl BUN/Creatinine Ratio (10-20) Glucose (70-99) mg/dl POC Glucose 141 H (70-99) mg/dl Lactate 2.7 H* (0.4-2.0) mmol/L 02/27/21 02/28/21 02/28/21 Range/Units 20:47 07:14 07:31 WBC (4.8-10.8) K/uL RBC (4.7-6.1) M/uL Hgb (14.0-18.0) g/dL Hct (42-52) % RDW Std Deviation (36.4-46.3) fL RDW Coeff of Kg (11.5-14.5) % Plt Count (130-400) K/uL Lymph # (Auto) (1.2-3.4) K/uL Potassium 2.5 L* D (3.5-5.1) mmol/L BUN 6 L (7-18) mg/dl Creatinine 0.24 L (0.6-1.4) mg/dl BUN/Creatinine Ratio 24.7 H (10-20) Glucose 146 H (70-99) mg/dl POC Glucose 115 H 155 H (70-99) mg/dl Lactate (0.4-2.0) mmol/L 02/28/21 02/28/21 Range/Units 08:17 11:21 WBC 3.52 L (4.8-10.8) K/uL RBC 4.23 L (4.7-6.1) M/uL Hgb 11.6 L (14.0-18.0) g/dL Hct 35.0 L (42-52) % RDW Std Deviation 50.1 H (36.4-46.3) fL RDW Coeff of Kg 16.5 H (11.5-14.5) % Plt Count 107 L (130-400) K/uL Lymph # (Auto) 0.19 L (1.2-3.4) K/uL Potassium (3.5-5.1) mmol/L BUN (7-18) mg/dl Creatinine (0.6-1.4) mg/dl BUN/Creatinine Ratio (10-20) Glucose (70-99) mg/dl POC Glucose 166 H (70-99) mg/dl Lactate (0.4-2.0) mmol/L Diagnostic Findings no new imaging (1) Altered mental status Altered mental status type: unspecified Qualified Code(s): R41.82 - Altered mental status, unspecified
[2021-02-28 17:36] LABS: BUN Creatinine Ratio 17.8 (10-20); Blood Urea Nitrogen 4 mg/dl (7-18); Calcium 8.9 mg/dl (8.5-10.1); Carbon Dioxide 28 mmol/L (21-32); Chloride 111 mmol/L (98-107); Creatinine Clr Calc Pharmacy 271.3 ml/min; Est GFR (African American) > 150.0 ml/min; Est GFR (Non-African American) > 150.0 ml/min; Glucose 108 mg/dl (70-99); Potassium 3.4 mmol/L (3.5-5.1); Sodium 144 mmol/L (136-145)
[2021-02-28] MEDS: VALPROATE SOD 250 MG in DEXTROSE 5% 50 ML IV SCH (21:23)
[2021-02-28] MEDS: SIMVASTATIN 10 MG TAB PO SCH (21:25)
[2021-03-01] MEDS: PIPERACILLIN/TAZOBACTAM 3.375 GM in DEXTROSE 5% 100 ML IV SCH ×3 (04:09→20:15)
[2021-03-01] MEDS: levETIRAcetam 500 MG in 0.9 % SODIUM CHLORIDE 100 ML IV SCH ×2 (04:10→16:15)
[2021-03-01 07:16] LABS: Blood Urea Nitrogen 5 mg/dl (7-18); Calcium 8.6 mg/dl (8.5-10.1); Carbon Dioxide 28 mmol/L (21-32); Chloride 111 mmol/L (98-107); Creatinine Clr Calc Pharmacy 294.6 ml/min; Est GFR (African American) > 150.0 ml/min; Est GFR (Non-African American) > 150.0 ml/min; Glucose 135 mg/dl (70-99); Potassium 2.9 mmol/L (3.5-5.1); Sodium 145 mmol/L (136-145)
[2021-03-01] MEDS: SERTRALINE HCL 100 MG TABLET PO SCH (09:12)
[2021-03-01] MEDS: FAMOTIDINE 20 MG TAB PO SCH (09:12)
[2021-03-01] MEDS: VALPROATE SOD 500 MG in DEXTROSE 5% 50 ML IV SCH ×3 (09:13→16:15)
[2021-03-01] MEDS ORDERED: POTASSIUM CHLORIDE 40 MEQ in SODIUM CHLORIDE 0.9% 500 ML IV SCH (10:00)
[2021-03-01] MEDS: INSULIN ASPART 100 UNITS/ML 3 ML PEN SC SCH ×4 (10:00→20:23)
--- NOTE | 2021-03-01 10:02 | Hospitalist Progress Note ---
Date of Service March 01, 2021 Assessment & Plan (1) Acute respiratory failure with hypoxia: resolved, possibly secondary to aspiration pneumonia. (2) Aspiration pneumonia: Possible aspiration pneumonia, question aspiration during seizure event at home. Hypoxia has resolved and he is clinically improved on Zosyn. Blood cultures negative. He is tolerating PO and speech therapy notes no overt aspiration on exam. (3) Hypokalemia: repleting with supplementation and will repeat BMP later today. (4) Seizure: H/o seizures (5) Sinus bradycardia: Likely a result of his ongoing hypokalemia. Replete lytes with IV and PO supplementation and recheck labs this afternoon with more if needed. (6) DMII (diabetes mellitus, type 2): Home metformin held. No insulin coverage needed. A1C reflects food control at 6.6. (7) History of ventriculoperitoneal shunting: s/p craniotomy. (8) DVT prophylaxis: Lovenox Full Code Dispo-likely dc after the weekend back to [facility]. Radha Reynoso DO [facility] Hospitalist Admission and Anticipated Discharge Date Admission Date: February 26, 2021 Subjective The patient is a 63-year-old man status post complex neurosurgical history status post craniotomy. As a result of multiple surgeries he has functional paraplegia with some movement of his right arm and hand at baseline. He is able to speak and breathe independently. Keppra 500 mg twice daily was added this admission. There was concern that possible lung infection may have lowered seizure threshold. Review of Systems Review of Systems: All systems reviewed & are unremarkable except as noted in Subjective Physical Exam Physical Exam: CONSTITUTIONAL: WNWD, vitals as above, generally well-a ppearing EYES: normal conjunctivae, no scleral icterus ENT: external ear and nose normal, MMM RESPIRATORY: clear to auscultation bilaterally, no crackles, rales or wheezes, normal respiratory effort CARDIOVASCULAR: regular rate and rhythm, S1 and 2 heard without murmurs, gallops or rubs, no JVD, no peripheral edema GASTROINTESTINAL: soft, nontender, nondistended MUSCULOSKELETAL: able to move right arm and 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 SKIN: warm and dry NEUROLOGIC: CN 2-12 grossly intact, ?somnolence, normal speech, no tremor, doesn't say much but oriented and answers questions appropriately. Results & Data Results & Data ([facility]) Vital Signs (Past 12 Hours) Vital Signs Temp Pulse Pulse Resp BP Pulse Ox 03/01/21 07:59 36.6 C 56 L 18 115/57 L 98 03/01/21 04:44 36.6 C 72 16 120/64 93 03/01/21 00:36 36.6 C 61 101/58 L 97 03/01/21 00:00 74 Laboratory Results BMP 02/28/21 03/01/21 17:00 06:30 Sodium 144 145 Potassium 3.4 L D 2.9 L Chloride 111 H 111 H Carbon Dioxide 28 28 BUN 4 L 5 L Creatinine 0.24 L 0.22 L Glucose 108 H 135 H Calcium 8.9 8.6 Medications Administered Current Inpatient Medications Acetaminophen (Acetaminophen 325 Mg Tab) 650 mg PO Q4H PRN PRN Reason: Pain or Fever Stop: 03/28/21 05:21 Famotidine (Famotidine 20 Mg Tab) 20 mg PO QAM [facility] Stop: 03/28/21 08:59 Last Admin: 03/01/21 09:12 Dose: 20 mg Documented by: Lorazepam (Ativan) 1.5 mg in 3 mls @ 3 mls/min IV Q2H PRN PRN Reason: Breakthrough Seizures Stop: 03/28/21 05:21 Piperacillin Sod/Tazobactam (Sod 3.375 gm/ Dextrose) 115 mls @ 28.75 mls/hr IV Q8H [facility]; Protocol Stop: 03/05/21 11:59 Last Admin: 03/01/21 04:09 Dose: 28.8 mls/hr Documented by: Valproic Acid 500 mg/ Dextrose 55 mls @ 55 mls/hr IV 0900,1200,1700 [facility] Stop: 03/28/21 08:59 Last Admin: 03/01/21 09:13 Dose: 55 mls/hr Documented by: Valproic Acid 250 mg/ Dextrose 52.5 mls @ 55 mls/hr IV HS [facility] Stop: 03/28/21 20:59 Last Infusion: 02/28/21 23:38 Dose: Infused Documented by: Levetiracetam 500 mg/ Sodium (Chloride) 105 mls @ 420 mls/hr IV Q12H [facility] Stop: 03/29/21 17:14 Last Infusion: 03/01/21 04:29 Dose: Infused Documented by: Potassium Chloride 40 meq/ (Sodium Chloride) 520 mls @ 125 mls/hr IV .Q4H10M [facility] Stop: 03/01/21 14:00 Insulin Aspart (Insulin Aspart 100 Units/Ml 3 Ml Pen) 0 units SC ACHS [facility] Stop: 03/28/21 05:59 Last Admin: 03/01/21 10:00 Dose: Not Given Documented by: Miscellaneous (Nizoral~Order Awaiting Action) 1 ea N/A QS [facility] Stop: 03/28/21 07:59 Last Admin: 03/01/21 09:13 Dose: Not Given Documented by: Miscellaneous Information (Piperacill/Tazobac Consult Active) 1 ea N/A UD PRN PRN Reason: Consult Stop: 03/28/21 05:21 Nitroglycerin (Nitroglycerin Sl 0.4 Mg/Tab Tab) 0.4 mg SL UD PRN PRN Reason: Chest Pain Stop: 03/28/21 05:21 Ondansetron HCl (Ondansetron Inj 2 Mg/Ml 2 Ml Vial) 4 mg IV Q6H PRN PRN Reason: Nausea Stop: 03/28/21 05:21 Last Admin: 02/28/21 17:35 Dose: 4 mg Documented by: Potassium Chloride (Potassium Chloride Pwd 20 Meq Pack) 40 meq PO Q6H [facility] Stop: 03/01/21 16:01 Sertraline HCl (Sertraline Hcl 100 Mg Tablet) 100 mg PO QAM [facility] Stop: 03/28/21 08:59 Last Admin: 03/01/21 09:12 Dose: 100 mg Documented by: Simvastatin (Simvastatin 10 Mg Tab) 10 mg PO HS [facility] Stop: 03/28/21 20:59 Last Admin: 02/28/21 21:25 Dose: 10 mg Documented by:
[2021-03-01] MEDS: POTASSIUM CHLORIDE PWD 20 MEQ PACK PO SCH ×2 (11:19→16:15)
--- NOTE | 2021-03-01 13:51 | Electrocardiogram Report ---
Test Reason : Blood Pressure : / mmHG Vent. Rate : 049 BPM Atrial Rate : 049 BPM P-R Int : 158 ms QRS Dur : 112 ms QT Int : 456 ms P-R-T Axes : 040 -01 029 degrees QTc Int : 411 ms Sinus bradycardia Otherwise normal ECG When compared with ECG of 26-FEB-2021 01:13, Vent. rate has decreased BY [address] and T wave abnormality Anterior leads no longer present Confirmed by Asif Hdez ([id number]) on 03/01/2021 1:51:27 PM Referred By: Mark Aldrich Confirmed By:Asif Hdez
[2021-03-01 16:35] LABS: BUN Creatinine Ratio 21.2 (10-20); Blood Urea Nitrogen 4 mg/dl (7-18); Calcium 8.7 mg/dl (8.5-10.1); Carbon Dioxide 27 mmol/L (21-32); Chloride 113 mmol/L (98-107); Creatinine Clr Calc Pharmacy 308.6 ml/min; Est GFR (African American) > 150.0 ml/min; Est GFR (Non-African American) > 150.0 ml/min; Glucose 110 mg/dl (70-99); Magnesium 2.2 mg/dl (1.8-2.4); Potassium 4.3 mmol/L (3.5-5.1); Sodium 145 mmol/L (136-145)
[2021-03-01] MEDS: SODIUM CHLORIDE 0.9% 1000ML 1,000 ML IV SCH (20:12)
[2021-03-01] MEDS: VALPROATE SOD 250 MG in DEXTROSE 5% 50 ML IV SCH (20:15)
[2021-03-01] MEDS: SIMVASTATIN 10 MG TAB PO SCH (20:16)
[2021-03-02] MEDS: levETIRAcetam 500 MG in 0.9 % SODIUM CHLORIDE 100 ML IV SCH (03:11)
[2021-03-02] MEDS: SODIUM CHLORIDE 0.9% 1000ML 1,000 ML IV SCH ×2 (03:12→14:21)
[2021-03-02] MEDS: PIPERACILLIN/TAZOBACTAM 3.375 GM in DEXTROSE 5% 100 ML IV SCH ×2 (03:12→12:48)
[2021-03-02 06:59] LABS: Blood Urea Nitrogen 3 mg/dl (7-18); Carbon Dioxide 26 mmol/L (21-32); Chloride 112 mmol/L (98-107); Creatinine Clr Calc Pharmacy 451.5 ml/min; Est GFR (African American) > 150.0 ml/min; Est GFR (Non-African American) > 150.0 ml/min; Glucose 117 mg/dl (70-99); Magnesium 2.1 mg/dl (1.8-2.4); Phosphorus 2.6 mg/dl (2.5-4.9); Potassium 3.2 mmol/L (3.5-5.1); Sodium 145 mmol/L (136-145)
[2021-03-02] MEDS: INSULIN ASPART 100 UNITS/ML 3 ML PEN SC SCH ×4 (08:00→20:51)
[2021-03-02] MEDS: SERTRALINE HCL 100 MG TABLET PO SCH (08:44)
[2021-03-02] MEDS: FAMOTIDINE 20 MG TAB PO SCH (08:44)
[2021-03-02] MEDS: VALPROATE SOD 500 MG in DEXTROSE 5% 50 ML IV SCH ×2 (08:44→12:48)
[2021-03-02] MEDS ORDERED: AMOXICILLIN/CLAVULANATE 875 MG TAB PO SCH (17:00)
[2021-03-02] MEDS: AMOXICILLIN/CLAVULANATE SUSP 400MG/5ML 50ML BOTTLE PO SCH (17:02)
[2021-03-02] MEDS: ENOXAPARIN INJ 40 MG/0.4 ML SYR SQ SCH (17:14)
[2021-03-02] MEDS: SIMVASTATIN 10 MG TAB PO SCH (22:13)
--- NOTE | 2021-03-02 22:20 | Hospitalist Progress Note ---
Date of Service March 02, 2021 Assessment & Plan (1) Acute respiratory failure with hypoxia: resolved, possibly secondary to aspiration pneumonia. (2) Aspiration pneumonia: Possible aspiration pneumonia, question aspiration during seizure event at home. Hypoxia has resolved and he is clinically improved on Zosyn. Blood cultures negative. He is tolerating PO and speech therapy notes no overt aspiration on exam. Transition to Augmentin to complete the course. (3) Hypokalemia: persistent, continue with replacement as needed. bMP in am. (4) Seizure: H/o seizures, IV valproic acid changed back to PO form and Keppra also converted to PO form in preparation for discharge. There was some somnolence yesterday which was ?improved today-parents didnt' seem worried about this actually and felt he was around his baseline--sent Keppra level and asked Neurology to help adjust meds as needed. Keppra level was sent off prior to afternoon dose. (5) Sinus bradycardia: Likely a result of his ongoing hypokalemia. Replete lytes and monitor. (6) DMII (diabetes mellitus, type 2): Home metformin held. No insulin coverage needed. A1C reflects food control at 6.6. (7) History of ventriculoperitoneal shunting: s/p craniotomy. (8) DVT prophylaxis: Lovenox Full Code Dispo-likely dc after the weekend back to [facility]. Discussed care plan with parents and nurse who were at bedside today. All questions answered. Transfer off PCU. Radha Reynoso DO [facility] Hospitalist Admission and Anticipated Discharge Date Admission Date: February 26, 2021 Subjective The patient is a 63-year-old man status post complex neurosurgical history status post craniotomy. As a result of multiple surgeries he has functional paraplegia with some movement of his right arm and hand at baseline. He is able to speak and breathe independently. Keppra 500 mg twice daily was added this admission. There was concern that possible lung infection may have lowered seizure threshold. Today is is looking well, mentating at his baseline per his parents who are present at bedside. He is denying any pain, SOB, or other issues today. He is tolerating PO. Review of Systems Review of Systems: All systems reviewed & are unremarkable except as noted in Subjective Physical Exam Physical Exam: CONSTITUTIONAL: WNWD, vitals as above, generally well- appearing EYES: normal conjunctivae, no scleral icterus HEAD: large craniotomy residual on right hemisphere ENT: external ear and nose normal, MMM RESPIRATORY: clear to auscultation bilaterally, no crackles, rales or wheezes, normal respiratory effort CARDIOVASCULAR: regular rate and rhythm, S1 and 2 heard without murmurs, gallops or rubs, no JVD, no peripheral edema GASTROINTESTINAL: soft, nontender, nondistended MUSCULOSKELETAL: able to move right arm and 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 SKIN: warm and dry NEUROLOGIC: CN 2-12 grossly intact, normal speech, no tremor, doesn't say much but oriented and answers questions appropriately. Results & Data Results & Data ([facility]) Vital Signs (Past 12 Hours) Vital Signs Temp Pulse Pulse Resp BP Pulse Ox 03/02/21 17:58 36.5 C 62 16 135/77 93 03/02/21 15:51 36.6 C 56 L 20 117/64 95 03/02/21 15:00 60 Laboratory Results [facility] 03/02/21 06:01 Sodium 145 Potassium 3.2 L D Chloride 112 H Carbon Dioxide 26 BUN 3 L Creatinine < 0.15 L Glucose 117 H Calcium 8.0 L Medications Administered Current Inpatient Medications Acetaminophen (Acetaminophen 325 Mg Tab) 650 mg PO Q4H PRN PRN Reason: Pain or Fever Stop: 03/28/21 05:21 Amoxicillin/Clavulanate Potassium (Amoxicillin/Clavulanate Susp 400mg/5ml 50ml Bottle) 875 mg PO BIDM [facility]; Protocol Stop: 03/09/21 16:59 Last Admin: 03/02/21 17:02 Dose: 875 mg Documented by: Enoxaparin Sodium (Enoxaparin Inj 40 Mg/0.4 Ml Syr) 40 mg SQ Q24H [facility] Stop: 04/01/21 16:14 Last Admin: 03/02/21 17:14 Dose: 40 mg Documented by: Famotidine (Famotidine 20 Mg Tab) 20 mg PO QAM [facility] Stop: 03/28/21 08:59 Last Admin: 03/02/21 08:44 Dose: 20 mg Documented by: Lorazepam (Ativan) 1.5 mg in 3 mls @ 3 mls/min IV Q2H PRN PRN Reason: Breakthrough Seizures Stop: 03/28/21 05:21 Insulin Aspart (Insulin Aspart 100 Units/Ml 3 Ml Pen) 0 units SC ACHS [facility] Stop: 03/28/21 05:59 Last Admin: 03/02/21 20:51 Dose: Not Given Documented by: Levetiracetam (Levetiracetam Soln 500 Mg/5 Ml Udp) 500 mg PO Q12H [facility] Stop: 04/01/21 16:59 Last Admin: 03/02/21 19:00 Dose: 500 mg Documented by: Nitroglycerin (Nitroglycerin Sl 0.4 Mg/Tab Tab) 0.4 mg SL UD PRN PRN Reason: Chest Pain Stop: 03/28/21 05:21 Ondansetron HCl (Ondansetron Inj 2 Mg/Ml 2 Ml Vial) 4 mg IV Q6H PRN PRN Reason: Nausea Stop: 03/28/21 05:21 Last Admin: 02/28/21 17:35 Dose: 4 mg Documented by: Sertraline HCl (Sertraline Hcl 100 Mg Tablet) 100 mg PO QAM [facility] Stop: 03/28/21 08:59 Last Admin: 03/02/21 08:44 Dose: 100 mg Documented by: Simvastatin (Simvastatin 10 Mg Tab) 10 mg PO HS [facility] Stop: 03/28/21 20:59 Last Admin: 03/02/21 22:13 Dose: 10 mg Documented by:
[2021-03-03 06:23] LABS: BUN Creatinine Ratio 9.5 (10-20); Blood Urea Nitrogen 2 mg/dl (7-18); Calcium 8.1 mg/dl (8.5-10.1); Carbon Dioxide 25 mmol/L (21-32); Chloride 110 mmol/L (98-107); Creatinine Clr Calc Pharmacy 338.6 ml/min; Est GFR (African American) > 150.0 ml/min; Est GFR (Non-African American) > 150.0 ml/min; Glucose 134 mg/dl (70-99); Potassium 3.2 mmol/L (3.5-5.1); Sodium 144 mmol/L (136-145)
[2021-03-03] MEDS: INSULIN ASPART 100 UNITS/ML 3 ML PEN SC SCH ×4 (09:14→20:52)
[2021-03-03] MEDS: AMOXICILLIN/CLAVULANATE SUSP 400MG/5ML 50ML BOTTLE PO SCH ×2 (10:31→17:24)
[2021-03-03] MEDS: SERTRALINE HCL 100 MG TABLET PO SCH (10:36)
[2021-03-03] MEDS: FAMOTIDINE 20 MG TAB PO SCH (10:37)
--- NOTE | 2021-03-03 12:40 | Communication Note ---
Date of Service: March 03, 2021 I was asked to review Mr. Ferguson's condition by Dr. Reynoso. I noted that today he is back to baseline is anticonvulsives are now oral and I would continue him on the 250 mg of Depakote twice a day for another week and then raise it to the 500 mg tablets twice a day that was recommended by Dr. Espinosa and have him follow-up with her as outlined I am not sure that the lethargy yesterday was really due to the Keppra as the dose was relatively low and had only been on board for a few days but to be on the safe side I think a gradual increase in the dose is reasonable Cayetano Carbajal MD
[2021-03-03] MEDS: ENOXAPARIN INJ 40 MG/0.4 ML SYR SQ SCH (17:21)
[2021-03-03] MEDS: SIMVASTATIN 10 MG TAB PO SCH (20:58)
--- NOTE | 2021-03-03 23:45 | Hospitalist Progress Note ---
Date of Service March 03, 2021 Assessment & Plan (1) Acute respiratory failure with hypoxia: resolved, possibly secondary to aspiration pneumonia. (2) Aspiration pneumonia: Possible aspiration pneumonia, question aspiration during seizure event at home. Hypoxia has resolved and he is clinically improved on Zosyn. Blood cultures negative. He is tolerating PO and speech therapy notes no overt aspiration on exam. Augmentin to complete the course. (3) Hypokalemia: continue with replacement as needed (4) Seizure: H/o seizures, IV valproic acid changed back to PO form and Keppra also converted to PO form in preparation for discharge. There was some somnolence yesterday which was ?improved today-parents didnt' seem worried about this actually and felt he was around his baseline--sent Keppra level which is pending. Follow-up with Neuro outpatient for further adjustment of his meds. (5) Sinus bradycardia: improved with improvement in.potassium (6) DMII (diabetes mellitus, type 2): Home metformin held. No insulin coverage needed. A1C reflects food control at 6.6. (7) History of ventriculoperitoneal shunting: s/p craniotomy. (8) DVT prophylaxis: Lovenox Full Code Dispo-likely dc [facility] the weekend [facility]. Radha Reynoso DO [facility] Hospitalist Admission and Anticipated Discharge Date Admission Date: February 26, 2021 Subjective The patient is a 63-year-old man status post complex neurosurgical history status post craniotomy. As a result of multiple surgeries he has functional paraplegia with some movement of his right arm and hand at baseline. He is able to speak and breathe independently. Keppra 500 mg twice daily was added this admission. There was concern that possible lung infection may have lowered seizure threshold. LAst 24 hours he was moved from PCU to floor and AEDs were transitioned back to PO form. He is not giving much verbal response at this time to my questioning and appears to be napping somewhat, although he is easily awakened. Per primary nurse she states that he has looked the same throughout the day and that he heartily ate his breakfast and lunch today. Review of Systems Review of Systems: Unobtainable due to cognitive status Physical Exam Physical Exam: CONSTITUTIONAL: WNWD, vitals as above, generally well- appearing EYES: normal conjunctivae, no scleral icterus HEAD: large craniotomy residual on right hemisphere ENT: external ear and nose normal, MMM RESPIRATORY: clear to auscultation bilaterally, no crackles, rales or wheezes, normal respiratory effort CARDIOVASCULAR: regular rate and rhythm, S1 and 2 heard without murmurs, gallops or rubs, no JVD, no peripheral edema GASTROINTESTINAL: soft, nontender, nondistended MUSCULOSKELETAL: able to move right arm and 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 SKIN: warm and dry NEUROLOGIC: CN 2-12 grossly intact, normal speech, no tremor, doesn't say much but oriented and answers questions appropriately. Results & Data Results & Data ([facility]) Vital Signs (Past 12 Hours) Vital Signs Temp Pulse Resp BP Pulse Ox 03/03/21 16:00 37.2 C 67 18 109/63 90 Laboratory Results [facility] 03/03/21 05:19 Sodium 144 Potassium 3.2 L Chloride 110 H Carbon Dioxide 25 BUN 2 L Creatinine 0.20 L Glucose 134 H Calcium 8.1 L Medications Administered Current Inpatient Medications Acetaminophen (Acetaminophen 325 Mg Tab) 650 mg PO Q4H PRN PRN Reason: Pain or Fever Stop: 03/28/21 05:21 Amoxicillin/Clavulanate Potassium (Amoxicillin/Clavulanate Susp 400mg/5ml 50ml Bottle) 875 mg PO BIDM [facility]; Protocol Stop: 03/09/21 16:59 Last Admin: 03/03/21 17:24 Dose: 875 mg Documented by: Enoxaparin Sodium (Enoxaparin Inj 40 Mg/0.4 Ml Syr) 40 mg SQ Q24H [facility] Stop: 04/01/21 16:14 Last Admin: 03/03/21 17:21 Dose: 40 mg Documented by: Famotidine (Famotidine 20 Mg Tab) 20 mg PO QAM [facility] Stop: 03/28/21 08:59 Last Admin: 03/03/21 10:37 Dose: 20 mg Documented by: Lorazepam (Ativan) 1.5 mg in 3 mls @ 3 mls/min IV Q2H PRN PRN Reason: Breakthrough Seizures Stop: 03/28/21 05:21 Insulin Aspart (Insulin Aspart 100 Units/Ml 3 Ml Pen) 0 units SC [facility] Stop: 03/28/21 05:59 Last Admin: 03/03/21 20:52 Dose: Not Given Documented by: Levetiracetam (Levetiracetam Soln 500 Mg/5 Ml Udp) 500 mg PO Q12H [facility] Stop: 04/01/21 16:59 Last Admin: 03/03/21 17:22 Dose: 500 mg Documented by: Nitroglycerin (Nitroglycerin Sl 0.4 Mg/Tab Tab) 0.4 mg SL UD PRN PRN Reason: Chest Pain Stop: 03/28/21 05:21 Ondansetron HCl (Ondansetron Inj 2 Mg/Ml 2 Ml Vial) 4 mg IV Q6H PRN PRN Reason: Nausea Stop: 03/28/21 05:21 Last Admin: 02/28/21 17:35 Dose: 4 mg Documented by: Sertraline HCl (Sertraline Hcl 100 Mg Tablet) 100 mg PO QAM [facility] Stop: 03/28/21 08:59 Last Admin: 03/03/21 10:36 Dose: 100 mg Documented by: Simvastatin (Simvastatin 10 Mg Tab) 10 mg PO HS [facility] Stop: 03/28/21 20:59 Last Admin: 03/03/21 20:58 Dose: 10 mg Documented by:
[2021-03-04] MEDS: INSULIN ASPART 100 UNITS/ML 3 ML PEN SC SCH ×3 (09:25→17:29)
[2021-03-04] MEDS: SERTRALINE HCL 100 MG TABLET PO SCH (09:42)
[2021-03-04] MEDS: FAMOTIDINE 20 MG TAB PO SCH (09:42)
[2021-03-04] MEDS: AMOXICILLIN/CLAVULANATE SUSP 400MG/5ML 50ML BOTTLE PO SCH ×2 (09:42→17:14)
[2021-03-04 11:05] LABS: BUN Creatinine Ratio 15.6 (10-20); Blood Urea Nitrogen 4 mg/dl (7-18); Calcium 8.4 mg/dl (8.5-10.1); Carbon Dioxide 27 mmol/L (21-32); Chloride 110 mmol/L (98-107); Creatinine Clr Calc Pharmacy 282.2 ml/min; Est GFR (African American) > 150.0 ml/min; Est GFR (Non-African American) > 150.0 ml/min; Glucose 130 mg/dl (70-99); Potassium 3.3 mmol/L (3.5-5.1); Sodium 145 mmol/L (136-145)
[2021-03-04] MEDS ORDERED: POTASSIUM CHLORIDE 20 MEQ/15 ML UDC PO STA (15:39)
--- NOTE | 2021-03-04 16:00 | Communication Note ---
Date of Service: March 04, 2021 Dr. Manriquez contacted me today regarding discharge plans for Mr. Ferguson. I reviewed my note from yesterday and agree that I unfortunately dictated Depakote when I meant to dictate Keppra in terms of the dosing and at this point I am recommending that he be treated with Keppra 250 mg twice a day for a week and then move that up to 500 mg twice a day and continue the Depakote as it currently is being administered I think this has been clarified now He will be followed up by Dr. Espinosa is previously scheduled Cayetano Carbajal MD
[2021-03-04] MEDS: ENOXAPARIN INJ 40 MG/0.4 ML SYR SQ SCH (16:08)
--- NOTE | 2021-03-14 08:23 | Discharge Summary ---
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 He is currently full code. He is currently [facility] resident. The patient is bed bound. He eats regular food. Otherwise, alert and oriented and communicates fine. In the morning yesterday, he had emesis and after that he had a seizure episode, but later in the night he became more confused and thought to be postictal. They said he had a temp spike and he was sent to the ER. In the ER, currently, the patient is drowsy. Hemodynamics are okay. He has some mild temperature spike, requiring oxygen. WBC is 3, leukocytopenia. Rest of the labs are okay. Urinalysis is unremarkable. SARS-CoV-2 PCR negative. Chest x-ray, no acute findings. CT of the head, no new changes. Sister is in the room, she says she was told he had seizures, but she does not have any more information. Admission Exam Per Admitting Provider GENERAL: The patient is drowsy. VITAL SIGNS: Temperature T-max 38.4, pulse 93, respiratory rate 17, blood pressure 146/76, oxygen 96% on 2 liters OxyMask. HEENT: Pupils equal, round, and reactive to light. Cranial surgery seen. NECK: No JVD, no neck masses. CARDIOVASCULAR: S1, S2 heard, regular rate and rhythm, no murmur, no gallop. RESPIRATORY SYSTEM: Normal AP diameter. No accessory muscle use. No wheezing or crackles. ABDOMEN: Soft, bowel sounds present, nontender. No distention. CENTRAL NERVOUS SYSTEM: Drowsy, not obeying any commands. EXTREMITIES: Mild pedal edema, no erythema seen. SKIN: No sacral ulcer seen. Principal Diagnosis AMS Discharge Exam General: Patient is awake and alert HENT: NCAT, MMM, EOMI Eyes: PERRLA Neck: Supple, normal range of motion CVS: normal rate and rhythm Resp: b/l decreased breath sounds Abdomen: Soft, distended and nontender Extremities: trace LE edema Neuro: face symmetric, left-sided hemiparesis, right upper extremity some weakness also appreciated Skin: no rashes/lesions/errythema MSK: no joint swelling/erythema Discharge Data Allergies Allergy/AdvReac Type Severity Reaction Status Date / Time No Known Allergies Allergy Mild NKA Verified 03/09/21 23:55 Consultations 02/26/21 02:17 ED Decision to Admit Stat 02/26/21 08:00 Consult Neurology Routine Ordered Studies 02/26/21 01:25 CT head/brain wo con [facility] Course (1) Acute respiratory failure with hypoxia: resolved, possibly secondary to aspiration pneumonia. (2) Aspiration pneumonia: Possible aspiration pneumonia, question aspiration during seizure event at home. Hypoxia resolved prior to discharge. Blood cultures were negative. Patient was tolerating p.o. diet. Patient was discharged on a short course of Augmentin. (3) Hypokalemia: continue with replacement as needed We will need to follow-up with BMP to monitor hypokalemia. (4) Seizure: Neurology was consulted. Patient was discharged on Keppra 250 mg twice a day for a week followed by 500 mg twice a day. Continue IMPORT COORDINATION AND PRODUCTION HEAD Depakote. (5) Sinus bradycardia: improved with improvement in.potassium (6) DMII (diabetes mellitus, type 2): Home metformin held. No insulin coverage needed. A1C reflects food control at 6.6. (7) History of ventriculoperitoneal shunting: s/p craniotomy. Total Time Total Time Spent Total Time Spent (In Minutes): 35 Discharge Plan Discharge Items Patient Disposition: Transfer [facility] Fac Reason For Visit: ILLNESS Discharge Diagnosis: Respiratory failure Activity: Resume your previous activity Non-emergency contact: Primary Care Provider Call non-emergency contact if: your symptoms worsen Follow-up/Referrals: Mark Obrien [Primary Care Provider] - Diet: Carb Consistent or DM2 Diet Comment: Minced and Moist Addtl Attending Provider Instructions: Continue Depakote 500 mg BID and 750 mg hs. Start with Keppra 250 mg twice daily for seven more days followed by 500 mg twice daily. Augmentin for three more days. Obtain BMP to monitor potassium. Pending Studies at Discharge: No Stand-Alone Forms: My [facility] Skilled Items Patient informed of condition?: Yes DNR: No Discharge Level of Care: Skilled Communicable Disease: No Discharge Prognosis: Stable Lines: None Urinary Catheter: No Medications and DC Order Prescriptions: Continued divalproex 500 mg tablet,delayed release (DR/EC) 500 mg PO TID RF: 0 sertraline 100 mg tablet 100 mg PO QAM RF: 0 famotidine 20 mg tablet 20 mg PO QAM RF: 0 divalproex 250 mg tablet extended release 24 hr 250 mg PO HS RF: 0 ketoconazole 2 % shampoo 1 applic topical 2XWK RF: 0 simvastatin 10 mg tablet 10 mg PO HS RF: 0 acetaminophen [Tylenol] 325 mg Tablet 650 mg PO Q4H MDD 3 GRAMS/24 HOURS PRN (Reason: FEVER >100.4/PAIN) RF: 0 No Action silver sulfadiazine 1 % Cream 1 applic TOPICAL DAILY RF: 0 acetaminophen 650 mg Suppository 650 mg [place] Q6H PRN (Reason: Fever) RF: 0 levetiracetam [Keppra] 500 mg Tablet 500 mg PO BID RF: 0 levetiracetam [Keppra] 250 mg Tablet 250 mg PO BID RF: 0 hydrocortisone 2.5 % Cream 1 applic TOPICAL BID RF: 0 Boost Plus Liquid 1 ea PO BID RF: 0 zinc oxide 40 % Ointment 1 applic TOPICAL BID RF: 0 Discharge Orders: Discharge Order (Routine); Ordered 03/04/21 Ordered By: Dioni Polanco/Other Patient Handouts: A1C Admission Data Admit Date/Time: 02/26/21 03:30 Attending Provider: Dioni Sandoval Admit Provider: Nickolas Coy Primary Care Provider: Mark Obrien Other Providers: Annette Martinez Other Interventions: Discharge Summary Assessment (RN) Last Done: 03/04/21 15:55
== END 2021-03-04 18:55 | DRG 100 ==
LOC: ED 01:07 → SUATTDRO 03:30 → 2S 03:30 → 2E 19:10 → 3N 03-02 16:23

== ENCOUNTER 2021-03-09 23:02 | Inpatient (IN) ==
[2021-03-09] MEDS ORDERED: SODIUM CHLORIDE 0.9% 1000ML 1,000 ML IV SCH (23:45)
[2021-03-09] MEDS ORDERED: CEFEPIME 2,000 MG/20 ML VIAL IV STA (23:52)
[2021-03-10 00:03] LABS: Eosinophils # (auto) 0.01 K/uL (0-0.5); Eosinophils % (auto) 0.3 %; Hematocrit (blood only) 40.4 % (42-52); Hemoglobin 12.7 g/dL (14.0-18.0); Immature Granulocytes # (auto) 0.01 K/uL (0.00-0.02); Immature Granulocytes % (auto) 0.3 %; Lymphocytes % (auto) 7.9 %; Mean Corpuscular Hemoglobin 27.1 pg (25-34); Mean Corpuscular Hgb Conc 31.4 g/dL (32-36); Mean Corpuscular Volume 86.1 fL (80-100); Mean Platelet Volume 9.2 fL (7.4-10.4); Monocytes # (auto) 0.57 K/uL (0.11-0.59); Monocytes % (auto) 15.1 %; Neutrophils # (auto) 2.89 K/uL (1.4-6.5); Neutrophils % (auto) 76.4 %; Platelet Count 276 K/uL (130-400); RDW Coefficient of Variation 16.9 % (11.5-14.5); RDW Standard Deviation 53.4 fL (36.4-46.3); Red Blood Count 4.69 M/uL (4.7-6.1); White Blood Count 3.78 K/uL (4.8-10.8)
[2021-03-10 00:14] LABS: INR 1.4 (0.9-1.1); Partial Thromboplastin Ratio 1.3; Prothrombin Time 13.8 Seconds (9.0-12.0)
[2021-03-10 00:21] LABS: Alanine Aminotransferase 22 U/L (12-78); Aspartate Aminotransferase 18 U/L (15-37); BUN Creatinine Ratio 33.6 (10-20); Blood Urea Nitrogen 11 mg/dl (7-18); Calcium 8.9 mg/dl (8.5-10.1); Carbon Dioxide 24 mmol/L (21-32); Est GFR (African American) > 150.0 ml/min; Est GFR (Non-African American) 135.9 ml/min; Glucose 150 mg/dl (70-99); Magnesium 2.7 mg/dl (1.8-2.4)
[2021-03-10] MEDS ORDERED: ACETAMINOPHEN 1,000 MG/100 ML VIAL IV STA (00:48)
--- NOTE | 2021-03-10 00:56 | Emergency Department Note ---
History of Present Illness General Chief complaint: Altered Mental Status Stated complaint: ALTERED MENTAL STATUS/FEVER Time Seen by Provider: 03/09/21 23:29 Source: family Mode of arrival: EMS Limitations: altered mental status History of Present Illness Provider complaint: Trouble breathing, fever, altered mental status Onset (ago): unknown This is a 65-year-old male brought in by EMS from [facility] due to concern for fever, trouble breathing, and altered mental status. [facility] reported to EMS that patient had been admitted last week with aspiration pneumonia and they were concerned he might of aspirated again. Patient unable to provide any history, opens eyes to loud voice and painful stimuli. Patient with multiple chronic medical problems. Patient sister is at bedside and is the primary historian. She relates that she got a phone call this evening that they were sending him in for evaluation. She states she had been out of the area last week, however states that their father had not received any phone calls about any change in his condition. She does confirm he was recently admitted, initially thought to have a urinary tract infection but then treated for aspiration pneumonia. She states he was discharged back to [facility], did not require additional oxygen, and has no underlying pulmonary history. Patient was found to be hypoxic and placed on oxygen by EMS which was continued here. During my evaluation patient had been placed on a nonrebreather at 15 L/min and sats were 90%. Patient sister relays they have noticed a slight decline in the patient over the last month. She states he has not been eating and drinking as well. Due to prior strokes he does not have use of his entire left side and after subsequent surgeries also had no use of his right lower extremity. Patient was wheelchair- bound. She states he could still use his right arm to feed himself. She states he was typically coherent and conversational prior to his last hospitalization. Given severity of patient's condition as well as recent admissions, the sister and I discussed his CODE STATUS. She states while he had previously been a full code, she and his father have begun discussing his wishes as he had always stated he would not want to be aggressively resuscitated if he could not get back to his "normal self". He did not want a feeding tube. She does not at thi s time feel he would want CPR or to be connected to a ventilator. Pt seen during a time of high acuity and national emergency pandemic while wearing PPE. Home Medications Medication Instructions Recorded Confirmed Type ketoconazole 1 applic TOPICAL [id number] 02/17/19 03/10/21 History simvastatin 10 mg PO HS 02/17/19 03/10/21 History divalproex 500 mg PO TID 06/22/19 03/10/21 History divalproex 250 mg PO HS 08/26/20 03/10/21 History famotidine 20 mg PO QAM 08/26/20 03/10/21 History sertraline 100 mg PO QAM 08/26/20 03/10/21 History acetaminophen [Tylenol] 650 mg PO Q4H PRN MDD 3 GRAMS/02/26/21 03/10/21 Histo ry HOURS acetaminophen 650 mg ME Q6H PRN 03/09/21 03/10/21 History food supplemt, lactose-reduced 1 ea PO BID 03/09/21 03/09/21 History [Boost Plus] hydrocortisone 1 applic TOPICAL BID 03/09/21 03/10/21 History levetiracetam [Keppra] 250 mg PO BID 03/09/21 03/10/21 History levetiracetam [Keppra] 500 mg PO BID 03/09/21 03/10/21 History silver sulfadiazine 1 applic TOPICAL DAILY 03/09/21 03/10/21 History zinc oxide 1 applic TOPICAL BID 03/09/21 03/10/21 History Allergies Allergy/AdvReac Type Severity Reaction Status Date / Time No Known Allergies Allergy Mild NKA Verified 03/09/21 23:55 Past Med/Surg History Medical History (Updated 03/11/21 @ 21:51 by YONI Guadalupe) Brain tumor Diabetes History of pituitary adenoma Status post resection, radiation and INCLUSION [employer] EDUC[employer] 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 Fung at [facility] Recent MRI 08/2018: Again seen are postoperative changes of bilateral craniectomy. A titanium mesh is present over the left craniectomy. Chronic, heterogeneous collection beneath the left cranioplasty is stable. Measuring up to 21 mm in thickness and displacing the underlying brain. Again seen is sinking of the right skin flap, which is improved since the prior study. To ventricular shunts are again seen. One enters via a right frontal fransico hole,, and terminates along the anterior septum pellucidum in the left frontal horn. The other connects the ventricles of the upper cervical subarachnoid space. The distal aspect appears discontinuous. There has been a decrease in the size of the ventricles since the prior study. The previously seen diffuse pachymeningeal thickening and enhancement has considerably decreased. Encephalomalacia and gliosis again seen in the right parietal lobe at site of prior surgery. 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 Impression Stable postsurgical changes. The stable heterogeneous fluid collection beneath left cranioplasty. Decreased thinking of the right skin flap. Decreased size of ventricles. Other findings stable. No acute abnormality identified. History of ventriculoperitoneal shunting At age 8 with ventricular shunt failure at age 42 S/P replacement Family History Father Colorectal cancer Coronary heart disease Mother Colorectal cancer Myocardial infarction Social History Smoking Status: Former smoker Second Hand Exposure: No; Hx Alcohol Use: No Hx Substance Use: No Preferred Language: Croatian Communication Ability: Impaired Beliefs That Will Affect Care: None Current Living Situation: [facility] Current Living Situation Comment: [facility] Feels Safe at Home: Yes Assistive Devices: Oxygen - Continuous Assistive Devices Comment: helmet Review of Systems See HPI for pertinent positives & negatives. and A total of 10 systems reviewed and were otherwise negative Physical Exam Vital Signs Vital Signs - 24 hr 03/09/21 22:55 03/09/21 23:15 03/09/21 23:30 Temperature 39.6 C H Temperature Source Rectal Pulse Rate 114 H 122 H Pulse Rate [Right Radial] Pulse Rate from SpO2 Sensor 114 H Pulse Rhythm Regular Pulse Strength Normal Respiratory Rate 32 H 28 H Respiratory Effort / Characteristics Non-Labored Respiratory Depth Normal Respiratory Pattern Regular Blood Pressure 132/86 132/76 Blood Pressure Mean 101 94 Blood Pressure Position Lying Pulse Oximetry 93 94 Oxygen Delivery Method Non-rebreather Non-rebreather Non-rebreather Oxygen Flow Rate 15 15 15 Fraction of Inspired Oxygen Sepsis Recent Fever Within 48 Hours Yes Sepsis New/Unexplained Change in Mental Status Yes Sepsis Action Taken by Nursing Physician Notified 03/10/21 01:14 03/10/21 01:16 03/10/21 01:30 Temperature Temperature Source Pulse Rate 104 H 101 H Pulse Rate [Right Radial] 99 H Pulse Rate from SpO2 Sensor 102 H 101 H Pulse Rhythm Pulse Strength Respiratory Rate 30 H 30 H 31 H Respiratory Effort / Characteristics Spontaneous Labored Respiratory Depth Respiratory Pattern Blood Pressure 129/88 123/79 Blood Pressure Mean 101 93 Blood Pressure Position Pulse Oximetry 97 95 95 Oxygen Delivery Method High Flow Nasal Cannula Room Air Room Air Oxygen Flow Rate 30 Fraction of Inspired Oxygen 50 Sepsis Recent Fever Within 48 Hours Sepsis New/Unexplained Change in Mental Status Sepsis Action Taken by Nursing 03/10/21 02:00 03/10/21 02:43 03/10/21 02:44 Temperature 37.9 C H Temperature Source Rectal Pulse Rate 97 H 90 Pulse Rate [Right Radial] Pulse Rate from SpO2 Sensor 96 H 81 Pulse Rhythm Pulse Strength Respiratory Rate 34 H 34 H Respiratory Effort / Characteristics Respiratory Depth Respiratory Pattern Blood Pressure 110/71 97/70 L Blood Pressure Mean 84 79 Blood Pressure Position Pulse Oximetry 94 92 Oxygen Delivery Method High Flow Nasal Cannula High Flow Nasal Cannula Oxygen Flow Rate Fraction of Inspired Oxygen Sepsis Recent Fever Within 48 Hours Sepsis New/Unexplained Change in Mental Status Sepsis Action Taken by Nursing 03/10/21 02:45 03/10/21 02:51 03/10/21 02:52 Temperature 37.9 C H Temperature Source Rectal Pulse Rate 94 H Pulse Rate [Right Radial] 93 H Pulse Rate from SpO2 Sensor 87 Pulse Rhythm Pulse Strength Respiratory Rate 22 33 H Respiratory Effort / Characteristics Non-Labored Spontaneous Respiratory Depth Respiratory Pattern Blood Pressure 105/73 Blood Pressure Mean 83 Blood Pressure Position Pulse Oximetry 92 92 Oxygen Delivery Method High Flow Nasal Cannula High Flow Nasal Cannula Oxygen Flow Rate 30 Fraction of Inspired Oxygen 50 Sepsis Recent Fever Within 48 Hours Sepsis New/Unexplained Change in Mental Status Sepsis Action Taken by Nursing GENERAL: alert, ill appearing, moderate distress HEAD: significant post surgical deformities, skin abnormalities from prior surgery, malignancy, and left temporal area wound with slight discharge EYE EXAM: normal conjunctiva, PERRL and EOM's grossly intact OROPHARYNX: no exudate, no erythema, lips, buccal mucosa, and tongue normal and mucous membranes are moist NECK: supple, no nuchal rigidity, no adenopathy, non-tender LUNGS: Decreased to auscultation. Normal chest wall mechanics, no w/r/r, coarse BS b/l HEART: no murmurs, S1 normal and S2 normal ABDOMEN: abdomen soft, non-tender, normo-active bowel sounds, no masses, no rebound or guarding. BACK: Back is symmetrical on inspection and there is no deformity, no midline tenderness, no CVA tenderness. SKIN: no rashes and no bruising, no petechiae UPPER EXTREMITIES: upper extremities are grossly normal. nml pulses b/l. Atrophy noted. LOWER EXTREMITIES: No pitting edema. nml pulses b/l. Bilateral atrophy, no joint effusions, compartments soft. NEURO EXAM: Opens eyes to loud voice and painful stimuli. Facial grimace and wince to painful stimuli. Course Course 0050: Pt's sister at bedside updated on results. RT coming to perform suctioning and trial of HFNC. 0150: Sister updated at bedside. Patient appears more comfortable, decreased work of breathing. 0245: Patient with brief episode of hypotension and hypoxia. RT contacted and settings changed on HFNC. 0311: Patient now more hypoxic despite increased settings. Other vital signs stable. Discussed again with sister bedside options for continued supportive treatment. She confirms DNR/DNI at this time. She is in agreement with trial of BiPAP. We will also attempt repeat suctioning. Hospitalist aware and at bedside also. Administered Medications Acetaminophen (Acetaminophen 1000 Mg/100 Ml Iv) 1,000 mg IV Q8H PRN PRN Reason: fever or pain Stop: 03/13/21 11:37 Last Admin: 03/10/21 20:24 Dose: 1,000 mg Documented by: [id number] Admin: 03/10/21 11:52 Dose: 1,000 mg Documented by: [id number] Heparin Sodium (Porcine) (Heparin Sod 5,000 Unit/0.5 Ml Vial) 5,000 units SQ Q8 STEPHANIE Stop: 04/09/21 05:59 Last Admin: 03/11/21 21:23 Dose: 5,000 units Documented by: [id number] Admin: 03/11/21 13:59 Dose: 5,000 units Documented by: [id number] Admin: 03/11/21 05:45 Dose: 5,000 units Documented by: [id number] Admin: 03/10/21 20:34 Dose: 5,000 units Documented by: [id number] Admin: 03/10/21 14:28 Dose: 5,000 units Documented by: [id number] Admin: 03/10/21 08:11 Dose: 5,000 units Documented by: [id number] Hydrocortisone (Hydrocortisone 2.5% Cr 30 Gm Tube) 1 appln EXT BID STEPHANIE Stop: 04/09/21 08:59 Last Admin: 03/11/21 21:23 Dose: 1 appln Documented by: [id number] Admin: 03/11/21 08:38 Dose: 1 appln Documented by: [id number] Admin: 03/10/21 20:23 Dose: 1 appln Documented by: [id number] Admin: 03/10/21 08:11 Dose: 1 appln Documented by: [id number] Sodium Chloride (Nss 1000ml) 1,000 mls @ 80 mls/hr IV .[id number] STEPHANIE Stop: 04/09/21 04:59 Last Infusion: 03/11/21 22:08 Dose: 0 mls/hr Documented by: [id number] Admin: 03/11/21 08:37 Dose: 80 mls/hr Documented by: [id number] Infusion: 03/11/21 08:37 Dose: 100 mls/hr Documented by: [id number] Admin: 03/10/21 23:17 Dose: 100 mls/hr Documented by: [id number] Infusion: 03/10/21 23:17 Dose: 0 mls/hr Documented by: [id number] Infusion: 03/10/21 17:18 Dose: 100 mls/hr Documented by: [id number] Admin: 03/10/21 14:05 Dose: 125 mls/hr Documented by: [id number] Infusion: 03/10/21 13:23 Dose: 125 mls/hr Documented by: [id number] Admin: 03/10/21 05:23 Dose: 125 mls/hr Documented by: [id number] Vancomycin HCl 1,250 mg/ (Sodium Chloride) 275 mls @ 200 mls/hr IV Q12H STEPHANIE; Protocol Stop: 03/17/21 16:59 Last Infusion: 03/11/21 21:24 Dose: 0 mls/hr Documented by: [id number] Admin: 03/11/21 17:21 Dose: 200 mls/hr Documented by: [id number] Infusion: 03/11/21 07:42 Dose: 0 mls/hr Documented by: [id number] Admin: 03/11/21 05:44 Dose: 200 mls/hr Documented by: [id number] Infusion: 03/10/21 18:45 Dose: 0 mls/hr Documented by: [id number] Admin: 03/10/21 17:03 Dose: 200 mls/hr Documented by: [id number] Piperacillin Sod/Tazobactam (Sod 3.375 gm/ Dextrose) 115 mls @ 28.75 mls/hr IV Q8H STEPHANIE; Protocol Stop: 03/17/21 09:59 Last Infusion: 03/11/21 21:24 Dose: 0 mls/hr Documented by: [id number] Admin: 03/11/21 17:21 Dose: 28.8 mls/hr Documented by: [id number] Infusion: 03/11/21 14:08 Dose: 0 mls/hr Documented by: [id number] Admin: 03/11/21 09:50 Dose: 28.8 mls/hr Documented by: [id number] Infusion: 03/11/21 07:49 Dose: 28.8 mls/hr Documented by: [id number] Admin: 03/11/21 03:49 Dose: 28.8 mls/hr Documented by: [id number] Infusion: 03/10/21 21:03 Dose: 0 mls/hr Documented by: [id number] Admin: 03/10/21 17:03 Dose: 28.8 mls/hr Documented by: [id number] Infusion: 03/10/21 14:28 Dose: 0 mls/hr Documented by: [id number] Admin: 03/10/21 10:16 Dose: 28.8 mls/hr Documented by: [id number] Valproic Acid 500 mg/ Dextrose 55 mls @ 55 mls/hr IV BID@0900,1300 STEPHANIE Stop: 04/09/21 08:59 Last Infusion: 03/11/21 15:08 Dose: 0 mls/hr Documented by: [id number] Admin: 03/11/21 13:59 Dose: 55 mls/hr Documented by: [id number] Infusion: 03/11/21 11:15 Dose: 0 mls/hr Documented by: [id number] Admin: 03/11/21 09:48 Dose: 55 mls/hr Documented by: [id number] Infusion: 03/10/21 13:55 Dose: 0 mls/hr Documented by: [id number] Admin: 03/10/21 12:51 Dose: 55 mls/hr Documented by: [id number] Infusion: 03/10/21 09:50 Dose: 0 mls/hr Documented by: [id number] Admin: 03/10/21 08:48 Dose: 55 mls/hr Documented by: [id number] Valproic Acid 750 mg/ Dextrose 57.5 mls @ 57.5 mls/hr IV HS STEPHANIE Stop: 04/09/21 20:59 Last Infusion: 03/11/21 23:23 Dose: 0 mls/hr Documented by: [id number] Admin: 03/11/21 21:20 Dose: 57.5 mls/hr Documented by: [id number] Infusion: 03/10/21 21:29 Dose: 0 mls/hr Documented by: [id number] Admin: 03/10/21 20:29 Dose: 57.5 mls/hr Documented by: [id number] Levetiracetam 500 mg/ Sodium (Chloride) 105 mls @ 440 mls/hr IV BID STEPHANIE Stop: 04/09/21 20:59 Last Infusion: 03/11/21 22:07 Dose: 0 mls/hr Documented by: [id number] Admin: 03/11/21 21:15 Dose: 440 mls/hr Documented by: [id number] Infusion: 03/11/21 10:13 Dose: 0 mls/hr Documented by: [id number] Admin: 03/11/21 08:40 Dose: 440 mls/hr Documented by: [id number] Infusion: 03/10/21 20:47 Dose: 0 mls/hr Documented by: [id number] Admin: 03/10/21 20:32 Dose: 440 mls/hr Documented by: [id number] Miscellaneous (*Ketoconazole*Order Awaiting Action) 1 ea N/A QS STEPHANIE Stop: 04/09/21 07:59 Last Admin: 03/11/21 23:23 Dose: Not Given Documented by: [id number] Admin: 03/11/21 15:07 Dose: Not Given Documented by: [id number] Admin: 03/11/21 10:02 Dose: Not Given Documented by: [id number] Admin: 03/11/21 03:54 Dose: Not Given Documented by: [id number] Admin: 03/10/21 15:45 Dose: Not Given Documented by: [id number] Admin: 03/10/21 07:28 Dose: Not Given Documented by: [id number] Petrolatum (Butt Paste (Zinc Oxide 16%) 171 Appln/57 Gm Jar) 1 appln EXT BID STEPHANIE Stop: 04/09/21 08:59 Last Admin: 03/11/21 21:19 Dose: 1 appln Documented by: [id number] Admin: 03/11/21 08:41 Dose: 1 appln Documented by: [id number] Admin: 03/10/21 20:28 Dose: 1 appln Documented by: [id number] Admin: 03/10/21 08:17 Dose: 1 appln Documented by: [id number] Sertraline HCl (Sertraline Hcl 100 Mg Tablet) 100 mg PO QAM STEPHANIE Stop: 04/09/21 08:59 Last Admin: 03/11/21 08:36 Dose: 100 mg Documented by: [id number] Admin: 03/10/21 07:29 Dose: Not Given Documented by: [id number] Silver Sulfadiazine (Silver Sulfadiazine 1% Cr 50 Gm Jar) 1 appln TOP DAILY STEPHANIE Stop: 04/09/21 08:59 Last Admin: 03/11/21 08:40 Dose: 1 appln Documented by: [id number] Admin: 03/10/21 08:11 Dose: 1 appln Documented by: [id number] Simvastatin (Simvastatin 10 Mg Tab) 10 mg PO HS STEPHANIE Stop: 04/09/21 20:59 Last Admin: 03/11/21 21:22 Dose: Not Given Documented by: [id number] Admin: 03/10/21 20:34 Dose: Not Given Documented by: [id number] Discontinued Medications Sodium Chloride (Nss 1000ml) 1,000 mls @ 999 mls/hr IV .Q1H1M STEPHANIE Stop: 03/10/21 00:45 Last Infusion: 03/10/21 01:30 Dose: 0 mls/hr Documented by: [id number] Admin: 03/10/21 00:24 Dose: 999 mls/hr Documented by: [id number] Cefepime HCl (Maxipime) 2,000 mg in 20 mls @ 5 mls/min IV NOW STA Stop: 03/09/21 23:55 Last Admin: 03/10/21 00:23 Dose: 5 mls/min Documented by: [id number] Acetaminophen (Ofirmev) 1,000 mg in 100 mls @ 400 mls/hr IV NOW STA Stop: 03/10/21 01:02 Last Infusion: 03/10/21 01:50 Dose: 0 mls/hr Documented by: [id number] Admin: 03/10/21 01:35 Dose: 400 mls/hr Documented by: [id number] Sodium Chloride (Nss 1000ml) 1,000 mls @ 999 mls/hr IV .Q1H1M ONE Stop: 03/10/21 03:52 Last Infusion: 03/10/21 07:27 Dose: 0 mls/hr Documented by: [id number] Admin: 03/10/21 02:55 Dose: 999 mls/hr Documented by: [id number] Levetiracetam 250 mg/ Sodium (Chloride) 102.5 mls @ 440 mls/hr IV BID STEPHANIE Stop: 03/10/21 23:59 Last Infusion: 03/10/21 08:49 Dose: 0 mls/hr Documented by: [id number] Admin: 03/10/21 08:27 Dose: 440 mls/hr Documented by: [id number] Potassium Chloride (K Owen / Wtr) 10 meq in 100 mls @ 100 mls/hr IV Q1H STEPHANIE Stop: 03/10/21 06:59 Last Infusion: 03/10/21 09:21 Dose: 0 mls/hr Documented by: [id number] Admin: 03/10/21 08:09 Dose: 100 mls/hr Documented by: [id number] Infusion: 03/10/21 06:29 Dose: 100 mls/hr Documented by: [id number] Admin: 03/10/21 05:29 Dose: 100 mls/hr Documented by: [id number] Vancomycin HCl 2,000 mg/ (Sodium Chloride) 540 mls @ 200 mls/hr IV ONE ONE Stop: 03/10/21 07:41 Last Infusion: 03/10/21 08:56 Dose: 0 mls/hr Documented by: [id number] Admin: 03/10/21 05:24 Dose: 200 mls/hr Documented by: [id number] Piperacillin Sod/Tazobactam (Sod 4.5 gm/ Dextrose) 120 mls @ 200 mls/hr IV ONE ONE; Protocol Stop: 03/10/21 05:35 Last Infusion: 03/10/21 06:03 Dose: 0 mls/hr Documented by: [id number] Admin: 03/10/21 05:27 Dose: 200 mls/hr Documented by: [id number] Levetiracetam 250 mg/ Sodium (Chloride) 102.5 mls @ 440 mls/hr IV NOW ONE Stop: 03/10/21 12:13 Last Infusion: 03/10/21 12:52 Dose: 0 mls/hr Documented by: [id number] Admin: 03/10/21 12:27 Dose: 440 mls/hr Documented by: [id number] Potassium Chloride (K Owen / Wtr) 10 meq in 100 mls @ 100 mls/hr IV Q1H STEPHANIE Stop: 03/11/21 12:59 Last Infusion: 03/11/21 14:10 Dose: 0 mls/hr Documented by: [id number] Admin: 03/11/21 12:25 Dose: 100 mls/hr Documented by: [id number] Infusion: 03/11/21 12:20 Dose: 100 mls/hr Documented by: [id number] Admin: 03/11/21 11:20 Dose: 100 mls/hr Documented by: [id number] Infusion: 03/11/21 11:18 Dose: 100 mls/hr Documented by: [id number] Admin: 03/11/21 10:18 Dose: 100 mls/hr Documented by: [id number] Potassium Phosphate 15 mmol/ (Sodium Chloride) 255 mls @ 100 mls/hr IV 1300 STEPHANIE Stop: 03/11/21 15:32 Last Infusion: 03/11/21 15:08 Dose: 0 mls/hr Documented by: [id number] Admin: 03/11/21 12:26 Dose: 100 mls/hr Documented by: [id number] Insulin Aspart (Insulin Aspart 100 Units/Ml 3 Ml Pen) 0 units SC ACHS STEPHANIE Stop: 04/10/21 07:29 Last Admin: 03/11/21 21:22 Dose: Not Given Documented by: [id number] Admin: 03/11/21 17:22 Dose: Not Given Documented by: [id number] Admin: 03/11/21 12:15 Dose: Not Given Documented by: [id number] Admin: 03/11/21 08:37 Dose: Not Given Documented by: [id number] Ioversol (Optiray 320 100ml) 94 ml IV ONCE ONE Stop: 03/10/21 02:32 Last Admin: 03/10/21 02:32 Dose: 94 ml Documented by: [id number] Critical Care Time Critical Care Time: Yes Total Critical Care Time: 52 Critical care of 52 min performed to assess and manage high likelihood of life- threatening sepsis with respiratory failure, involving labs and imaging performed with assessment to evaluate sepsis and respiratory failure diagnosis with frequent reassessment. This time includes bedside time, treatment discussions with patient/family/consultants, documentation time and excludes procedure time. Medical Decision Making Differential Diagnosis Differential diagnosis: Etiologies such as viral syndrome, otitis, pharyngitis, pneumonia, influenza, meningitis, urinary tract infection, sepsis, bacteremia, as well as others were entertained. Medical Records Attestation: I reviewed the patient's medical records. Home Medications Current Medication List: was personally reviewed by me Laboratory Data Attestation: I reviewed the patient's lab results. Result diagrams: 03/11/21 08:49 03/11/21 08:49 Lab Results 03/09/21 03/09/21 03/09/21 Range/Units 23:17 23:55 23:55 WBC 3.78 L (4.8-10.8) K/uL RBC 4.69 L (4.7-6.1) M/uL Hgb 12.7 L (14.0-18.0) g/dL Hct 40.4 L (42-52) % MCV 86.1 (80-100) fL MCH 27.1 (25-34) pg MCHC 31.4 L (32-36) g/dL RDW Std Deviation 53.4 H (36.4-46.3) fL RDW Coeff of Kg 16.9 H (11.5-14.5) % Plt Count 276 (130-400) K/uL MPV 9.2 (7.4-10.4) fL Immature Gran % (Auto) 0.3 % Neut % (Auto) 76.4 % Lymph % (Auto) 7.9 % [place] % (Auto) 15.1 % Eos % (Auto) 0.3 % Baso % (Auto) 0.0 % Neut # (Auto) 2.89 (1.4-6.5) K/uL Lymph # (Auto) 0.30 L (1.2-3.4) K/uL [place] # (Auto) 0.57 (0.11-0.59) K/uL Eos # (Auto) 0.01 (0-0.5) K/uL Baso # (Auto) 0.00 (0-0.2) K/uL Immature Gran # (Auto) 0.01 (0.00-0.02) K/uL PT 13.8 H (9.0-12.0) Seconds INR 1.4 H (0.9-1.1) APTT 34.0 H (21.0-31.0) Seconds PTT Ratio 1.3 Sodium (136-145) mmol/L Potassium (3.5-5.1) mmol/L Chloride (98-107) mmol/L Carbon Dioxide (21-32) mmol/L Anion Gap (3-11) BUN (7-18) mg/dl Creatinine (0.6-1.4) mg/dl Est Cr Clr Drug Dosing Est GFR ( Amer) ml/min Est GFR (Non-Af Amer) ml/min BUN/Creatinine Ratio (10-20) Glucose (70-99) mg/dl POC Glucose 144 H (70-99) mg/dl Lactate (0.4-2.0) mmol/L Calcium (8.5-10.1) mg/dl Magnesium (1.8-2.4) mg/dl Total Bilirubin (0.2-1) mg/dl AST (15-37) U/L ALT (12-78) U/L Alkaline Phosphatase (45-117) U/L Troponin I (0-0.045) ng/ml Total Protein (6.4-8.2) gm/dl Albumin (3.4-5.0) gm/dl Globulin (2.5-4.0) gm/dl Albumin/Globulin Ratio (0.9-2) Procalcitonin (0-0.5) ng/ml Urine Color Urine Appearance (Clear) Urine pH (4.5-7.5) Ur Specific [place] (1.000-1.030) Urine Protein (Negative) Urine Glucose (UA) (Negative) Urine Ketones (Negative) Urine Blood (Negative) Urine Nitrite (Negative) Urine Bilirubin (Negative) Urine Urobilinogen (Negative) Ur Leukocyte Esterase (Negative) Urine WBC (Auto) (0-5) /hpf Urine RBC (Auto) (0-4) /hpf U Hyaline Cast (Auto) (0-5) /lpf U Epithel Cells (Auto) (0-5) /lpf Urine Bacteria (Auto) (Negative) COVID-19 Eval Order SARS-CoV-2 (PCR) (Negative) 03/09/21 03/09/21 03/09/21 Range/Units 23:55 23:55 23:58 WBC (4.8-10.8) K/uL RBC (4.7-6.1) M/uL Hgb (14.0-18.0) g/dL Hct (42-52) % MCV (80-100) fL MCH (25-34) pg MCHC (32-36) g/dL RDW Std Deviation (36.4-46.3) fL RDW Coeff of Kg (11.5-14.5) % Plt Count (130-400) K/uL MPV (7.4-10.4) fL Immature Gran % (Auto) % Neut % (Auto) % Lymph % (Auto) % [place] % (Auto) % Eos % (Auto) % Baso % (Auto) % Neut # (Auto) (1.4-6.5) K/uL Lymph # (Auto) (1.2-3.4) K/uL [place] # (Auto) (0.11-0.59) K/uL Eos # (Auto) (0-0.5) K/uL Baso # (Auto) (0-0.2) K/uL Immature Gran # (Auto) (0.00-0.02) K/uL PT (9.0-12.0) Seconds INR (0.9-1.1) APTT (21.0-31.0) Seconds PTT Ratio Sodium 142 (136-145) mmol/L Potassium 3.4 L (3.5-5.1) mmol/L Chloride 108 H (98-107) mmol/L Carbon Dioxide 24 (21-32) mmol/L Anion Gap 10.0 (3-11) BUN 11 (7-18) mg/dl Creatinine 0.33 L (0.6-1.4) mg/dl Est Cr Clr Drug Dosing Not Reportable Est GFR ( Amer) > 150.0 ml/min Est GFR (Non-Af Amer) 135.9 ml/min BUN/Creatinine Ratio 33.6 H (10-20) Glucose 150 H (70-99) mg/dl POC Glucose (70-99) mg/dl Lactate 1.4 (0.4-2.0) mmol/L Calcium 8.9 (8.5-10.1) mg/dl Magnesium 2.7 H (1.8-2.4) mg/dl Total Bilirubin 0.7 (0.2-1) mg/dl AST 18 (15-37) U/L ALT 22 (12-78) U/L Alkaline Phosphatase 110 (45-117) U/L Troponin I < 0.015 (0-0.045) ng/ml Total Protein 8.3 H (6.4-8.2) gm/dl Albumin 3.0 L (3.4-5.0) gm/dl Globulin 5.3 H (2.5-4.0) gm/dl Albumin/Globulin Ratio 1.8 (0.9-2) Procalcitonin 0.20 (0-0.5) ng/ml Urine Color Urine Appearance (Clear) Urine pH (4.5-7.5) Ur Specific [place] (1.000-1.030) Urine Protein (Negative) Urine Glucose (UA) (Negative) Urine Ketones (Negative) Urine Blood (Negative) Urine Nitrite (Negative) Urine Bilirubin (Negative) Urine Urobilinogen (Negative) Ur Leukocyte Esterase (Negative) Urine WBC (Auto) (0-5) /hpf Urine RBC (Auto) (0-4) /hpf U Hyaline Cast (Auto) (0-5) /lpf U Epithel Cells (Auto) (0-5) /lpf Urine Bacteria (Auto) (Negative) COVID-19 Eval Order SARS-CoV-2 (PCR) (Negative) 03/10/21 03/10/21 03/10/21 Range/Units 00:38 00:38 01:45 WBC (4.8-10.8) K/uL RBC (4.7-6.1) M/uL Hgb (14.0-18.0) g/dL Hct (42-52) % MCV (80-100) fL MCH (25-34) pg MCHC (32-36) g/dL RDW Std Deviation (36.4-46.3) fL RDW Coeff of Kg (11.5-14.5) % Plt Count (130-400) K/uL MPV (7.4-10.4) fL Immature Gran % (Auto) % Neut % (Auto) % Lymph % (Auto) % [place] % (Auto) % Eos % (Auto) % Baso % (Auto) % Neut # (Auto) (1.4-6.5) K/uL Lymph # (Auto) (1.2-3.4) K/uL [place] # (Auto) (0.11-0.59) K/uL Eos # (Auto) (0-0.5) K/uL Baso # (Auto) (0-0.2) K/uL Immature Gran # (Auto) (0.00-0.02) K/uL PT (9.0-12.0) Seconds INR (0.9-1.1) APTT (21.0-31.0) Seconds PTT Ratio Sodium (136-145) mmol/L Potassium (3.5-5.1) mmol/L Chloride (98-107) mmol/L Carbon Dioxide (21-32) mmol/L Anion Gap (3-11) BUN (7-18) mg/dl Creatinine (0.6-1.4) mg/dl Est Cr Clr Drug Dosing Est GFR ( Amer) ml/min Est GFR (Non-Af Amer) ml/min BUN/Creatinine Ratio (10-20) Glucose (70-99) mg/dl POC Glucose (70-99) mg/dl Lactate (0.4-2.0) mmol/L Calcium (8.5-10.1) mg/dl Magnesium (1.8-2.4) mg/dl Total Bilirubin (0.2-1) mg/dl AST (15-37) U/L ALT (12-78) U/L Alkaline Phosphatase (45-117) U/L Troponin I (0-0.045) ng/ml Total Protein (6.4-8.2) gm/dl Albumin (3.4-5.0) gm/dl Globulin (2.5-4.0) gm/dl Albumin/Globulin Ratio (0.9-2) Procalcitonin (0-0.5) ng/ml Urine Color Dark Yellow Urine Appearance Clear (Clear) Urine pH 5.0 (4.5-7.5) Ur Specific [place] 1.029 (1.000-1.030) Urine Protein 1+ H (Negative) Urine Glucose (UA) Negative (Negative) Urine Ketones 4+ H (Negative) Urine Blood 2+ H (Negative) Urine Nitrite Negative (Negative) Urine Bilirubin 1+ H (Negative) Urine Urobilinogen Negative (Negative) Ur Leukocyte Esterase Negative (Negative) Urine WBC (Auto) 1-5 (0-5) /hpf Urine RBC (Auto) 10-30 H (0-4) /hpf U Hyaline Cast (Auto) 1-5 (0-5) /lpf U Epithel Cells (Auto) 5-10 H (0-5) /lpf Urine Bacteria (Auto) Negative (Negative) COVID-19 Eval Order Covid19 at [facility] SARS-CoV-2 (PCR) NEGATIVE (Negative) Imaging Data My Impression: X-ray: I interpreted the following studies. Chest: A single view study of the chest was reviewed and was negative for cardiomegaly, focal infiltrate, effusion, pulmonary edema, or wide mediastinum. Radiologist's Impression: Chest X-Ray 03/09/21 23:52 XR chest 1V portable CLINICAL HISTORY: SEPSIS COMPARISON STUDY: 03-18 FINDINGS: The cardiac and mediastinal contours remain stable. A right-sided ventriculoperitoneal shunt catheter is again visualized. There is no failure. There is no focal pulmonary consolidation. There is minor basilar atelectasis. Surgical clips project over the left breast.[ IMPRESSION: No active disease in the chest. ACT 112: Negative or not required by law. Electronically signed by: Donovan Davis M.D. 03/10/2021 7:[address] head: Extensive chronic postoperative changes. Right frontoparietal craniectomy. Left-sided craniectomy/cranioplasty, similar to the prior. Subjacent left chronic extra-axial collection is new finding of gas within the collection. Differential diagnosis interval intervention, infection/abscess. Stable hyperdense focus within collection and rim calcifications. Stable right frontal approach and right occipital ventriculostomy catheters. Right frontal appears to be superior to the level of the frontal horns and may not be within the ventricular system. Other chronic findings of volume loss, small vessel disease and encephalomalacia similar to prior from 02-26-2021. Radiologist: Simone Cosme MD ECG Data Attestation: I personally reviewed and interpreted this ECG as follows: Indication: + altered mental status Rate (beats per minute): 108 Rhythm: + sinus tachycardia ECG Intervals/blocks: + Normal QRS and + Prolonged QT ECG Kevin: + Left axis deviation ECG ST segments: + Nonspecific ST abnormalities MDM Narrative This is an ill appearing 65 yo male with multiple signficant medical problems who presents due to concern for fever and difficulty breathing. Patient with recent admission for aspiration pneumonia. Coarse BS b/l on initial exam and pt only 90% on NRB at 15 lpm. I asked RT to perform suctioning and initiate HFNC which seems to help temporarily. Sepsis protocol was initiated and pt given IV antibiotics. Pt started on IVF and he did receive 30 ml/kg in the ER in total. Despite not initially being hypotensive, he did have one hypotensive episode but quickly recovered. Given resp exam, initial strong suspicion for pna/aspiration/pulm edema although cxr did reveal this. Labs initially reassuring despite condition. Patient needed to be transitioned to BiPAP to maintain oxygen saturation with further assist breathing. I had extensive discussion with the sister at bedside regarding care given appearance of recurrent sepsis and respiratory failure. Pt to be DNR/DNI. Case discussed with hospitalist for additional treatment and evaluation. Sister kept up to date on results. An order was placed for continuous cardiac monitoring. The monitor shows a rate of _102_ with _normal sinus_ rhythm. Impression & Plan Sepsis, AMS (altered mental status), Hypoxia, Respiratory failure Discharge Plan Visit Data Chief Complaint: Altered Mental Status Stated Complaint: ALTERED MENTAL STATUS/FEVER ED Provider: Theresa Das Discharge Problem: Sepsis, AMS (altered mental status), Hypoxia, Respiratory failure Patient Disposition: Admitted As Inpatient Discharge Instructions Interventions: ED Discharge Assessment Last Done: 03/10/21 04:44 Discharge Problem: Sepsis Qualifiers: Sepsis type: sepsis due to unspecified organism Sepsis acute organ dysfunction status: with acute organ dysfunction Severe sepsis acute organ dysfunction type: acute respiratory failure Acute respiratory failure type: with hypoxia Severe sepsis shock status: without septic shock Qualified Code(s): A41.9 - Sepsis, unspecified organism AMS (altered mental status) Qualifiers: Altered mental status type: unspecified Qualified Code(s): R41.82 - Altered mental status, unspecified Respiratory failure Qualifiers: Chronicity: acute Respiratory failure complication: hypoxia Qualified Code(s): J96.01 - Acute respiratory failure with hypoxia
[2021-03-10 01:26] LABS: Chloride 108 mmol/L (98-107); Potassium 3.4 mmol/L (3.5-5.1); Sodium 142 mmol/L (136-145)
[2021-03-10 01:44] LABS: Alkaline Phosphatase 110 U/L (45-117); Bilirubin,Total 0.7 mg/dl (0.2-1); Total Protein 8.3 gm/dl (6.4-8.2); Troponin I < 0.015 ng/ml (0-0.045)
[2021-03-10 01:45] LABS: Albumin Globulin Ratio 1.8 (0.9-2); Globulin 5.3 gm/dl (2.5-4.0)
[2021-03-10 01:58] LABS: Appearance Urine Clear (Clear); Bacteria Urine Automated Negative (Negative); Blood Urine 2+ (Negative); Color Urine Dark Yellow; Glucose Urine UA Negative (Negative); Ketones Urine 4+ (Negative); Leukocyte Esterase Urine Negative (Negative); Nitrite Urine Negative (Negative); Protein Urine 1+ (Negative); Specific Gravity Urine 1.029 (1.000-1.030); Urobilinogen Urine Negative (Negative)
[2021-03-10 02:01] LABS: Bilirubin Urine 1+ (Negative)
[2021-03-10] MEDS ORDERED: OPTIRAY 320 100ml IV ONE (02:31)
[2021-03-10] MEDS ORDERED: SODIUM CHLORIDE 0.9% 1000ML 1,000 ML IV ONE (02:52)
[2021-03-10] MEDS ORDERED: POTASSIUM CHLORIDE / WTR 10 MEQ/100 ML PLCT IV STA (04:31)
[2021-03-10] MEDS ORDERED: NITROGLYCERIN SL 0.4 MG/TAB TAB SL PRN (04:50)
[2021-03-10] MEDS ORDERED: ACETAMINOPHEN 325 MG TAB PO PRN (04:50)
[2021-03-10] MEDS ORDERED: PIPERACILL/TAZOBAC CONSULT ACTIVE PRN (04:50)
[2021-03-10] MEDS ORDERED: VANCOMYCIN CONSULT ACTIVE PRN (04:50)
[2021-03-10] MEDS ORDERED: PIPERACILLIN/TAZOBACTAM 4.5 GM in DEXTROSE 5% 100 ML IV ONE (05:00)
[2021-03-10] MEDS ORDERED: VANCOMYCIN HCL 2,000 MG in SODIUM CHLORIDE 0.9% 500 ML IV ONE (05:00)
[2021-03-10] MEDS: SODIUM CHLORIDE 0.9% 1000ML 1,000 ML IV SCH ×3 (05:23→23:17)
[2021-03-10] MEDS: POTASSIUM CHLORIDE / WTR 10 MEQ/100 ML PLCT IV SCH ×2 (05:29→08:09)
--- NOTE | 2021-03-10 06:11 | Pharmacy Report ---
Pharmacy Abx Dose Short Note - Date of Service March 10, 2021 - Assessment & Plan Assessment 65 year old M receiving Vancomycin and Zosyn for treatment of cellulitis vs pneumonia * PMHx significant for brain cancer s/p resection and [employer] shunt * Febrile at 39.6oC. Leukopenia. Renal fxn normal. Lactic acid negative. Procalcitonin 0.2. * Cultures pending Plan Vancomycin * Loading Dose: 2000 mg (25 mg/kg) IV x 1 * Maintenance Dose: 1250 mg (16 mg/kg) IV every 12 hours * Goal trough level: 15 mcg/mL * Trough ordered for March 12 prior to 0500 dose Zosyn * 4.5 g IV x 1 then 3.375 g IV extended infusion every 8 hours Pharmacy will continue to follow and will adjust dose/frequency as necessary. Thank you.
--- NOTE | 2021-03-10 06:17 | History and Physical Report ---
DATE OF ADMISSION: 03/10/2021 CHIEF COMPLAINT: Altered mental status. 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 The patient is bedbound. The patient was recently in the hospital on 02/26/2021 with seizures and aspiration pneumonitis. He was treated with antibiotics and Keppra was added to his regimen, also on valproic acid. Patient before the last admission, he was full code and he was eating regular food and as per sister who is also at bedside he was communicating fine, but he got discharged on 03/04/2021, the sister says she saw him few days before discharge and was talking okay at that time, but on and off,t he was sleeping, more drowsy. As per mcc in [facility], the patient was on pureed diet. Before he used to eat by himself. Now they have to feed him and as per the sister the food stayed in the mouth for a long time, he was not able to swallow it okay, but last few days, he was having fever. They checked for UA and was positive and was started on antibiotic and today evening again he had a temperature spike of 101 and has been more lethargic. They also noticed some drainage from his skull and when nurse checked him back at 9.30 p.m., he had temperature of 101 and he is saturating only 78-81%. They placed him on oxygen. Heart rate was 107, blood pressure is okay and was transferred here. The patient is mostly unresponsive. He is not able to answer any questions. Requiring high oxygen levels. He was placed on high-flow. Sister is in the room. She says during last Thursday the mcc called about code status and she states she discussed with her father who is 91-year-old and they wanted him to be DNR/DNI and no feeding tubes. He is still having temp spike of 39.6 in the ER, saturating 94% on 30 liters high flow, blood pressure is okay. Heart rates are okay. Leukopenia. Lactic acid is okay at 1.4. SARS-CoV-2 PCR negative. As per nursing staff, there is no nausea, vomiting. No diarrhea, no complaints of any pain. Could not get any review of symptoms. ALLERGIES: No known drug allergies. PAST MEDICAL HISTORY: As mentioned above. PAST SURGICAL HISTORY: Colonoscopy, free muscle flap with microvascular anastomosis, harvest upper extremity veins, CORK INSULATION SETTER shunt brain surgery, laparoscopic cholecystectomy, laparoscopic appendectomy, right inguinal approach, inferior vena cava filter muscle skin flap, head and neck, removal of bone flap skull, craniotomy, replacement of bone flap skull, replacement, revision of shunt, sterotactic cranial intradural navigation. MEDICATIONS: Currently patient is on Tylenol 650 mg p.o. q. 6 hours p.r.n., divalproex 500 mg p.o. t.i.d. and divalproex 250 mg p.o. at bedtime, famotidine 20 mg p.o. a.m., boost plus 1 p.o. b.i.d., hydrocortisone 1 application topically b.i.d., ketaconazole 1 application topically 2 times a week, Keppra 250- 500 mg p.o. b.i.d., sertraline 100 mg p.o. a.m., silver sulfadiazine 1 application topically daily, simvastatin 10 mg p.o. at bedtime, zinc oxide 1 application topically b.i.d. FAMILY HISTORY: Significant for brother has lung cancer, father has colon cancer, mother has colon cancer. Father has cataracts, heart disorder. Mother has heart disorder, hypertension. Brother has hypertension. SOCIAL HISTORY: Currently living at [facility]. Former smoker, quit in 1995. No alcohol use, no drug use. REVIEW OF SYSTEMS: Could not be obtained as the patient is confused, not able to answer any questions. PHYSICAL EXAMINATION: GENERAL: The patient is drowsy, not answering any questions. VITAL SIGNS: Temperature, T-max 39.6, blood pressure 110/71, pulse 79, initially was in 120s, respiratory rate 24, initially was in 30s, oxygen 95% on 30 liters high flow nasal cannula. HEENT: Pupils equal, round, reactive to light. Has some mild drainage seen on the forehead wound scab. The patient has a dent in his right side of his head, on the scalp. NECK: No JVD. No neck masses. CARDIOVASCULAR: S1, S2 heard, regular rate and rhythm, no murmur, no gallop. RESPIRATORY SYSTEM: Normal AP diameter. No accessory muscle use. Bilateral rhonchi heard. ABDOMEN: Soft, bowel sounds present. Some discomfort. No distention. CENTRAL NERVOUS SYSTEM: Drowsy, not answering any questions. No facial droop seen. EXTREMITIES: No edema, no erythema. LABORATORY DATA: WBC 3.7, hemoglobin 12.7, hematocrit 40.4, platelets 276. PT 13.8, INR 1.4, APTT 34. Sodium 142, potassium 3.4, chloride 108, bicarbonate 24, BUN 11, creatinine 0.3, serum glucose 150, lactate 1.4, calcium 8.2, magnesium 2.7, total bilirubin 0.7, AST 18, ALT 22, alkaline phosphatase 110. Troponin I less than 0.015. Procalcitonin 0.2. Urinalysis +4 ketones, +2 blood. Urine bacteria negative, leukocyte esterase negative, urine nitrite negative. SARS-CoV-2 PCR negative. IMAGING: CT of the head scan results pending. Chest x-ray, no acute findings. EKG: Sinus tachycardia, rate of 108, prolonged QTc 522. No acute ST changes seen. ASSESSMENT AND PLAN: A 65-year-old male presents with altered mental status and possible sepsis. 1. Altered mental status, possibly from sepsis, possibly there is some drainage from the head wound. We will follow the CT scan of the head and wound cultures. Also some rhonchi on exam and also hypoxic. Follow the CT of the chest and also follow CT abdomen and pelvis. We will rule out any occult infection. Empirically started on vancomycin and Zosyn, IV fluids and closely monitor in tele floor. The patient is DNR/DNI as per my discussion with the sister and no tube feeds.When stable, needs to be evaluated by speech therapy. Currently, we will keep him n.p.o. Close monitor in tele. 2. Hypoxia, rhonchi on exam. Follow CT scan of the chest. Requiring high-flow oxygen. The patient is DNR. Antibiotics as above. Could not get a CT angio to rule out PE because he had contrast for CT scan of the head. We will follow the CT chest .Also patient has IVC filter. 3. History of seizures. Change his valproic to IV and Keppra to IV. Follow the levels. 4. Hypokalemia, we will replace. 5. Type 2 diabetes. Last HbA1c was 6.6. We will monitor the blood sugar. 6. History of depression, Zoloft. 7. History of squamous cell carcinoma of skull, history of pituitary adenoma, status post resections and multiple surgeries to the skull and has left hemiparesis and wheelchair bound, also has CORK INSULATION SETTER shunt. 8. History of hypertension, not on any medication. We will monitor. 9.. History of cholelithiasis.Follow ct abd/pelvis 10. Deep venous thrombosis prophylaxis. We will place him on heparin subQ. DISPOSITION: Closely monitor in the tele floor, transfer to [facility] when stable. May need Palliative consult. The patient is DNR/DNI as per discussion with the sister. Social service to help with discharge planning. Addendum: CT head : Since the prior study, the complex fluid collection subjacent to the left craniotomy site has developed gas. This raises the possibility of an infected collection. Neurosurgical consultation recommended. Talked to sister and she was ok transfer to [place] if needed. Called [place] Transfer line. Currently Neurosurgery was not able t call back but Neurologist was able to answer. As per nothing can be done at this time. No transfer to [place].To Treat with antibiotics. requested to send the imaging studies. Called radiology department and they said they will forward ct head to [place]. may leave a not in [facility].Also told that we may call back once images were forwarded to them and he is ok with that but thinks recommendations most likely wont change.Called sister back notified the discussions with [place] and She seems to understand.Told sister patient may not get better.Continue to monitor for now. [facility]
--- NOTE | 2021-03-10 07:08 | XRay Report ---
XR chest 1V portable CLINICAL HISTORY: SEPSIS COMPARISON STUDY: 03-18 FINDINGS: The cardiac and mediastinal contours remain stable. A right-sided ventriculoperitoneal shun t catheter is again visualized. There is no failure. There is no focal pulmonary consolidation. There is minor basilar atelectasis. Surgical clips project over the left breast.[ IMPRESSION: No active disease in the chest. ACT 112: Negative or not required by law. Electronically signed by: Donovan Davis M.D. 03/10/2021 7:07 AM
[2021-03-10] MEDS: SERTRALINE HCL 100 MG TABLET PO SCH (07:29)
--- NOTE | 2021-03-10 07:29 | CT Scan Report ---
CT head/brain wo/w con CT DOSE: 1228.53 mGy.cm TECHNIQUE: Noncontrast images were obtained through the brain in the axial plane. The sequence was re peated following administration of 94 Optiray. A dose lowering technique was utilized adhering to th e principles of ALARA. HISTORY: History of craniotomy with brain tumor. Draining wound from head. COMPARISON: None. FINDINGS: There is a 17 mm pineal region calcification. There is a right occipital ventriculostomy catheter. Th e tip terminates within the anterior horn of the left lateral ventricle. There are postsurgical jarquin es of a right frontoparietal vertex craniectomy. A right ventriculostomy catheter is also visualized which terminates at or just superior to the anterior horn of lateral ventricle. There are postsurgica l changes of a left frontoparietal craniotomy. There is a mixed attenuation fluid collection subjacen t the craniotomy site which now contains air. In addition there is a hyperdense focus measuring 25 mm . There are patchy white matter hypodensities likely on a small vessel basis. There is right frontopari etal encephalomalacia. There is no evidence of pathologic ventricular dilatation. There is no evidence of acute sinusitis Postcontrast images reveal no pathologically enhancing masses. IMPRESSION: 1. Extensive postsurgical changes as described above. 2. Since the prior study, the complex fluid collection subjacent to the left craniotomy site has deve loped gas. This raises the possibility of an infected collection. Neurosurgical consultation recommen ded. ACT 112: Negative or not required by law. Electronically signed by: Donovan Davis M.D. 03/10/2021 7:27 AM
[2021-03-10 07:31] LABS: Eosinophils # (auto) 0.01 K/uL (0-0.5); Eosinophils % (auto) 0.5 %; Hematocrit (blood only) 39.4 % (42-52); Hemoglobin 12.2 g/dL (14.0-18.0); Lymphocytes # (auto) 0.36 K/uL (1.2-3.4); Lymphocytes % (auto) 16.5 %; Mean Corpuscular Hemoglobin 27.1 pg (25-34); Mean Corpuscular Volume 87.4 fL (80-100); Mean Platelet Volume 9.2 fL (7.4-10.4); Monocytes # (auto) 0.27 K/uL (0.11-0.59); Monocytes % (auto) 12.4 %; Neutrophils # (auto) 1.54 K/uL (1.4-6.5); Neutrophils % (auto) 70.6 %; Platelet Count 221 K/uL (130-400); RDW Coefficient of Variation 16.8 % (11.5-14.5); RDW Standard Deviation 54.1 fL (36.4-46.3); Red Blood Count 4.51 M/uL (4.7-6.1); White Blood Count 2.18 K/uL (4.8-10.8)
[2021-03-10 07:50] LABS: BUN Creatinine Ratio 20.4 (10-20); Calcium 8.7 mg/dl (8.5-10.1); Est GFR (Non-African American) 126.8 ml/min; Magnesium 2.4 mg/dl (1.8-2.4); Potassium 4.2 mmol/L (3.5-5.1)
--- NOTE | 2021-03-10 07:53 | CT Scan Report ---
CT OF THE CHEST WITHOUT IV CONTRAST CLINICAL HISTORY: Shortness of breath. Hypoxia. COMPARISON STUDY: Chest CT June 03, 2019. Chest radiograph March 10, 2021. CT DOSE: 1085.00 mGy.cm TECHNIQUE: Axial images of the chest were obtained without IV contrast. Images were reviewed in the axial, sagittal, and coronal planes. IV contrast was not administered for this examination. Automat ed exposure control was utilized for the study. A dose lowering technique was utilized adhering to t he principles of ALARA. FINDINGS: A left axillary mass/enlarged lymph node is similar to CT of June 03, 2019. This measu res 8.8 x 2.7 cm. No pericardial effusion is noted. There is moderate coronary artery calcification. There is no pneumothorax or pleural effusion. Lungs are suboptimally assessed due to respiratory brendan on. There are secretions within the trachea as well as right lower lobe bronchi. There is extensive r ight lower lobe airspace opacity with slight loss. There is mild left lower lobe airspace opacity. No acute fractures identified within visualized portions of the bony thorax. Abdomen and pelvis will be reported separately. IMPRESSION: 1. Extensive right lower lobe airspace opacity with volume loss. This could reflect a pneumonia, aspi ration pneumonitis or atelectasis. Moderate secretions within the airways, as described above. Mild l eft lower lobe airspace opacity. 2. No significant change in a left axillary mass/pathologic lymph node since chest CT of June 03, 2019. ACT 112: Negative or not required by law. Electronically signed by: Wilbur Beaulieu M.D. 03/10/2021 7:52 AM
--- NOTE | 2021-03-10 08:06 | CT Scan Report ---
CT OF THE ABDOMEN AND PELVIS WITHOUT CONTRAST CLINICAL HISTORY: sepsis. source? COMPARISON STUDY: CT of the abdomen and pelvis June 22, 2019. TECHNIQUE: Axial images of the abdomen and pelvis were obtained without IV contrast. Images were revi ewed in the axial, sagittal, and coronal planes. Automated exposure control was utilized for the michael dy. A dose lowering technique was utilized adhering to the principles of ALARA. FINDINGS: Please note that the chest CT will be reported separately. A mild T12 compression fractures age indeterminate. Evaluation of the abdomen and pelvis is suboptimal on this unenhanced exam. There is hepatic steatosis. There is no biliary ductal dilatation status post cholecystectomy. IVC filter is in place. Right collecting system is partially duplicated. There is contrast within the collecting systems, ureters and bladder from recent contrast-enhanced head CT. Mild right collecting system dil atation is unchanged since CT of June 20, 2019. There is no evidence for a bowel obstruction. Th e prostate is moderately enlarged. Romeo balloon is present within the bladder. A ventriculoperitonea l shunt catheter is partially imaged. The tip is within the left lower quadrant. No pneumatosis, free air or portal venous gas is present. There is no lymphadenopathy within the abdomen. A left axillary mass/enlarged lymph node is better depicted on the chest CT. The appendix is likely surgically absen t. There is trace fluid within the pelvis. IMPRESSION: 1. No acute process within the abdomen or pelvis on unenhanced exam. 2. Mild right collecting system dilatation, unchanged and CT of June 22, 2019. 3. No bowel obstruction. 4. Trace fluid within the pelvis which may be related to the shunt catheter. ACT 112: Negative or not required by law. Electronically signed by: Wilbur Beaulieu M.D. 03/10/2021 8:05 AM
[2021-03-10] MEDS: SILVER SULFADIAZINE 1% CR 50 GM JAR TOP SCH (08:11)
[2021-03-10] MEDS: HEPARIN SOD 5,000 UNIT/0.5 ML VIAL SQ SCH ×3 (08:11→20:34)
[2021-03-10] MEDS: HYDROCORTISONE 2.5% CR 30 GM TUBE EXT SCH ×2 (08:11→20:23)
[2021-03-10] MEDS: BUTT PASTE (ZINC OXIDE 16%) 171 APPLN/57 GM JAR EXT SCH ×2 (08:17→20:28)
[2021-03-10] MEDS: VALPROATE SOD 500 MG in DEXTROSE 5% 50 ML IV SCH ×2 (08:48→12:51)
[2021-03-10] MEDS ORDERED: NON-FORMULARY MEDICATION (Food Supplemt, Lactose-Reduced Liquid) PO SCH (09:00)
[2021-03-10] MEDS ORDERED: VALPROATE SOD 500 MG in DEXTROSE 5% 50 ML IV SCH (09:00)
[2021-03-10] MEDS ORDERED: levETIRAcetam 250 MG in 0.9 % SODIUM CHLORIDE 100 ML IV SCH (09:00)
--- NOTE | 2021-03-10 09:03 | Hospitalist Progress Note ---
Date of Service March 10, 2021 Assessment & Plan Admission and Anticipated Discharge Date Admission Date: March 10, 2021 Subjective Prolonged qtc. Avoid qt prolonging drugs. Follow repeat ekg. Results & Data Results & Data ([facility]) Vital Signs (Past 12 Hours) Vital Signs Temp Pulse Pulse Resp BP BP Pulse Ox 03/10/21 08:46 88 03/10/21 07:46 95 H 34 H 93 03/10/21 07:45 37.5 C 91 H 22 151/90 H 98 03/10/21 04:50 37.8 C H 81 26 H 135/95 99 03/10/21 04:33 67 22 97 03/10/21 04:01 76 26 H 97 03/10/21 04:00 90 25 H 96/73 L 97 03/10/21 03:30 79 27 H 101/70 96 03/10/21 03:27 79 24 94 03/10/21 03:01 93 H 30 H 86 L 03/10/21 03:00 93 H 32 H 114/73 82 L 03/10/21 02:52 94 H 33 H 105/73 92 03/10/21 02:51 93 H 22 92 03/10/21 02:45 37.9 C H 03/10/21 02:44 37.9 C H 03/10/21 02:43 90 34 H 97/70 L 92 03/10/21 02:00 97 H 34 H 110/71 94 03/10/21 01:30 101 H 31 H 123/79 95 03/10/21 01:16 104 H 30 H 129/88 95 03/10/21 01:14 99 H 30 H 97 03/09/21 23:30 39.6 C H 122 H 28 H 132/76 94 03/09/21 23:15 114 H 32 H 132/86 93
[2021-03-10] MEDS ORDERED: levETIRAcetam 500 MG in 0.9 % SODIUM CHLORIDE 100 ML IV SCH (09:15)
--- NOTE | 2021-03-10 10:02 | Electrocardiogram Report ---
Test Reason : Blood Pressure : / mmHG Vent. Rate : 108 BPM Atrial Rate : 108 BPM P-R Int : 130 ms QRS Dur : 104 ms QT Int : 412 ms P-R-T Axes : 059 -31 062 degrees QTc Int : 552 ms Sinus tachycardia Left axis deviation Inferior infarct , age undetermined Nonspecific ST abnormality Prolonged QT Abnormal ECG When compared with ECG of 01-MAR-2021 11:12, Vent. rate has increased BY 59 BPM QT has lengthened Confirmed by Bryce Haines ([id number]) on 03/10/2021 10:02:28 AM Referred By: Mark Aldrich Confirmed By:Bryce Haines
[2021-03-10] MEDS: PIPERACILLIN/TAZOBACTAM 3.375 GM in DEXTROSE 5% 100 ML IV SCH ×2 (10:16→17:03)
[2021-03-10] MEDS: ACETAMINOPHEN 1000 MG/100 ML IV IV PRN ×2 (11:52→20:24)
[2021-03-10] MEDS ORDERED: levETIRAcetam 250 MG in 0.9 % SODIUM CHLORIDE 100 ML IV ONE (12:00)
--- NOTE | 2021-03-10 12:36 | Hospitalist Progress Note ---
Date of Service March 10, 2021 Assessment & Plan Admission and Anticipated Discharge Date Admission Date: March 10, 2021 Subjective I followed up on conversations of Dr. Coy with Dr. Quinones (neurology, [place]) and Dr. Fung (neurosurgery, [place]). They were able to review the images but unfortunately, there is nothing they can offer the pt. Pt is not a surgical candidate. They recommend palliative medicine consult, which was placed. Claire Bowman MD Results & Data Results & Data ([facility]) Vital Signs (Past 12 Hours) Vital Signs Temp Pulse Pulse Resp BP BP Pulse Ox 03/10/21 12:00 39.3 C H 103 H 22 143/85 H 93 03/10/21 11:20 99 H 30 H 94 03/10/21 08:46 88 03/10/21 07:46 95 H 34 H 93 03/10/21 07:45 37.5 C 91 H 22 151/90 H 98 03/10/21 04:50 37.8 C H 81 26 H 135/95 99 03/10/21 04:33 67 22 97 03/10/21 04:01 76 26 H 97 03/10/21 04:00 90 25 H 96/73 L 97 03/10/21 03:30 79 27 H 101/70 96 03/10/21 03:27 79 24 94 03/10/21 03:01 93 H 30 H 86 L 03/10/21 03:00 93 H 32 H 114/73 82 L 03/10/21 02:52 94 H 33 H 105/73 92 03/10/21 02:51 93 H 22 92 03/10/21 02:45 37.9 C H 03/10/21 02:44 37.9 C H 03/10/21 02:43 90 34 H 97/70 L 92 03/10/21 02:00 97 H 34 H 110/71 94 03/10/21 01:30 101 H 31 H 123/79 95 03/10/21 01:16 104 H 30 H 129/88 95 03/10/21 01:14 99 H 30 H 97
[2021-03-10] MEDS: VANCOMYCIN HCL 1,250 MG in SODIUM CHLORIDE 0.9% 250 ML IV SCH (17:03)
--- NOTE | 2021-03-10 17:58 | Hospitalist Progress Note ---
Date of Service March 10, 2021 Assessment & Plan Admission and Anticipated Discharge Date Admission Date: March 10, 2021 Subjective I called patient's sister Kendra, and tried to update her, but I was only able to leave a message. Claire Bowman MD Results & Data Results & Data ([facility]) Vital Signs (Past 12 Hours) Vital Signs Temp Pulse Pulse Resp BP Pulse Ox 03/10/21 17:21 93 03/10/21 17:00 98 03/10/21 16:28 81 03/10/21 15:03 78 24 99 03/10/21 14:32 36.9 C 87 20 111/77 99 03/10/21 12:52 38 C H 03/10/21 12:00 39.3 C H 103 H 22 143/85 H 93 03/10/21 11:20 99 H 30 H 94 03/10/21 08:46 88 03/10/21 07:46 95 H 34 H 93 03/10/21 07:45 37.5 C 91 H 22 151/90 H 98
[2021-03-10] MEDS: VALPROATE SOD 750 MG in DEXTROSE 5% 50 ML IV SCH (20:29)
[2021-03-10] MEDS: levETIRAcetam 500 MG in 0.9 % SODIUM CHLORIDE 100 ML IV SCH (20:32)
[2021-03-10] MEDS: SIMVASTATIN 10 MG TAB PO SCH (20:34)
[2021-03-10] MEDS ORDERED: VALPROATE SOD 250 MG in DEXTROSE 5% 50 ML IV SCH (21:00)
[2021-03-10] MEDS ORDERED: DEXTROSE 50% 50 ML SYRINGE IV PRN (23:45)
[2021-03-10] MEDS ORDERED: GLUCOSE 10 TABS/TUBE PO PRN (23:45)
[2021-03-10] MEDS ORDERED: GLUCOSE 40% GEL 15 GM TUBE PO PRN (23:45)
[2021-03-10] MEDS ORDERED: CARBOHYDRATES FOR HYPOGLYCEMIA PO PRN (23:45)
[2021-03-10] MEDS ORDERED: GLUCAGON FOR INJ 1 MG VIAL IM PRN (23:45)
[2021-03-11] MEDS: PIPERACILLIN/TAZOBACTAM 3.375 GM in DEXTROSE 5% 100 ML IV SCH ×3 (03:49→17:21)
[2021-03-11] MEDS: VANCOMYCIN HCL 1,250 MG in SODIUM CHLORIDE 0.9% 250 ML IV SCH ×2 (05:44→17:21)
[2021-03-11] MEDS: HEPARIN SOD 5,000 UNIT/0.5 ML VIAL SQ SCH ×3 (05:45→21:23)
--- NOTE | 2021-03-11 08:22 | Hospitalist Progress Note ---
Date of Service March 11, 2021 Assessment & Plan (1) Sepsis: (2) AMS (altered mental status): (3) Hypoxia: (4) Respiratory failure: (5) Acute respiratory failure with hypoxia: Recurrent Aspiration pneumonia ? Brain abscess Metabolic/Septic encephalopathy A 65-year-old male presents with altered mental status and possible sepsis. 1. Altered mental status, possibly from sepsis, possibly there is some drainage from the head wound. Follow the CT scan of the head and wound cultures. Also some rhonchi on exam and also hypoxic. Follow the CT of the chest and also follow CT abdomen and pelvis. We will rule out any occult infection. CT head - IMPRESSION: 1. Extensive postsurgical changes as described above. 2. Since the prior study, the complex fluid collection subjacent to the left craniotomy site has developed gas. This raises the possibility of an infected collection. Neurosurgical consultation recommended. CT chest - IMPRESSION: 1. Extensive right lower lobe airspace opacity with volume loss. This could reflect a pneumonia, aspiration pneumonitis or atelectasis. Moderate secretions within the airways, as described above. Mild left lower lobe airspace opacity. 2. No significant change in a left axillary mass/pathologic lymph node since chest CT of June 03, 2019. CT abd. / pelvis IMPRESSION: 1. No acute process within the abdomen or pelvis on unenhanced exam. 2. Mild right collecting system dilatation, unchanged and CT of June 22, 2019. 3. No bowel obstruction. 4. Trace fluid within the pelvis which may be related to the shunt catheter. ? Brain abscess Pt's sister was contacted and informed about CT head findings - she was ok transfer to [facility] if needed. Discussed with [facility] () - unfortunately nothing can be done at this time, pt is not a surgical candidate and therefore, no transfer to [facility]. Recommend Palliative medicine consultation and treatment with antibiotics. Pt's sister notified about the discussions with [facility]. The patient is DNR/DNI as per discussion of admitting provider with the pt's sister and no tube feeds. Empirically started on vancomycin and Zosyn, IV fluids - will continue. Pt is not on Bipap, currently on 6L via NC. Closely monitor in tele floor. When stable, needs to be evaluated by speech therapy. Currently, we will keep him n.p.o. Palliative medicine consulted 2. Hypoxia, rhonchi on exam. CT chest obtained, as above. Requiring high-flow oxygen on initial eval. Pt was then placed on Bipap, now on 6L via NC The patient is DNR. Antibiotics as above. Could not get a CT angio to rule out PE because he had contrast for CT scan of the head. Patient has IVC filter. 3. History of seizures. Change his valproic to IV and Keppra to IV. Follow the levels. 4. Hypokalemia, we will replace. 5. Type 2 diabetes. Last HbA1c was 6.6. We will monitor the blood sugar. 6. History of depression, Zoloft. 7. History of squamous cell carcinoma of skull, history of pituitary adenoma, status post resections and multiple surgeries to the skull and has left hemiparesis and wheelchair bound, also has [employer] shunt. 8. History of hypertension, not on any medication. We will monitor. 9.. History of cholelithiasis.Follow ct abd/pelvis Deep venous thrombosis prophylaxis. heparin subQ. DISPOSITION: Closely monitor in the tele floor, transfer to [facility] when stable. Palliative medicine consulted. The patient is DNR/DNI as per discussion with the sister. Social service to help with discharge planning. CODE statu: The patient is DNR/DNI as per discussion of admitting provider with the pt's sister and no tube feeds. Admission and Anticipated Discharge Date Admission Date: March 10, 2021 Subjective Patient seen for fever, pneumonia/aspiration?,? Brain abscess Currently laying in bed, in no acute distress, on nasal cannula 6 L He is making eye contact, however not answering my questions Cannot obtain review of system Occasional wet cough noted Review of Systems Review of Systems: Unobtainable due to cognitive status Physical Exam Physical Exam: GENERAL: The patient is not answering any questions. But making eye contact. on 6L O2 via NC HEENT: Extensive postsurgical skull changes. Has some mild drainage seen on the forehead wound scab. The patient has a dent in his right side of his head, on the scalp. Making some eye contact. NECK: No JVD. No neck masses. CARDIOVASCULAR: S1, S2 heard, regular rate and rhythm, no murmur, no gallop. RESPIRATORY SYSTEM: Normal AP diameter. No accessory muscle use. + coarse breath sounds ABDOMEN: Soft, bowel sounds present. Some discomfort. No distention. NEURO: Drowsy, not answering any questions. Some eye contact. + facial asymmetry, L arm remains extended (baseline) EXTREMITIES: No edema, no erythema Results & Data Results & Data ([facility]) Vital Signs (Past 12 Hours) Vital Signs Temp Pulse Pulse Resp BP Pulse Ox Pulse Ox 03/11/21 07:51 37.9 C H 71 20 144/83 H 94 03/11/21 04:50 93 03/11/21 03:59 37.6 C H 74 24 120/73 99 03/10/21 23:42 37.0 C 76 24 92/60 L 97 03/10/21 23:00 78 03/10/21 21:00 37.6 C H Laboratory Results 03/11/21 03/11/21 03/11/21 Range/Units 08:49 08:49 07:30 WBC 2.52 L (4.8-10.8) K/uL RBC 3.91 L (4.7-6.1) M/uL Hgb 10.4 L (14.0-18.0) g/dL Hct 34.0 L (42-52) % MCV 87.0 (80-100) fL MCH 26.6 (25-34) pg MCHC 30.6 L (32-36) g/dL RDW Std Deviation 53.0 H (36.4-46.3) fL RDW Coeff of Kg 16.7 H (11.5-14.5) % Plt Count 208 (130-400) K/uL MPV 9.3 (7.4-10.4) fL Sodium 146 H (136-145) mmol/L Potassium 2.9 L D (3.5-5.1) mmol/L Chloride 112 H (98-107) mmol/L Carbon Dioxide 27 (21-32) mmol/L Anion Gap 8.0 (3-11) BUN 5 L (7-18) mg/dl Creatinine 0.39 L (0.6-1.4) mg/dl Est Cr Clr Drug Dosing 182.4 ml/min Est GFR ( Amer) 147.0 ml/min Est GFR (Non-Af Amer) 126.8 ml/min BUN/Creatinine Ratio 13.0 (10-20) Glucose 100 H (70-99) mg/dl POC Glucose 104 H (70-99) mg/dl Calcium 8.3 L (8.5-10.1) mg/dl Phosphorus 1.8 L (2.5-4.9) mg/dl Magnesium 2.4 (1.8-2.4) mg/dl Nasal Screen MRSA (PCR) (Negative) Valproic Acid (50-100) mcg/ml 03/10/21 03/10/21 03/10/21 Range/Units 23:45 11:32 08:30 WBC (4.8-10.8) K/uL RBC (4.7-6.1) M/uL Hgb (14.0-18.0) g/dL Hct (42-52) % MCV (80-100) fL MCH (25-34) pg MCHC (32-36) g/dL RDW Std Deviation (36.4-46.3) fL RDW Coeff of Kg (11.5-14.5) % Plt Count (130-400) K/uL MPV (7.4-10.4) fL Sodium (136-145) mmol/L Potassium (3.5-5.1) mmol/L Chloride (98-107) mmol/L Carbon Dioxide (21-32) mmol/L Anion Gap (3-11) BUN (7-18) mg/dl Creatinine (0.6-1.4) mg/dl Est Cr Clr Drug Dosing ml/min Est GFR ( Amer) ml/min Est GFR (Non-Af Amer) ml/min BUN/Creatinine Ratio (10-20) Glucose (70-99) mg/dl POC Glucose 115 H 136 H (70-99) mg/dl Calcium (8.5-10.1) mg/dl Phosphorus (2.5-4.9) mg/dl Magnesium (1.8-2.4) mg/dl Nasal Screen MRSA (PCR) Positive A (Negative) Valproic Acid (50-100) mcg/ml 03/10/21 Range/Units 07:07 WBC (4.8-10.8) K/uL RBC (4.7-6.1) M/uL Hgb (14.0-18.0) g/dL Hct (42-52) % MCV (80-100) fL MCH (25-34) pg MCHC (32-36) g/dL RDW Std Deviation (36.4-46.3) fL RDW Coeff of Kg (11.5-14.5) % Plt Count (130-400) K/uL MPV (7.4-10.4) fL Sodium (136-145) mmol/L Potassium (3.5-5.1) mmol/L Chloride (98-107) mmol/L Carbon Dioxide (21-32) mmol/L Anion Gap (3-11) BUN (7-18) mg/dl Creatinine (0.6-1.4) mg/dl Est Cr Clr Drug Dosing ml/min Est GFR ( Amer) ml/min Est GFR (Non-Af Amer) ml/min BUN/Creatinine Ratio (10-20) Glucose (70-99) mg/dl POC Glucose (70-99) mg/dl Calcium (8.5-10.1) mg/dl Phosphorus (2.5-4.9) mg/dl Magnesium (1.8-2.4) mg/dl Nasal Screen MRSA (PCR) (Negative) Valproic Acid 37 L (50-100) mcg/ml Medications Administered Current Inpatient Medications Acetaminophen (Acetaminophen 325 Mg Tab) 650 mg PO Q4H PRN PRN Reason: Pain or Fever Stop: 04/09/21 04:49 Acetaminophen (Acetaminophen 1000 Mg/100 Ml Iv) 1,000 mg IV Q8H PRN PRN Reason: fever or pain Stop: 03/13/21 11:37 Last Admin: 03/10/21 20:24 Dose: 1,000 mg Documented by: Dextrose (Dextrose 50% 50 Ml Syringe) 25 - 50 ml IV UD PRN; Protocol PRN Reason: Hypoglycemia Protocol Stop: 04/09/21 23:44 Glucagon (Glucagon For Inj 1 Mg Vial) 1 mg IM UD PRN; Protocol PRN Reason: Hypoglycemia Protocol Stop: 04/09/21 23:44 Glucose (Glucose 40% Gel 15 Gm Tube) 15 - 30 gm PO UD PRN; Protocol PRN Reason: Hypoglycemia Protocol Stop: 04/09/21 23:44 Glucose (Glucose 10 Tabs/Tube) 4 - 8 tabs PO UD PRN; Protocol PRN Reason: Hypoglycemia Protocol Stop: 04/09/21 23:44 Heparin Sodium (Porcine) (Heparin Sod 5,000 Unit/0.5 Ml Vial) 5,000 units SQ Q8 STEPHANIE Stop: 04/09/21 05:59 Last Admin: 03/11/21 05:45 Dose: 5,000 units Documented by: Hydrocortisone (Hydrocortisone 2.5% Cr 30 Gm Tube) 1 appln EXT BID STEPHANIE Stop: 04/09/21 08:59 Last Admin: 03/11/21 08:38 Dose: 1 appln Documented by: Sodium Chloride (Nss 1000ml) 1,000 mls @ 80 mls/hr IV .[id number] [facility] Stop: 04/09/21 04:59 Last Admin: 03/11/21 08:37 Dose: 80 mls/hr Documented by: Vancomycin HCl 1,250 mg/ (Sodium Chloride) 275 mls @ 200 mls/hr IV Q12H [facility]; Protocol Stop: 03/17/21 16:59 Last Infusion: 03/11/21 07:42 Dose: Infused Documented by: Piperacillin Sod/Tazobactam (Sod 3.375 gm/ Dextrose) 115 mls @ 28.75 mls/hr IV Q8H [facility]; Protocol Stop: 03/17/21 09:59 Last Admin: 03/11/21 09:50 Dose: 28.8 mls/hr Documented by: Valproic Acid 500 mg/ Dextrose 55 mls @ 55 mls/hr IV BID@0900,1300 [facility] Stop: 04/09/21 08:59 Last Admin: 03/11/21 09:48 Dose: 55 mls/hr Documented by: Valproic Acid 750 mg/ Dextrose 57.5 mls @ 57.5 mls/hr IV HS [facility] Stop: 04/09/21 20:59 Last Infusion: 03/10/21 21:29 Dose: Infused Documented by: Levetiracetam 500 mg/ Sodium (Chloride) 105 mls @ 440 mls/hr IV BID [facility] Stop: 04/09/21 20:59 Last Admin: 03/11/21 08:40 Dose: 440 mls/hr Documented by: Potassium Chloride (K Owen / Wtr) 10 meq in 100 mls @ 100 mls/hr IV Q1H [facility] Stop: 03/11/21 10:49 Insulin Aspart (Insulin Aspart 100 Units/Ml 3 Ml Pen) 0 units SC ACHS [facility] Stop: 04/10/21 07:29 Last Admin: 03/11/21 08:37 Dose: Not Given Documented by: Miscellaneous (*Ketoconazole*Order Awaiting Action) 1 ea N/A QS STEPHANIE Stop: 04/09/21 07:59 Last Admin: 03/11/21 03:54 Dose: Not Given Documented by: Miscellaneous (Carbohydrates For Hypoglycemia ) 15 - 30 gm PO UD PRN PRN Reason: Hypoglycemia Treatment Stop: 04/09/21 23:44 Miscellaneous Information (Vancomycin Consult Active) 1 ea N/A UD PRN PRN Reason: Consult Stop: 04/09/21 04:49 Miscellaneous Information (Piperacill/Tazobac Consult Active) 1 ea N/A UD PRN PRN Reason: Consult Stop: 04/09/21 04:49 Nitroglycerin (Nitroglycerin Sl 0.4 Mg/Tab Tab) 0.4 mg SL UD PRN PRN Reason: Chest Pain Stop: 04/09/21 04:49 Petrolatum (Butt Paste (Zinc Oxide 16%) 171 Appln/57 Gm Jar) 1 appln EXT BID STEPHANIE Stop: 04/09/21 08:59 Last Admin: 03/11/21 08:41 Dose: 1 appln Documented by: Potassium Phosphate (Potassium Phos 3 Mmol/1 Ml Infusion) 15 mmol IV NOW STA Stop: 03/11/21 09:51 Sertraline HCl (Sertraline Hcl 100 Mg Tablet) 100 mg PO QAM STEPHANIE Stop: 04/09/21 08:59 Last Admin: 03/11/21 08:36 Dose: 100 mg Documented by: Silver Sulfadiazine (Silver Sulfadiazine 1% Cr 50 Gm Jar) 1 appln TOP DAILY STEPHANIE Stop: 04/09/21 08:59 Last Admin: 03/11/21 08:40 Dose: 1 appln Documented by: Simvastatin (Simvastatin 10 Mg Tab) 10 mg PO HS STEPHANIE Stop: 04/09/21 20:59 Last Admin: 03/10/21 20:34 Dose: Not Given Documented by: (1) Sepsis Acute respiratory failure type: with hypoxia Sepsis acute organ dysfunction status: with acute organ dysfunction Sepsis type: sepsis due to unspecified organism Severe sepsis acute organ dysfunction type: acute respiratory failure Severe sepsis shock status: without septic shock Qualified Code(s): A41.9 - Sepsis, unspecified organism; R65.20 - Severe sepsis without septic shock; J96.01 - Acute respiratory failure with hypoxia (2) AMS (altered mental status) Altered mental status type: unspecified Qualified Code(s): R41.82 - Altered mental status, unspecified (3) Respiratory failure Chronicity: acute Respiratory failure complication: hypoxia Qualified Code(s): J96.01 - Acute respiratory failure with hypoxia
[2021-03-11] MEDS: SERTRALINE HCL 100 MG TABLET PO SCH (08:36)
[2021-03-11] MEDS: SODIUM CHLORIDE 0.9% 1000ML 1,000 ML IV SCH (08:37)
[2021-03-11] MEDS: INSULIN ASPART 100 UNITS/ML 3 ML PEN SC SCH ×4 (08:37→21:22)
[2021-03-11] MEDS: HYDROCORTISONE 2.5% CR 30 GM TUBE EXT SCH ×2 (08:38→21:23)
[2021-03-11] MEDS: SILVER SULFADIAZINE 1% CR 50 GM JAR TOP SCH (08:40)
[2021-03-11] MEDS: levETIRAcetam 500 MG in 0.9 % SODIUM CHLORIDE 100 ML IV SCH ×2 (08:40→21:15)
[2021-03-11] MEDS: BUTT PASTE (ZINC OXIDE 16%) 171 APPLN/57 GM JAR EXT SCH ×2 (08:41→21:19)
[2021-03-11] MEDS ORDERED: levETIRAcetam 500 MG in 0.9 % SODIUM CHLORIDE 100 ML IV SCH (09:00)
[2021-03-11 09:11] LABS: Hemoglobin 10.4 g/dL (14.0-18.0); Mean Corpuscular Hemoglobin 26.6 pg (25-34); Mean Corpuscular Hgb Conc 30.6 g/dL (32-36); Mean Platelet Volume 9.3 fL (7.4-10.4); Platelet Count 208 K/uL (130-400); RDW Coefficient of Variation 16.7 % (11.5-14.5); Red Blood Count 3.91 M/uL (4.7-6.1); White Blood Count 2.52 K/uL (4.8-10.8)
[2021-03-11 09:31] LABS: Calcium 8.3 mg/dl (8.5-10.1); Creatinine Clr Calc Pharmacy 182.4 ml/min; Est GFR (Non-African American) 126.8 ml/min; Magnesium 2.4 mg/dl (1.8-2.4); Phosphorus 1.8 mg/dl (2.5-4.9); Potassium 2.9 mmol/L (3.5-5.1)
[2021-03-11] MEDS: VALPROATE SOD 500 MG in DEXTROSE 5% 50 ML IV SCH ×2 (09:48→13:59)
[2021-03-11] MEDS ORDERED: POTASSIUM PHOS 3 MMOL/1 ML INFUSION IV STA (09:50)
[2021-03-11] MEDS: POTASSIUM CHLORIDE / WTR 10 MEQ/100 ML PLCT IV SCH ×3 (10:18→12:25)
--- NOTE | 2021-03-11 12:43 | Electrocardiogram Report ---
Test Reason : Blood Pressure : / mmHG Vent. Rate : 072 BPM Atrial Rate : 072 BPM P-R Int : 120 ms QRS Dur : 106 ms QT Int : 414 ms P-R-T Axes : 042 018 034 degrees QTc Int : 453 ms Poor data quality, interpretation may be adversely affected Normal sinus rhythm Low voltage QRS Borderline ECG When compared with ECG of 10-MAR-2021 00:32, Vent. rate has decreased BY 36 BPM QT has shortened Confirmed by Neal Smith ([id number]) on 03/11/2021 12:43:21 PM Referred By: Mark Aldrich Confirmed By:Jourdan Smith
[2021-03-11] MEDS ORDERED: POTASSIUM PHOSPHATE 15 MMOL in SODIUM CHLORIDE 0.9% 250 ML IV SCH (13:00)
--- NOTE | 2021-03-11 13:36 | Palliative Care Consultation ---
Date of Consultation March 11, 2021 Assessment & Plan (1) Palliative care encounter: Mr. Ferguson is an unfortunate 65 year old who presented to the [facility] from [facility] with increased lethargy and drowsiness. He was recently admitted from 02/26- 03/04 for aspiration pna. 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 He has also suffered a traumatic subdural hematoma and a craniotomy that was performed in 2010. Prior to his last admission, he was able to eat mostly independent, and also relatively verbal. He has progressively worsened over the past month and now he is mostly unresponsive with a fever of unknown origin. Palliative Medicine was consulted to discuss goals of care. Patient has been established a DNR/DNI. I was able to meet with Mr. Ferguson, who appeared very ill. He did open his right eye to verbal stimuli,but was otherwise unresponsive and did not follow any commands. I did talk to his sister and shared Kendra FARLEY in person outside of the room in a conference room. She shares POA with her father, but she said he has been ill himself so she has been primarily making decisions for a few years now. She was very realistic and indicated that her and her father have spoken and its clear he just is not 'bouncing back' from this previous aspiration illness. We talked about aggressive measures vs comfort and hospice approach to care. She indicated that he would not want life prolonging illness and she said she is thinking he is struggling. Mr. Ferguson does have two adult children that live in the [facility] area, but are not involved with decision making. Vee and Mario may come tomorrow to visit him from the hospital. We did discuss permissive aspiration and comfort feeding. Kendra indicated that the patient would not want tube feedings, or permanent feeding tube placement. For now, after lengthy discussion; continue care, including IV antibiotics and BiPAP if necessary; however, no escalation to ICU for pressors, etc. No CPR, shocking, intubation. Goal is to have patient return to [facility] with Hospice services. Depending on how the patient does over the next 24-48 hours could determine if the patient will be stable for transfer back to [facility]. Case management and hospitalist updated with above. Palliative Medicine will follow. (2) AMS (altered mental status): Altered mental status type: unspecified Qualified Code(s): R41.82 - Altered mental status, unspecified (3) Hypoxia: (4) Goals of care, counseling/discussion: (5) POLST (Physician Orders for Life-Sustaining Treatment): POLST completed and signed by patients sister Kendra Ferguson indicating: DNR/DNI, PRODUCTION UNDERWRITER, trial abx, no artificial nutrition/hydration. Copy placed on chart. Original given to the patients sister Kendra Ferguson. History of Present Illness Reason for Consultation: Goals of care Requesting Physician: Dr. Bowman Attending Physician: Prince Bowman MD History of Present Illness Mr. Ferguson is an unfortunate 65 year old who presented to the [facility] from [facility] with increased lethargy and drowsiness. He was recently admitted from 02/26- 03/04 for aspiration pna. 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 He has also suffered a traumatic subdural hematoma and a craniotomy that was performed in 2010. Prior to his last admission, he was able to eat mostly independent, and also relatively verbal. He has progressively worsened over the past month and now he is mostly unresponsive with a fever of unknown origin. Palliative Medicine was consulted to discuss goals of care. Patient has been established a DNR/DNI. Please see A/P for further details. Thanks for involving palliative medicine with this individual. Allergies Allergy/AdvReac Type Severity Reaction Status Date / Time No Known Allergies Allergy Mild NKA Verified 03/09/21 23:55 Home Medications Medication Instructions Recorded Confirmed Type ketoconazole 1 applic TOPICAL [id number] 02/17/19 03/10/21 History simvastatin 10 mg PO HS 02/17/19 03/10/21 History divalproex 500 mg PO TID 06/22/19 03/10/21 History divalproex 250 mg PO HS 08/26/20 03/10/21 History famotidine 20 mg PO QAM 08/26/20 03/10/21 History sertraline 100 mg PO QAM 08/26/20 03/10/21 History acetaminophen [Tylenol] 650 mg PO Q4H PRN MDD 3 GRAMS/24 02/26/21 03/10/21 History HOURS acetaminophen 650 mg MA Q6H PRN 03/09/21 03/10/21 History food supplemt, lactose-reduced 1 ea PO BID 03/09/21 03/09/21 History [Boost Plus] hydrocortisone 1 applic TOPICAL BID 03/09/21 03/10/21 History levetiracetam [Keppra] 250 mg PO BID 03/09/21 03/10/21 History levetiracetam [Keppra] 500 mg PO BID 03/09/21 03/10/21 History silver sulfadiazine 1 applic TOPICAL DAILY 03/09/21 03/10/21 History zinc oxide 1 applic TOPICAL BID 03/09/21 03/10/21 History Patient History Medical History (Updated 03/11/21 @ 21:51 by YONI Guadalupe) Brain tumor Diabetes History of pituitary adenoma Status post resection, radiation and 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 Fung at [facility] Recent MRI 08/2018: Again seen are postoperative changes of bilateral craniectomy. A titanium mesh is present over the left craniectomy. Chronic, heterogeneous collection beneath the left cranioplasty is stable. Measuring up to 21 mm in thickness and displacing the underlying brain. Again seen is sinking of the right skin flap, which is improved since the prior study. To ventricular shunts are again seen. One enters via a right frontal fransico hole,, and terminates along the anterior septum pellucidum in the left frontal horn. The other connects the ventricles of the upper cervical subarachnoid space. The distal aspect appears discontinuous. There has been a decrease in the size of the ventricles since the prior study. The previously seen diffuse pachymeningeal thickening and enhancement has considerably decreased. Encephalomalacia and gliosis again seen in the right parietal lobe at site of prior surgery. 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 Impression Stable postsurgical changes. The stable heterogeneous fluid collection beneath left cranioplasty. Decreased thinking of the right skin flap. Decreased size of ventricles. Other findings stable. No acute abnormality identified. History of ventriculoperitoneal shunting At age 8 with ventricular shunt failure at age 42 S/P replacement Family History Father Colorectal cancer Coronary heart disease Mother Colorectal cancer Myocardial infarction Social History Smoking Status: Former smoker Second Hand Exposure: No; Hx Alcohol Use: No Hx Substance Use: No Preferred Language: Swedish Communication Ability: Impaired Beliefs That Will Affect Care: None Current Living Situation: Longterm Current Living Situation Comment: [facility] Feels Safe at Home: Yes Assistive Devices: BiPap and Oxygen - Continuous Assistive Devices Comment: helmet Review of Systems Review of Systems: Unobtainable due to cognitive status [place] System Assessment Scale: Pain: 0/3 by observation SOB: 1/3 by observation Anxiety: 0/3 by observation Palliative Performance Scale: 20% Physical Exam Constitutional: + acute distress, + frail appearing and + disheveled ENMT: Nose: + dry nasal mucous membranes Respiratory: normal respiratory effort Auscultation: + diminished lung sounds Cardiovascular: Rate/Rhythm: regular rate and regular rhythm Extremities: normal capillary refill and + edema Gastrointestinal (Abdomen): normal bowel sounds, soft, nontender, no hepatos plenomegaly Skin: + dry skin and + pallor Psychiatric: Orientation: alert Insight: + impaired insight Judgement: + impaired judgement Results & Data ([facility]) Vital Signs (Past 12 Hours) Vital Signs Temp Pulse Pulse Resp BP Pulse Ox Pulse Ox 03/11/21 08:00 74 03/11/21 07:51 37.9 C H 71 20 144/83 H 94 03/11/21 04:50 93 03/11/21 03:59 37.6 C H 74 24 120/73 99 PG Care Time/CCT Total # of Minutes Spent Total Time Spent with Patient: Total time spent is greater than 50% in coordination of care (as documented) at patient's floor/unit and/or counseling patient: 100 minutes with > 50% of that time spent assessing the patient, discussing goals of care with family and collaborating with IDT Coding Level of Care Code [id number] Inpt Consult Level 3 Diagnoses Palliative care encounter Z51.5 AMS (altered mental status) R41.82 Altered mental status type: unspecified Hypoxia R09.02 Goals of care, counseling/discussion Z71.89 POLST (Physician Orders for Life-Sustaining Treatment) Z78.9 Time Spent (min) 100
[2021-03-11] MEDS: VALPROATE SOD 750 MG in DEXTROSE 5% 50 ML IV SCH (21:20)
[2021-03-11] MEDS: SIMVASTATIN 10 MG TAB PO SCH (21:22)
[2021-03-11] MEDS ORDERED: Nursing to Pharmacy Communication SCH (22:15)
[2021-03-12] MEDS: D5W AND NSS 1,000 ML IV SCH ×2 (01:07→18:39)
[2021-03-12] MEDS: PIPERACILLIN/TAZOBACTAM 3.375 GM in DEXTROSE 5% 100 ML IV SCH ×3 (01:09→18:38)
[2021-03-12] MEDS ORDERED: VANCOMYCIN TROUGH ONE (04:30)
[2021-03-12] MEDS: HEPARIN SOD 5,000 UNIT/0.5 ML VIAL SQ SCH ×3 (05:14→21:19)
[2021-03-12] MEDS: VANCOMYCIN HCL 1,250 MG in SODIUM CHLORIDE 0.9% 250 ML IV SCH ×3 (05:16→18:46)
[2021-03-12 05:41] LABS: Hematocrit (blood only) 30.2 % (42-52); Hemoglobin 9.3 g/dL (14.0-18.0); Mean Corpuscular Hgb Conc 30.8 g/dL (32-36); Mean Corpuscular Volume 87.8 fL (80-100); Mean Platelet Volume 9.4 fL (7.4-10.4); Platelet Count 231 K/uL (130-400); RDW Coefficient of Variation 16.7 % (11.5-14.5); RDW Standard Deviation 53.5 fL (36.4-46.3); Red Blood Count 3.44 M/uL (4.7-6.1); White Blood Count 2.91 K/uL (4.8-10.8)
[2021-03-12 06:07] LABS: Blood Urea Nitrogen 3 mg/dl (7-18); Calcium 7.5 mg/dl (8.5-10.1); Carbon Dioxide 29 mmol/L (21-32); Chloride 112 mmol/L (98-107); Creatinine Clr Calc Pharmacy 474.3 ml/min; Est GFR (African American) > 150.0 ml/min; Est GFR (Non-African American) > 150.0 ml/min; Glucose 90 mg/dl (70-99); Phosphorus 1.8 mg/dl (2.5-4.9); Potassium 2.6 mmol/L (3.5-5.1); Sodium 147 mmol/L (136-145)
[2021-03-12] MEDS: INSULIN ASPART 100 UNITS/ML 3 ML PEN SC SCH ×3 (06:28→18:39)
[2021-03-12] MEDS ORDERED: POTASSIUM PHOS 3 MMOL/1 ML INFUSION IV STA (07:25)
--- NOTE | 2021-03-12 07:31 | Hospitalist Progress Note ---
Date of Service March 12, 2021 Assessment & Plan (1) Sepsis: (2) AMS (altered mental status): (3) Hypoxia: (4) Respiratory failure: (5) Acute respiratory failure with hypoxia: Recurrent Aspiration pneumonia ? Brain abscess Metabolic/Septic encephalopathy A 65-year-old male presents with altered mental status and possible sepsis. 1. Altered mental status, possibly from sepsis, possibly there is some drainage from the head wound. Follow the CT scan of the head and wound cultures. Also some rhonchi on exam and pt hypoxic. Follow the CT of the chest and also follow CT abdomen and pelvis. We will rule out any occult infection. CT head - IMPRESSION: 1. Extensive postsurgical changes as described above. 2. Since the prior study, the complex fluid collection subjacent to the left craniotomy site has developed gas. This raises the possibility of an infected collection. Neurosurgical consultation recommended. CT chest - IMPRESSION: 1. Extensive right lower lobe airspace opacity with volume loss. This could reflect a pneumonia, aspiration pneumonitis or atelectasis. Moderate secretions within the airways, as described above. Mild left lower lobe airspace opacity. 2. No significant change in a left axillary mass/pathologic lymph node since chest CT of June 03, 2019. CT abd. / pelvis IMPRESSION: 1. No acute process within the abdomen or pelvis on unenhanced exam. 2. Mild right collecting system dilatation, unchanged and CT of June 22, 2019. 3. No bowel obstruction. 4. Trace fluid within the pelvis which may be related to the shunt catheter. ? Brain abscess Pt's sister was contacted and informed about CT head findings - she was ok transfer to [place] if needed. Discussed with [facility] () - unfortunately nothing can be done at this time, pt is not a surgical candidate and therefore, no transfer to [place]. Recommend Palliative medicine consultation and treatment with antibiotics. Pt's sister notified about the discussions with [place]. The patient is DNR/DNI as per discussion of admitting provider with the pt's sister and no tube feeds. Empirically started on vancomycin and Zosyn, IV fluids - will continue. Pt is not on Bipap, yesterday on 6L currently on 3L via NC. Closely monitor in tele floor. When stable, needs to be evaluated by speech therapy. Currently, we will keep him n.p.o. Palliative medicine consulted 2. Hypoxia, rhonchi on exam. CT chest obtained, as above. Requiring high-flow oxygen on initial eval. Pt was then placed on Bipap, now on 3L via NC The patient is DNR. Antibiotics as above. Could not get a CT angio to rule out PE because he had contrast for CT scan of the head. Patient has IVC filter. 3. History of seizures. Change his valproic to IV and Keppra to IV. Follow the levels. 4. Hypokalemia, we will replace. 5. Type 2 diabetes. Last HbA1c was 6.6. We will monitor the blood sugar. 6. History of depression, Zoloft. 7. 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 8. History of hypertension, not on any medication. We will monitor. 9.. History of cholelithiasis.Follow ct abd/pelvis Deep venous thrombosis prophylaxis. heparin subQ. DISPOSITION: Closely monitor in the tele floor, transfer to [facility] when stable. Palliative medicine consulted. The patient is DNR/DNI as per discussion with the sister. Social service to help with discharge planning. CODE statu: The patient is DNR/DNI as per discussion of admitting provider with the pt's sister and no tube feeds. Admission and Anticipated Discharge Date Admission Date: March 10, 2021 Subjective Patient seen in follow up for fever, pneumonia/aspiration?,? Brain abscess Currently laying in bed, in no acute distress, on nasal cannula 3 L He is making eye contact, however not answering my questions Cannot obtain review of system Occasional wet cough noted Palliative medicine consulted Review of Systems Review of Systems: Unobtainable due to cognitive status Physical Exam Physical Exam: GENERAL: The patient is not answering any questions. But making eye contact. on 3L O2 via NC HEENT: Extensive postsurgical skull changes. Has some mild drainage seen on the forehead wound scab. The patient has a dent in his right side of his head, on the scalp. Making some eye contact. NECK: No JVD. No neck masses. CARDIOVASCULAR: S1, S2 heard, regular rate and rhythm, no murmur, no gallop. RESPIRATORY SYSTEM: Normal AP diameter. No accessory muscle use. + coarse breath sounds ABDOMEN: Soft, bowel sounds present. Some discomfort. No distention. NEURO: Drowsy, not answering any questions. Some eye contact w/ R eye. + facial asymmetry, L arm remains extended (baseline) EXTREMITIES: No edema, no erythema Results & Data Results & Data ([facility]) Vital Signs (Past 12 Hours) Vital Signs Temp Pulse Pulse Resp BP Pulse Ox 03/12/21 02:34 37.2 C 80 23 119/49 L 98 03/12/21 00:00 71 03/11/21 23:19 37.8 C H 77 18 120/73 93 03/11/21 20:52 37.2 C 75 18 118/77 98 Laboratory Results 03/12/21 03/12/21 03/12/21 Range/Units 06:57 06:19 05:02 WBC (4.8-10.8) K/uL RBC (4.7-6.1) M/uL Hgb (14.0-18.0) g/dL Hct (42-52) % MCV (80-100) fL MCH (25-34) pg MCHC (32-36) g/dL RDW Std Deviation (36.4-46.3) fL RDW Coeff of Kg (11.5-14.5) % Plt Count (130-400) K/uL MPV (7.4-10.4) fL Sodium 147 H (136-145) mmol/L Potassium 2.6 L (3.5-5.1) mmol/L Chloride 112 H (98-107) mmol/L Carbon Dioxide 29 (21-32) mmol/L Anion Gap 6.0 (3-11) BUN 3 L (7-18) mg/dl Creatinine < 0.15 L (0.6-1.4) mg/dl Est Cr Clr Drug Dosing 474.3 ml/min Est GFR ( Amer) > 150.0 ml/min Est GFR (Non-Af Amer) > 150.0 ml/min BUN/Creatinine Ratio TNP (10-20) Glucose 90 (70-99) mg/dl POC Glucose 97 97 (70-99) mg/dl Calcium 7.5 L (8.5-10.1) mg/dl Phosphorus 1.8 L (2.5-4.9) mg/dl Magnesium 2.0 (1.8-2.4) mg/dl Vancomycin Trough (See Comment) mcg/ml 03/12/21 03/12/21 03/12/21 Range/Units 05:02 05:02 00:29 WBC 2.91 L (4.8-10.8) K/uL RBC 3.44 L (4.7-6.1) M/uL Hgb 9.3 L (14.0-18.0) g/dL Hct 30.2 L (42-52) % MCV 87.8 (80-100) fL MCH 27.0 (25-34) pg MCHC 30.8 L (32-36) g/dL RDW Std Deviation 53.5 H (36.4-46.3) fL RDW Coeff of Kg 16.7 H (11.5-14.5) % Plt Count 231 (130-400) K/uL MPV 9.4 (7.4-10.4) fL Sodium (136-145) mmol/L Potassium (3.5-5.1) mmol/L Chloride (98-107) mmol/L Carbon Dioxide (21-32) mmol/L Anion Gap (3-11) BUN (7-18) mg/dl Creatinine (0.6-1.4) mg/dl Est Cr Clr Drug Dosing ml/min Est GFR ( Amer) ml/min Est GFR (Non-Af Amer) ml/min BUN/Creatinine Ratio (10-20) Glucose (70-99) mg/dl POC Glucose 77 (70-99) mg/dl Calcium (8.5-10.1) mg/dl Phosphorus (2.5-4.9) mg/dl Magnesium (1.8-2.4) mg/dl Vancomycin Trough 7.7 (See Comment) mcg/ml 03/11/21 03/11/21 03/11/21 Range/Units 20:50 16:24 11:20 WBC (4.8-10.8) K/uL RBC (4.7-6.1) M/uL Hgb (14.0-18.0) g/dL Hct (42-52) % MCV (80-100) fL MCH (25-34) pg MCHC (32-36) g/dL RDW Std Deviation (36.4-46.3) fL RDW Coeff of Kg (11.5-14.5) % Plt Count (130-400) K/uL MPV (7.4-10.4) fL Sodium (136-145) mmol/L Potassium (3.5-5.1) mmol/L Chloride (98-107) mmol/L Carbon Dioxide (21-32) mmol/L Anion Gap (3-11) BUN (7-18) mg/dl Creatinine (0.6-1.4) mg/dl Est Cr Clr Drug Dosing ml/min Est GFR ( Amer) ml/min Est GFR (Non-Af Amer) ml/min BUN/Creatinine Ratio (10-20) Glucose (70-99) mg/dl POC Glucose 79 92 106 H (70-99) mg/dl Calcium (8.5-10.1) mg/dl Phosphorus (2.5-4.9) mg/dl Magnesium (1.8-2.4) mg/dl Vancomycin Trough (See Comment) mcg/ml 03/11/21 03/11/21 03/11/21 Range/Units 08:49 08:49 07:30 WBC 2.52 L (4.8-10.8) K/uL RBC 3.91 L (4.7-6.1) M/uL Hgb 10.4 L (14.0-18.0) g/dL Hct 34.0 L (42-52) % MCV 87.0 (80-100) fL MCH 26.6 (25-34) pg MCHC 30.6 L (32-36) g/dL RDW Std Deviation 53.0 H (36.4-46.3) fL RDW Coeff of Kg 16.7 H (11.5-14.5) % Plt Count 208 (130-400) K/uL MPV 9.3 (7.4-10.4) fL Sodium 146 H (136-145) mmol/L Potassium 2.9 L D (3.5-5.1) mmol/L Chloride 112 H (98-107) mmol/L Carbon Dioxide 27 (21-32) mmol/L Anion Gap 8.0 (3-11) BUN 5 L (7-18) mg/dl Creatinine 0.39 L (0.6-1.4) mg/dl Est Cr Clr Drug Dosing 182.4 ml/min Est GFR ( Amer) 147.0 ml/min Est GFR (Non-Af Amer) 126.8 ml/min BUN/Creatinine Ratio 13.0 (10-20) Glucose 100 H (70-99) mg/dl POC Glucose 104 H (70-99) mg/dl Calcium 8.3 L (8.5-10.1) mg/dl Phosphorus 1.8 L (2.5-4.9) mg/dl Magnesium 2.4 (1.8-2.4) mg/dl Vancomycin Trough (See Comment) mcg/ml Medications Administered Current Inpatient Medications Acetaminophen (Acetaminophen 325 Mg Tab) 650 mg PO Q4H PRN PRN Reason: Pain or Fever Stop: 04/09/21 04:49 Acetaminophen (Acetaminophen 1000 Mg/100 Ml Iv) 1,000 mg IV Q8H PRN PRN Reason: fever or pain Stop: 03/13/21 11:37 Last Admin: 03/10/21 20:24 Dose: 1,000 mg Documented by: Dextrose (Dextrose 50% 50 Ml Syringe) 25 - 50 ml IV UD PRN; Protocol PRN Reason: Hypoglycemia Protocol Stop: 04/09/21 23:44 Glucagon (Glucagon For Inj 1 Mg Vial) 1 mg IM UD PRN; Protocol PRN Reason: Hypoglycemia Protocol Stop: 04/09/21 23:44 Glucose (Glucose 40% Gel 15 Gm Tube) 15 - 30 gm PO UD PRN; Protocol PRN Reason: Hypoglycemia Protocol Stop: 04/09/21 23:44 Glucose (Glucose 10 Tabs/Tube) 4 - 8 tabs PO UD PRN; Protocol PRN Reason: Hypoglycemia Protocol Stop: 04/09/21 23:44 Heparin Sodium (Porcine) (Heparin Sod 5,000 Unit/0.5 Ml Vial) 5,000 units SQ Q8 STEPHANIE Stop: 04/09/21 05:59 Last Admin: 03/12/21 05:14 Dose: 5,000 units Documented by: Hydrocortisone (Hydrocortisone 2.5% Cr 30 Gm Tube) 1 appln EXT BID STEPHANIE Stop: 04/09/21 08:59 Last Admin: 03/11/21 21:23 Dose: 1 appln Documented by: Piperacillin Sod/Tazobactam (Sod 3.375 gm/ Dextrose) 115 mls @ 28.75 mls/hr IV Q8H STEPHANIE; Protocol Stop: 03/17/21 09:59 Last Infusion: 03/12/21 05:16 Dose: Infused Documented by: Valproic Acid 500 mg/ Dextrose 55 mls @ 55 mls/hr IV BID@0900,1300 [facility] Stop: 04/09/21 08:59 Last Infusion: 03/11/21 15:08 Dose: Infused Documented by: Valproic Acid 750 mg/ Dextrose 57.5 mls @ 57.5 mls/hr IV HS [facility] Stop: 04/09/21 20:59 Last Infusion: 03/11/21 23:23 Dose: Infused Documented by: Levetiracetam 500 mg/ Sodium (Chloride) 105 mls @ 440 mls/hr IV BID STEPHAINE Stop: 04/09/21 20:59 Last Infusion: 03/11/21 22:07 Dose: Infused Documented by: Dextrose/Sodium Chloride (D5w And Nss) 1,000 mls @ 50 mls/hr IV .Q20H [facility] Stop: 04/11/21 00:59 Last Admin: 03/12/21 01:07 Dose: 50 mls/hr Documented by: Potassium Chloride (K Owen / Wtr) 10 meq in 100 mls @ 100 mls/hr IV Q1H STA Stop: 03/12/21 08:23 Vancomycin HCl 1,250 mg/ (Sodium Chloride) 275 mls @ 200 mls/hr IV Q8H [facility]; Protocol Stop: 03/17/21 16:59 Insulin Aspart (Insulin Aspart 100 Units/Ml 3 Ml Pen) 0 units SC Q6 [facility] Stop: 04/11/21 05:59 Last Admin: 03/12/21 06:28 Dose: Not Given Documented by: Miscellaneous (*Ketoconazole*Order Awaiting Action) 1 ea N/A QS STEPHANIE Stop: 04/09/21 07:59 Last Admin: 03/11/21 23:23 Dose: Not Given Documented by: Miscellaneous (Carbohydrates For Hypoglycemia ) 15 - 30 gm PO UD PRN PRN Reason: Hypoglycemia Treatment Stop: 04/09/21 23:44 Miscellaneous Information (Vancomycin Consult Active) 1 ea N/A UD PRN PRN Reason: Consult Stop: 04/09/21 04:49 Miscellaneous Information (Piperacill/Tazobac Consult Active) 1 ea N/A UD PRN PRN Reason: Consult Stop: 04/09/21 04:49 Nitroglycerin (Nitroglycerin Sl 0.4 Mg/Tab Tab) 0.4 mg SL UD PRN PRN Reason: Chest Pain Stop: 04/09/21 04:49 Petrolatum (Butt Paste (Zinc Oxide 16%) 171 Appln/57 Gm Jar) 1 appln EXT BID STEPHANIE Stop: 04/09/21 08:59 Last Admin: 03/11/21 21:19 Dose: 1 appln Documented by: Potassium Phosphate (Potassium Phos 3 Mmol/1 Ml Infusion) 21 mmol IV NOW STA Stop: 03/12/21 07:26 Sertraline HCl (Sertraline Hcl 100 Mg Tablet) 100 mg PO QAM STEPHANIE Stop: 04/09/21 08:59 Last Admin: 03/11/21 08:36 Dose: 100 mg Documented by: Silver Sulfadiazine (Silver Sulfadiazine 1% Cr 50 Gm Jar) 1 appln TOP DAILY STEPHANIE Stop: 04/09/21 08:59 Last Admin: 03/11/21 08:40 Dose: 1 appln Documented by: Simvastatin (Simvastatin 10 Mg Tab) 10 mg PO HS STEPHANIE Stop: 04/09/21 20:59 Last Admin: 03/11/21 21:22 Dose: Not Given Documented by: (1) Respiratory failure Chronicity: acute Respiratory failure complication: hypoxia Qualified Code(s): J96.01 - Acute respiratory failure with hypoxia (2) Sepsis Acute respiratory failure type: with hypoxia Sepsis acute organ dysfunction status: with acute organ dysfunction Sepsis type: sepsis due to unspecified organism Severe sepsis acute organ dysfunction type: acute respiratory failure Severe sepsis shock status: without septic shock Qualified Code(s): A41.9 - Sepsis, unspecified organism; R65.20 - Severe sepsis without septic shock; J96.01 - Acute respiratory failure with hypoxia (3) AMS (altered mental status) Altered mental status type: unspecified Qualified Code(s): R41.82 - Altered mental status, unspecified
[2021-03-12] MEDS ORDERED: POTASSIUM PHOSPHATE 21 MMOL in SODIUM CHLORIDE 0.9% 500 ML IV ONE (08:00)
[2021-03-12] MEDS: levETIRAcetam 500 MG in 0.9 % SODIUM CHLORIDE 100 ML IV SCH ×2 (08:39→21:07)
[2021-03-12] MEDS: POTASSIUM CHLORIDE / WTR 10 MEQ/100 ML PLCT IV SCH ×4 (08:39→12:14)
[2021-03-12] MEDS: SILVER SULFADIAZINE 1% CR 50 GM JAR TOP SCH (08:44)
[2021-03-12] MEDS: SERTRALINE HCL 100 MG TABLET PO SCH (08:44)
[2021-03-12] MEDS: HYDROCORTISONE 2.5% CR 30 GM TUBE EXT SCH ×2 (08:45→21:16)
[2021-03-12] MEDS: VALPROATE SOD 500 MG in DEXTROSE 5% 50 ML IV SCH ×2 (08:45→13:43)
[2021-03-12] MEDS: BUTT PASTE (ZINC OXIDE 16%) 171 APPLN/57 GM JAR EXT SCH ×2 (08:46→21:16)
--- NOTE | 2021-03-12 13:40 | Palliative Care Progress Note ---
Date of Service March 12, 2021 Assessment & Plan (1) Palliative care encounter: Mr. Ferguson continues to be very ill. He appears less interactive today than he did yesterday. He did open his right eye to verbal stimuli,but was otherwise unresponsive and did not follow any commands, like yesterday. Mr. Ferguson does have two adult children that live in the [facility] area, but are not involved with decision making. Vee and Mario are to come today to visit him from the hospital. I do not have contact information for them and did not see them during my visit. Nursing to contact me should they arrive to follow up with his sister. Yesterday we did discuss permissive aspiration and comfort feeding. Kendra indicated that the patient would not want tube feedings, or permanent feeding tube placement. For now, after lengthy discussion; continue care, including IV antibiotics and BiPAP if necessary; however, no escalation to ICU for pressors, etc. No CPR, shocking, intubation. Goal is to have patient return to [facility] with Hospice services. Depending on how the patient does over the next 24-48 hours could determine if the patient will be stable for transfer back to [facility] with [facility] as discussed today with Kendra. Discussed with case management today. Palliative Medicine will follow. 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 Copy placed on chart. Original given to the patients sister Kendra Ferguson. Admission and Anticipated Discharge Date Admission Date: March 10, 2021 Subjective Pt less interactive than he was yesterday. He did open his eyes for me, ever so slightly. See A/P for further details. Plan for return to [facility] with [facility]. 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 Review of Systems Review of Systems: [place] System Assessment Scale: Pain: 0/3 by observation SOB: 1/3 by observation Anxiety: 0/3 by observation Palliative Performance Scale: 20% Physical Exam Constitutional: + acute distress, + frail appearing and + disheveled ENMT: Nose: + dry nasal mucous membranes Respiratory: normal respiratory effort Auscultation: + diminished lung sounds Cardiovascular: Rate/Rhythm: regular rate and regular rhythm Extremities: normal capillary refill and + edema Gastrointestinal (Abdomen): normal bowel sounds, soft, nontender, no hepatosplenomegaly Skin: + dry skin and + pallor Psychiatric: Insight: + impaired insight Judgement: + impaired judgement Results & Data ([facility]) Vital Signs (Past 12 Hours) Vital Signs Temp Pulse Pulse Resp BP Pulse Ox 03/12/21 12:00 36.7 C 73 20 127/73 96 03/12/21 08:00 80 03/12/21 07:46 37.0 C 80 20 117/68 95 03/12/21 02:34 37.2 C 80 23 119/49 L 98 PG Care Time/CCT Total # of Minutes Spent Total Time Spent with Patient: Total time spent is greater than 50% in coordination of care (as documented) at patient's floor/unit and/or counseling patient: 35 mintues with > 50% of that time spent assessing the patient, discussing goals of care and collaborating with IDT Coding Level of Care Code 25657 Subseq Hosp Care Lvl 3 Diagnoses Palliative care encounter Z51.5 AMS (altered mental status) R41.82 Altered mental status type: unspecified Hypoxia R09.02 Goals of care, counseling/discussion Z71.89 POLST (Physician Orders for Life-Sustaining Treatment) Z78.9 Time Spent (min) 35 (1) AMS (altered mental status) Altered mental status type: unspecified Qualified Code(s): R41.82 - Altered mental status, unspecified
--- NOTE | 2021-03-12 14:12 | Pharmacy Report ---
Pharmacy Abx Dose Short Note - Date of Service March 12, 2021 - Assessment & Plan Assessment 65 year old M receiving empiric vancomycin and Zosyn for treatment of aspiration pneumonia and concern for brain abscess. Day # 3 of antimicrobial therapy. Palliative care consulted - patient has poor prognosis at this time. Plan is to continue IV antibiotics at this time. Blood cultures show no growth at 48 hours. Patient has positive MRSA nasal swab. Plan Vancomycin * Trough level of 7.7 mcg/mL is subtherapeutic * Change to 1250 mg IV every 8 hours * Goal trough level: 15 to 20 mcg/mL * Trough or random level ordered for: 03/13/21 Zosyn * 3.375 g IV q8h remains appropriate Pharmacy will continue to follow and will adjust dose/frequency as necessary. Thank you.
[2021-03-12] MEDS: SIMVASTATIN 10 MG TAB PO SCH (21:16)
[2021-03-12] MEDS: VALPROATE SOD 750 MG in DEXTROSE 5% 50 ML IV SCH (21:46)
[2021-03-13] MEDS: INSULIN ASPART 100 UNITS/ML 3 ML PEN SC SCH ×4 (00:33→18:05)
[2021-03-13] MEDS: VANCOMYCIN HCL 1,250 MG in SODIUM CHLORIDE 0.9% 250 ML IV SCH ×3 (01:57→18:13)
[2021-03-13] MEDS: PIPERACILLIN/TAZOBACTAM 3.375 GM in DEXTROSE 5% 100 ML IV SCH ×3 (01:58→18:13)
[2021-03-13] MEDS: HEPARIN SOD 5,000 UNIT/0.5 ML VIAL SQ SCH ×3 (06:00→21:32)
[2021-03-13 06:18] LABS: Hematocrit (blood only) 33.3 % (42-52); Hemoglobin 10.3 g/dL (14.0-18.0); Mean Corpuscular Hemoglobin 26.5 pg (25-34); Mean Corpuscular Hgb Conc 30.9 g/dL (32-36); Mean Corpuscular Volume 85.6 fL (80-100); Platelet Count 246 K/uL (130-400); RDW Coefficient of Variation 16.8 % (11.5-14.5); RDW Standard Deviation 53.2 fL (36.4-46.3); Red Blood Count 3.89 M/uL (4.7-6.1); White Blood Count 3.15 K/uL (4.8-10.8)
[2021-03-13 06:36] LABS: Blood Urea Nitrogen < 1 mg/dl (7-18); Calcium 8.1 mg/dl (8.5-10.1); Carbon Dioxide 27 mmol/L (21-32); Chloride 110 mmol/L (98-107); Creatinine Clr Calc Pharmacy 216.2 ml/min; Est GFR (African American) > 150.0 ml/min; Est GFR (Non-African American) 139.4 ml/min; Glucose 119 mg/dl (70-99); Magnesium 2.1 mg/dl (1.8-2.4); Potassium 2.9 mmol/L (3.5-5.1); Sodium 144 mmol/L (136-145)
[2021-03-13 06:53] LABS: Phosphorus 2.6 mg/dl (2.5-4.9)
[2021-03-13] MEDS: BUTT PASTE (ZINC OXIDE 16%) 171 APPLN/57 GM JAR EXT SCH ×2 (08:39→19:47)
[2021-03-13] MEDS: SILVER SULFADIAZINE 1% CR 50 GM JAR TOP SCH (08:40)
[2021-03-13] MEDS: VALPROATE SOD 500 MG in DEXTROSE 5% 50 ML IV SCH ×2 (08:42→13:57)
[2021-03-13] MEDS: SERTRALINE HCL 100 MG TABLET PO SCH (08:42)
[2021-03-13] MEDS: levETIRAcetam 500 MG in 0.9 % SODIUM CHLORIDE 100 ML IV SCH ×2 (08:42→21:29)
[2021-03-13] MEDS: HYDROCORTISONE 2.5% CR 30 GM TUBE EXT SCH ×2 (08:51→19:46)
[2021-03-13] MEDS: POTASSIUM CHLORIDE / WTR 10 MEQ/100 ML PLCT IV SCH ×4 (09:50→12:54)
[2021-03-13] MEDS ORDERED: VANCOMYCIN TROUGH ONE (10:30)
[2021-03-13] MEDS: D5W AND NSS 1,000 ML IV SCH (13:58)
--- NOTE | 2021-03-13 14:51 | Pharmacy Report ---
Pharmacy Abx Dose Short Note - Date of Service March 13, 2021 - Assessment & Plan Assessment 65 year old M receiving empiric vancomycin and Zosyn for treatment of aspiration pneumonia and concern for brain abscess. Day # 4 of antimicrobial therapy. Palliative care consulted - patient has poor prognosis at this time. Plan is to continue IV antibiotics at this time. Blood cultures show no growth at 48 hours. Patient has positive MRSA nasal swab. Plan Vancomycin * Trough level of 18.7 mcg/mL is therapeutic * Continue dose of 1250 mg IV every 8 hours * Goal trough level: 15 to 20 mcg/mL * Will order follow-up trough if therapy continues beyond another 24 hours Zosyn * 3.375 g IV q8h - appropriate Pharmacy will continue to follow and will adjust dose/frequency as necessary. Thank you.
--- NOTE | 2021-03-13 18:48 | Hospitalist Progress Note ---
Date of Service March 13, 2021 Assessment & Plan (1) Sepsis: (2) AMS (altered mental status): (3) Hypoxia: (4) Respiratory failure: (5) Acute respiratory failure with hypoxia: Recurrent Aspiration pneumonia ? Brain abscess Metabolic/Septic encephalopathy Possible sepsis. --CT head: Extensive postsurgical changes as described above. Since the prior study, the complex fluid collection subjacent to the left craniotomy site has developed gas. This raises the possibility of an infected collection. Neurosurgical consultation recommended. --CT chest:Extensive right lower lobe airspace opacity with volume loss. This could reflect a pneumonia, aspiration pneumonitis or atelectasis. Moderate secretions within the airways, as described above. Mild left lower lobe airspace opacity. No significant change in a left axillary mass/pathologic lymph node since chest CT of June 03, 2019. --CT abd. / pelvis: No acute process within the abdomen or pelvis on unenhanced exam. Mild right collecting system dilatation, unchanged and CT of June 22, 2019. No bowel obstruction. Trace fluid within the pelvis which may be related to the shunt catheter. -Zosyn, vancomycin empirically -Blood Cx: Negative to date -Appreciate Palliative care input -Patient not a surgical candidate as [facility] and neurology by prior hospitalist -Palliative care following -Consider comfort feeds as able -No tube feeds as per family -Continue supplemental oxygen as needed H/O Seizures. Continue valproic, Keppra Hypokalemia Replace as needed DM II Last HbA1c was 6.6 Monitor BGs Depression on Zoloft. H/O Squamous cell carcinoma of skull H/O pituitary Adenoma S/P resections and multiple surgeries to the skull Residual left hemiparesis and wheelchair bound H/O ALUMNI COORDINATOR shunt. DVT Px: heparin SQ Code Status DNI/DNR DISPOSITION: [facility] as able Admission and Anticipated Discharge Date Admission Date: March 10, 2021 Subjective Patient is seen and examined at bedside Opens right eye with verbal stimulus Unable to provide any history Does not follow simple commands No family at bedside No distress on exam Remains n.p.o. No plan to escalate care as per family/Records Review of Systems Review of Systems: Other Physical Exam Physical Exam: Physical Exam: Vitals signs as noted above General Appearance:Moderately built and nourished, no apparent distress Head: Postsurgical scarring changes, in dressing Eyes: normal inspection, R eye EOMI Neck: supple, Trachea midline Respiratory/Chest: Corace breath sounds, No accessory muscle use Cardiovascular: S1, S2, No murmur Abdomen/GI:Soft, Non tender, Bowel sounds present Extremities/Musculoskeletal:normal inspection, B/L LE edema Neurologic/Psych: Complete neuro exam could not be performed, does not follow commands Skin: normal color, warm Results & Data Results & Data ([facility]) Vital Signs (Past 12 Hours) Vital Signs Temp Pulse Pulse Resp BP Pulse Ox 03/13/21 15:49 37.1 C 79 17 125/71 91 03/13/21 14:00 77 03/13/21 11:45 37.6 C H 75 15 136/73 95 03/13/21 08:00 73 03/13/21 07:56 37.4 C 74 15 129/77 97 Laboratory Results Short CBC 03/13/21 Range/Units 05:43 WBC 3.15 L (4.8-10.8) K/uL Hgb 10.3 L (14.0-18.0) g/dL Hct 33.3 L (42-52) % Plt Count 246 (130-400) K/uL BMP 03/13/21 05:43 Sodium 144 Potassium 2.9 L Chloride 110 H Carbon Dioxide 27 BUN < 1 L Creatinine 0.31 L Glucose 119 H Calcium 8.1 L (1) Sepsis Acute respiratory failure type: with hypoxia Sepsis acute organ dysfunction status: with acute organ dysfunction Sepsis type: sepsis due to unspecified organism Severe sepsis acute organ dysfunction type: acute respiratory failure Severe sepsis shock status: without septic shock Qualified Code(s): A41.9 - Sepsis, unspecified organism; R65.20 - Severe sepsis without septic shock; J96.01 - Acute respiratory failure with hypoxia (2) AMS (altered mental status) Altered mental status type: unspecified Qualified Code(s): R41.82 - Altered mental status, unspecified (3) Respiratory failure Chronicity: acute Respiratory failure complication: hypoxia Qualified Code(s): J96.01 - Acute respiratory failure with hypoxia
[2021-03-13] MEDS: SIMVASTATIN 10 MG TAB PO SCH (19:45)
[2021-03-13] MEDS: VALPROATE SOD 750 MG in DEXTROSE 5% 50 ML IV SCH (21:28)
[2021-03-14] MEDS: INSULIN ASPART 100 UNITS/ML 3 ML PEN SC SCH ×4 (00:04→18:20)
[2021-03-14] MEDS: PIPERACILLIN/TAZOBACTAM 3.375 GM in DEXTROSE 5% 100 ML IV SCH ×3 (02:03→18:19)
[2021-03-14] MEDS: VANCOMYCIN HCL 1,250 MG in SODIUM CHLORIDE 0.9% 250 ML IV SCH ×3 (03:05→18:20)
[2021-03-14 06:03] LABS: Hematocrit (blood only) 35.6 % (42-52); Mean Corpuscular Hemoglobin 26.5 pg (25-34); Mean Corpuscular Hgb Conc 30.9 g/dL (32-36); Mean Corpuscular Volume 85.8 fL (80-100); Mean Platelet Volume 9.7 fL (7.4-10.4); Platelet Count 239 K/uL (130-400); RDW Standard Deviation 53.6 fL (36.4-46.3); Red Blood Count 4.15 M/uL (4.7-6.1); White Blood Count 2.83 K/uL (4.8-10.8)
[2021-03-14] MEDS: HEPARIN SOD 5,000 UNIT/0.5 ML VIAL SQ SCH ×3 (06:18→21:59)
[2021-03-14 06:34] LABS: BUN Creatinine Ratio 3.5 (10-20); Calcium 8.5 mg/dl (8.5-10.1); Creatinine Clr Calc Pharmacy 156.9 ml/min; Est GFR (African American) 141.2 ml/min; Est GFR (Non-African American) 121.9 ml/min; Magnesium 2.1 mg/dl (1.8-2.4); Potassium 3.2 mmol/L (3.5-5.1)
[2021-03-14 06:35] LABS: Phosphorus 2.6 mg/dl (2.5-4.9)
[2021-03-14] MEDS: VALPROATE SOD 500 MG in DEXTROSE 5% 50 ML IV SCH ×2 (08:42→14:07)
[2021-03-14] MEDS: SERTRALINE HCL 100 MG TABLET PO SCH (08:43)
[2021-03-14] MEDS: levETIRAcetam 500 MG in 0.9 % SODIUM CHLORIDE 100 ML IV SCH ×2 (08:43→20:37)
[2021-03-14] MEDS: BUTT PASTE (ZINC OXIDE 16%) 171 APPLN/57 GM JAR EXT SCH ×2 (08:46→19:56)
[2021-03-14] MEDS: SILVER SULFADIAZINE 1% CR 50 GM JAR TOP SCH (08:46)
[2021-03-14] MEDS: HYDROCORTISONE 2.5% CR 30 GM TUBE EXT SCH ×2 (08:46→19:55)
[2021-03-14] MEDS: D5W AND NSS 1,000 ML IV SCH (09:42)
[2021-03-14] MEDS: POTASSIUM CHLORIDE / WTR 10 MEQ/100 ML PLCT IV SCH ×4 (10:38→14:53)
--- NOTE | 2021-03-14 13:34 | Palliative Care Progress Note ---
Date of Service March 14, 2021 Assessment & Plan (1) Palliative care encounter: Mr. Ferguson continues to be very ill. His mental status appears to be the same. He is able to open his eyes, but no meaningful interaction. He has left sided paralysis. Mr. Ferguson does have two adult children that live in the [facility] area, but are not involved with decision making. On Thursday, we did discuss permissive aspiration and comfort feeding. Kendra indicated that the patient would not want tube feedings, or permanent feeding tube placement. For now, after lengthy discussion; continue care, including IV antibiotics and BiPAP if necessary; however, no escalation to ICU for pressors, etc. No CPR, shocking, intubation. I talked with the hospitalist and they plan to maximize the antibiotics with infectious diseases recommendations prior to discharge. Patient to return to [facility] with [facility], likely tomorrow (Thursday 03/15). I called out to the patients sister, Kendra, and left her a voicemail with the palliative number if she had any further questions as I wanted to see if the patients daughter was able to visit while here in the hospital or not. Thanks for involving palliative medicine with this individual. (2) AMS (altered mental status): (3) Hypoxia: (4) Goals of care, counseling/discussion: (5) POLST (Physician Orders for Life-Sustaining Treatment): POLST completed and signed by patients sister Kendra Ferguson indicating: DNR/DNI, GENERATION TECHNOLOGIST, trial abx, no artificial nutrition/hydration. Copy placed on chart. Original given to the patients sister Kendra Ferguson. Admission and Anticipated Discharge Date Admission Date: March 10, 2021 Subjective Patient does open his right eye to verbal stimuli. Patient with overall poor prognosis. No meaningful interaction held. See A/P for further details Review of Systems Review of Systems: [place] System Assessment Scale: Pain: 0/3 by observation SOB: 1/3 by observation Anxiety: 0/3 by observation Palliative Performance Scale: 20% Physical Exam Constitutional: + acute distress, + frail appearing and + disheveled ENMT: Nose: + dry nasal mucous membranes Respiratory: normal respiratory effort Auscultation: + diminished lung sounds Cardiovascular: Rate/Rhythm: regular rate and regular rhythm Extremities: normal capillary refill and + edema Gastrointestinal (Abdomen): normal bowel sounds, soft, nontender, no hepatosplenomegaly Skin: + dry skin and + pallor Psychiatric: Orientation: alert Insight: + impaired insight Judgement: + impaired judgement Results & Data ([facility]) Vital Signs (Past 12 Hours) Vital Signs Temp Pulse Pulse Resp BP BP Pulse Ox 03/14/21 12:05 36.9 C 81 20 138/73 95 03/14/21 08:00 37.4 C 74 74 22 141/80 H 95 03/14/21 02:49 36.6 C 78 20 159/78 H 94 Pulse Ox 03/14/21 12:05 03/14/21 08:00 94 03/14/21 02:49 PG Care Time/CCT Total # of Minutes Spent Total Time Spent with Patient: Total time spent is greater than 50% in coordination of care (as documented) at patient's floor/unit and/or counseling patient: 35 minutes with > 50% of that time spent assessing the patient, discussing goals of care with hospitalist all while collaborating with IDT Coding Level of Care Code 70749 Subseq Hosp Care Lvl 3 Diagnoses Palliative care encounter Z51.5 AMS (altered mental status) R41.82 Altered mental status type: unspecified Hypoxia R09.02 Goals of care, counseling/discussion Z71.89 POLST (Physician Orders for Life-Sustaining Treatment) Z78.9 Time Spent (min) 35 (1) AMS (altered mental status) Altered mental status type: unspecified Qualified Code(s): R41.82 - Altered mental status, unspecified
--- NOTE | 2021-03-14 18:13 | Hospitalist Progress Note ---
Date of Service March 14, 2021 Assessment & Plan (1) Sepsis: (2) AMS (altered mental status): (3) Hypoxia: (4) Respiratory failure: (5) Acute respiratory failure with hypoxia: Recurrent Aspiration pneumonia ? Brain abscess Metabolic/Septic encephalopathy Possible sepsis. --CT head: Extensive postsurgical changes as described above. Since the prior study, the complex fluid collection subjacent to the left craniotomy site has developed gas. This raises the possibility of an infected collection. Neurosurgical consultation recommended. --CT chest:Extensive right lower lobe airspace opacity with volume loss. This could reflect a pneumonia, aspiration pneumonitis or atelectasis. Moderate secretions within the airways, as described above. Mild left lower lobe airspace opacity. No significant change in a left axillary mass/pathologic lymph node since chest CT of June 03, 2019. --CT abd. / pelvis: No acute process within the abdomen or pelvis on unenhanced exam. Mild right collecting system dilatation, unchanged and CT of June 22, 2019. No bowel obstruction. Trace fluid within the pelvis which may be related to the shunt catheter. -Zosyn, vancomycin empirically -Blood Cx: Negative to date -Appreciate Palliative care input -Patient not a surgical candidate [facility] prior [facility] -Consider comfort feeds as able -No tube feeds as per family -Continue supplemental oxygen as needed Consult ID for recommendations on antibiotics Poor prognosis Palliative care on board H/O Seizures. Continue valproic, Keppra Hypokalemia Replace as needed Monitor DM II Last HbA1c was 6.6 Monitor BGs Depression on Zoloft. 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 DVT Px: heparin SQ Code Status DNI/DNR DISPOSITION: [facility] as able Admission and Anticipated Discharge Date Admission Date: March 10, 2021 Subjective Patient is seen and examined at bedside Remains lethargic No seizure activity overnight Poor prognosis Discussed with palliative care today Consulted ID for Input No distress on exam Review of Systems Review of Systems: Other Physical Exam Physical Exam: Physical Exam: Vitals signs as noted above General Appearance:Moderately built and nourished, no apparent distress Head: Postsurgical scarring changes, in dressing Eyes: normal inspection, R eye EOMI Neck: supple, Trachea midline Respiratory/Chest: Corace breath sounds, No accessory muscle use Cardiovascular: S1, S2, No murmur Abdomen/GI:Soft, Non tender, Bowel sounds present Extremities/Musculoskeletal:normal inspection, B/L LE edema Neurologic/Psych: Complete neuro exam could not be performed, does not follow commands Skin: normal color, warm Results & Data Results & Data ([facility]) Vital Signs (Past 12 Hours) Vital Signs Temp Pulse Pulse Pulse Resp BP BP 03/14/21 17:10 37.4 C 82 18 03/14/21 15:32 72 03/14/21 14:59 37.7 C H 76 18 147/80 H 03/14/21 12:05 36.9 C 81 20 138/73 03/14/21 08:00 37.4 C 74 74 22 141/80 H Pulse Ox Pulse Ox 03/14/21 17:10 93 03/14/21 15:32 03/14/21 14:59 95 03/14/21 12:05 95 03/14/21 08:00 95 94 Laboratory Results Short CBC 03/14/21 Range/Units 05:42 WBC 2.83 L (4.8-10.8) K/uL Hgb 11.0 L (14.0-18.0) g/dL Hct 35.6 L (42-52) % Plt Count 239 (130-400) K/uL BMP 03/14/21 05:42 Sodium 148 H Potassium 3.2 L Chloride 113 H Carbon Dioxide 26 BUN 2 L Creatinine 0.43 L Glucose 118 H Calcium 8.5 (1) Sepsis Acute respiratory failure type: with hypoxia Sepsis acute organ dysfunction status: with acute organ dysfunction Sepsis type: sepsis due to unspecified organism Severe sepsis acute organ dysfunction type: acute respiratory failure Severe sepsis shock status: without septic shock Qualified Code(s): A41.9 - Sepsis, unspecified organism; R65.20 - Severe sepsis without septic shock; J96.01 - Acute respiratory failure with hypoxia (2) AMS (altered mental status) Altered mental status type: unspecified Qualified Code(s): R41.82 - Altered mental status, unspecified (3) Respiratory failure Chronicity: acute Respiratory failure complication: hypoxia Qualified Code(s): J96.01 - Acute respiratory failure with hypoxia
[2021-03-14] MEDS: SIMVASTATIN 10 MG TAB PO SCH (19:55)
[2021-03-14] MEDS: VALPROATE SOD 750 MG in DEXTROSE 5% 50 ML IV SCH (20:38)
[2021-03-15] MEDS: INSULIN ASPART 100 UNITS/ML 3 ML PEN SC SCH ×4 (00:25→19:20)
[2021-03-15] MEDS: PIPERACILLIN/TAZOBACTAM 3.375 GM in DEXTROSE 5% 100 ML IV SCH ×2 (01:32→11:15)
[2021-03-15] MEDS: VANCOMYCIN HCL 1,250 MG in SODIUM CHLORIDE 0.9% 250 ML IV SCH ×2 (03:09→12:13)
[2021-03-15] MEDS: D5W AND NSS 1,000 ML IV SCH (04:26)
[2021-03-15] MEDS: HEPARIN SOD 5,000 UNIT/0.5 ML VIAL SQ SCH ×3 (05:38→22:58)
[2021-03-15 06:57] LABS: Hematocrit (blood only) 33.5 % (42-52); Hemoglobin 10.3 g/dL (14.0-18.0); Mean Corpuscular Hgb Conc 30.7 g/dL (32-36); Mean Corpuscular Volume 87.9 fL (80-100); Platelet Count 218 K/uL (130-400); RDW Coefficient of Variation 17.2 % (11.5-14.5); RDW Standard Deviation 55.7 fL (36.4-46.3); Red Blood Count 3.81 M/uL (4.7-6.1); White Blood Count 2.51 K/uL (4.8-10.8)
[2021-03-15 07:16] LABS: BUN Creatinine Ratio 3.6 (10-20); Calcium 8.2 mg/dl (8.5-10.1); Creatinine Clr Calc Pharmacy 92.1 ml/min; Est GFR (African American) 113.6 ml/min; Potassium 3.1 mmol/L (3.5-5.1)
[2021-03-15 07:20] LABS: Phosphorus 3.4 mg/dl (2.5-4.9)
[2021-03-15] MEDS: HYDROCORTISONE 2.5% CR 30 GM TUBE EXT SCH ×2 (09:05→20:55)
[2021-03-15] MEDS: levETIRAcetam 500 MG in 0.9 % SODIUM CHLORIDE 100 ML IV SCH ×2 (09:05→22:59)
[2021-03-15] MEDS: SERTRALINE HCL 100 MG TABLET PO SCH (09:06)
[2021-03-15] MEDS: VALPROATE SOD 500 MG in DEXTROSE 5% 50 ML IV SCH ×2 (09:06→17:32)
[2021-03-15] MEDS: BUTT PASTE (ZINC OXIDE 16%) 171 APPLN/57 GM JAR EXT SCH ×2 (09:07→20:55)
[2021-03-15] MEDS ORDERED: VANCOMYCIN TROUGH ONE (10:30)
[2021-03-15] MEDS: POTASSIUM CHLORIDE / WTR 10 MEQ/100 ML PLCT IV SCH ×4 (11:15→15:29)
[2021-03-15] MEDS: SILVER SULFADIAZINE 1% CR 50 GM JAR TOP SCH (11:34)
--- NOTE | 2021-03-15 13:24 | Pharmacy Report ---
Pharmacy Abx Dose Short Note - Date of Service March 15, 2021 - Assessment & Plan Assessment 65 year old M receiving vancomycin and zosyn for treatment of possible aspiration pneumonia/SSTI Day # 6 of antimicrobial therapy. Plan Vancomycin * Trough level came back supratherapeutic at ~35 mcg/ml (goal 15-20 mcg/ml) * Scr had been trending up this AM from 0.43 mg/dL yesterday to 0.73 mg/dL today. Days prior had been stable at ~0.3 mg/dL. Last vancomycin level 2 days ago was therapeutic at ~18 mcg/ml on this current dosing * Level today likely related to change in renal function. The 1100 dose of vancomycin was not given and previous dose was given on time * Estimated kinetics based upon level t1/2 ~9 hrs, ke~0.074, crcl ~92 ml/min * Plan to hold further vancomycin doses and obtain a level ~10 hrs from this AM's level. Anticipate level to be closer to ~15 mcg/ml. Plan to redose when level closer to 15 mcg/ml * ID consulted to follow patient - still awaiting rec's Pharmacy will continue to follow and will adjust dose/frequency as necessary. Thank you.
[2021-03-15] MEDS ORDERED: CONSULT PHARMACY PRN (15:42)
--- NOTE | 2021-03-15 16:14 | Hospitalist Progress Note ---
Date of Service March 15, 2021 Assessment & Plan (1) Sepsis: (2) AMS (altered mental status): (3) Hypoxia: (4) Respiratory failure: (5) Acute respiratory failure with hypoxia: Recurrent Aspiration pneumonia ? Brain abscess Metabolic/Septic encephalopathy Possible sepsis. --CT head: Extensive postsurgical changes as described above. Since the prior study, the complex fluid collection subjacent to the left craniotomy site has developed gas. This raises the possibility of an infected collection. Neurosurgical consultation recommended. --CT chest:Extensive right lower lobe airspace opacity with volume loss. This could reflect a pneumonia, aspiration pneumonitis or atelectasis. Moderate secretions within the airways, as described above. Mild left lower lobe airspace opacity. No significant change in a left axillary mass/pathologic lymph node since chest CT of June 03, 2019. --CT abd. / pelvis: No acute process within the abdomen or pelvis on unenhanced exam. Mild right collecting system dilatation, unchanged and CT of June 22, 2019. No bowel obstruction. Trace fluid within the pelvis which may be related to the shunt catheter. -Started on Zosyn, vancomycin empirically -Blood Cx: Negative to date -Appreciate Palliative care input -Patient not a surgical candidate as discussed with [facility] neurosurgery and neurology by prior hospitalist -Consider comfort feeds as able -No tube feeds as per family -Continue supplemental oxygen as needed Appreciate ID Input Poor prognosis especially given no surgical intervention for brain abbess as he is a poor surgical candidate Palliative care on board Started on cefepime, Flagyl as recommended by ID. Also continue vancomycin H/O Seizures. Continue valproic, Keppra Hypokalemia Replace as needed Monitor DM II Last HbA1c was 6.6 Monitor BGs Depression on Zoloft. 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 DVT Px: heparin SQ Code Status DNI/DNR DISPOSITION: [facility] as able Admission and Anticipated Discharge Date Admission Date: March 10, 2021 Subjective Patient is seen and examined at bedside Clinically deteriorating Updated patient's family over the phone Also discussed with ID today Zosyn transition to cefepime and Flagyl as per ID No seizure activity since hospitalization Poor prognosis given no surgical intervention for brain abscess No distress on exam Review of Systems Review of Systems: Other Physical Exam Physical Exam: Physical Exam: Vitals signs as noted above General Appearance:Moderately built and nourished, no apparent distress Head: Postsurgical scarring changes, in dressing Eyes: normal inspection, R eye EOMI Neck: supple, Trachea midline Respiratory/Chest: Corace breath sounds, No accessory muscle use Cardiovascular: S1, S2, No murmur Abdomen/GI:Soft, Non tender, Bowel sounds present Extremities/Musculoskeletal:normal inspection, B/L LE edema Neurologic/Psych: Complete neuro exam could not be performed, does not follow commands Skin: normal color, warm Results & Data Results & Data ([facility]) Vital Signs (Past 12 Hours) Vital Signs Temp Pulse Pulse Resp BP Pulse Ox 03/15/21 14:54 36.9 C 72 14 112/67 92 03/15/21 11:37 38.1 C H 71 20 123/71 97 03/15/21 08:00 62 03/15/21 07:35 37.0 C 74 22 141/71 H 97 Laboratory Results Short CBC 03/15/21 Range/Units 06:42 WBC 2.51 L (4.8-10.8) K/uL Hgb 10.3 L (14.0-18.0) g/dL Hct 33.5 L (42-52) % Plt Count 218 (130-400) K/uL BMP 03/15/21 06:44 Sodium 144 Potassium 3.1 L Chloride 109 H Carbon Dioxide 27 BUN 3 L Creatinine 0.73 D Glucose 130 H Calcium 8.2 L (1) Sepsis Acute respiratory failure type: with hypoxia Sepsis acute organ dysfunction status: with acute organ dysfunction Sepsis type: sepsis due to unspecified organism Severe sepsis acute organ dysfunction type: acute respiratory failure Severe sepsis shock status: without septic shock Qualified Code(s): A41.9 - Sepsis, unspecified organism; R65.20 - Severe sepsis without septic shock; J96.01 - Acute respiratory failure with hypoxia (2) AMS (altered mental status) Altered mental status type: unspecified Qualified Code(s): R41.82 - Altered mental status, unspecified (3) Respiratory failure Chronicity: acute Respiratory failure complication: hypoxia Qualified Code(s): J96.01 - Acute respiratory failure with hypoxia
[2021-03-15] MEDS: CEFEPIME 2,000 MG in SYRINGE 0 ML IV SCH (18:38)
[2021-03-15] MEDS: metroNIDAZOLE 500 MG/100 ML BAG IV SCH (18:47)
[2021-03-15] MEDS: SIMVASTATIN 10 MG TAB PO SCH (19:03)
[2021-03-15] MEDS: VALPROATE SOD 750 MG in DEXTROSE 5% 50 ML IV SCH (22:58)
[2021-03-16] MEDS: INSULIN ASPART 100 UNITS/ML 3 ML PEN SC SCH ×4 (00:55→18:17)
[2021-03-16] MEDS: metroNIDAZOLE 500 MG/100 ML BAG IV SCH ×3 (01:09→18:11)
[2021-03-16] MEDS: CEFEPIME 2,000 MG in SYRINGE 0 ML IV SCH ×3 (01:09→18:07)
[2021-03-16] MEDS: D5W AND NSS 1,000 ML IV SCH (06:11)
[2021-03-16] MEDS: HEPARIN SOD 5,000 UNIT/0.5 ML VIAL SQ SCH ×3 (06:21→22:07)
[2021-03-16 06:45] LABS: BUN Creatinine Ratio 7.4 (10-20); Calcium 8.1 mg/dl (8.5-10.1); Creatinine Clr Calc Pharmacy 68.6 ml/min; Est GFR (African American) 94.1 ml/min; Est GFR (Non-African American) 81.2 ml/min; Potassium 3.4 mmol/L (3.5-5.1)
[2021-03-16] MEDS: HYDROCORTISONE 2.5% CR 30 GM TUBE EXT SCH ×2 (10:41→20:24)
[2021-03-16] MEDS: SILVER SULFADIAZINE 1% CR 50 GM JAR TOP SCH (10:43)
[2021-03-16] MEDS: BUTT PASTE (ZINC OXIDE 16%) 171 APPLN/57 GM JAR EXT SCH ×2 (10:44→20:25)
[2021-03-16] MEDS: VALPROATE SOD 500 MG in DEXTROSE 5% 50 ML IV SCH ×2 (10:53→15:31)
[2021-03-16] MEDS: SERTRALINE HCL 100 MG TABLET PO SCH (10:54)
[2021-03-16] MEDS: levETIRAcetam 500 MG in 0.9 % SODIUM CHLORIDE 100 ML IV SCH ×2 (12:11→20:23)
[2021-03-16] MEDS: POTASSIUM CHLORIDE / WTR 10 MEQ/100 ML PLCT IV SCH ×2 (12:46→13:56)
--- NOTE | 2021-03-16 15:24 | Hospitalist Progress Note ---
Date of Service March 16, 2021 Assessment & Plan (1) Sepsis: (2) AMS (altered mental status): (3) Hypoxia: (4) Respiratory failure: (5) Acute respiratory failure with hypoxia: Recurrent Aspiration pneumonia ? Brain abscess Metabolic/Septic encephalopathy Possible sepsis. --CT head: Extensive postsurgical changes as described above. Since the prior study, the complex fluid collection subjacent to the left craniotomy site has developed gas. This raises the possibility of an infected collection. Neurosurgical consultation recommended. --CT chest:Extensive right lower lobe airspace opacity with volume loss. This could reflect a pneumonia, aspiration pneumonitis or atelectasis. Moderate secretions within the airways, as described above. Mild left lower lobe airspace opacity. No significant change in a left axillary mass/pathologic lymph node since chest CT of June 03, 2019. --CT abd. / pelvis: No acute process within the abdomen or pelvis on unenhanced exam. Mild right collecting system dilatation, unchanged and CT of June 22, 2019. No bowel obstruction. Trace fluid within the pelvis which may be related to the shunt catheter. -Initially on Zosyn, vancomycin empirically -Blood Cx: Negative to date -Appreciate Palliative care input -Patient not a surgical candidate as discussed with [facility] and neurology by prior hospitalist -Consider comfort feeds as able -No tube feeds as per family -Continue supplemental oxygen as needed Appreciate ID Input Poor prognosis especially given no surgical intervention for brain abbess as he is a poor surgical candidate Palliative care on board Continue Vancomycin Continue cefepime, Flagyl Day #2 Appreciate ID Input ([facility], Dr. Garzon on 03/15/21) Prognosis remains guarded H/O Seizures. Continue valproic, Keppra Hypokalemia Replace as needed Monitor DM II Last HbA1c was 6.6 Monitor BGs Depression on Zoloft. 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 DVT Px: heparin SQ Code Status DNI/DNR DISPOSITION: [facility] as able Admission and Anticipated Discharge Date Admission Date: March 10, 2021 Subjective Patient is seen and examined at bedside No significant change from yesterday No distress on exam Continue Vanco, cefepime and Flagyl as per ID Poor prognosis given no surgical intervention for brain abscess Review of Systems Review of Systems: All systems reviewed & are unremarkable except as noted in HPI & below Physical Exam Physical Exam: Physical Exam: Vitals signs as noted above General Appearance:Moderately built and nourished, no apparent distress Head: Postsurgical scarring changes, in dressing Eyes: normal inspection, R eye EOMI Neck: supple, Trachea midline Respiratory/Chest: Corace breath sounds, No accessory muscle use Cardiovascular: S1, S2, No murmur Abdomen/GI:Soft, Non tender, Bowel sounds present Extremities/Musculoskeletal:normal inspection, B/L LE edema Neurologic/Psych: Complete neuro exam could not be performed, does not follow commands Skin: normal color, warm Results & Data Results & Data ([facility]) Vital Signs (Past 12 Hours) Vital Signs Temp Pulse Resp BP Pulse Ox 03/16/21 08:10 37.0 C 76 16 112/65 96 Laboratory Results [facility] 03/16/21 05:55 Sodium 147 H Potassium 3.4 L Chloride 114 H Carbon Dioxide 29 BUN 7 Creatinine 0.98 Glucose 119 H Calcium 8.1 L (1) Sepsis Acute respiratory failure type: with hypoxia Sepsis acute organ dysfunction status: with acute organ dysfunction Sepsis type: sepsis due to unspecified organism Severe sepsis acute organ dysfunction type: acute respiratory failure Severe sepsis shock status: without septic shock Qualified Code(s): A41.9 - Sepsis, unspecified organism; R65.20 - Severe sepsis without septic shock; J96.01 - Acute respiratory failure with hypoxia (2) AMS (altered mental status) Altered mental status type: unspecified Qualified Code(s): R41.82 - Altered mental status, unspecified (3) Respiratory failure Chronicity: acute Respiratory failure complication: hypoxia Qualified Code(s): J96.01 - Acute respiratory failure with hypoxia
[2021-03-16] MEDS: SIMVASTATIN 10 MG TAB PO SCH (20:24)
[2021-03-16] MEDS: VALPROATE SOD 750 MG in DEXTROSE 5% 50 ML IV SCH (20:49)
[2021-03-17] MEDS: INSULIN ASPART 100 UNITS/ML 3 ML PEN SC SCH ×4 (00:17→17:31)
[2021-03-17] MEDS: metroNIDAZOLE 500 MG/100 ML BAG IV SCH ×3 (00:27→17:47)
[2021-03-17] MEDS: D5W AND NSS 1,000 ML IV SCH ×2 (00:28→20:36)
[2021-03-17] MEDS: CEFEPIME 2,000 MG in SYRINGE 0 ML IV SCH ×3 (00:28→17:39)
[2021-03-17] MEDS: HEPARIN SOD 5,000 UNIT/0.5 ML VIAL SQ SCH ×3 (06:09→21:23)
[2021-03-17 06:26] LABS: Hematocrit (blood only) 31.1 % (42-52); Hemoglobin 9.4 g/dL (14.0-18.0); Mean Corpuscular Hemoglobin 26.8 pg (25-34); Mean Corpuscular Hgb Conc 30.2 g/dL (32-36); Mean Corpuscular Volume 88.6 fL (80-100); Mean Platelet Volume 9.7 fL (7.4-10.4); Platelet Count 220 K/uL (130-400); RDW Coefficient of Variation 17.9 % (11.5-14.5); RDW Standard Deviation 58.3 fL (36.4-46.3); Red Blood Count 3.51 M/uL (4.7-6.1); White Blood Count 2.08 K/uL (4.8-10.8)
[2021-03-17 07:01] LABS: BUN Creatinine Ratio 11.9 (10-20); Creatinine Clr Calc Pharmacy 69.3 ml/min; Est GFR (African American) 95.2 ml/min; Est GFR (Non-African American) 82.2 ml/min; Potassium 3.2 mmol/L (3.5-5.1)
[2021-03-17] MEDS: HYDROCORTISONE 2.5% CR 30 GM TUBE EXT SCH ×2 (08:46→20:13)
[2021-03-17] MEDS: SERTRALINE HCL 100 MG TABLET PO SCH (08:47)
[2021-03-17] MEDS: BUTT PASTE (ZINC OXIDE 16%) 171 APPLN/57 GM JAR EXT SCH ×2 (08:56→20:14)
[2021-03-17] MEDS: levETIRAcetam 500 MG in 0.9 % SODIUM CHLORIDE 100 ML IV SCH ×2 (09:08→20:14)
[2021-03-17] MEDS: VALPROATE SOD 500 MG in DEXTROSE 5% 50 ML IV SCH ×2 (09:08→15:48)
[2021-03-17] MEDS: SILVER SULFADIAZINE 1% CR 50 GM JAR TOP SCH (09:08)
[2021-03-17] MEDS: POTASSIUM CHLORIDE / WTR 10 MEQ/100 ML PLCT IV SCH ×4 (11:11→14:35)
--- NOTE | 2021-03-17 15:07 | Pharmacy Report ---
Pharmacy Abx Dose Short Note - Date of Service March 17, 2021 - Assessment & Plan Assessment 65 year old M receiving vancomycin + cefepime + flagyl for aspiration PNA/brain abscess Day #7 of antimicrobial therapy. Per provider, continue triple antibiotic therapy for now. Plan Vancomycin * Trough level came back supratherapeutic at ~35 mcg/ml (goal 15-20 mcg/ml) on 03/15, likely related to change in patient's renal function * Pharmacy has been obtaining random levels since then to determine when vancomycin level was back in therapeutic range * Random level from this AM = 20.4 * In light of changing renal function/supratherapeutic trough, will give one time dose of vancomycin this evening and gather a random level with AM labs. * Once renal function has stabilized for a few days, could consider scheduled dosing once more Cefepime * 2g IV q8h. Appropriate for indication and renal function Flagyl * Continue 500mg IV q8h Pharmacy will continue to follow and will adjust dose/frequency as necessary. Thank you.
[2021-03-17] MEDS ORDERED: VANCOMYCIN HCL 1,000 MG in SODIUM CHLORIDE 0.9% 250 ML IV SCH (16:00)
--- NOTE | 2021-03-17 17:11 | Hospitalist Progress Note ---
Date of Service March 17, 2021 Assessment & Plan (1) Sepsis: (2) AMS (altered mental status): (3) Hypoxia: (4) Respiratory failure: (5) Acute respiratory failure with hypoxia: Recurrent Aspiration pneumonia ? Brain abscess Metabolic/Septic encephalopathy Possible sepsis. --CT head: Extensive postsurgical changes as described above. Since the prior study, the complex fluid collection subjacent to the left craniotomy site has developed gas. This raises the possibility of an infected collection. Neurosurgical consultation recommended. --CT chest:Extensive right lower lobe airspace opacity with volume loss. This could reflect a pneumonia, aspiration pneumonitis or atelectasis. Moderate secretions within the airways, as described above. Mild left lower lobe airspace opacity. No significant change in a left axillary mass/pathologic lymph node since chest CT of June 03, 2019. --CT abd. / pelvis: No acute process within the abdomen or pelvis on unenhanced exam. Mild right collecting system dilatation, unchanged and CT of June 22, 2019. No bowel obstruction. Trace fluid within the pelvis which may be related to the shunt catheter. -Initially on Zosyn, vancomycin empirically -Blood Cx: Negative -Appreciate Palliative care input -Patient not a surgical candidate [facility] prior [facility]ist -Consider comfort feeds as able -No tube feeds as per family -Continue supplemental oxygen as needed Appreciate ID Input Poor prognosis especially given no surgical intervention for brain abbess as he is a poor surgical candidate Palliative care on board Continue Vancomycin Continue cefepime, Flagyl Day #3 Appreciate ID Input (Discussed with [facility] ID, Dr. Garzon on 03/15/21) Prognosis remains guarded More alert, awake today H/O Seizures. Continue valproic, Keppra Hypokalemia Replace as needed Monitor DM II Last HbA1c was 6.6 Monitor BGs Depression on Zoloft. 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 DVT Px: heparin SQ Code Status DNI/DNR DISPOSITION: [facility] as able Admission and Anticipated Discharge Date Admission Date: March 10, 2021 Subjective Patient is seen and examined at bedside More alert, awake today Does not follow commands No distress on exam Continue Vanco, cefepime and Flagyl as per ID Afebrile today Review of Systems Review of Systems: Other Physical Exam Physical Exam: Physical Exam: Vitals signs as noted above General Appearance:Moderately built and nourished, no apparent distress Head: Postsurgical scarring changes, in dressing Eyes: normal inspection, EOMI Neck: supple, Trachea midline Respiratory/Chest: Corace breath sounds, No accessory muscle use Cardiovascular: S1, S2, No murmur Abdomen/GI:Soft, Non tender, Bowel sounds present Extremities/Musculoskeletal:normal inspection, B/L LE edema Neurologic/Psych: Complete neuro exam could not be performed, does not follow commands Skin: normal color, warm Results & Data Results & Data ([place]) Vital Signs (Past 12 Hours) Vital Signs Temp Pulse Resp BP Pulse Ox 03/17/21 06:49 36.8 C 97 H 32 H 121/74 95 Laboratory Results Short CBC 03/17/21 Range/Units 06:02 WBC 2.08 L (4.8-10.8) K/uL Hgb 9.4 L (14.0-18.0) g/dL Hct 31.1 L (42-52) % Plt Count 220 (130-400) K/uL BMP 03/17/21 06:02 Sodium 151 H Potassium 3.2 L Chloride 119 H Carbon Dioxide 26 BUN 12 D Creatinine 0.97 Glucose 124 H Calcium 8.0 L (1) Sepsis Acute respiratory failure type: with hypoxia Sepsis acute organ dysfunction status: with acute organ dysfunction Sepsis type: sepsis due to unspecified organism Severe sepsis acute organ dysfunction type: acute respiratory failure Severe sepsis shock status: without septic shock Qualified Code(s): A41.9 - Sepsis, unspecified organism; R65.20 - Severe sepsis without septic shock; J96.01 - Acute respiratory failure with hypoxia (2) AMS (altered mental status) Altered mental status type: unspecified Qualified Code(s): R41.82 - Altered mental status, unspecified (3) Respiratory failure Chronicity: acute Respiratory failure complication: hypoxia Qualified Code(s): J96.01 - Acute respiratory failure with hypoxia
[2021-03-17] MEDS: SIMVASTATIN 10 MG TAB PO SCH (20:14)
[2021-03-17] MEDS: VALPROATE SOD 750 MG in DEXTROSE 5% 50 ML IV SCH (20:35)
[2021-03-18] MEDS: INSULIN ASPART 100 UNITS/ML 3 ML PEN SC SCH ×4 (00:03→18:24)
[2021-03-18] MEDS: CEFEPIME 2,000 MG in SYRINGE 0 ML IV SCH ×3 (00:06→16:46)
[2021-03-18] MEDS: metroNIDAZOLE 500 MG/100 ML BAG IV SCH ×3 (00:06→17:02)
[2021-03-18] MEDS: HEPARIN SOD 5,000 UNIT/0.5 ML VIAL SQ SCH ×3 (05:49→21:26)
[2021-03-18 06:18] LABS: Hematocrit (blood only) 30.9 % (42-52); Hemoglobin 9.3 g/dL (14.0-18.0); Mean Corpuscular Hemoglobin 26.6 pg (25-34); Mean Corpuscular Hgb Conc 30.1 g/dL (32-36); Mean Corpuscular Volume 88.5 fL (80-100); Mean Platelet Volume 9.8 fL (7.4-10.4); Platelet Count 206 K/uL (130-400); RDW Standard Deviation 57.9 fL (36.4-46.3); Red Blood Count 3.49 M/uL (4.7-6.1); White Blood Count 1.73 K/uL (4.8-10.8)
[2021-03-18 06:55] LABS: BUN Creatinine Ratio 12.6 (10-20); Calcium 8.1 mg/dl (8.5-10.1); Creatinine Clr Calc Pharmacy 73.1 ml/min; Est GFR (African American) 101.5 ml/min; Est GFR (Non-African American) 87.6 ml/min; Potassium 3.6 mmol/L (3.5-5.1)
[2021-03-18] MEDS: HYDROCORTISONE 2.5% CR 30 GM TUBE EXT SCH ×2 (09:20→20:18)
[2021-03-18] MEDS: SERTRALINE HCL 100 MG TABLET PO SCH (09:21)
[2021-03-18] MEDS: VALPROATE SOD 500 MG in DEXTROSE 5% 50 ML IV SCH ×2 (09:22→14:45)
[2021-03-18] MEDS: levETIRAcetam 500 MG in 0.9 % SODIUM CHLORIDE 100 ML IV SCH ×2 (09:23→20:18)
[2021-03-18] MEDS: BUTT PASTE (ZINC OXIDE 16%) 171 APPLN/57 GM JAR EXT SCH ×2 (09:32→20:19)
[2021-03-18] MEDS: SILVER SULFADIAZINE 1% CR 50 GM JAR TOP SCH (09:33)
[2021-03-18] MEDS: POTASSIUM CHLORIDE / WTR 10 MEQ/100 ML PLCT IV SCH ×2 (11:51→13:02)
--- NOTE | 2021-03-18 12:55 | Palliative Care Progress Note ---
Date of Service March 18, 2021 Assessment & Plan (1) Palliative care encounter: Mr. Ferguson continues to be very ill and is on various IV antibiotics. His mental status appears to be the same to me and apparently had some ability to move his right arm. He is able to open his eyes, but no meaningful interaction, and does not have ability to follow commands. He has left sided paralysis. Mr. Freguson does have two adult children that live in the [facility] area, but are not involved with decision making and they both were able to visit last week; although the patient was not really interactive. I did discuss his care with Kendra on the phone and in person in his room. We did discuss his decline over previous months and while there may be some response to the IV antibiotics, the overall picture will not, unfortunately change for Navneet. We did discuss permissive aspiration and comfort feeding. Kendra indicated that the patient would not want tube feedings, or permanent feeding tube placement and unfortunately he has not been receiving nutrition. Kendra has stated she does feel he is in the continued trial phase of knowing if the antibiotics will work for Navneet. She has been evaluating his progress over 3-4 day periods. She would like to continue IV abx for another two days prior to starting any IV nutrition. We talked about what Navneet would like to do if he were aware of what was happening. She said that she thinks he would like to do a trial of abx, but would not want to have prolonged course of abx. For now, after lengthy discussion; continue care, including IV antibiotics and BiPAP if necessary; however, no escalation to ICU for pressors, etc. No CPR, shocking, intubation. I talked with the hospitalist and they plan to maximize the antibiotics with infectious diseases recommendations prior to discharge, which has been done and now he is on IV Cefepime and IV Vancomycin. Patient to return to [facility] with [facility] after a few days. Palliative Medicine will continue to follow along. (2) AMS (altered mental status): (3) Hypoxia: (4) Goals of care, counseling/discussion: (5) POLST (Physician Orders for Life-Sustaining Treatment): POLST completed and signed by patients sister Kendra Ferguson indicating: DNR/DNI, [employer] CROSS WORK[employer], trial abx, no artificial nutrition/hydration. Copy placed on chart. Original given to the patients sister Kendra Ferguson. Admission and Anticipated Discharge Date Admission Date: March 10, 2021 Subjective Patient appears back to baseline status. Patient is able to open his eyes but does not answer any questions. Does not follow commands. On IV anabiotics Lisa Aldrich ready to accept with [facility] arranged and ready for arrival. Review of Systems Review of Systems: [place] System Assessment Scale: Pain: 0/3 by observation SOB: 1/3 by observation Anxiety: 0/3 by observation Palliative Performance Scale: 20% Physical Exam Constitutional: + frail appearing and + disheveled ENMT: Nose: + dry nasal mucous membranes Respiratory: normal respiratory effort Auscultation: + diminished lung sounds Cardiovascular: Rate/Rhythm: regular rate and regular rhythm Extremities: normal capillary refill and + edema Gastrointestinal (Abdomen): normal bowel sounds, soft, nontender, no hepatosplenomegaly Skin: + dry skin and + pallor Psychiatric: Orientation: alert Insight: + impaired insight Judgement: + impaired judgement Results & Data ([facility]) Vital Signs (Past 12 Hours) Vital Signs Temp Pulse Resp BP Pulse Ox 03/18/21 11:01 36.7 C 66 18 149/79 H 93 PG Care Time/CCT Total # of Minutes Spent Total Time Spent with Patient: Total time spent is greater than 50% in coordination of care (as documented) at patient's floor/unit and/or counseling patient: 35 minutes with > 50% of that time spent assessing the patient, discussing goals of care with family and collaborating with IDT Coding Level of Care Code 21101 Subseq Hosp Care Lvl 3 Diagnoses Palliative care encounter Z51.5 AMS (altered mental status) R41.82 Altered mental status type: unspecified Hypoxia R09.02 Goals of care, counseling/discussion Z71.89 POLST (Physician Orders for Life-Sustaining Treatment) Z78.9 Time Spent (min) 35 (1) AMS (altered mental status) Altered mental status type: unspecified Qualified Code(s): R41.82 - Altered mental status, unspecified
[2021-03-18] MEDS: DEXTROSE 5% 1,000 ML IV SCH (13:39)
--- NOTE | 2021-03-18 13:49 | Pharmacy Report ---
Pharmacy Abx Dose Short Note - Date of Service March 18, 2021 - Assessment & Plan Assessment 65 year old M receiving vancomycin/cefepime/Flagyl for treatment of brain abscess Day # 9 of antimicrobial therapy. Plan Vancomycin * Random level of 22.9 mcg/mL is supratherapuetic but is only 11 hours after dose was given. Suspect that peak was 27 mcg/mL based upon a [place] of 0.018 hr-1 and half life of 38 hours. * Give vancomycin 1 gm IV x 1 at 2200 (which is when the level is suspected to be 17 mcg/mL). * Goal trough level for abscess : 15 to 20 mcg/mL * Trough ordered for: 03/20/21 in AM (about 36 hours after dose) Pharmacy will continue to follow and will adjust dose/frequency as necessary. Thank you.
[2021-03-18 17:02] LABS: BUN Creatinine Ratio 13.3 (10-20); Calcium 8.3 mg/dl (8.5-10.1); Creatinine Clr Calc Pharmacy 73.9 ml/min; Est GFR (African American) 102.9 ml/min; Est GFR (Non-African American) 88.8 ml/min; Potassium 3.6 mmol/L (3.5-5.1)
--- NOTE | 2021-03-18 17:41 | Hospitalist Progress Note ---
Date of Service March 18, 2021 Assessment & Plan (1) Sepsis: (2) AMS (altered mental status): (3) Hypoxia: (4) Respiratory failure: (5) Acute respiratory failure with hypoxia: Recurrent Aspiration pneumonia ? Brain abscess Metabolic/Septic encephalopathy Possible sepsis. --CT head: Extensive postsurgical changes as described above. Since the prior study, the complex fluid collection subjacent to the left craniotomy site has developed gas. This raises the possibility of an infected collection. Neurosurgical consultation recommended. --CT chest:Extensive right lower lobe airspace opacity with volume loss. This could reflect a pneumonia, aspiration pneumonitis or atelectasis. Moderate secretions within the airways, as described above. Mild left lower lobe airspace opacity. No significant change in a left axillary mass/pathologic lymph node since chest CT of June 03, 2019. --CT abd. / pelvis: No acute process within the abdomen or pelvis on unenhanced exam. Mild right collecting system dilatation, unchanged and CT of June 22, 2019. No bowel obstruction. Trace fluid within the pelvis which may be related to the shunt catheter. -Initially on Zosyn, vancomycin empirically -Blood Cx: Negative -Appreciate Palliative care input -Patient not a surgical candidate as discussed with Thien neurosurgery and neurology by prior hospitalist -Consider comfort feeds as able -No tube feeds as per family -Continue supplemental oxygen as needed Appreciate ID Input Poor prognosis especially given no surgical intervention for brain abbess as he is a poor surgical candidate Palliative care on board Continue Vancomycin Continue cefepime, Flagyl Day #4 Appreciate ID Input (Discussed with Thien ID, Dr. Garzon on 03/15/21) Prognosis remains guarded Palliative care following Transition to hospice eventually if no improvement as requested by family Hypernatremia Due to dehydration IV fluids could have contributed as well Change IV fluids to D5W Monitor sodium levels H/O Seizures. Continue valproic, Keppra Hypokalemia Replace as needed Monitor DM II Last HbA1c was 6.6 Monitor BGs Depression on Zoloft. 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 DVT Px: heparin SQ Code Status DNI/DNR DISPOSITION: [facility] as able Admission and Anticipated Discharge Date Admission Date: March 10, 2021 Subjective Patient is seen and examined at bedside Alert, awake No significant change from yesterday Does not follow commands No distress on exam Continue Vanco, cefepime and Flagyl as per ID Remains Afebrile Discussed with palliative care today Developing hypernatremia given NPO Review of Systems Review of Systems: Other Physical Exam Physical Exam: Physical Exam: Vitals signs as noted above General Appearance:Moderately built and nourished, no apparent distress Head: Postsurgical scarring changes, in dressing Eyes: normal inspection, EOMI Neck: supple, Trachea midline Respiratory/Chest: Corace breath sounds, No accessory muscle use Cardiovascular: S1, S2, No murmur Abdomen/GI:Soft, Non tender, Bowel sounds present Extremities/Musculoskeletal:normal inspection, B/L LE edema Neurologic/Psych: Complete neuro exam could not be performed, does not follow commands Skin: normal color, warm Results & Data Results & Data ([facility]) Vital Signs (Past 12 Hours) Vital Signs Temp Pulse Resp BP Pulse Ox 03/18/21 17:04 36.9 C 61 18 130/87 100 03/18/21 11:01 36.7 C 66 18 149/79 H 93 Laboratory Results Short CBC 03/18/21 Range/Units 05:29 WBC 1.73 L (4.8-10.8) K/uL Hgb 9.3 L (14.0-18.0) g/dL Hct 30.9 L (42-52) % Plt Count 206 (130-400) K/uL BMP 03/18/21 03/18/21 05:29 15:47 Sodium 152 H 151 H Potassium 3.6 3.6 Chloride 120 H 119 H Carbon Dioxide 28 26 BUN 12 12 Creatinine 0.92 0.91 Glucose 121 H 115 H Calcium 8.1 L 8.3 L (1) Sepsis Acute respiratory failure type: with hypoxia Sepsis acute organ dysfunction status: with acute organ dysfunction Sepsis type: sepsis due to unspecified organism Severe sepsis acute organ dysfunction type: acute respiratory failure Severe sepsis shock status: without septic shock Qualified Code(s): A41.9 - Sepsis, unspecified organism; R65.20 - Severe sepsis without septic shock; J96.01 - Acute respiratory failure with hypoxia (2) AMS (altered mental status) Altered mental status type: unspecified Qualified Code(s): R41.82 - Altered mental status, unspecified (3) Respiratory failure Chronicity: acute Respiratory failure complication: hypoxia Qualified Code(s): J96.01 - Acute respiratory failure with hypoxia
[2021-03-18] MEDS: SIMVASTATIN 10 MG TAB PO SCH (20:19)
[2021-03-18] MEDS: VALPROATE SOD 750 MG in DEXTROSE 5% 50 ML IV SCH (20:25)
[2021-03-18] MEDS ORDERED: VANCOMYCIN HCL 1,000 MG in SODIUM CHLORIDE 0.9% 250 ML IV ONE (22:00)
[2021-03-19] MEDS: INSULIN ASPART 100 UNITS/ML 3 ML PEN SC SCH ×4 (00:12→18:14)
[2021-03-19] MEDS: metroNIDAZOLE 500 MG/100 ML BAG IV SCH ×3 (00:20→18:14)
[2021-03-19] MEDS: CEFEPIME 2,000 MG in SYRINGE 0 ML IV SCH ×3 (00:20→18:13)
[2021-03-19] MEDS: HEPARIN SOD 5,000 UNIT/0.5 ML VIAL SQ SCH ×3 (05:15→21:20)
[2021-03-19 05:59] LABS: Eosinophils # (auto) 0.04 K/uL (0-0.5); Eosinophils % (auto) 1.8 %; Hematocrit (blood only) 32.2 % (42-52); Hemoglobin 9.6 g/dL (14.0-18.0); Immature Granulocytes # (auto) 0.02 K/uL (0.00-0.02); Immature Granulocytes % (auto) 0.9 %; Lymphocytes % (auto) 22.6 %; Mean Corpuscular Hemoglobin 26.5 pg (25-34); Mean Corpuscular Hgb Conc 29.8 g/dL (32-36); Mean Platelet Volume 9.9 fL (7.4-10.4); Monocytes % (auto) 4.5 %; Neutrophils # (auto) 1.55 K/uL (1.4-6.5); Neutrophils % (auto) 70.2 %; Platelet Count 216 K/uL (130-400); RDW Coefficient of Variation 17.8 % (11.5-14.5); RDW Standard Deviation 58.6 fL (36.4-46.3); Red Blood Count 3.62 M/uL (4.7-6.1); White Blood Count 2.21 K/uL (4.8-10.8)
[2021-03-19 06:05] LABS: BUN Creatinine Ratio 14.3 (10-20); Calcium 7.9 mg/dl (8.5-10.1); Creatinine Clr Calc Pharmacy 79.1 ml/min; Est GFR (African American) 106.7 ml/min; Est GFR (Non-African American) 92.1 ml/min; Potassium 3.6 mmol/L (3.5-5.1)
[2021-03-19] MEDS ORDERED: CEFEPIME CONSULT ACTIVE PRN (07:59)
[2021-03-19] MEDS: VALPROATE SOD 500 MG in DEXTROSE 5% 50 ML IV SCH ×2 (09:12→13:26)
[2021-03-19] MEDS: HYDROCORTISONE 2.5% CR 30 GM TUBE EXT SCH ×2 (09:20→21:18)
[2021-03-19] MEDS: SERTRALINE HCL 100 MG TABLET PO SCH (09:20)
[2021-03-19] MEDS: SILVER SULFADIAZINE 1% CR 50 GM JAR TOP SCH (09:22)
[2021-03-19] MEDS: BUTT PASTE (ZINC OXIDE 16%) 171 APPLN/57 GM JAR EXT SCH ×2 (09:22→21:19)
[2021-03-19] MEDS: levETIRAcetam 500 MG in 0.9 % SODIUM CHLORIDE 100 ML IV SCH ×2 (11:15→21:19)
[2021-03-19] MEDS: DEXTROSE 5% 1,000 ML IV SCH (11:35)
--- NOTE | 2021-03-19 14:02 | Hospitalist Progress Note ---
Date of Service March 19, 2021 Assessment & Plan (1) Sepsis: (2) AMS (altered mental status): (3) Hypoxia: (4) Respiratory failure: (5) Acute respiratory failure with hypoxia: Recurrent Aspiration pneumonia ? Brain abscess Metabolic/Septic encephalopathy Possible sepsis. --CT head: Extensive postsurgical changes as described above. Since the prior study, the complex fluid collection subjacent to the left craniotomy site has developed gas. This raises the possibility of an infected collection. Neurosurgical consultation recommended. --CT chest:Extensive right lower lobe airspace opacity with volume loss. This could reflect a pneumonia, aspiration pneumonitis or atelectasis. Moderate secretions within the airways, as described above. Mild left lower lobe airspace opacity. No significant change in a left axillary mass/pathologic lymph node since chest CT of June 03, 2019. --CT abd. / pelvis: No acute process within the abdomen or pelvis on unenhanced exam. Mild right collecting system dilatation, unchanged and CT of June 22, 2019. No bowel obstruction. Trace fluid within the pelvis which may be related to the shunt catheter. -Initially on Zosyn, vancomycin empirically -Blood Cx: Negative -Appreciate Palliative care input -Patient not a surgical candidate as discussed with Thien neurosurgery and neurology by prior hospitalist -Consider comfort feeds as able -No tube feeds as per family -Continue supplemental oxygen as needed Appreciate ID Input Poor prognosis especially given no surgical intervention for brain abbess as he is a poor surgical candidate Palliative care on board Continue Vancomycin Continue cefepime, Flagyl Day #5 Appreciate ID Input (Discussed with fadi ID, Dr. Garzon on 03/15/21) Prognosis remains guarded Palliative care following Transition to hospice eventually if no improvement as requested by family Clinically seemed to be deteriorating Hypernatremia Due to dehydration Continue gentle IV fluids Monitor sodium levels H/O Seizures. Continue valproic, Keppra Hypokalemia Replace as needed Monitor DM II Last HbA1c was 6.6 Monitor BGs Depression on Zoloft. 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 DVT Px: heparin SQ Code Status DNI/DNR DISPOSITION: [facility] as able Admission and Anticipated Discharge Date Admission Date: March 10, 2021 Subjective Patient is seen and examined at bedside Less Alert, awake today during my encounter Noted drainage from head Does not follow commands No distress on exam Continue Vanco, cefepime and Flagyl as per ID Remains Afebrile Palliative care following Hypernatremia slowly improving Review of Systems Review of Systems: All systems reviewed & are unremarkable except as noted in HPI & below Physical Exam Physical Exam: Physical Exam: Vitals signs as noted above General Appearance:Moderately built and nourished, no apparent distress Head: Postsurgical scarring changes, in dressing, +Drainage Eyes: normal inspection, EOMI Neck: supple, Trachea midline Respiratory/Chest: Corace breath sounds, No accessory muscle use Cardiovascular: S1, S2, No murmur Abdomen/GI:Soft, Non tender, Bowel sounds present Extremities/Musculoskeletal:normal inspection, B/L LE edema Neurologic/Psych: Complete neuro exam could not be performed, does not follow commands Skin: normal color, warm Results & Data Results & Data ([place]) Vital Signs (Past 12 Hours) Vital Signs Temp Pulse Resp BP Pulse Ox 03/19/21 06:46 36.8 C 64 22 134/69 95 Laboratory Results Short CBC 03/19/21 Range/Units 05:23 WBC 2.21 L (4.8-10.8) K/uL Hgb 9.6 L (14.0-18.0) g/dL Hct 32.2 L (42-52) % Plt Count 216 (130-400) K/uL BMP 03/18/21 03/19/21 15:47 05:23 Sodium 151 H 149 H Potassium 3.6 3.6 Chloride 119 H 118 H Carbon Dioxide 26 28 BUN 12 12 Creatinine 0.91 0.85 Glucose 115 H 116 H Calcium 8.3 L 7.9 L (1) Sepsis Acute respiratory failure type: with hypoxia Sepsis acute organ dysfunction status: with acute organ dysfunction Sepsis type: sepsis due to unspecified organism Severe sepsis acute organ dysfunction type: acute respiratory failure Severe sepsis shock status: without septic shock Qualified Code(s): A41.9 - Sepsis, unspecified organism; R65.20 - Severe sepsis without septic shock; J96.01 - Acute respiratory failure with hypoxia (2) AMS (altered mental status) Altered mental status type: unspecified Qualified Code(s): R41.82 - Altered mental status, unspecified (3) Respiratory failure Chronicity: acute Respiratory failure complication: hypoxia Qualified Code(s): J96.01 - Acute respiratory failure with hypoxia
--- NOTE | 2021-03-19 17:47 | Palliative Care Progress Note ---
Date of Service March 19, 2021 Assessment & Plan (1) Palliative care encounter: Mr. Ferguson continues to be very ill and is on various IV antibiotics. His mental status appears to worsening each time I see him. He is able to open his eyes, but no meaningful interaction, and does not have ability to follow commands. He has left sided paralysis. Today, he appeared to be tachypnic, but then started breathing less rapidly when he woke up. Mr. Ferguson does have two adult children that live in the [facility] area, but are not involved with decision making and they both were able to visit last week; although the patient was not really interactive. Per previous conversations with Kendra we did discuss his decline over previous months and while there may be some response to the IV antibiotics, the overall picture will not, unfortunately change for Navneet, which continues to be evident to me today. We did discuss permissive aspiration and comfort feeding on previous encounters. Kendra indicated that the patient would not want tube feedings, or permanent feeding tube placement and unfortunately he has not been receiving nutrition. Kendra indicated that she wanted to re-evaluate him on Thursday and make a decision regarding transition away from continued IV antibiotics course or continue the course and start IV nutrition; although, I strongly feel this would be counterproductive with Mr. Ferguson's clinical prognosis. We talked about what Navneet would like to do if he were aware of what was happening. She said that she thinks he would like to do a trial of abx, but would not want to have prolonged course of abx. For now, after lengthy discussion; continue care, including IV antibiotics and BiPAP if necessary; however, no escalation to ICU for pressors, etc. No CPR, shocking, intubation. I talked with the hospitalist and plan is to continue IV Cefepime and IV Vancomycin until tomorrow afternoon when Kendra comes to the hospital and can discuss further. Patient to return to [facility] with [facility] on , or transition to full comfort measures if he declines prior to then. Palliative Medicine will continue to follow along. (2) AMS (altered mental status): (3) Hypoxia: (4) Goals of care, counseling/discussion: (5) POLST (Physician Orders for Life-Sustaining Treatment): POLST completed and signed by patients sister Kendra Ferguson indicating: DNR/DNI, INST[employer]OLDING [employer], trial abx, no artificial nutrition/hydration. Copy placed on chart. Original given to the patients sister Kendra Ferguson. Admission and Anticipated Discharge Date Admission Date: March 10, 2021 Subjective patient more lethargic today Less interactive Did open his right eye slightly I do think he has declined over the past 24 hours. Please see A/P for further information. Review of Systems Review of Systems: [place] System Assessment Scale: Pain: 0/3 by observation SOB: 1/3 by observation Anxiety: 0/3 by observation Palliative Performance Scale: 20% Physical Exam Constitutional: + frail appearing and + disheveled ENMT: Nose: + dry nasal mucous membranes Respiratory: normal respiratory effort Auscultation: + diminished lung sounds Cardiovascular: Rate/Rhythm: regular rate and regular rhythm Extremities: normal capillary refill and + edema Gastrointestinal (Abdomen): normal bowel sounds, soft, nontender, no hepatosplenomegaly Skin: + dry skin and + pallor Psychiatric: Orientation: alert Insight: + impaired insight Judgement: + impaired judgement Results & Data ([facility]) Vital Signs (Past 12 Hours) Vital Signs Temp Pulse Resp BP Pulse Ox 03/19/21 06:46 36.8 C 64 22 134/69 95 PG Care Time/CCT Total # of Minutes Spent Total Time Spent with Patient: Total time spent is greater than 50% in coordination of care (as documented) at patient's floor/unit and/or counseling patient: 25 minutes with >50% of that time spent assessing the patient, evaluating symptom management and collaborating with the IDT Coding Level of Care Code 50534 Subseq Hosp Care Lvl 2 Diagnoses Palliative care encounter Z51.5 AMS (altered mental status) R41.82 Altered mental status type: unspecified Hypoxia R09.02 Goals of care, counseling/discussion Z71.89 POLST (Physician Orders for Life-Sustaining Treatment) Z78.9 Time Spent (min) 25 (1) AMS (altered mental status) Altered mental status type: unspecified Qualified Code(s): R41.82 - Altered mental status, unspecified
[2021-03-19] MEDS: SIMVASTATIN 10 MG TAB PO SCH (20:24)
[2021-03-19] MEDS: VALPROATE SOD 750 MG in DEXTROSE 5% 50 ML IV SCH (21:19)
[2021-03-20] MEDS: INSULIN ASPART 100 UNITS/ML 3 ML PEN SC SCH ×3 (00:01→13:03)
[2021-03-20] MEDS: CEFEPIME 2,000 MG in SYRINGE 0 ML IV SCH ×2 (00:59→08:51)
[2021-03-20] MEDS: metroNIDAZOLE 500 MG/100 ML BAG IV SCH ×2 (01:00→10:24)
[2021-03-20] MEDS: HEPARIN SOD 5,000 UNIT/0.5 ML VIAL SQ SCH ×2 (06:00→13:11)
[2021-03-20 06:50] LABS: Basophils # (auto) 0.01 K/uL (0-0.2); Basophils % (auto) 0.4 %; Eosinophils # (auto) 0.06 K/uL (0-0.5); Eosinophils % (auto) 2.1 %; Hematocrit (blood only) 34.3 % (42-52); Hemoglobin 10.2 g/dL (14.0-18.0); Immature Granulocytes # (auto) 0.04 K/uL (0.00-0.02); Immature Granulocytes % (auto) 1.4 %; Lymphocytes # (auto) 0.33 K/uL (1.2-3.4); Lymphocytes % (auto) 11.6 %; Mean Corpuscular Hemoglobin 26.2 pg (25-34); Mean Corpuscular Hgb Conc 29.7 g/dL (32-36); Mean Corpuscular Volume 88.2 fL (80-100); Mean Platelet Volume 9.8 fL (7.4-10.4); Monocytes % (auto) 14.1 %; Neutrophils % (auto) 70.4 %; Platelet Count 195 K/uL (130-400); RDW Coefficient of Variation 17.8 % (11.5-14.5); RDW Standard Deviation 57.7 fL (36.4-46.3); Red Blood Count 3.89 M/uL (4.7-6.1); White Blood Count 2.84 K/uL (4.8-10.8)
[2021-03-20 07:23] LABS: BUN Creatinine Ratio 15.3 (10-20); Calcium 8.8 mg/dl (8.5-10.1); Creatinine Clr Calc Pharmacy 76.4 ml/min; Est GFR (African American) 105.2 ml/min; Est GFR (Non-African American) 90.8 ml/min; Potassium 3.1 mmol/L (3.5-5.1)
--- NOTE | 2021-03-20 08:19 | Pharmacy Report ---
Pharmacy Abx Dose Short Note - Date of Service March 20, 2021 - Assessment & Plan Assessment 65 year old M receiving vancomycin/cefepime/Flagyl for treatment of brain abscess Day # 11 of antimicrobial therapy. Plan Vancomycin * Random level this morning with AM labs of 18.7 mcg/mL is therapeutic * Will give a one time dose of Vancomycin 1,000mg IV x 1 and then re-check random level tomorrow with AM labs to confirm dosing interval. Estimating ongoing dosing will be [id number] * Goal trough level : 15 to 20 mcg/mL Pharmacy will continue to follow and will adjust dose/frequency as necessary. Thank you.
[2021-03-20] MEDS: HYDROCORTISONE 2.5% CR 30 GM TUBE EXT SCH (08:51)
[2021-03-20] MEDS: VALPROATE SOD 500 MG in DEXTROSE 5% 50 ML IV SCH ×2 (08:52→13:11)
[2021-03-20] MEDS: SILVER SULFADIAZINE 1% CR 50 GM JAR TOP SCH (08:52)
[2021-03-20] MEDS: BUTT PASTE (ZINC OXIDE 16%) 171 APPLN/57 GM JAR EXT SCH (08:52)
[2021-03-20] MEDS ORDERED: VANCOMYCIN HCL 1,000 MG in SODIUM CHLORIDE 0.9% 250 ML IV ONE (09:00)
[2021-03-20] MEDS: SERTRALINE HCL 100 MG TABLET PO SCH (10:23)
--- NOTE | 2021-03-20 11:06 | Hospitalist Progress Note ---
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 Admitted with septic/metabolic encephalopathy/altered mental status secondary to intracranial brain abscess Extremely poor prognosis (3) Hypoxia: (4) Respiratory failure: (5) Acute respiratory failure with hypoxia: Due to aspiration pneumonitis Admitted with sepsis secondary to brain abscess/recurrent aspiration pneumonia --CT head: Extensive postsurgical changes as described above. Since the prior study, the complex fluid collection subjacent to the left craniotomy site has developed gas. This raises the possibility of an infected collection. N eurosurgical consultation recommended. --CT chest:Extensive right lower lobe airspace opacity with volume loss. This could reflect a pneumonia, aspiration pneumonitis or atelectasis. Moderate secretions within the airways, as described above. Mild left lower lobe airspace opacity. Not a candidate for surgical deep resection of brain abscess as discussed with Thien neurosurgery and neurology by prior hospitalist Overall prognosis remains extremely poor -Initially on Zosyn, vancomycin empirically -Blood Cx: Negative -Appreciate Palliative care input Appreciate ID Input (Discussed with Thien ID, Dr. Garzon on 03/15/21) Poor prognosis especially given no surgical intervention for brain abbess as he is a poor surgical candidate Antibiotic adjusted cefepime, Flagyl /vancomycin Transition to hospice eventually if no improvement as requested by family Patient is clinically deteriorating, no improvement with trial of IV antibiotics Patient's sister/POA present at bedside, Hoping to patient return to [facility] with hospice care Able to change the goal of care to comfort while in hospital Hypernatremia IV fluid discontinued H/O Seizures. Continue valproic, Keppra-to prevent seizure as part of the comfort care DM II Insulin and BSG discontinued as part of the comfort care Code Status DNI/DNR DISPOSITION: Condition to comfort care/hospice now, Return to [facility] with hospice care tomorrow Plan of care explained to sister in detail, all questions answered Admission and Anticipated Discharge Date Admission Date: March 10, 2021 Subjective Patient remains obtunded, sister present at bedside Had long discussion with sister, aware of poor prognosis and continued decline medical condition, Trial of IV antibiotic has not made any change in clinical status Sister aware of incurable/nontreatable brain abscess/sepsis Agreeable to transition care to comfort/symptom management only discontinue multiple IV antibiotics. Patient is transition to comfort care Plan to return back to [facility] on hospice tomorrow Physical Exam Physical Exam: Minimal exam for comfort care. General: Chronically ill appearing male, obtunded , HEENT Lungs: Coarse lung sounds, scattered crackles Results & Data Results & Data ([facility]) Vital Signs (Past 12 Hours) Vital Signs Temp Pulse Resp BP Pulse Ox 03/20/21 06:34 36.5 C 69 22 128/72 91 03/20/21 00:00 37 C 71 20 144/78 H 97 (1) Sepsis Acute respiratory failure type: with hypoxia Sepsis acute organ dysfunction status: with acute organ dysfunction Sepsis type: sepsis due to unspecified organism Severe sepsis acute organ dysfunction type: acute respiratory failure Severe sepsis shock status: without septic shock Qualified Code(s): A41.9 - Sepsis, unspecified organism; R65.20 - Severe sepsis without septic shock; J96.01 - Acute respiratory failure with hypoxia (2) AMS (altered mental status) Altered mental status type: unspecified Qualified Code(s): R41.82 - Altered mental status, unspecified (3) Respiratory failure Chronicity: acute Respiratory failure complication: hypoxia Qualified Code(s): J96.01 - Acute respiratory failure with hypoxia
[2021-03-20] MEDS: levETIRAcetam 500 MG in 0.9 % SODIUM CHLORIDE 100 ML IV SCH ×2 (11:42→21:50)
[2021-03-20] MEDS: DEXTROSE 5% 1,000 ML IV SCH (12:19)
[2021-03-20] MEDS ORDERED: LORazepam 0.5 MG/1 ML VIAL IV PRN (14:29)
[2021-03-20] MEDS ORDERED: ONDANSETRON INJ 2 MG/ML 2 ML VIAL IV PRN (14:29)
[2021-03-20] MEDS ORDERED: ACETAMINOPHEN 650 MG SUPP PR PRN (14:29)
[2021-03-20] MEDS ORDERED: MoRPHine SULFATE 2 MG/ML CARP IV PRN (14:29)
[2021-03-20] MEDS ORDERED: LORazepam 2 MG/4 ML VIAL IV PRN (14:29)
[2021-03-20] MEDS ORDERED: ATROPINE SULFATE 1% OP SOLN 5 ML BTL SL PRN (14:43)
[2021-03-20] MEDS ORDERED: LORazepam 0.5 MG/1 ML VIAL IV SCH (14:45)
[2021-03-20] MEDS: VALPROATE SOD 750 MG in DEXTROSE 5% 50 ML IV SCH (21:49)
[2021-03-21] MEDS: VALPROATE SOD 500 MG in DEXTROSE 5% 50 ML IV SCH ×2 (08:37→14:01)
[2021-03-21] MEDS: levETIRAcetam 500 MG in 0.9 % SODIUM CHLORIDE 100 ML IV SCH (08:37)
--- NOTE | 2021-03-21 14:09 | Discharge Summary ---
Date of Service March 21, 2021 Admission HPI Per Admitting Provider DICTATED BY: Nickolas Coy MD DATE OF ADMISSION: 03/10/2021 CHIEF COMPLAINT: Altered mental status. 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 The patient is bedbound. The patient was recently in the hospital on 02/26/2021 with seizures and aspiration pneumonitis. He was treated with antibiotics and Keppra was added to his regimen, also on valproic acid. Patient before the last admission, he was full code and he was eating regular food and as per sister who is also at bedside he was communicating fine, but he got discharged on 03/04/2021, the sister says she saw him few days before discharge and was talking okay at that time, but on and off,t he was sleeping, more drowsy. As per long term in [facility], the patient was on pureed diet. Before he used to eat by himself. Now they have to feed him and as per the sister the food stayed in the mouth for a long time, he was not able to swallow it okay, but last few days, he was having fever. They checked for UA and was positive and was started on antibiotic and today evening again he had a temperature spike of 101 and has been more lethargic. They also noticed some drainage from his skull and when nurse checked him back at 9.30 p.m., he had temperature of 101 and he is saturating only 78-81%. They placed him on oxygen. Heart rate was 107, blood pressure is okay and was transferred here. The patient is mostly unresponsive. He is not able to answer any questions. Requiring high oxygen levels. He was placed on high-flow. Sister is in the room. She says during last Thursday the long term called about code status and she states she discussed with her father who is 91-year-old and they wanted him to be DNR/DNI and no feeding tubes. He is still having temp spike of 39.6 in the ER, saturating 94% on 30 liters high flow, blood pressure is okay. Heart rates are okay. Leukopenia. Lactic acid is okay at 1.4. SARS-CoV-2 PCR negative. As per nursing staff, there is no nausea, vomiting. No diarrhea, Principal Diagnosis Altered mental status Acute on chronic hypoxemic respiratory failure Palliative care Hospice Discharge Exam Exam for comfort care: General: Chronically ill-appearing male, currently sedated, no sign of distress Multiple family members present at bedside Lungs: Diminished, no rales or rhonchi Neuro, patient remains obtunded Discharge Data Allergies Allergy/AdvReac Type Severity Reaction Status Date / Time No Known Allergies Allergy Mild NKA Verified 03/09/21 23:55 Consultations 03/10/21 02:35 ED Decision to Admit Stat 03/10/21 12:06 Consult Palliative Care Routine 03/14/21 08:00 Consult Infectious Diseases Routine Ordered Studies 03/10/21 01:46 CT head/brain wo/w con Urgent 03/10/21 04:50 CT abd pelvis wo con Urgent CT chest diagnostic wo con Urgent Hospital Course (1) Sepsis: (2) AMS (altered mental status): H/O Squamous cell carcinoma of skull H/O pituitary Adenoma S/P resections and multiple surgeries to the skull Residual left hemiparesis and wheelchair bound 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 Admitted with septic/metabolic encephalopathy/altered mental status secondary to intracranial brain abscess Extremely poor prognosis Goal of care transition to comfort care while in hospital, Patient is being discharged to [facility] with hospice (3) Hypoxia: (4) Respiratory failure: (5) Acute respiratory failure with hypoxia: Due to aspiration pneumonitis Admitted with sepsis secondary to brain abscess/recurrent aspiration pneumonia --CT head: Extensive postsurgical changes as described above. Since the prior study, the complex fluid collection subjacent to the left craniotomy site has developed gas. This raises the possibility of an infected collection. Neurosurgical consultation recommended. --CT chest:Extensive right lower lobe airspace opacity with volume loss. This could reflect a pneumonia, aspiration pneumonitis or atelectasis. Moderate secretions within the airways, as described above. Mild left lower lobe airspace opacity. Not a candidate for surgical deep resection of brain abscess as discussed with [facility] neurosurgery and neurology by prior hospitalist Overall prognosis remains extremely poor -Initially on Zosyn, vancomycin empirically -Blood Cx: Negative -Appreciate Palliative care input Appreciate ID Input (Discussed with Thien WAGONER, Dr. Fowler on 03/15/21) Poor prognosis especially given no surgical intervention for brain abbess as he is a poor surgical candidate Hoping to patient return to [facility] with hospice care Able to change the goal of care to comfort while in hospital H/O Seizures. Unable to take p.o. antiseizure meds, Change to scheduled dose of sublingual Ativan, Code Status DNI/DNR DISPOSITION: Return to [facility] with hospice care today Total Time Total Time Spent Total Time Spent (In Minutes): 35 minutes Total Time Includes: Examination of the Patient, Discharge Planning, Medication Reconciliation and Other (To provide counseling to family members present at bedside) Discharge Plan Discharge Items Patient Disposition: Hospice - Medical Facility Reason For Visit: AMS, FEVER Discharge Diagnosis: Altered mental status Acute on chronic hypoxemic respiratory failure Palliative care Hospice Activity: As commented below Activity Comment: Bedrest, change position as needed for comfort Non-emergency contact: Primary Care Provider Call non-emergency contact if: your pain is not controlled Follow-up/Referrals: [facility] [Primary Care Provider] - Diet: Nothing by Mouth Addtl Attending Provider Instructions: Patient is discharged on hospice Pending Studies at Discharge: No Stand-Alone Forms: [facility] Skilled Items Patient informed of condition?: Yes DNR: Yes Discharge Level of Care: Other Communicable Disease: No Discharge Prognosis: Deteriorating Lines: None Urinary Catheter: Yes Medications and DC Order Prescriptions: New atropine 1 % Drops 4 drp sublingual Q1H PRN (Reason: increased secreation ) Qty: 15 RF: 0 morphine 20 mg/5 mL (4 mg/mL) solution 10 mg PO Q4H PRN (Reason: pain/air hunger) Qty: 30 RF: 0 lorazepam [Ativan] 0.5 mg tablet 0.5 mg sublingual Q8 Qty: 90 RF: 0 lorazepam [Ativan] 1 mg tablet 1 mg PO Q4H PRN (Reason: anxiety) Qty: 30 RF: 0 Continued ketoconazole 2 % shampoo 1 applic topical 2XWK RF: 0 silver sulfadiazine 1 % Cream 1 applic TOPICAL DAILY RF: 0 acetaminophen 650 mg Suppository 650 mg IA Q6H PRN (Reason: Fever) RF: 0 hydrocortisone 2.5 % Cream 1 applic TOPICAL BID RF: 0 zinc oxide 40 % Ointment 1 applic TOPICAL BID RF: 0 Discontinued divalproex 500 mg tablet,delayed release (DR/EC) 500 mg PO TID RF: 0 sertraline 100 mg tablet 100 mg PO QAM RF: 0 famotidine 20 mg tablet 20 mg PO QAM RF: 0 divalproex 250 mg tablet extended release 24 hr 250 mg PO HS RF: 0 simvastatin 10 mg tablet 10 mg PO HS RF: 0 levetiracetam [Keppra] 500 mg Tablet 500 mg PO BID RF: 0 levetiracetam [Keppra] 250 mg Tablet 250 mg PO BID RF: 0 Boost Plus Liquid 1 ea PO BID RF: 0 acetaminophen [Tylenol] 325 mg Tablet 650 mg PO Q4H MDD 3 GRAMS/24 HOURS PRN (Reason: FEVER >100.4/PAIN) RF: 0 Discharge Orders: Discharge Order (Routine); Ordered 03/21/21 Ordered By: Sallie Kaur Admission Data Admit Date/Time: 03/10/21 02:59 Attending Provider: Sallie Kaur Admit Provider: Nickolas Coy Primary Care Provider: Mark Obrien Other Providers: Mark Obrien ; [facility],Home [facility] ; Nickolas Coy ; Theresa Aguilar ; Bismark Walsh ; Satinder Joseph ; Thong Shah I. ; Eddie Aden II ; Lizabeth Fowler ; Don Herbert ; Joss Diaz
== END 2021-03-21 15:27 | disposition hospice, inpatient (51) | DRG 871 ==
LOC: ED 23:02 → 2S 03-10 02:59 → SUATTDRO 03-10 02:59 → 2S 03-10 04:44 → 3W 03-15 14:46